=== PATIENT | male | born 1995 | race African-American/Black ===

== ENCOUNTER 2019-06-09 19:56 | Emergency (ER) | payer MEDICARE, MEDICAID, SELFPAY ==
--- NOTE | ~2019-06-09 | XR_ITS ---
EXAMINATION: XR hand LT min 3V DATE: 06/09/2019 20:15 INDICATION: Pain and swelling at the left third metacarpal post basketball injury TECHNIQUE: Posteroanterior, oblique and lateral views of the left hand were obtained. COMPARISON: None. FINDINGS: Oblique extra-articular fracture of the left third metacarpal extending from the radial side of the m id diaphysis to the ulnar side of the proximal metaphyseal region. There is approximately 1 mm ulnar displacement and 1-2 mm proximal migration. No other fractures identified. Joint spaces are normal. S oft tissue swelling over the dorsum of the hand. IMPRESSION: 1. Minimally displaced extra articular third metacarpal diaphyseal fracture. Reviewed, dictated and finalized at location A. ER ARRANGER
[2019-06-09 19:57] VITALS: BP 138/62; PULSE 78; RESP 22; TEMP 37; O2SAT 100
--- NOTE | 2019-06-09 20:07 | ED.UPPEXIN ---
HPI - Extremity Injury (Upper) General Chief Complaint: Extremity Injury, Upper Stated Complaint: L hand injury Time Seen by Provider: 06/09/19 20:02 Source: patient Mode of arrival: ambulatory Limitations: no limitations History of Present Illness HPI narrative: This is a 24 year old male that presents to the ER for left hand injury 2 days ago. Reports he was playing basketball and when he was coming down from shooting the ball his friend hit his hand. Reports some swelling to the area and pain with ROM of the fingers. Denies decreased ROM or numbness. Related Data Home Medications Medication Instructions Recorded Confirmed atenolol 05/23/19 Allergies Allergy/AdvReac Type Severity Reaction Status Date / Time No Known Allergies Allergy Unknown Unverified 05/23/19 20:56 Review of Systems Review of Systems: Narrative: CONSTITUTIONAL: Denies fever SKIN: Denies rash MUSCULOSKELETAL: Reports joint pain, and myalgia. NEUROLOGIC: Denies numbness All systems reviewed & are unremarkable except as noted in HPI and below PMFSH Past Medical History Medical History (Updated 06/09/19 @ 20:41 by Libertad Mireles PA-C) Bipolar 1 disorder Hypertrophic cardiomyopathy Pacemaker Piwoi-Qedadokpw-Hukoq (WPW) syndrome Surgical History Surgical History (Updated 05/23/19 @ 21:11 by Tosin Mckenna) History of heart surgery Social History Social History (Updated 05/23/19 @ 21:11 by Tosin Mckenna) Smoking status: Never smoker Substance use: current Substance use type: marijuana Gender identity (if verbalized by the patient): Male Exam Narrative: Exam Narrative: GENERAL: Well-appearing, well-nourished, and in no acute distress. HEAD: Normocephalic, atraumatic. EYES: EOMI. EXTREMITIES: Normal range of motion. Mild swelling about the left hand dorsal surface. Normal sensation. Normal radial pulses SKIN: Warm, dry, no rash. NEURO: No focal deficits. Alert and oriented x3. PSYCH: Normal mood and affect Course Consultations Consultation #1: Spoke with Dr. Ribeiro about patient work-up will follow-up in clinic Date: 06/09/19 Time: 20:39 Vital Signs Vital signs: Vital Signs Temperature 98.6 F 06/09/19 19:57 Pulse Rate 78 06/09/19 19:57 Respiratory Rate 22 H 06/09/19 19:57 Blood Pressure 138/62 06/09/19 19:57 Pulse Oximetry 100 06/09/19 19:57 Temperature 98.6 F 06/09/19 19:57 Pulse Rate 78 06/09/19 19:57 Respiratory Rate 22 H 06/09/19 19:57 Blood Pressure 138/62 06/09/19 19:57 Pulse Oximetry 100 06/09/19 19:57 Procedures Orthopedic Splinting/Casting Injury #1: Splinting/Casting Date: 06/09/19 Splinting/Casting Time: 20:39 Side: left Upper Extremity Injury Location: hand Upper Extremity Immobilizer: volar splint Splint: customized in ED OCL: short arm Pre-Procedure Neuro Vascular Exam: normal Post-Procedure Neuro Vascular Exam: normal MDM - Extremity Injury (Upper) MDM Narrative Medical decision making narrative: Patient presents the emergency department for left hand injury 2 days ago. Left hand x-ray shows minimally displaced extra-articular third metacarpal diaphyseal fracture. Patient was placed in a volar splint. Spoke with Dr. Ribeiro about patient work-up will follow-up in clinic. Patient was given warnings to return to the ER Imaging Data Radiologist's impression: ITS Impressions Hand X-Ray 06/09/19 20:24 IMPRESSION: 1. Minimally displaced extra articular third metacarpal diaphyseal fracture. Critical Care Time Critical Care Time Critical Care Time: No Discharge Plan Discharge Clinical Impression: Closed displaced fracture of third metacarpal bone of left hand Qualifiers: Encounter type: initial encounter Metacarpal location: shaft Qualified Code(s): S62.323A - Displaced fracture of shaft of third metacarpal bone, left hand, initial encounter for closed fracture Patien
[2019-06-09 21:03] VITALS: BP 124/86; PULSE 81; RESP 20; TEMP 36.8; O2SAT 99
== END 2019-06-09 21:06 | disposition home or self-care (01) ==
PROVIDERS: Emergency Provider Emergency Medicine
DX: S62.323A Displaced fracture of shaft of third metacarpal bone, left hand, initial encounter for closed fracture (principal); F31.9 Bipolar disorder, unspecified; I45.6 Pre-excitation syndrome; Z95.0 Presence of cardiac pacemaker; W51.XXXA Accidental striking against or bumped into by another person, initial encounter
CPT/HCPCS: 29125; 73130; 99284

== ENCOUNTER 2020-02-04 17:09 | Emergency (ER) | payer OTHER, MEDICARE, MEDICAID, SELFPAY ==
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
[2020-02-04 17:34] VITALS: BP 112/70; PULSE 72; RESP 16; TEMP 36.3; O2SAT 100
[2020-02-04] MEDS: KETOROLAC (*BKC) 60 MG/2 ML VIAL IM (18:57)
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
[2020-02-04 20:17] VITALS: BP 133/79; PULSE 75; RESP 16; O2SAT 99
== END 2020-02-04 20:18 | disposition home or self-care (01) ==
PROVIDERS: Emergency Provider Emergency Medicine
DX: S16.1XXA Strain of muscle, fascia and tendon at neck level, initial encounter (principal); S39.012A Strain of muscle, fascia and tendon of lower back, initial encounter; I45.6 Pre-excitation syndrome; I42.2 Other hypertrophic cardiomyopathy; Z96.89 Presence of other specified functional implants; M47.816 Spondylosis without myelopathy or radiculopathy, lumbar region; V49.40XA Driver injured in collision with unspecified motor vehicles in traffic accident, initial encounter
CPT/HCPCS: 72125; 72131; 96372; 99284; J1885

== ENCOUNTER 2020-03-12 16:50 | Emergency (ER) | payer MEDICARE, MEDICAID, SELFPAY ==
[2020-03-12 17:02] VITALS: BP 129/55; PULSE 101; RESP 16; TEMP 36.6; O2SAT 98
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
[2020-03-12] MEDS: FAMOTIDINE 20 MG TABLET PO (17:34)
[2020-03-12] MEDS: methylPREDNISolone SOD SUCC 125 MG VIAL IM (17:35)
== END 2020-03-12 17:51 | disposition home or self-care (01) ==
PROVIDERS: Emergency Provider Nurse Practitioner
DX: L50.9 Urticaria, unspecified (principal); I42.9 Cardiomyopathy, unspecified; Z95.0 Presence of cardiac pacemaker; I45.6 Pre-excitation syndrome
CPT/HCPCS: 96372; 99213; A9270; G0463; J2930

== ENCOUNTER 2020-04-01 20:18 | Observation (INO) | payer MEDICARE, MEDICAID, SELFPAY ==
[2020-04-01] VITALS (18 sets, daily range): BP systolic 108–128; BP diastolic 48–79; PULSE 78–97; RESP 13–33; TEMP 37–37.7; O2SAT 94–100
--- NOTE | ~2020-04-01 | XR_ITS ---
EXAMINATION: XR chest 1V portable DATE: 04/01/2020 21:02 INDICATION: Midsternal chest pain. Shortness of breath. Fever. TECHNIQUE: A single frontal view of the chest was obtained. COMPARISON: Chest 2 views 05/23/2019 FINDINGS: There is no pneumonia, pleural effusion, or pneumothorax. Cardiomegaly is noted. Median aliya rnotomy wires are noted. There is a left chest wall pacer/defibrillator with leads in the right atriu m and right ventricle. Again seen is fracture of the right ventricular lead. IMPRESSION: 1. Cardiomegaly. 2. Chronic fracture of the right ventricular lead. Reviewed, dictated and finalized at location A. RAL ASSEMBLER INSTALLER
--- NOTE | 2020-04-01 20:27 | ECG_ITS ---
Measurements Intervals Garvin Rate: 91 P: 45 DE: 157 QRS: 40 QRSD: 178 T: 137 QT: 399 QTc: 492 Interpretive Statements SINUS RHYTHM LEFT ATRIAL ENLARGEMENT LEFT BUNDLE BRANCH BLOCK ABNORMAL ECG Electronically Signed On 04-02-2020 7:49:36 CHEMISTRY FACULTY MEMBER by Jewel Barrera D.O.
--- NOTE | 2020-04-01 20:37 | ED.SOB ---
HPI - SOB/Dyspnea General Chief Complaint: Shortness of Breath/Dyspnea Stated Complaint: headache Time Seen by Provider: 04/01/20 20:37 Source: patient Mode of arrival: ambulatory Limitations: no limitations History of Present Illness HPI Narrative: Patient is a 25-year-old male with a history of hypertrophic cardiomyopathy, Dpejq-Meeileiqn-Azasf, who presents for evaluation of chest pain, shortness of breath. Patient has had chest pain and shortness of breath over the past 3 days. He states he has had myalgias and fever today. Patient reports pain over the center of his chest without radiation to the back or shoulders. No abdominal pain. Patient denies recent sick contacts. He denies rhinorrhea or congestion. He reports myalgias. No productive cough although he has had a dry cough. Patient states he previously followed with a roof bolter helper at [facility], but since he has become older has not reestablished with any roof bolter helper. He denies leg swelling, leg pain, recent car or air travel. Related Data Home Medications Medication Instructions Recorded Confirmed No Home Medications 03/12/20 03/12/20 Allergies Allergy/AdvReac Type Severity Reaction Status Date / Time No Known Allergies Allergy Unknown Verified 04/01/20 20:31 Review of Systems Review of Systems: Narrative: CONSTITUTIONAL: Reports fever and chills EYES: Denies visual changes, redness, or discharge. ENT: Denies rhinorrhea, congestion, sore throat, or otalgia. CARDIOVASCULAR: Reporting chest pain, denies leg edema RESPIRATORY: Reports dry cough and shortness of breath GASTROINTESTINAL: Denies abdominal pain, nausea, vomiting, or diarrhea. GENITOURINARY: Denies dysuria or hematuria. SKIN: Denies rash or itching. MUSCULOSKELETAL: Denies back pain, joint pain, reports myalgias NEUROLOGIC: Reports headache PSYCHIATRIC: Denies anxiety or depression. [facility] Past Medical History Medical History Bipolar 1 disorder Hypertrophic cardiomyopathy Pacemaker Xhdaf-Whqntreox-Zuokl (WPW) syndrome Surgical History Surgical History History of heart surgery Family History Family History Other No acute medical problems Social History Social History Smoking status: Never smoker Substance use: current Substance use type: marijuana Gender identity (if verbalized by the patient): Male Exam Narrative: Exam Narrative: GENERAL: Awake, alert, conversant HEAD: Normocephalic, atraumatic. EYES: PERRLA and EOMI. ENT: Nares clear, no rhinorrhea or epistaxis. Mucous membranes moist. NECK: Supple. CHEST: No respiratory distress, tachypneic, crackles bilaterally HEART: Regular rate, sinus rhythm, systolic murmur ABDOMEN:Non distended, non tender EXTREMITIES: Normal range of motion. No edema. SKIN: Warm, dry, no rash. NEURO:No focal deficits. Alert and oriented x3 Course Vital Signs Vital signs: Vital Signs Temperature 37.7 C H 04/01/20 20:27 Pulse Rate 97 04/01/20 20:27 Respiratory Rate 20 04/01/20 20:27 Blood Pressure 124/61 04/01/20 20:27 Pulse Oximetry 99 04/01/20 20:27 Temperature 37.7 C H 04/01/20 21:59 Pulse Rate 85 04/01/20 21:59 Respiratory Rate 27 H 04/01/20 21:59 Blood Pressure 118/73 04/01/20 21:59 Pulse Oximetry 98 04/01/20 21:01 MDM - SOB/Dyspnea MDM Narrative Medical decision making narrative: Patient presented for evaluation of chest pain and shortness of breath. At the time of assessment, patient is febrile, borderline tachypneic, not hypoxic, no hypotension. IV access obtained and labs are drawn. Laboratory results show no leukocytosis. No electrolyte derangement. He has a chronic troponin leak which is about consistent with baseline. He has an elevation in his BNP which is m
[2020-04-01 20:58] LABS: Basophils Percent Auto 0.3 % (0.2-1.2); Eosinophils Percent Auto 0.4 % (0-4.4); Hematocrit 42.4 % (42.0-52.0); Hemoglobin 14.2 g/dL (14.0-18.0); Immature Granulocyte Absolute 0.02 K/mm3 (0.00-0.031); Immature Granulocyte Percent A 0.3 % (0-0.5); Lymphocytes Absolute Auto 1.42 K/mm3 (0.9-3.2); Lymphocytes Percent Auto 18.5 % (18.3-44.2); Mean Corpuscular HGB Conc 33.5 g/dl (32-36); Mean Corpuscular Hemoglobin 28.1 pg (26-34); Mean Corpuscular Volume 83.8 fl (80-100); Monocytes Absolute Auto 0.8 K/mm3 (0.1-0.6); Monocytes Percent Auto 10.3 % (2.6-8.5); Neutrophils Absolute Auto 5.4 K/mm3 (1.3-6.7); Neutrophils Percent Auto 70.2 % (45.5-73.1); Platelet Count Result 179 k/mm3 (150-375); Red Blood Count 5.06 M/mm3 (4.6-6.20); White Blood Count 7.7 K/mm3 (4.5-10.0)
[2020-04-01 21:12] LABS: Anion Gap 8 mmol/L (8-16); Blood Urea Nitrogen 9 mg/dL (9-20); Calcium 9.2 mg/dL (8.4-10.2); Carbon Dioxide 31 mmol/L (22-30); Chloride 100 mmol/L (98-107); Estimated CRCL calculation 96 ml/min; Estimated Glomerular Filt Rate > 60; Glucose 86 mg/dL (75-110); Potassium 3.8 mmol/L (3.4-5.0); Sodium 139 mmol/L (137-145)
[2020-04-01] MEDS: ASPIRIN 81 MG CHEWABLE TABLET 324 MG PO (21:26)
[2020-04-01 21:32] LABS: Lactic Acid Reflex 1.4 mmol/L (0.7-2.1)
[2020-04-01 21:42] LABS: NT Pro B Type Natriuretic Pept 1720 PG/ML (5-100)
[2020-04-01 22:01] LABS: Amphetamine Screen Urine Negative (Negative); Barbiturate Screen Urine Negative (Negative); Benzodiazepines Screen Urine Negative (Negative); Cannabinoid Screen Urine Positive (Negative); Cocaine Screen Urine Negative (Negative); Methadone Screen Urine Negative (Negative); Opiate Screen Urine Negative (Negative); Phencyclidine Screen Urine Negative (Negative)
[2020-04-01 23:44] LABS: D Dimer 0.42 ug/mL (<0.48)
[2020-04-01 23:59] LABS: Troponin I 0.224 ng/mL (0.000-0.034)
[2020-04-02] VITALS (73 sets, daily range): BP systolic 94–123; BP diastolic 50–86; PULSE 55–91; RESP 11–27; O2SAT 90–100
[2020-04-02] MEDS: KETOROLAC 15 MG/ML VIAL (*BKC) IV PUSH (00:11)
[2020-04-02 00:29] LABS: Add Urine Microscopic? YES; Appearance Urine Clear (Clear); Bilirubin Urine Negative (Negative); Blood Urine 1+ (Negative); Color Urine Straw (Yellow); Glucose Urine UA Negative (Negative); Ketones Urine Negative (Negative); Leukocyte Esterase Ur Negative LEU/UL (Negative); Mucus Urine Rare /lpf; Nitrate Urine Negative (Negative); Protein Urine Negative (Negative); Specific Grav Ur 1.013 (1.001-1.035); Urobilinogen Urine Negative mg/dL (<2.0); WBC Urine 0-3 /hpf
[2020-04-02 03:27] LABS: Troponin I 0.217 ng/mL (0.000-0.034)
--- NOTE | 2020-04-02 04:27 | PM.IMCN ---
Assessment and Plan Assessment and plan (1) Chest pain: Qualifiers: Chest pain type: unspecified Qualified Code(s): R07.9 - Chest pain, unspecified Code(s): R07.9 - Chest pain, unspecified Status: Acute Assessment and Plan: Denies pain currently. Supportive care. Cardiology consulted. (2) Elevated troponin I level: Code(s): R79.89 - Other specified abnormal findings of blood chemistry Status: Acute Assessment and Plan: Will trend Likely demand ischemia as patient with uncontrolled heart rate. Not on any meds (3) Congestive heart failure: Qualifiers: Heart failure chronicity: acute on chronic Heart failure type: unspecified Qualified Code(s): I50.9 - Heart failure, unspecified Code(s): I50.9 - Heart failure, unspecified Status: Acute Assessment and Plan: Likely secondary to WPW/HOCM uncontrolled heart rate. Gentle diuresis. (4) Fever: Code(s): R50.9 - Fever, unspecified Status: Acute Assessment and Plan: Ruling out Covid Unknown if any sick contacts. Chest xr is clear No leukocytosis Unclear etiology viral illness a possibility Sepsis work up in progress Supportive care Continue to monitor (5) WPW (Ggwec-Bgbqnrlbc-Vprxb syndrome): Code(s): I45.6 - Pre-excitation syndrome Status: Acute Assessment and Plan: On no meds. Follow Cardiology recs. (6) HOCM (hypertrophic obstructive cardiomyopathy): Code(s): I42.1 - Obstructive hypertrophic cardiomyopathy Status: Acute Assessment and Plan: Pacemaker defibrillator in situ however non functional. On no meds HPI Data of Consult Consult date: 04/02/20 Primary Care Provider: PRINTING AGENT PHYSICIAN Consult Narrative Narrative: Willian Collado . is a 25 year old male with PMHx significant for HOCM, WPW, pacemaker defibrillator in situ however non functioning, has not seen a Brimmer Blocker in a while. Presented to ED with complains of fevers x 3 days, sob, no cough, no sputum production, no n/v/abdominal pain/diarrhea, no sore throat, no sick contacts that he is aware of, no pnd, no orthopnea, no leg swelling, no palpitations, no chest pain. Preliminary work up is significant for elevated BNP, elevated Trops. Had fever in ED no other complains at the present time. Review of Systems Review of Systems: Narrative: Fevers, sob. Constitutional: Comments: Subjective fevers. Eyes: Comments: no vision changes. ENT: Comments: no ear ache, no throat pain, no nasal discharge. Cardiovascular: Comments: sob. Respiratory: Comments: sob Gastrointestinal: Comments: poor appetite. Musculoskeletal: Comments: muscle aches and pain. Integumentary/Breasts: Comments: no rashes. Neurologic: Comments: no sensory motor deficit. Hematologic/Lymphatic: Comments: No LAP. [facility] Past Medical History Medical History Bipolar 1 disorder Hypertrophic cardiomyopathy Pacemaker Tavke-Qzcrjygbj-Zofnh (WPW) syndrome Surgical History Surgical History History of heart surgery Family History Family History Other No acute medical problems Social History Social History Smoking status: Never smoker Substance use: current Substance use type: marijuana Gender identity (if verbalized by the patient): Male Meds Home Medications and Allergies Home Medications Medication Instructions Recorded Confirmed Type No Home Medications 03/12/20 03/12/20 History Allergies Allergy/AdvReac Type Severity Reaction Status Date / Time No Known Allergies Allergy Unknown Verified 04/01/20 20:31 Vital Signs Vital Signs - 24 hr 04/01/20 20:27 04/01/20 20:39 04/01/20 20:41 Temperature 99.9 F H Pulse Rate 97 91 92 Resp
--- NOTE | 2020-04-02 04:54 | PC.NURSE ---
Contacted Dr. Lamar for further orders on pt. states there are no further tests to order at this time.
--- NOTE | 2020-04-02 06:00 | ECG_ITS ---
Measurements Intervals Ethan Rate: 61 P: 35 OK: 158 QRS: 27 QRSD: 182 T: 136 QT: 467 QTc: 474 Interpretive Statements SINUS RHYTHM LEFT ATRIAL ENLARGEMENT ABNORMAL ECG LEFT BUNDLE BRANCH BLOCK Electronically Signed On 04-02-2020 7:58:46 AQUATIC CENTRE MANAGER by Jewel Barrera D.O.
--- NOTE | 2020-04-02 07:12 | PC.NURSE ---
Report to TALIA Diaz. She assumed care of pt. at this time.
--- NOTE | 2020-04-02 07:30 | PC.NURSE ---
Pt resting on stretcher. Updated on plan of care. Call light within reach.
--- NOTE | 2020-04-02 08:16 | PC.NURSE ---
Pt to restroom to provide urine sample.
[2020-04-02] MEDS: ASPIRIN 81 MG CHEWABLE TABLET PO (08:21)
--- NOTE | 2020-04-02 09:00 | PC.NURSE ---
Hospitalist at bedside for pt assessment.
--- NOTE | 2020-04-02 09:38 | PM.SD ---
Same Day Admit/Disch: HPI History of Present Illness Chief complaint: headache Narrative: Willian Collado Jr. is a 25 year old male who was admitted overnight for evaluation of chest pain, shortness of breath, and low-grade fever. He has a history of hypertrophic obstructive cardiomyopathy status post myomectomy as a child, and an ICD which is not functioning (for at least a couple years?) due to a chronically fractured RV lead. 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 He was followed at [facility], but since he has become an adult has not had regular cardiology follow-up. He was seen by my group at [facility] in February 2019 for elevated troponins (chronic) and seen a couple times in our office for follow-up. We refered him to [facility] for the Hypertrophic Cardiomyopathy Clinic (Dr. Ferrara) and with electrophysiology (Dr. Petty) but he missed several appointments and has not been seen by a physician there. The patient had his birthday on [birth year] and apparently drank a lot and may have been doing some dancing. He started having sharp right parasternal chest pain about 3 days ago, somewhat pleuritic, which seemed to be getting worse and worse. Denied any trauma. He also had some shortness of breath, felt like he was burning up, had a headache and decreased appetite and was fatigued. He did not have any cough, no fever at home, no loss of taste or smell. His girlfriend urged him to come to the emergency room. He had elevated troponins (peaked at 0.22) and was kept overnight for observation. His temperature is 99.9? on admission and then resolved. He was given some IV Toradol. This morning he is feeling much better, with only mild pleuritic chest pain and tenderness. Mr. Collado does have some chronic MADSEN when he is very active which he notes seems to be getting worse as he has gotten older. However, he is fairly active and does not feel a lot of limitation. No exertional chest pain. He does have occasional palpitations at rest lasting for few minutes. I do not know if he has had any documented arrhythmias. No syncope. No edema. His mother of HOCM age 36. He has a child who has been screened apparently is negative so far. Records from [place] were reviewed, our office records were reviewed and records from [facility] were reviewed. Patient had an echo in November at our office showing severe concentric left ventricular hypertrophy, no gradient at rest, mild LV enlargement, diastolic dysfunction, EF 65-70%, severe right ventricular hypertrophy, left atrial enlargement, mild MR/TR/PI. PMFSH Past Medical History Medical History (Updated 04/02/20 @ 10:17 by Sole Lamar MD) Bipolar 1 disorder Hypertrophic cardiomyopathy Malfunction of electrode lead of implantable cardioverter-defibrillator (ICD) Pacemaker Hfuqp-Pjeabgztx-Mlldp (WPW) syndrome Surgical History Surgical History (Updated 04/02/20 @ 10:04 by Sole Lamar MD) History of heart surgery Apparently had myomectomy in [place] around 9 years old. Family History Family History (Updated 04/02/20 @ 10:05 by Sole Lamar MD) Mother Heart disease Apparently of CHF/HOCM age 36 Grandparent Heart disease Says grandfather had the same heart disease that he has Other No acute medical problems Social History Social History (Updated 04/02/20 @ 10:06 by Sole Lamar MD) Social History: Has a girlfriend. Also young son. Smoking status: Never smoker Alcohol intake: current Substance use: current Substance use type: marijuana Living arrangements: with family Gender identity (if verbalized by the patient): Male Same Day Admit/Disch: Med Pre-admit Medications Home Medications Medication Instructions Recorded Confirmed Type ibuprofen [Advil] 400 mg PO TID PRN #20 tablet 04/02/20 Rx Exam Narrative: Exam Na
--- NOTE | 2020-04-02 09:52 | PC.NURSE ---
Dr. Lamar at bedside for assessment. Reports she feels comfortable with discharge home and having patient follow up with his green promotions specialist at [facility]. Echo was found from earlier this year so patient does not need to have another echo done today. Contacting hospitalist to ensure no further treatment is wanted before patient is discharged home.
[2020-04-02 13:43] LABS: SARS-CoV-2 RNA PCR Negative
== END 2020-04-02 10:59 | disposition home or self-care (01) ==
LOC: ANHED 04-02 09:53 → ANH3MEDSUR 04-05 10:49
PROVIDERS: Admitting Provider Internal Medicine Cardiovascular Disease; Emergency Provider Emergency Medicine; Visit Provider Internal Medicine Cardiovascular Disease
DX: R07.89 Other chest pain (principal); R79.89 Other specified abnormal findings of blood chemistry; I50.9 Heart failure, unspecified; R50.9 Fever, unspecified; R06.02 Shortness of breath; I45.6 Pre-excitation syndrome; I42.1 Obstructive hypertrophic cardiomyopathy; I44.7 Left bundle-branch block, unspecified; M79.10 Myalgia, unspecified site; F31.9 Bipolar disorder, unspecified; F12.90 Cannabis use, unspecified, uncomplicated; T82.198A Other mechanical complication of other cardiac electronic device, initial encounter; R94.31 Abnormal electrocardiogram [ECG] [EKG]; Z95.0 Presence of cardiac pacemaker; Z20.828 Contact with and (suspected) exposure to other viral communicable diseases
CPT/HCPCS: 36415; 71045; 80048; 80307; 81001; 83605; 83880; 84484; 85025; 85380; 87040; 87635; 87804; 93005; 96374; 99285; A9270; C9803; G0378; J1885; U0003

== ENCOUNTER 2021-01-13 22:53 | Emergency (ER) | payer MEDICARE, MEDICAID, SELFPAY ==
--- NOTE | ~2021-01-13 | CT_ITS ---
EXAMINATION: CTA chest PE protocol EXAM DATE: 01/14/2021 00:21 INDICATION: Chest, neck, left arm pain. Pacemaker. TECHNIQUE: Spiral CTA of the chest (pulmonary arteries) was performed with 100 cc Omnipaque 350 intr avenous contrast injection. Images were acquired during the pulmonary arterial phase. Coronal maxi mum intensity projection 3D-reconstructions were created by the technologist on dedicated workstation . Axial, coronal and sagittal reformatted images were reviewed. The dose-length product (DLP) for t his examination was 335.12 mGy-cm. The exposure was tailored according to patient size (auto mA exp osure control), and iterative reconstruction (ASIR) was used as additional dose reduction technique. There is no prior study for comparison. FINDINGS: There are no pulmonary emboli in the 1st through 3rd order (central and interlobar) pulmon meghann arteries. Some loss of attenuation in the segmental pulmonary arteries due to respiratory motion , but no intraluminal filling defects suspected. No thoracic aortic dissection. The lungs are brendan r. There are no pleural or pericardial effusions. Tracheobronchial tree is patent. There is no mediastinal, hilar or axillary lymphadenopathy. There is no pneumothorax. There is left cardiomeg devi with ventricular hypertrophy. There is left-sided pacemaker/AICD leads, some adjacent gas could i ndicate recent manipulation (AICD pack may have been removed). There are sternotomy wires No evidence of coronary arterial calcification. Upper abdomen is unremarkable. There is thoracic spondylosis without osteoblastic or osteolytic lesions identified. IMPRESSION: 1. No acute cardiopulmonary findings. 2. Cardiomegaly, left ventricular hypertrophy. Reviewed, dictated and finalized at location A.
--- NOTE | ~2021-01-13 | XR_ITS ---
EXAMINATION: XR chest 1V portable EXAM DATE: 01/13/2021 23:48 INDICATION: Chest pain. TECHNIQUE: Portable AP frontal chest x-ray was obtained. Comparison is made to prior examination from 04/01/2020. FINDINGS: Pacemaker/AICD leads. Sternotomy wires. Mild cardiomegaly unchanged. No confluent consolida tion, pneumothorax or pleural effusion suspected. There are no osseous abnormalities identified. IMPRESSION: 1. No acute cardiopulmonary findings. Reviewed, dictated and finalized at location A.
[2021-01-13 22:56] VITALS: BP 120/68; PULSE 54; RESP 13; TEMP 36.5; O2SAT 100
[2021-01-13 23:08] VITALS: PULSE 57
--- NOTE | 2021-01-13 23:18 | ECG_ITS ---
Measurements Intervals [place] Rate: 51 P: 40 TN: 152 QRS: 22 QRSD: 190 T: 132 QT: 501 QTc: 463 Interpretive Statements SINUS BRADYCARDIA LEFT ATRIAL ENLARGEMENT LEFT BUNDLE BRANCH BLOCK ABNORMAL ECG Electronically Signed On 01-14-2021 6:51:15 CDT by Jewel Barrera D.O.
[2021-01-13 23:28] LABS: Basophils Absolute Auto 0.1 K/mm3 (0.0-0.1); Basophils Percent Auto 0.8 % (0.2-1.2); Eosinophils Absolute Auto 0.2 K/mm3 (0-0.3); Hematocrit 41.7 % (42.0-52.0); Hemoglobin 13.5 g/dL (14.0-18.0); Immature Granulocyte Absolute 0.01 K/mm3 (0.00-0.031); Immature Granulocyte Percent A 0.2 % (0-0.5); Lymphocytes Absolute Auto 1.99 K/mm3 (0.9-3.2); Lymphocytes Percent Auto 33.4 % (18.3-44.2); Mean Corpuscular HGB Conc 32.4 g/dl (32-36); Mean Corpuscular Hemoglobin 27.6 pg (26-34); Mean Corpuscular Volume 85.3 fl (80-100); Mean Platelet Volume 10.9 fl (7.4-10.4); Monocytes Absolute Auto 0.5 K/mm3 (0.1-0.6); Monocytes Percent Auto 8.6 % (2.6-8.5); Neutrophils Absolute Auto 3.2 K/mm3 (1.3-6.7); Platelet Count Result 177 k/mm3 (150-375); Red Blood Count 4.89 M/mm3 (4.6-6.20)
[2021-01-13 23:34] VITALS: BP 105/63; PULSE 62; RESP 17; O2SAT 100
[2021-01-13 23:37] LABS: Add Urine Microscopic? NO; Appearance Urine Clear (Clear); Bilirubin Urine Negative (Negative); Blood Urine Negative (Negative); Color Urine Yellow (Yellow); Glucose Urine UA Negative (Negative); Ketones Urine Negative (Negative); Leukocyte Esterase Ur Negative LEU/UL (Negative); Nitrate Urine Negative (Negative); Protein Urine Negative (Negative); Specific Grav Ur 1.016 (1.001-1.035); Urobilinogen Urine Negative mg/dL (<2.0)
[2021-01-13 23:38] LABS: Prothrombin Time 12.7 Seconds (11.1-14.7)
[2021-01-13 23:39] LABS: Partial Thromboplastin Time 30.9 SECONDS (22.3-36.8)
[2021-01-13 23:51] LABS: Alanine Aminotransferase 13 U/L (4-50); Albumin Level 4.2 g/dL (3.5-5.1); Alkaline Phosphatase 57 U/L (38-126); Anion Gap 10 mmol/L (8-16); Aspartate Amino Transferase 30 U/L (17-59); Bilirubin,Total 0.6 mg/dL (0.2-1.3); Blood Urea Nitrogen 8 mg/dL (9-20); Calcium 9.1 mg/dL (8.4-10.2); Carbon Dioxide 25 mmol/L (22-30); Chloride 104 mmol/L (98-107); Estimated CRCL calculation 93 ml/min; Estimated Glomerular Filt Rate > 60; Glucose 110 mg/dL (65-110); Potassium 4.2 mmol/L (3.4-5.0); Sodium 139 mmol/L (137-145)
[2021-01-14] VITALS (10 sets, daily range): BP systolic 102–120; BP diastolic 50–80; PULSE 51–63; RESP 16–21; O2SAT 98–100
--- NOTE | 2021-01-14 00:10 | ED.GENADULT ---
HPI - General Adult General Chief complaint: Chest Pain Stated complaint: neck & left arm pain Time Seen by Provider: 01/13/21 23:04 History of Present Illness HPI narrative: Patient 25-year-old gentleman who presents the emergency department with chief complaint of left-sided chest discomfort. Patient reports he has history of hypertrophic cardiomyopathy and his history of myomectomy the patient states that on Saturday he had his AICD that was nonfunctional removed from his chest. The patient states that today he noticed that he had some discomfort in his left shoulder radiating up into his neck into his anterior chest wall. Patient denies fever denies chills denies shortness of breath. Related Data Home Medications Medication Instructions Recorded Confirmed aspirin [Baby Aspirin] 01/13/21 atenolol 01/13/21 Allergies Allergy/AdvReac Type Severity Reaction Status Date / Time No Known Allergies Allergy Unknown Verified 01/13/21 23:09 Review of Systems Review of Systems: A 10 system review of systems was completed on the patient and is negative except for what is stated in the HPI. Nursing and ancillary documentation was reviewed. [facility] Past Medical History Medical History Bipolar 1 disorder Hypertrophic cardiomyopathy Malfunction of electrode lead of implantable cardioverter-defibrillator (ICD) Pacemaker Hgnvv-Soerzrqbt-Eeggz (WPW) syndrome Surgical History Surgical History History of heart surgery Apparently had myomectomy in [place] around 9 years old. Family History Family History Mother Heart disease Apparently of CHF/HOCM age 36 Grandparent Heart disease Says grandfather had the same heart disease that he has Other No acute medical problems Social History Social History Social History: Has a girlfriend. Also young son. Smoking status: Never smoker Alcohol intake: current Substance use: current Substance use type: marijuana Gender identity (if verbalized by the patient): Male Exam Narrative: GENERAL: Well-appearing, well-nourished, and in no acute distress. HEAD: Normocephalic, atraumatic. EYES: PERRLA and EOMI. ENT: Nares clear, no rhinorrhea or epistaxis. Mucous membranes moist. NECK: Supple. CHEST: Clear to auscultation. No respiratory distress. HEART: Regular rate and rhythm. No murmur heard. Normal peripheral pulses. ABDOMEN: Soft, nontender, nondistended, normal active bowel sounds. EXTREMITIES: Normal range of motion. No edema. SKIN: Warm, dry, no rash. There is a sutured incision in the left anterior chest wall just inferior to the shoulder at the location of the previous AICD NEURO: No focal deficits. Alert and oriented x3. PSYCH: Normal mood and affect. Course Vital Signs Vital signs: Vital Signs Temperature 36.5 C 01/13/21 22:56 Pulse Rate 54 L 01/13/21 22:56 Respiratory Rate 13 01/13/21 22:56 Blood Pressure 120/68 01/13/21 22:56 Pulse Oximetry 100 01/13/21 22:56 Temperature 36.5 C 01/13/21 22:56 Pulse Rate 52 L 01/14/21 05:02 Respiratory Rate 16 01/14/21 05:02 Blood Pressure 115/75 01/14/21 05:02 Pulse Oximetry 100 01/14/21 05:02 Medical Decision Making Vital Signs Vital Signs: Vital Signs Temperature 36.5 C 01/13/21 22:56 Pulse Rate 54 L 01/13/21 22:56 Respiratory Rate 13 01/13/21 22:56 Blood Pressure 120/68 01/13/21 22:56 Pulse Oximetry 100 01/13/21 22:56 Temperature 36.5 C 01/13/21 22:56 Pulse Rate 52 L 01/14/21 05:02 Respiratory Rate 16 01/14/21 05:02 Blood Pressure 115/75 01/14/21 05:02 Pulse Oximetry 100 01/14/21 05:02 Lab Data Result diagrams: 01/13/21 23:22 01/13/21 23:22
[2021-01-14 00:17] LABS: Troponin I 0.126 ng/mL (0.000-0.034)
[2021-01-14 02:41] LABS: Troponin I 0.154 ng/mL (0.000-0.034)
[2021-01-14 05:59] LABS: Troponin I 0.159 ng/mL (0.000-0.034)
== END 2021-01-14 06:14 | disposition home or self-care (01) ==
PROVIDERS: Emergency Provider Emergency Medicine
DX: R07.89 Other chest pain (principal); R79.89 Other specified abnormal findings of blood chemistry; I42.2 Other hypertrophic cardiomyopathy; I45.6 Pre-excitation syndrome; Z79.82 Long term (current) use of aspirin; R00.1 Bradycardia, unspecified; I44.7 Left bundle-branch block, unspecified; R94.31 Abnormal electrocardiogram [ECG] [EKG]
CPT/HCPCS: 36415; 71045; 71275; 80053; 81003; 84484; 85025; 85610; 85730; 93005; 96365; 99284; J0131; Q9967

== ENCOUNTER 2021-02-05 23:48 | Emergency (ER) | payer MEDICARE, MEDICAID, SELFPAY ==
--- NOTE | ~2021-02-05 | XR_ITS ---
EXAMINATION: XR chest 2V DATE: 02/06/2021 00:14 INDICATION: Chest pain. TECHNIQUE: Frontal and lateral views of the chest were obtained. COMPARISON: Chest single view 01/13/2021 FINDINGS: There is no pneumonia, pleural effusion, or pneumothorax. Cardiomegaly is noted. Median aliya rnotomy wires are noted. There are retained pacer leads with tips in the right atrium and right ventr icle. IMPRESSION: 1. Cardiomegaly. Reviewed, dictated and finalized at location A. IMPRESSION: 1. Cardiomegaly.
--- NOTE | 2021-02-05 23:49 | ECG_ITS ---
Measurements Intervals [place] Rate: 66 P: 36 HI: 165 QRS: 33 QRSD: 182 T: 134 QT: 449 QTc: 472 Interpretive Statements SINUS RHYTHM LEFT ATRIAL ENLARGEMENT LEFT BUNDLE BRANCH BLOCK ABNORMAL ECG Electronically Signed On 02-06-2021 5:46:25 CDT by Jewel Barrera D.O.
[2021-02-05 23:53] VITALS: BP 121/80; PULSE 67; RESP 18; TEMP 36.7; O2SAT 98
[2021-02-06 00:12] LABS: Basophils Percent Auto 0.4 % (0.2-1.2); Eosinophils Absolute Auto 0.1 K/mm3 (0-0.3); Eosinophils Percent Auto 1.2 % (0-4.4); Hematocrit 41.2 % (42.0-52.0); Hemoglobin 13.6 g/dL (14.0-18.0); Immature Granulocyte Absolute 0.02 K/mm3 (0.00-0.031); Immature Granulocyte Percent A 0.3 % (0-0.5); Lymphocytes Absolute Auto 1.47 K/mm3 (0.9-3.2); Lymphocytes Percent Auto 20.3 % (18.3-44.2); Mean Corpuscular Hemoglobin 27.6 pg (26-34); Mean Corpuscular Volume 83.7 fl (80-100); Mean Platelet Volume 10.9 fl (7.4-10.4); Monocytes Absolute Auto 0.9 K/mm3 (0.1-0.6); Monocytes Percent Auto 12.6 % (2.6-8.5); Neutrophils Absolute Auto 4.7 K/mm3 (1.3-6.7); Neutrophils Percent Auto 65.2 % (45.5-73.1); Platelet Count Result 177 k/mm3 (150-375); Red Blood Count 4.92 M/mm3 (4.6-6.20); Red Cell Distribution Width 12.1 % (11.5-14.5); White Blood Count 7.2 K/mm3 (4.5-10.0)
[2021-02-06 00:24] LABS: Anion Gap 10 mmol/L (8-16); Blood Urea Nitrogen 15 mg/dL (9-20); Calcium 9.4 mg/dL (8.4-10.2); Carbon Dioxide 25 mmol/L (22-30); Chloride 102 mmol/L (98-107); Estimated CRCL calculation 91 ml/min; Estimated Glomerular Filt Rate > 60; Glucose 95 mg/dL (65-110); Potassium 4.2 mmol/L (3.4-5.0); Prothrombin Time 13.2 Seconds (11.1-14.7); Sodium 137 mmol/L (137-145)
[2021-02-06 00:25] LABS: Partial Thromboplastin Time 30.2 SECONDS (22.3-36.8)
[2021-02-06 00:58] VITALS: PULSE 68
[2021-02-06 01:00] VITALS: BP 124/79; PULSE 72; RESP 28; O2SAT 100
[2021-02-06 01:01] VITALS: O2SAT 100
--- NOTE | 2021-02-06 01:02 | PC.NURSE ---
Called laboratory and added D DIMER to labs sent down previously. Spoke to
[2021-02-06 01:18] LABS: D Dimer 0.27 ug/mL (<0.48)
--- NOTE | 2021-02-06 01:30 | ED.CHESTPAIN ---
HPI - Chest Pain General Chief Complaint: Chest Pain Stated Complaint: Chest pain Time Seen by Provider: 02/06/21 00:45 Source: RN notes reviewed History of Present Illness HPI narrative: Patient presents emergency room from home for chest pain. Patient states that he has had chest pain for the past 2 days. States the pain is located in the midsternal chest and does not radiate described as sharp and stabbing. States the pain has been constant for the past 2 days pain is worse with deep inspiration of movement of the torso states he has been taking aspirin for pain at home he denies any fevers or chills shortness of breath abdominal pain nausea vomiting or any other symptoms patient does have a history of Dhvaf-Ryznmklhv-Dgdxl disease saw by cardiology at [facility] he states he just had his pacemaker removed several weeks ago Related Data Home Medications Medication Instructions Recorded Confirmed aspirin [Baby Aspirin] 01/13/21 atenolol 01/13/21 Allergies Allergy/AdvReac Type Severity Reaction Status Date / Time No Known Allergies Allergy Unknown Verified 02/06/21 00:59 Review of Systems Review of Systems: Gen.: Denies fevers or chills ENT: Denies congestion Respiratory: Denies shortness of breath or cough CV: See HPI GI: Denies abdominal pain nausea, emesis or diarrhea Musculoskeletal: Denies back pain or muscle pain Neuro: Denies numbness, tingling, weakness or focal weakness Skin: Denies rash Except as documented, all other systems reviewed and negative [facility] Past Medical History Medical History Bipolar 1 disorder Hypertrophic cardiomyopathy Malfunction of electrode lead of implantable cardioverter-defibrillator (ICD) Pacemaker Vhhav-Foioipqwx-Dbens (WPW) syndrome Surgical History Surgical History History of heart surgery Apparently had myomectomy in [place] around 9 years old. Family History Family History Mother Heart disease Apparently of CHF/HOCM age 36 Grandparent Heart disease Says grandfather had the same heart disease that he has Other No acute medical problems Social History Social History Social History: Has a girlfriend. Also young son. Smoking status: Never smoker Alcohol intake: current Substance use: current Substance use type: marijuana Gender identity (if verbalized by the patient): Male Exam Narrative: APPEARANCE: No acute distress, nontoxic, resting in bed EYES: EOMI HEENT: Normocephalic, atraumatic, OMM RESPIRATORY: No respiratory distress Clear to auscultation bilaterally with no rhonchi wheezing or rales. CARDIOVASCULAR: Regular rate and rhythm without murmurs rubs or gallops. Chest: Tender palpation of the bilateral anterior lower chest wall pain increased with deep inspiration and movement of the torso ABDOMINAL: Soft, nontender, nondistended, no rebound or guarding MUSCULOSKELETAl: Moves all extremities. No clubbing, cyanosis or edema. NEURO: Awake and alert. Following commands, speech normal, no focal deficits SKIN:: Warm, dry. No rashes lesions or abrasions PSYCHIATRIC: Normal affect/mood, Course Course Emergency Course: Reviewed old records patient with chronically elevated troponin levels Patient states chest pain is resolved following medication Discussed with patient results of workup and diagnosis. Discussed need for follow-up with primary care, proper use of medication, and reasons to return to the emergency department. Patient understands and agrees to current treatment plan Vital Signs Vital signs: Vital Signs Temperature 98.0 F 02/05/21 23:53 Pulse Rate 67 02/05/21 23:53 Respiratory Rate 18 02/05/21 23:53 Blood Pressure 121/80 02/05/21 23:53 Pulse Oximetry 98
[2021-02-06 02:17] VITALS: BP 122/72; PULSE 75; RESP 29; O2SAT 100
[2021-02-06] MEDS: KETOROLAC 30 MG/ML VIAL (*BKC) IV PUSH (02:17)
[2021-02-06 03:18] LABS: Troponin I 0.138 ng/mL (0.000-0.034)
[2021-02-06 03:53] VITALS: BP 122/72; PULSE 82; RESP 16; O2SAT 98
== END 2021-02-06 03:44 | disposition home or self-care (01) ==
PROVIDERS: Emergency Provider Emergency Medicine
DX: R07.89 Other chest pain (principal); R79.89 Other specified abnormal findings of blood chemistry; I44.7 Left bundle-branch block, unspecified; R94.31 Abnormal electrocardiogram [ECG] [EKG]
CPT/HCPCS: 36415; 71046; 80048; 84484; 85025; 85380; 85610; 85730; 93005; 96374; 99284; J1885

== ENCOUNTER 2021-08-08 06:47 | Emergency (ER) | payer MEDICARE, MEDICAID, SELFPAY ==
[2021-08-08 06:54] VITALS: BP 125/73; PULSE 64; RESP 16; TEMP 37.1; O2SAT 99
[2021-08-08] MEDS: ONDANSETRON INJ 4 MG/2 ML VIAL IV PUSH (07:03)
[2021-08-08] MEDS: SODIUM CHLORIDE 0.9% IV 1,000 ML 999 ML IV CONT (07:03)
[2021-08-08 07:06] LABS: Basophils Percent Auto 0.5 % (0.2-1.2); Eosinophils Absolute Auto 0.1 K/mm3 (0-0.3); Hematocrit 43.4 % (42.0-52.0); Hemoglobin 14.3 g/dL (14.0-18.0); Immature Granulocyte Absolute 0.01 K/mm3 (0.00-0.031); Immature Granulocyte Percent A 0.2 % (0-0.5); Lymphocytes Percent Auto 14.9 % (18.3-44.2); Mean Corpuscular HGB Conc 32.9 g/dl (32-36); Mean Corpuscular Hemoglobin 27.3 pg (26-34); Mean Corpuscular Volume 82.8 fl (80-100); Monocytes Absolute Auto 0.6 K/mm3 (0.1-0.6); Monocytes Percent Auto 9.9 % (2.6-8.5); Neutrophils Absolute Auto 4.5 K/mm3 (1.3-6.7); Neutrophils Percent Auto 73.5 % (45.5-73.1); Platelet Count Result 223 k/mm3 (150-375); Red Blood Count 5.24 M/mm3 (4.6-6.20); White Blood Count 6.1 K/mm3 (4.5-10.0)
--- NOTE | 2021-08-08 07:41 | ED.NAVMDI ---
HPI - Nausea/Vomiting/Diarrhea General Chief complaint: Nausea/Vomiting/Diarrhea Stated complaint: vomiting Time Seen by Provider: 08/08/21 07:23 Source: patient Mode of arrival: ambulatory Limitations: no limitations History of Present Illness HPI Narrative: 26-year-old male presents emergency room secondary to nausea and vomiting which began about 3:00 this morning. He had about 4-5 episodes of vomiting prior to come to the emergency room. States his girlfriend was sick with similar type symptoms approximately a week ago. Has had no documented chills or fevers. No blood in his vomitus. Patient's had an extensive medical history related to his heart. Patient's had open heart surgery also has a pacemaker inserted. Related Data Home Medications Medication Instructions Recorded Confirmed aspirin [Baby Aspirin] 01/13/21 atenolol 01/13/21 Allergies Allergy/AdvReac Type Severity Reaction Status Date / Time No Known Allergies Allergy Unknown Verified 08/08/21 06:59 Review of Systems Review of Systems: CONSTITUTIONAL: Denies fever, chills, or sweats. EYES: Denies visual changes, redness, or discharge. ENT: Denies rhinorrhea, congestion, sore throat, or otalgia. CARDIOVASCULAR: Denies chest pain, palpitations, or edema. RESPIRATORY: Denies cough or dyspnea. GASTROINTESTINAL: Patient is having vomiting but no nausea or diarrhea GENITOURINARY: Denies dysuria or hematuria. SKIN: Denies rash or itching. MUSCULOSKELETAL: Denies back pain, joint pain, or myalgia. NEUROLOGIC: Denies headache, numbness, or weakness. PSYCHIATRIC: Denies anxiety or depression. [facility] Past Medical History Medical History Bipolar 1 disorder Hypertrophic cardiomyopathy Malfunction of electrode lead of implantable cardioverter-defibrillator (ICD) Pacemaker Mwvvf-Llsuqwnge-Ellgr (WPW) syndrome Surgical History Surgical History History of heart surgery Apparently had myomectomy in [place] around 9 years old. Family History Family History Mother Heart disease Apparently of CHF/HOCM age 36 Grandparent Heart disease Says grandfather had the same heart disease that he has Other No acute medical problems Social History Social History Social History: Has a girlfriend. Also young son. Smoking status: Never smoker Alcohol intake: current Substance use: current Substance use type: marijuana Gender identity (if verbalized by the patient): Male Exam Narrative: APPEARANCE: Well appearing, no pain or distress, well-nourished. Head normocephalic and atraumatic. EYES: PERRLA/EOMI, conjunctivae very clear. NOSE: Normal with no drainage EARS:TMS clear Shantel Solis, with good light reflex. THROAT: Pharynx clear, no exudate. NECK: Supple. No adenopathy, no masses. RESPIRATORY: Airway patent, respirations nonlabored. Clear to auscultation bilaterally, no rales, rhonchi, wheezing. CARDIOVASCULAR: Regular rate and rhythm without murmurs, rubs, or gallops. ABDOMINAL: Soft, nontender, nondistended, no hepatosplenomegaly Musculoskeletal: Moves all extremities. Strength/ROM intact, No edema, No calf tenderness. NEURO: Alert. Cranial nerves II through XII intact. Normal gait. Good coordination. Nonfocal examination. SKIN:: Warm, dry. Normal Color PSYCHIATRIC: Normal affect/mood, normal interaction Course Vital Signs Vital signs: Vital Signs Temperature 98.7 F 08/08/21 06:54 Pulse Rate 64 08/08/21 06:54 Respiratory Rate 16 08/08/21 06:54 Blood Pressure 125/73 08/08/21 06:54 Pulse Oximetry 99 08/08/21 06:54 Temperature 98.7 F 08/08/21 06:54 Pulse Rate 64 08/08/21 06:54 Respiratory Rate 16 08/08/21 06:54 Blood Pressure 125/73 08/08/21 06:54 Pulse Oximetry 99 08/08/21
[2021-08-08 08:00] VITALS: BP 110/61; PULSE 57; RESP 17; O2SAT 99
[2021-08-08 09:00] VITALS: BP 114/67; PULSE 55; RESP 17; O2SAT 100
[2021-08-08 09:38] VITALS: BP 121/77; PULSE 60; RESP 16; O2SAT 100
--- NOTE | 2021-08-12 23:00 | PC.NURSE ---
LATE ENTRY pt ns infused/stopped approx [id number] on 08/08/2021 This note is being entered to document information to the patient's record. The following information was omitted on [08/12/2021], by [Akil Tony].
== END 2021-08-08 09:38 | disposition home or self-care (01) ==
PROVIDERS: Emergency Medicine; Emergency Provider Emergency Medicine
DX: K52.9 Noninfective gastroenteritis and colitis, unspecified (principal); I42.2 Other hypertrophic cardiomyopathy; Z95.0 Presence of cardiac pacemaker; I45.6 Pre-excitation syndrome; Z79.82 Long term (current) use of aspirin
CPT/HCPCS: 36415; 85025; 96361; 96374; 99284; J2405; J7030

== ENCOUNTER 2021-09-19 13:00 | Emergency (ER) | payer OTHER, SELFPAY ==
[2021-09-19 13:24] VITALS: BP 112/64; PULSE 61; RESP 17; TEMP 37; O2SAT 100
[2021-09-19 14:47] LABS: Anion Gap 6 mmol/L (8-16); Blood Urea Nitrogen 6 mg/dL (9-20); Calcium 9.2 mg/dL (8.4-10.2); Carbon Dioxide 29 mmol/L (22-30); Chloride 104 mmol/L (98-107); Estimated CRCL calculation 75 ml/min; Estimated Glomerular Filt Rate > 60; Glucose 92 mg/dL (65-110); Magnesium 1.8 mg/dL (1.6-2.3); Potassium 4.4 mmol/L (3.4-5.0); Sodium 139 mmol/L (137-145)
--- NOTE | 2021-09-19 15:55 | ED.BACK ---
HPI - Back Pain/Injury General Chief Complaint: Back Pain/Injury Stated Complaint: back pain Time Seen by Provider: 09/19/21 13:37 History of Present Illness HPI Narrative: Patient is a 26-year-old male who presents to the ER with back pain. Intermittent over the last 4 days. Usually occurs with rest. Feels tightness between his spine and his shoulder. No chest pain or chest pressure or shortness of breath. No syncope or dizziness. Has history of hokum. 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 Has no pain at this time. No recent trauma. Has been able to continue playing basketball. Related Data Home Medications Medication Instructions Recorded Confirmed aspirin [Baby Aspirin] 01/13/21 atenolol 01/13/21 Allergies Allergy/AdvReac Type Severity Reaction Status Date / Time No Known Allergies Allergy Unknown Verified 08/08/21 06:59 Review of Systems Review of Systems: All systems reviewed & are unremarkable except as noted in HPI and below Constitutional: Constitutional: Denies chills, Denies fever(s) and Denies weakness ENT: Denies nasal congestion and Denies sore throat Cardiovascular: Cardiovascular: Denies chest pain, Denies rapid heart rate and Denies radiating jaw, neck or arm pain Respiratory: Respiratory: Denies cough and Denies dyspnea Gastrointestinal: Gastrointestinal: Denies nausea and Denies vomiting Musculoskeletal: Musculoskeletal: Denies arthralgias, Denies joint swelling and Reports muscle cramps Neurologic: Denies dizziness and Denies syncope PMFSH Past Medical History Medical History Bipolar 1 disorder Hypertrophic cardiomyopathy Malfunction of electrode lead of implantable cardioverter-defibrillator (ICD) Pacemaker Ywtam-Uypqbwuoh-Nqoth (WPW) syndrome Surgical History Surgical History History of heart surgery Apparently had myomectomy in [place] around 9 years old. Family History Family History Mother Heart disease Apparently of CHF/HOCM age 36 Grandparent Heart disease Says grandfather had the same heart disease that he has Other No acute medical problems Social History Social History Social History: Has a girlfriend. Also young son. Smoking status: Never smoker Alcohol intake: current Substance use: current Substance use type: marijuana Gender identity (if verbalized by the patient): Male Exam Narrative: GENERAL: Well-appearing, well-nourished, and in no acute distress. HEAD: Normocephalic, atraumatic. EYES: PERRL and EOMI. CHEST: Clear to auscultation. No respiratory distress. Surgical scar left upper chest from previous pacemaker. HEART: Regular rate and rhythm. Normal peripheral pulses. ABDOMEN: Soft, nontender, nondistended. Back: No reproducible midline tenderness of the T/L-spine. No reproducible spasm or pain in the paraspinal musculature. EXTREMITIES: Normal range of motion. No edema. SKIN: Warm, dry, no rash. NEURO: Alert and oriented x3. PSYCH: Normal mood and affect. Course Course Emergency Course: Patient resting comfortably. Informed results. Encouraged hydration and will give muscle relaxers. Patient verbalized understanding of treatment plan. Vital Signs Vital signs: Vital Signs Temperature 98.6 F 09/19/21 13:24 Pulse Rate 61 09/19/21 13:24 Respiratory Rate 17 09/19/21 13:24 Blood Pressure 112/64 09/19/21 13:24 Pulse Oximetry 100 09/19/21 13:24 Temperature 98.6 F 09/19/21 13:24 Pulse Rate 61 09/19/21 13:24 Respiratory Rate 17 09/19/21 13:24 Blood Pressure 112/64 09/19/21 13:24 Pulse Oximetry 100 09/19/21 13:24 MDM - Back Pain/Injury Lab Data Result diagrams: 09/19/21 14:31 Labs: Lab Results 09/19/21 Range/Units 1
[2021-09-19 16:38] VITALS: BP 116/68; PULSE 70; RESP 16; TEMP 36.8; O2SAT 100
== END 2021-09-19 16:40 | disposition home or self-care (01) ==
PROVIDERS: Emergency Provider Emergency Medicine
DX: M62.830 Muscle spasm of back (principal)
CPT/HCPCS: 36415; 80048; 83735; 99283

== ENCOUNTER 2021-09-27 08:10 | Emergency (ER) | payer OTHER, SELFPAY ==
[2021-09-27] VITALS (63 sets, daily range): BP systolic 98–126; BP diastolic 52–99; PULSE 49–65; RESP 8–44; TEMP 36.6; O2SAT 95–100
--- NOTE | ~2021-09-27 | XR_ITS ---
XR chest 2V 09/27/2021 08:44 Indication: Pulmonary embolism Procedure: PA and lateral views of the chest Comparison: Comparison to multiple prior studies sequentially, with oldest reviewed study dated 05/23. Findings: Cardiomegaly. Defibrillator lead tip in the right ventricle. No focal air space disease, pu lmonary edema, pleural effusion or suspected pneumothorax. Impression: 1: No acute cardiopulmonary disease. Reviewed, dictated and finalized at location A. Impression: 1: No acute cardiopulmonary disease.
--- NOTE | 2021-09-27 08:21 | ECG_ITS ---
Measurements Intervals [place] Rate: 56 P: 33 [place]: 155 QRS: 18 QRSD: 182 T: 137 QT: 494 QTc: 478 Interpretive Statements SINUS BRADYCARDIA LEFT ATRIAL ENLARGEMENT LEFT BUNDLE BRANCH BLOCK ABNORMAL ECG Electronically Signed On 09-27-2021 8:31:31 CDT by Jewel Barrera D.O.
[2021-09-27 08:35] LABS: Basophils Percent Auto 0.6 % (0.2-1.2); Eosinophils Absolute Auto 0.2 K/mm3 (0-0.3); Eosinophils Percent Auto 3.5 % (0-4.4); Hematocrit 42.7 % (42.0-52.0); Hemoglobin 13.5 g/dL (14.0-18.0); Lymphocytes Percent Auto 41.2 % (18.3-44.2); Mean Corpuscular HGB Conc 31.6 g/dl (32-36); Mean Corpuscular Hemoglobin 26.8 pg (26-34); Mean Corpuscular Volume 84.7 fl (80-100); Mean Platelet Volume 10.6 fl (7.4-10.4); Monocytes Absolute Auto 0.6 K/mm3 (0.1-0.6); Neutrophils Percent Auto 41.7 % (45.5-73.1); Platelet Count Result 174 k/mm3 (150-375); Red Blood Count 5.04 M/mm3 (4.6-6.20); Red Cell Distribution Width 12.7 % (11.5-14.5); White Blood Count 4.9 K/mm3 (4.5-10.0)
[2021-09-27 08:46] LABS: INR 1.1; Prothrombin Time 13.4 Seconds (11.1-14.7)
[2021-09-27 08:47] LABS: Partial Thromboplastin Time 31.2 SECONDS (22.3-36.8)
[2021-09-27 09:03] LABS: Alanine Aminotransferase 38 U/L (6-50); Albumin Level 4.1 g/dL (3.5-5.1); Alkaline Phosphatase 56 U/L (38-126); Anion Gap 6 mmol/L (8-16); Aspartate Amino Transferase 40 U/L (17-59); Bilirubin,Total 0.4 mg/dL (0.2-1.3); Blood Urea Nitrogen 10 mg/dL (9-20); Calcium 9.2 mg/dL (8.4-10.2); Carbon Dioxide 27 mmol/L (22-30); Chloride 105 mmol/L (98-107); Estimated CRCL calculation 97 ml/min; Estimated Glomerular Filt Rate > 60; Glucose 94 mg/dL (65-110); Lipase 122 U/L (23-300); Potassium 4.3 mmol/L (3.4-5.0); Sodium 138 mmol/L (137-145)
[2021-09-27 09:19] LABS: Troponin I 0.185 ng/mL (0.000-0.034)
[2021-09-27] MEDS: ASPIRIN 81 MG CHEWABLE TABLET 324 MG PO (09:33)
[2021-09-27] MEDS: MORPHINE SULFATE (*CRX) 4 MG/ML INJ IV PUSH ×2 (09:34→16:40)
[2021-09-27 11:32] LABS: SARS-CoV-2 RNA PCR Negative
[2021-09-27 11:45] LABS: Troponin I 0.173 ng/mL (0.000-0.034)
[2021-09-27 15:15] LABS: Troponin I 0.133 ng/mL (0.000-0.034)
--- NOTE | 2021-09-27 17:39 | ED.CHESTPAIN ---
HPI - Chest Pain General Chief Complaint: Chest Pain Stated Complaint: heart, chest, left side feels funny Time Seen by Provider: 09/27/21 08:32 Source: patient Mode of arrival: wheelchair Limitations: no limitations History of Present Illness HPI narrative: 26-year-old with a history of hypertrophic cardiomyopathy s/p pacemaker here with complaints of midsternal chest pain radiating into his left chest since midnight. Patient states the pain is constant in nature also complains of mild shortness of breath. He denies any nausea, vomiting. No history of fever or chills or cough. He states that his urban forester is Dr. Kwan at [facility]. MD complaint: chest pain Pertinent past history: other (Hypertrophic cardiomyopathy, pacemaker) Onset (ago): day(s) (1) Timing of current episode: constant Prior episodes: Yes Onset: during rest Pain location: left chest Pain radiation: left shoulder Severity: moderate Quality: aching and heaviness Relieving factors: nothing Exacerbating factors: nothing Associated symptoms: dyspnea Treatment prior to arrival: none Risk Factors Coronary artery disease risk factors: none Thoracic aortic dissection risk factors: none Related Data Home Medications Medication Instructions Recorded Confirmed aspirin 81 mg chewable tablet 01/13/21 atenolol 50 mg tablet 01/13/21 Allergies Allergy/AdvReac Type Severity Reaction Status Date / Time No Known Allergies Allergy Unknown Verified 08/08/21 06:59 Review of Systems Review of Systems: All systems reviewed & are unremarkable except as noted in HPI and below Constitutional: Constitutional: Reports no additional constitutional complaints Eyes: Eyes: Reports no additional eye complaints ENT: Reports system reviewed and no additional complaints, except as documented Cardiovascular: Cardiovascular: Reports as per HPI Respiratory: Respiratory: Reports as per HPI Gastrointestinal: Gastrointestinal: Reports no additional gastrointestinal complaints Musculoskeletal: Musculoskeletal: Reports no additional musculoskeletal complaints Neurologic: Reports system reviewed and no additional complaints, except as documented Psychiatric: Psychiatric: Reports no additional psychiatric complaints Endocrine: Endocrine: Reports no additional endocrine complaints Allergic/Immunologic: Allergic/Immunologic: Reports no additional allergic/immunologic complaints [facility] Past Medical History Medical History Bipolar 1 disorder Hypertrophic cardiomyopathy Malfunction of electrode lead of implantable cardioverter-defibrillator (ICD) Pacemaker Kmkap-Yfblbbubl-Fofbh (WPW) syndrome Surgical History Surgical History History of heart surgery Apparently had myomectomy in [place] around 9 years old. Family History Family History Mother Heart disease Apparently of CHF/HOCM age 36 Grandparent Heart disease Says grandfather had the same heart disease that he has Other No acute medical problems Social History Social History Social History: Has a girlfriend. Also young son. Smoking status: Never smoker Alcohol intake: current Substance use: current Substance use type: marijuana Gender identity (if verbalized by the patient): Male Exam Narrative: GENERAL: Well-appearing, well-nourished, and in no acute distress. HEAD: Normocephalic, atraumatic. EYES: PERRLA and EOMI. NECK: Supple. CHEST: Clear to auscultation. No respiratory distress, has AICD on the left side of the chest HEART: Regular rate and rhythm. No murmur heard. Normal peripheral pulses. ABDOMEN: Soft, nontender, nondistended, normal active bowel sounds. EXTREMITIES: Normal range of motion. No edema. SKIN: Warm, dry, no rash. NEUR
--- NOTE | 2021-09-27 17:45 | PC.NURSE ---
bed assignment received from [facility]. 2730 bed 2. report called to reed toro at
== END 2021-09-27 20:39 | disposition short-term general hospital (02) ==
PROVIDERS: Emergency Provider Family Medicine
DX: R07.9 Chest pain, unspecified (principal); R79.89 Other specified abnormal findings of blood chemistry; Z20.822 Contact with and (suspected) exposure to COVID-19
CPT/HCPCS: 36415; 71046; 80053; 83690; 84484; 85025; 85610; 85730; 93005; 96374; 96376; 99285; A9270; C9803; J2270; U0003; U0005

== ENCOUNTER 2021-12-07 06:16 | Emergency (ER) | payer OTHER, SELFPAY ==
[2021-12-07] VITALS (17 sets, daily range): BP systolic 101–125; BP diastolic 68–78; PULSE 56–70; RESP 13–33; TEMP 37.3; O2SAT 98–100
--- NOTE | ~2021-12-07 | XR_ITS ---
EXAMINATION: XR chest 1V portable DATE: 12/07/2021 07:35 INDICATION: Cough. TECHNIQUE: A single frontal view of the chest was obtained. COMPARISON: Chest 2 views 09/22/2021, chest CT 01/13/2021 FINDINGS: There is no pneumonia, pleural effusion, or pneumothorax. Cardiomegaly is noted. Median aliya rnotomy wires are noted. There are retained leads in right atrium and right ventricle. IMPRESSION: 1. Cardiomegaly. Reviewed, dictated and finalized at location A. IMPRESSION: 1. Cardiomegaly.
--- NOTE | 2021-12-07 06:36 | ECG_ITS ---
Measurements Intervals [place] Rate: 66 P: 34 [place]: 152 QRS: 22 QRSD: 182 T: 134 QT: 452 QTc: 474 Interpretive Statements SINUS RHYTHM LEFT ATRIAL ENLARGEMENT [-0.15mV P WAVE IN V1/V2] LEFT BUNDLE BRANCH BLOCK [120+ ms QRS DURATION, 80+ ms Q/S IN V1/V2, 85+ ms R IN I/aVL/V5/V6] COMPARED TO ECG 09/27/2021 08:27:44 SINUS RHYTHM NOW PRESENT Electronically Signed On 12-07-2021 10:19:51 CDT by Tequila Germain MD
[2021-12-07 07:05] LABS: Alanine Aminotransferase 16 U/L (6-50); Albumin Level 4.3 g/dL (3.5-5.1); Alkaline Phosphatase 67 U/L (38-126); Anion Gap 9 mmol/L (8-16); Aspartate Amino Transferase 24 U/L (17-59); Bilirubin,Total 0.4 mg/dL (0.2-1.3); Blood Urea Nitrogen 7 mg/dL (9-20); Calcium 9.1 mg/dL (8.4-10.2); Carbon Dioxide 26 mmol/L (22-30); Chloride 99 mmol/L (98-107); Estimated CRCL calculation 98 ml/min; Estimated Glomerular Filt Rate > 60; Glucose 116 mg/dL (65-110); Potassium 3.8 mmol/L (3.4-5.0); Sodium 134 mmol/L (137-145)
[2021-12-07 07:19] LABS: Basophils Percent Auto 0.4 % (0.2-1.2); Eosinophils Absolute Auto 0.1 K/mm3 (0-0.3); Eosinophils Percent Auto 1.5 % (0-4.4); Hemoglobin 12.8 g/dL (14.0-18.0); Immature Granulocyte Absolute 0.02 K/mm3 (0.00-0.031); Immature Granulocyte Percent A 0.2 % (0-0.5); Lymphocytes Absolute Auto 1.18 K/mm3 (0.9-3.2); Lymphocytes Percent Auto 14.7 % (18.3-44.2); Mean Corpuscular Hemoglobin 26.7 pg (26-34); Mean Corpuscular Volume 83.3 fl (80-100); Mean Platelet Volume 11.6 fl (7.4-10.4); Monocytes Absolute Auto 0.9 K/mm3 (0.1-0.6); Monocytes Percent Auto 11.3 % (2.6-8.5); Neutrophils Absolute Auto 5.8 K/mm3 (1.3-6.7); Neutrophils Percent Auto 71.9 % (45.5-73.1); Platelet Count Result 165 k/mm3 (150-375); Red Cell Distribution Width 12.3 % (11.5-14.5)
[2021-12-07] MEDS: SODIUM CHLORIDE 0.9% IV 1,000 ML 999 ML IV CONT (07:26)
[2021-12-07] MEDS: diphenhydrAMINE HCl INJ 50 MG/ML VIAL 25 MG IV PUSH (07:27)
[2021-12-07] MEDS: KETOROLAC 30 MG/ML VIAL (*BKC) IV PUSH (07:27)
[2021-12-07 10:01] LABS: SARS-CoV-2 RNA PCR Negative
--- NOTE | 2021-12-07 11:13 | ED.GENADULT ---
HPI - General Adult General Chief complaint: Headache Stated complaint: headache, dizzy, weak, congestion Time Seen by Provider: 12/07/21 06:18 Source: RN notes reviewed History of Present Illness HPI narrative: Patient presents emergency room from home for upper respiratory infection symptoms. Patient states symptoms began 2 days ago. States he has had a frontal headache that is described as aching in nature states associated with rhinorrhea, sore throat and a cough this been nonproductive. He denies any fevers or chills denies any ear pain denies chest pain or shortness of breath he denies abdominal pain nausea or vomiting states he did have 1 episode of loose stool. States he last took a Tylenol or ibuprofen last night states he was recently at a wedding or people contracted COVID Related Data Home Medications Medication Instructions Recorded Confirmed aspirin 81 mg chewable tablet 01/13/21 atenolol 50 mg tablet 01/13/21 Allergies Allergy/AdvReac Type Severity Reaction Status Date / Time No Known Allergies Allergy Unknown Verified 12/07/21 06:28 Review of Systems Review of Systems: Gen.: Denies fevers or chills Eyes: denies vision changes HEENT see HPI Respiratory: Denies shortness of breath reports cough CV: Denies chest pain or palpitations GI: Denies abdominal pain nausea, emesis reports episode of loose stool Musculoskeletal: Denies back pain or muscle pain Neuro: Denies numbness, tingling, weakness or focal weakness Skin: Denies rash Except as documented, all other systems reviewed and negative PMFSH Past Medical History Medical History Bipolar 1 disorder Hypertrophic cardiomyopathy Malfunction of electrode lead of implantable cardioverter-defibrillator (ICD) Pacemaker Whsfq-Arvstlisr-Vgjjj (WPW) syndrome Surgical History Surgical History History of heart surgery Apparently had myomectomy in [place] around 9 years old. Family History Family History Mother Heart disease Apparently of CHF/HOCM age 36 Grandparent Heart disease Says grandfather had the same heart disease that he has Other No acute medical problems Social History Social History Social History: Has a girlfriend. Also young son. Smoking status: Never smoker Alcohol intake: current Substance use: current Substance use type: marijuana Gender identity (if verbalized by the patient): Male Exam Narrative: APPEARANCE: No acute distress, nontoxic, resting in bed EYES: EOMI, PERRL HEENT: Normocephalic, atraumatic, TMs clear bilaterally, bilateral turbinates boggy, mild erythema no exudate posterior pharynx tonsils 2+ no exudate uvula midline no trismus tolerating own secretions Neck: Supple for range of motion without pain no managements RESPIRATORY: No respiratory distress Clear to auscultation bilaterally with no rhonchi wheezing or rales. CARDIOVASCULAR: Regular rate and rhythm without murmurs rubs or gallops. ABDOMINAL: Soft, nontender, nondistended, no rebound or guarding MUSCULOSKELETAl: Moves all extremities. No clubbing, cyanosis or edema. NEURO: Awake and alert x4 . Following commands, speech normal, no focal deficits SKIN:: Warm, dry. No rashes lesions or abrasions PSYCHIATRIC: Normal affect/mood, Course Course Emergency Course: Patient states headache is resolved at this time. States he is ready for discharge Discussed with patient results of workup and diagnosis. Discussed need for follow-up with primary care, proper use of medication, and reasons to return to the emergency department. Patient understands and agrees to current treatment plan Vital Signs Vital signs: Vital Signs Temperature 99.1 F 12/07/21 06:22 Pulse Rate 69 12/07/21 06:22 Respiratory Rate
== END 2021-12-07 11:32 | disposition home or self-care (01) ==
PROVIDERS: Emergency Medicine; Emergency Provider Emergency Medicine
DX: J06.9 Acute upper respiratory infection, unspecified (principal); R51.9 Headache, unspecified; Z20.822 Contact with and (suspected) exposure to COVID-19; F31.9 Bipolar disorder, unspecified; Z95.0 Presence of cardiac pacemaker
CPT/HCPCS: 36415; 71045; 80053; 85025; 93005; 96361; 96374; 96375; 99284; C9803; J1200; J1885; J7030; U0003; U0005

== ENCOUNTER 2022-05-06 10:29 | Emergency (ER) | payer OTHER, SELFPAY ==
--- NOTE | ~2022-05-06 | XR_ITS ---
EXAMINATION: XR chest 2V DATE: 05/06/2022 11:28 INDICATION: Left chest pain. TECHNIQUE: Frontal and lateral views of the chest were obtained. COMPARISON: Chest single view 12/07/2021, chest CT 01/13/2021 FINDINGS: There is no pneumonia, pleural effusion, or pneumothorax. Cardiomegaly is noted. There are small median sternotomy wires. There are retained pacer leads with tips in the right atrium and right ventricle. There is mild chronic anterior wedging of 2 midthoracic vertebral bodies. IMPRESSION: 1. Cardiomegaly. Reviewed, dictated and finalized at location A. ICAL OPTICS TEACHER IMPRESSION: 1. Cardiomegaly.
--- NOTE | 2022-05-06 10:35 | ECG_ITS ---
Measurements Intervals [place] Rate: 52 P: 51 [place]: 151 QRS: 53 QRSD: 181 T: 130 QT: 490 QTc: 459 Interpretive Statements SINUS BRADYCARDIA LEFT ATRIAL ENLARGEMENT LEFT BUNDLE BRANCH BLOCK ABNORMAL ECG COMPARED TO ECG 12/07/2021 06:43:49 SINUS BRADYCARDIA NOW PRESENT Electronically Signed On 05-06-2022 15:20:24 COMPUTER TECHNOLOGIST by Jewel Barrera D.O.
[2022-05-06 10:39] VITALS: BP 109/63; PULSE 61; RESP 20; TEMP 36.2; O2SAT 97
[2022-05-06 10:54] LABS: Eosinophils Absolute Auto 0.2 K/mm3 (0-0.3); Eosinophils Percent Auto 4.1 % (0-4.4); Hematocrit 44.3 % (42.0-52.0); Hemoglobin 14.2 g/dL (14.0-18.0); Lymphocytes Absolute Auto 1.66 K/mm3 (0.9-3.2); Mean Corpuscular HGB Conc 32.1 g/dl (32-36); Mean Corpuscular Volume 84.4 fl (80-100); Mean Platelet Volume 10.4 fl (7.4-10.4); Monocytes Absolute Auto 0.4 K/mm3 (0.1-0.6); Monocytes Percent Auto 9.6 % (2.6-8.5); Neutrophils Absolute Auto 1.6 K/mm3 (1.3-6.7); Neutrophils Percent Auto 42.3 % (45.5-73.1); Platelet Count Result 181 k/mm3 (150-375); Red Blood Count 5.25 M/mm3 (4.6-6.20); Red Cell Distribution Width 12.4 % (11.5-14.5); White Blood Count 3.9 K/mm3 (4.5-10.0)
[2022-05-06 11:13] LABS: Prothrombin Time 12.9 Seconds (11.1-14.7)
[2022-05-06 11:14] LABS: Partial Thromboplastin Time 30.5 SECONDS (22.3-36.8)
[2022-05-06 11:18] LABS: Alanine Aminotransferase 22 U/L (6-50); Albumin Level 4.6 g/dL (3.5-5.1); Alkaline Phosphatase 72 U/L (38-126); Anion Gap 6 mmol/L (8-16); Aspartate Amino Transferase 28 U/L (17-59); Bilirubin,Total 0.4 mg/dL (0.2-1.3); Blood Urea Nitrogen 10 mg/dL (9-20); Carbon Dioxide 27 mmol/L (22-30); Chloride 103 mmol/L (98-107); Estimated CRCL calculation 91 ml/min; Estimated Glomerular Filt Rate > 60; Glucose 103 mg/dL (65-110); Lipase 263 U/L (23-300); Potassium 4.4 mmol/L (3.4-5.0); Sodium 136 mmol/L (137-145)
--- NOTE | 2022-05-06 11:48 | ED.CHESTPAIN ---
HPI - Chest Pain General Chief Complaint: Chest Pain Stated Complaint: Chest pain Time Seen by Provider: 05/06/22 11:20 Related Data Home Medications Medication Instructions Recorded Confirmed aspirin 81 mg chewable tablet 01/13/21 atenolol 50 mg tablet 01/13/21 Allergies Allergy/AdvReac Type Severity Reaction Status Date / Time No Known Allergies Allergy Unknown Verified 12/07/21 06:28 [facility] Past Medical History Medical History Bipolar 1 disorder Hypertrophic cardiomyopathy Malfunction of electrode lead of implantable cardioverter-defibrillator (ICD) Pacemaker Imven-Styokewoq-Szese (WPW) syndrome Surgical History Surgical History History of heart surgery Apparently had myomectomy in [place] around 9 years old. Family History Family History Mother Heart disease Apparently of CHF/HOCM age 36 Grandparent Heart disease Says grandfather had the same heart disease that he has Other No acute medical problems Social History Social History Social History: Has a girlfriend. Also young son. Smoking status: Never smoker Alcohol intake: current Substance use: current Substance use type: marijuana Gender identity (if verbalized by the patient): Male Course Vital Signs Vital signs: Vital Signs Temperature 36.2 C L 05/06/22 10:39 Pulse Rate 61 05/06/22 10:39 Respiratory Rate 20 05/06/22 10:39 Blood Pressure 109/63 05/06/22 10:39 Pulse Oximetry 97 05/06/22 10:39 Oxygen Delivery Room Air 05/06/22 10:39 Temperature 36.2 C L 05/06/22 10:39 Pulse Rate 61 05/06/22 10:39 Respiratory Rate 20 05/06/22 10:39 Blood Pressure 109/63 05/06/22 10:39 Pulse Oximetry 97 05/06/22 10:39 Oxygen Delivery Room Air 05/06/22 10:39 MDM - Chest Pain MDM Narrative Medical decision making narrative: 27-year-old male history of Wrvot-Rfbkekndu-Rlmov syndrome presents emergency room for evaluation of chest pain. On chart review, patient has a chronically elevated troponin. No evidence of volume overload. EKG showed no signs of active ischemia. Single troponin and delta troponin were slightly elevated but still lower than normal. Presentation not consistent with PE. Heart score was a 3, discussed findings with patient and he is wanting to go home and follow-up with a new leather production machine operator. Lab Data 05/06/22 10:40 05/06/22 10:40 Labs: Lab Results 05/06/22 05/06/22 05/06/22 Range/Units 10:40 10:40 10:41 WBC 3.9 L (4.5-10.0) K/mm3 RBC 5.25 (4.6-6.20) M/mm3 Hgb 14.2 (14.0-18.0) g/dL Hct 44.3 (42.0-52.0) % MCV 84.4 (80-100) fl MCH 27.0 (26-34) pg MCHC 32.1 (32-36) g/dl RDW 12.4 (11.5-14.5) % Plt Count 181 (150-375) k/mm3 MPV 10.4 (7.4-10.4) fl Immature Gran % (Auto) 0.0 (0-0.5) % Neut % (Auto) 42.3 L (45.5-73.1) % Lymph % (Auto) 43.0 (18.3-44.2) % Bacon % (Auto) 9.6 H (2.6-8.5) % Eos % (Auto) 4.1 (0-4.4) % Baso % (Auto) 1.0 (0.2-1.2) % Lymph # (Auto) 1.66 (0.9-3.2) K/mm3 Bacon # (Auto) 0.4 (0.1-0.6) K/mm3 Eos # (Auto) 0.2 (0-0.3) K/mm3 Baso # (Auto) 0.0 (0.0-0.1) K/mm3 Abs Immat Gran (auto) 0.00 (0.00-0.031) K/mm3 Absolute Neuts (auto) 1.6 (1.3-6.7) K/mm3 Absolute Nucleated RBC 0.0 (0.0-0.012) K/mm3 Nucleated RBC % 0.0 (0.0-0.2) % PT 12.9 (11.1-14.7) Seconds INR 1.0 APTT 30.5 (22.3-36.8) SECONDS Sodium 136 L (137-145) mmol/L Potassium 4.4 (3.4-5.0) mmol/L Chloride 103 (98-107) mmol/L Carbon Dioxide 27 (22-30) mmol/L Anion Gap 6 L (8-16) mmol/L BUN 10 (9-20) mg/dL Creatinine 1.00 (0.7-1.3) mg/dL Estim Creat Clear Calc 91 ml/min Estimat
[2022-05-06 14:12] LABS: Troponin I 0.116 ng/mL (0.000-0.034)
== END 2022-05-06 14:44 | disposition home or self-care (01) ==
PROVIDERS: Emergency Medicine; Emergency Provider Nurse Practitioner Family
DX: R07.9 Chest pain, unspecified (principal); I45.6 Pre-excitation syndrome; I42.2 Other hypertrophic cardiomyopathy; Z95.0 Presence of cardiac pacemaker; R00.1 Bradycardia, unspecified; I44.7 Left bundle-branch block, unspecified; R94.31 Abnormal electrocardiogram [ECG] [EKG]
CPT/HCPCS: 36415; 71046; 80053; 83690; 84484; 85025; 85610; 85730; 93005; 99284

== ENCOUNTER 2023-01-03 08:28 | Emergency (ER) | payer OTHER, SELFPAY ==
[2023-01-03] VITALS (27 sets, daily range): BP systolic 114–124; BP diastolic 71–82; PULSE 63–85; RESP 16; TEMP 36.2; O2SAT 94–100
--- NOTE | ~2023-01-03 | CT_ITS ---
Clinical Indication: Chest pain CT Scan of the Chest with Contrast: Technique: Contiguous sections were acquired throughout the chest after intravenous administration of 100 cc of Omnipaque 350. Dose reduction technique was used on this scan by utilizing automated expos ure control and iterative reconstruction technique. The dose-length product (DLP) was 210.71 mGy-cm. COMPARISON: 01/13/2021 Findings: There is no evidence of any significant mediastinal, hilar or axillary lymphadenopathy. There is no f illing defect in the pulmonary arterial tree to suggest pulmonary embolus. There is no evidence of ao rtic dissection or aneurysm. Cardiac loop recorder present. Suggestion of left ventricular hypertroph y. There is no evidence of pleural or pericardial effusion. The lungs are clear. No pulmonary nodules or infiltrates are noted. Images through the upper abdomen reveal no abnormalities. Impression: No evidence of pulmonary embolus, aortic dissection, or aortic aneurysm. Clear lungs. Suggestion of left ventricular hypertrophic cardiomyopathy. Correlate with clinical history. Cardiac loop recorder present. Reviewed, dictated and finalized at location . Impression: No evidence of pulmonary embolus, aortic dissection, or aortic aneurysm. Clear lungs. Suggestion of left ventricular hypertrophic cardiomyopathy. Correlate with clin ical history. Cardiac loop recorder present.
--- NOTE | ~2023-01-03 | XR_ITS ---
Clinical Indication: Chest pain PA and lateral views of the chest: Comparison: 05/06/2022 Findings: The lungs are clear, without evidence of focal consolidation or pleural effusion. Cardiome diastinal silhouette is stable, with pacemaker wires and loop recorder present. Bones and soft tissue s are unremarkable. Impression: Clear lungs. Pacemaker wires and loop recorder present. Reviewed, dictated and finalized at location M. Impression: Clear lungs. Pacemaker wires and loop recorder present.
--- NOTE | 2023-01-03 08:30 | ECG_ITS ---
Measurements Intervals [place] Rate: 72 P: 35 [place]: 165 QRS: 54 QRSD: 181 T: 149 QT: 446 QTc: 491 Interpretive Statements SINUS RHYTHM LEFT ATRIAL ENLARGEMENT [-0.15mV P WAVE IN V1/V2] LEFT BUNDLE BRANCH BLOCK [120+ ms QRS DURATION, 80+ ms Q/S IN V1/V2, 85+ ms R IN I/aVL/V5/V6] ABNORMAL ECG COMPARED TO ECG 05/06/2022 10:37:07 SINUS RHYTHM NOW PRESENT Electronically Signed On 01-03-2023 9:45:26 CDT by Van Woods M.D.
[2023-01-03] MEDS: ASPIRIN 81 MG CHEWABLE TABLET 324 MG PO (08:40)
[2023-01-03 08:48] LABS: Basophils Percent Auto 0.8 % (0.2-1.2); Eosinophils Absolute Auto 0.1 K/mm3 (0-0.3); Eosinophils Percent Auto 1.8 % (0-4.4); Hemoglobin 14.2 g/dL (14.0-18.0); Immature Granulocyte Absolute 0.01 K/mm3 (0.00-0.031); Immature Granulocyte Percent A 0.2 % (0-0.5); Lymphocytes Absolute Auto 0.83 K/mm3 (0.9-3.2); Lymphocytes Percent Auto 16.8 % (18.3-44.2); Mean Corpuscular HGB Conc 32.3 g/dl (32-36); Mean Corpuscular Volume 83.8 fl (80-100); Mean Platelet Volume 10.5 fl (7.4-10.4); Monocytes Absolute Auto 0.5 K/mm3 (0.1-0.6); Monocytes Percent Auto 10.1 % (2.6-8.5); Neutrophils Absolute Auto 3.5 K/mm3 (1.3-6.7); Neutrophils Percent Auto 70.3 % (45.5-73.1); Platelet Count Result 165 k/mm3 (150-375); Red Blood Count 5.25 M/mm3 (4.6-6.20); Red Cell Distribution Width 11.7 % (11.5-14.5); White Blood Count 4.9 K/mm3 (4.5-10.0)
[2023-01-03 08:57] LABS: Prothrombin Time 13.2 Seconds (11.1-14.7)
[2023-01-03 08:58] LABS: Partial Thromboplastin Time 32.9 SECONDS (22.3-36.8)
[2023-01-03 09:02] LABS: Alanine Aminotransferase 24 U/L (6-50); Albumin Level 4.6 g/dL (3.5-5.1); Alkaline Phosphatase 59 U/L (38-126); Anion Gap 5 mmol/L (8-16); Aspartate Amino Transferase 41 U/L (17-59); Bilirubin,Total 0.8 mg/dL (0.2-1.3); Blood Urea Nitrogen 11 mg/dL (9-20); Calcium 9.6 mg/dL (8.4-10.2); Carbon Dioxide 32 mmol/L (22-30); Chloride 100 mmol/L (98-107); Estimated CRCL calculation 83 ml/min; Estimated Glomerular Filt Rate > 60; Glucose 96 mg/dL (65-110); Lipase 174 U/L (23-300); Potassium 4.6 mmol/L (3.4-5.0); Sodium 137 mmol/L (137-145)
--- NOTE | 2023-01-03 09:12 | ED.CHESTPAIN ---
HPI - Chest Pain General Chief Complaint: Chest Pain Stated Complaint: chest pain Time Seen by Provider: 01/03/23 08:40 Source: patient Limitations: no limitations History of Present Illness HPI narrative: Patient presents to the ED for left sided chest pain, stabbing, sharp, constant, worse with deep breath and laughing, radiates to Left neck, mid back, and left arm, present x 4 days with gradual onset, hasn't gotten worse rather hasn't resolved prompting evaluation, tried ibuprofen with minimal relief, admits to a subjective fever 5 days ago, denies history of this pain in the past, admits to mild associated SOB. Denies history of blood clots or blood thinner use. 1 week ago had a loop recorder placed. Unsure of sick contacts. Admits to mild nasal congestion and sore throat Admits to myalgias. Admits to a slight cough, no change, more chronic. Denies abdominal pain, nausea, vomiting, diarrhea, melena, recent injuries, recent illness, numbness, weakness. Related Data Home Medications Medication Instructions Recorded Confirmed aspirin 81 mg chewable tablet 01/13/21 atenolol 50 mg tablet 01/13/21 Allergies Allergy/AdvReac Type Severity Reaction Status Date / Time No Known Allergies Allergy Unknown Verified 12/07/21 06:28 Review of Systems Review of Systems: A 10 system review of systems was completed on the patient and is negative except for what is stated in the HPI. Nursing and ancillary documentation was reviewed. [facility] Past Medical History Medical History Bipolar 1 disorder Hypertrophic cardiomyopathy Malfunction of electrode lead of implantable cardioverter-defibrillator (ICD) Pacemaker Uzmbd-Nmdqiknqp-Qzhbp (WPW) syndrome Surgical History Surgical History History of heart surgery Apparently had myomectomy in [place] around 9 years old. Family History Family History Mother Heart disease Apparently of CHF/HOCM age 36 Grandparent Heart disease Says grandfather had the same heart disease that he has Other No acute medical problems Social History Social History Social History: Has a girlfriend. Also young son. Smoking status: Never smoker Alcohol intake: current Substance use: current Substance use type: marijuana Living arrangements: with family Gender identity (if verbalized by the patient): Male Comments At time of signature, I have reviewed and agree with nursing past medical, surgical, social and family history unless otherwise noted. Please see the nursing chart for further information. There is no relevant family history pertinent to the presenting complaint. Exam Narrative: CONST: No acute distress. Well nourished. HENMT: Head is normocephalic and atraumatic. Moist mucous membranes. No posterior oropharynx erythema. Uvula midline. No tonsillar exudates. EYES: No conjunctival icterus, injection, or pallor. PERRL. NECK: No meningeal signs. No JVD. Scant anterior cervical shotty adenopathy. RESP: Able to speak in full sentences. Normal respiratory effort. CTAB. CARDIO: Regular rate. Regular rhythm. 2+ DP and radial pulses bilaterally. Loop recorder and AICD are palpable and non tender without erythema or fluctuance, GI: Nondistended. No tenderness to palpation. Soft. : No CVA tenderness to palpation. SKIN: No rashes or lesions noted on exposed skin. NEURO: Oriented x3. Moves all extremities. No focal deficits. EXTREM: No pedal edema. PSYCH: Normal affect. Course Vital Signs Vital signs: Vital Signs Temperature 97.2 F L 01/03/23 08:33 Pulse Rate 69 01/03/23 08:33 Respiratory Rate 16 01/03/23 08:33 Blood Pressure 118/79 01/03/23 08:33 Pulse Oximetry 96 01/03/23 08:33 Oxygen Delivery Room Air
[2023-01-03 09:13] LABS: Troponin I 0.117 ng/mL (0.000-0.034)
[2023-01-03 09:42] LABS: Magnesium 1.8 mg/dL (1.6-2.3)
[2023-01-03 09:51] LABS: NT Pro B Type Natriuretic Pept 1830 pg/mL (19.9-100)
[2023-01-03 10:11] LABS: Influenza A QL RT-PCR Negative (Negative); Influenza B QL RT-PCR Negative (Negative); SARS-CoV-2 RNA PCR Positive (Negative)
[2023-01-03 12:40] LABS: Troponin I 0.105 ng/mL (0.000-0.034)
== END 2023-01-03 13:22 | disposition home or self-care (01) ==
PROVIDERS: Emergency Provider Student in an Organized Health Care Education/Training Program
DX: U07.1 COVID-19 (principal); R07.89 Other chest pain; R77.8 Other specified abnormalities of plasma proteins; R06.02 Shortness of breath; I42.2 Other hypertrophic cardiomyopathy; I45.6 Pre-excitation syndrome; Z95.810 Presence of automatic (implantable) cardiac defibrillator; Z79.82 Long term (current) use of aspirin; I44.7 Left bundle-branch block, unspecified; R94.31 Abnormal electrocardiogram [ECG] [EKG]
CPT/HCPCS: 36415; 71046; 71275; 80053; 83690; 83735; 83880; 84484; 85025; 85610; 85730; 87636; 93005; 99284; A9270; Q9967

== ENCOUNTER 2023-09-04 08:29 | Emergency (ER) | payer MEDICARE, MEDICAID, SELFPAY ==
[2023-09-04] VITALS (7 sets, daily range): BP systolic 110–125; BP diastolic 68–83; PULSE 62–76; RESP 12–18; TEMP 36.5–37.1; O2SAT 96–100
--- NOTE | ~2023-09-04 | XR_ITS ---
Clinical Indication: Chest pain PA and lateral views of the chest: Comparison: 01/03/2023 Findings: The lungs are clear, without evidence of focal consolidation or pleural effusion. Cardiome diastinal silhouette is stable, with pacemaker wires and a loop recorder present. Bones and soft tiss ues are unremarkable. Impression: Clear lungs. Pacemaker wires and loop recorder are unchanged. Reviewed, dictated and finalized at location . Impression: Clear lungs. Pacemaker wires and loop recorder are unchanged.
--- NOTE | 2023-09-04 08:30 | ECG_ITS ---
SEE SCANNED COPY FOR CONFIRMED REPORT. MTDD
[2023-09-04 08:59] LABS: Basophils Percent Auto 0.8 % (0.2-1.2); Eosinophils Absolute Auto 0.1 K/mm3 (0-0.3); Eosinophils Percent Auto 2.6 % (0-4.4); Hematocrit 43.7 % (42.0-52.0); Hemoglobin 14.3 g/dL (14.0-18.0); Lymphocytes Absolute Auto 1.56 K/mm3 (0.9-3.2); Lymphocytes Percent Auto 41.3 % (18.3-44.2); Mean Corpuscular HGB Conc 32.7 g/dl (32-36); Mean Corpuscular Hemoglobin 27.3 pg (26-34); Mean Corpuscular Volume 83.4 fl (80-100); Mean Platelet Volume 10.7 fl (7.4-10.4); Monocytes Absolute Auto 0.4 K/mm3 (0.1-0.6); Monocytes Percent Auto 9.3 % (2.6-8.5); Neutrophils Absolute Auto 1.7 K/mm3 (1.3-6.7); Platelet Count Result 176 k/mm3 (150-375); Red Blood Count 5.24 M/mm3 (4.6-6.20); Red Cell Distribution Width 12.5 % (11.5-14.5); White Blood Count 3.8 K/mm3 (4.5-10.0)
[2023-09-04 09:09] LABS: Alanine Aminotransferase 19 U/L (6-50); Albumin Level 4.7 g/dL (3.5-5.1); Alkaline Phosphatase 70 U/L (38-126); Anion Gap 7 mmol/L (4-12); Aspartate Amino Transferase 26 U/L (17-59); Bilirubin,Total 0.8 mg/dL (0.2-1.3); Blood Urea Nitrogen 9 mg/dL (9-20); Calcium 9.5 mg/dL (8.4-10.2); Carbon Dioxide 23 mmol/L (22-30); Chloride 108 mmol/L (98-107); Estimated CRCL calculation 97 ml/min; Estimated Glomerular Filt Rate > 60; Glucose 97 mg/dL (65-110); Lipase 179 U/L (23-300); Potassium 4.1 mmol/L (3.4-5.0); Sodium 138 mmol/L (137-145)
[2023-09-04 09:10] LABS: INR 0.9
[2023-09-04 09:11] LABS: Partial Thromboplastin Time 30.6 Seconds (22.3-36.8)
[2023-09-04 09:21] LABS: Troponin I 0.082 ng/mL (0.000-0.034)
[2023-09-04] MEDS: ASPIRIN 81 MG CHEWABLE TABLET 324 MG PO (09:48)
--- NOTE | 2023-09-04 12:15 | ECG_ITS ---
SEE SCANNED COPY FOR CONFIRMED REPORT. MTDD
--- NOTE | 2023-09-04 12:37 | ED.CHESTPAIN ---
HPI - Chest Pain General Chief Complaint: Chest Pain Stated Complaint: chest pain Time Seen by Provider: 09/04/23 08:37 History of Present Illness HPI narrative: Patient is a 28-year-old male who presents ER with central chest pain. Ongoing for over a day. 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 Sharp. Comes in waves. No exertional component. No fevers or chills or sweats. No productive cough. Has history of hypertrophic cardiomyopathy. Has a pacemaker. No alleviating factors that he is fine. He follows with a chief radiologic technologist at [facility] [place]. Related Data Home Medications Medication Instructions Recorded Confirmed aspirin 81 mg chewable tablet 01/13/21 atenolol 50 mg tablet 01/13/21 Allergies Allergy/AdvReac Type Severity Reaction Status Date / Time No Known Allergies Allergy Unknown Verified 12/07/21 06:28 Review of Systems Review of Systems: All systems reviewed & are unremarkable except as noted in HPI and below Constitutional: Constitutional: Reports no additional constitutional complaints ENT: Reports system reviewed and no additional complaints, except as documented Cardiovascular: Cardiovascular: Reports chest pain, Denies rapid heart rate and Denies radiating jaw, neck or arm pain Respiratory: Respiratory: Reports no additional respiratory complaints Gastrointestinal: Gastrointestinal: Reports no additional gastrointestinal complaints Musculoskeletal: Musculoskeletal: Reports no additional musculoskeletal complaints [facility] Past Medical History Medical History Bipolar 1 disorder Hypertrophic cardiomyopathy Malfunction of electrode lead of implantable cardioverter-defibrillator (ICD) Pacemaker Xadys-Mknzgvmec-Blmpm (WPW) syndrome Surgical History Surgical History History of heart surgery Apparently had myomectomy in [place] around 9 years old. Family History Family History Mother Heart disease Apparently of CHF/HOCM age 36 Grandparent Heart disease Says grandfather had the same heart disease that he has Other No acute medical problems Social History Social History Social History: Has a girlfriend. Also young son. Smoking status: Never smoker Alcohol intake: current Substance use: current Substance use type: marijuana Living arrangements: with family Gender identity (if verbalized by the patient): Male Exam Narrative: GENERAL: Well-appearing, well-nourished, and in no acute distress. HEAD: Normocephalic, atraumatic. ENT: Mucous membranes moist. CHEST: Clear to auscultation. No respiratory distress. HEART: Regular rate and rhythm. Normal peripheral pulses. ABDOMEN: Soft, nontender, nondistended. EXTREMITIES: Normal range of motion. No edema. SKIN: Warm, dry, no rash. NEURO: Alert and oriented x3. PSYCH: Normal mood and affect. Course Course Emergency Course: Troponin chronically elevated but not trending up. History consistent with musculoskeletal chest pain. Discharge. Vital Signs Vital signs: Vital Signs Temperature 98.7 F 09/04/23 08:33 Pulse Rate 67 09/04/23 08:33 Respiratory Rate 16 09/04/23 08:33 Blood Pressure 125/83 09/04/23 08:33 Temperature 97.7 F 09/04/23 13:03 Pulse Rate 68 09/04/23 13:03 Respiratory Rate 16 09/04/23 13:03 Blood Pressure 124/78 09/04/23 13:03 Pulse Oximetry 98 09/04/23 13:03 Oxygen Delivery Room Air 09/04/23 08:42 MDM - Chest Pain Lab Data 09/04/23 08:53 09/04/23 08:53 Labs: Lab Results 09/04/23 09/04/23 09/04/23 Range/Units 08:52 08:53 12:09 WBC 3.8 L (4.5-10.0) K/mm3 RBC 5.24 (4.6-6.20) M/mm3 Hgb 14.3 (14.0-18.0) g/dL Hct 43.7 (42.0
[2023-09-04 12:45] LABS: Troponin I 0.078 ng/mL (0.000-0.034)
== END 2023-09-04 13:29 | disposition home or self-care (01) ==
PROVIDERS: Emergency Provider Emergency Medicine
DX: R07.89 Other chest pain (principal); I42.2 Other hypertrophic cardiomyopathy; I45.6 Pre-excitation syndrome; F31.9 Bipolar disorder, unspecified; Z95.0 Presence of cardiac pacemaker; Z79.82 Long term (current) use of aspirin; I49.3 Ventricular premature depolarization; R94.31 Abnormal electrocardiogram [ECG] [EKG]
CPT/HCPCS: 36415; 71046; 80053; 83690; 84484; 85025; 85610; 85730; 93005; 99284; A9270

== ENCOUNTER 2024-06-10 04:59 | Emergency (ER) | payer MEDICARE, MEDICAID, SELFPAY ==
--- NOTE | ~2024-06-10 | XR_ITS ---
Clinical Indication: Fever PA and lateral views of the chest: Comparison: 03/09/2024 Findings: The lungs are clear, without evidence of focal consolidation or pleural effusion. Cardiome diastinal silhouette is stable, with pacemaker wires and loop recorder. Bones and soft tissues are un remarkable. Impression: Clear lungs. Reviewed, dictated and finalized at location . LENGTH CHECKER Impression: Clear lungs.
[2024-06-10 05:01] VITALS: BP 129/70; PULSE 79; RESP 16; TEMP 38.3; O2SAT 100
--- OUTSIDE RECORDS SUMMARY | 2024-06-10 05:02 | XMS_ITS | Encounter Summary ---
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 Name Role Phone Becky Garnett MD Primary Care Provider [phone] Encounter Details Date Type Department Care Team (Late st Contact Info) Description 02/28/2022 Telephone [facility] [address] [facility] 8th [place] [address] [place] [address] Nan Preston Social History Tobacco Use Types Packs/Day Years Used Date Smoking Tobacco: Never Smokeless Tobacco: Never Alcohol Use Standard Drinks/Week Comments No 0 (1 standard drink = 0.6 oz pur e alcohol) AUDIT-C Answer Date Recorded Q1: How often do you have a drink containing alc ohol? Monthly or less 01/11/2021 Q2: How many drinks containi ng alcohol do you have on a typical day when you are drinking? 1 or 2 01/11/2021 Q3: How often do you have si x or more drinks on one occasion? Never 01/11/2021 PHQ-2 Answer Date Recorded PHQ-2 Total Score (If total score is 3 or more points, staff should administer the PHQ-9) 1 09/27/2021 Sex and Gender Information Value Date Recorded Sex Assigned at Not on file Legal Sex Male 1:02 PM [employer]BER [employer] Gender Identity Not on file Sexual Orientation Not on file documented as of this encounter Plan of Treatment Not on file documented as of this encounter Visit Diagnoses Not on filedocumented in this encounter Additional Health Concerns Infection Onset Date Last Indicated Resolved Time COVID: Suspected 03/11/2024 03/11/2024 03/11/2024 5:58 AM [employer] documented as of this encounter Care Teams Energy Crop Farmer Relationship Specialty Start Date End Date Becky Garnett MD PCP - General Family Medicine 12/21/21 documented as of this encounter
--- OUTSIDE RECORDS SUMMARY | 2024-06-10 05:02 | XMS_ITS | Clinical Summary ---
Author Organization [facility] Address [address] [place] [id number] Care Team Providers Care User Support Specialist Name Role Phone Becky Garnett MD Primary Care Provider [phone] Allergies No known active allergies Medications aspirin 81 mg enteric coated tabletIndicatio ns:Pain,prevent ion of thrombosis Take 81 mg by mouth 3 tablets in the mornings and PRN throughout the day Active acetaminophen (TYLENOL) 325 mg tabletIndicatio ns:Fever,Pain Take 2 tablets (650 mg total) by mouth every 4 (four) hours as needed for pain 30 tablet 2 Active ibuprofen (ADVIL,MOTRIN) 400 mg tablet Take 1 tablet (400 mg total) by mouth 3 (three) times a day as needed for pain 2 Active Additional Information Patient not taking.Reported on 09/20/2023 cyclobenzaprine (FLEXERIL) 10 mg tablet Take 10 mg by mouth 3 (three) times a day as needed for muscle spasms 2 Active atenoloL (TENORMIN) 50 mg tablet TAKE 1 TABLET(50 MG) BY MOUTH DAILY 90 tablet 1 2 Active atenoloL (TENORMIN) 25 mg tablet Take 1 tablet (25 mg total) by mouth daily Active hydrOXYzine (ATARAX) 10 mg tablet TAKE 1 TABLET (10 MG TOTAL) BY MOUTH 3 (THREE) TIMES DAILY NEEDED FOR ANXIETY (SLEEP). 4 Active Active Problems Problem Noted Date Diagnosed Date Chest pain, unspecified type 03/11/2024 Sleep disorder breathing 09/20/2023 Palpitations 12/26/2022 Overview (01/01/2024): CONY MORENO implanted 12/26/22 for Palpitations Status post placement of implantable loop record er 12/26/2022 Overview (01/01/2024): CONY MORENO implanted 12/26/22 for Palpitations Chronic bilateral low back pain without sciatica 05/17/2022 Neck pain 05/17/2022 Chest pain 09/27/2021 AICD lead malfunction 01/02/2021 Overview (01/02/2021): Added automatically from request for surgery [id number] Malfunction of implantable d efibrillator ventricular (ICD) lead 12/30/2020 ICD (implantable cardioverter-defibrillator) in place 12/30/2020 Elevated troponin 04/01/2020 S/P ICD (internal cardiac defibrillator) procedu re 11/11/2019 History of ventricular septal myectomy 0 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 Hypertrophic cardiomyopathy (familial), severe, s/p previous myomectomy and ICD placement. Most recent cath 09/21/14 with PVR 3.3 (indexed). 2. Pacemaker/ICD generator replacement 09/21/14. Now with lead malfunction. Dr. Epperson (EP) has evaluated patient and disabled device to avoid inappropriate shocks. To be scheduled MICHAEL for lead extraction and lead replacement. 3. Currently inactive on transplant list due to social situation, poor compliance, and current incarceration. Recommendations: 1. Continue current medications (atenolol 100 mg daily). 2. Currently inactive on transplant list. Will re-evaluate if social situation improves and if demonstrates compliance. 3. Follow-up in clinic in two months. Will need follow-up cardiac cath to reassess PVR if re-activated for transplant. 4. ICD lead extraction and lead replacement to be arranged by Dr. Epperson. Encounters Date Type Department Care Team Description 03/11/2024 2:16 AM CANE PACKER - 03/11/2024 1:59 PM [facility] Emergency [facility] Emergency Department [address] [place] [address] Arslan Shaver MD Heath, MD Margarito Brandt, Rob Mejia MD Chest pain, unspecified type (Primary Dx); Hypertrophic cardiomyopathy (CMS/HCC) (HCC); WPW (Qvhtm-Jzuqmkart-Ualnm syndrome) Discharge Disposition: Left Against Medical Advice from Last 3 Months Immunizations Name Administration Dates Next Due Pfizer SARS-CoV-2 Monovalent Vaccination (12+ Yrs) PURPLE 07/05/2020,06/14/2020 Surgical History Surgery Date Site/Laterality Comments CARDIAC DEFIBRILLATOR PLACEMENT 2013? pt. doesn't know brand name CARDIAC CATHETERIZATION 10/28/2013 Bilateral OTHER SURGICAL HISTORY 09/21/2014 lead malfunction defibrillator HEART SURGERY ? septal myectomy surgery Medical History Medical History Date Comments Hypertrophic cardiomyopathy (CMS/HCC) (HCC) WPW (Wrvbd-Wlnnsyuwr-Sbbap syndrome) ICD (implantable cardioverter-defibrillator) in place Sleep disorder breathing 09/20/2023 Family History Medical History Relation Name Comments No Known Problems Father Heart failure Maternal Grandfather Heart failure Mother Hypertrophic cardiomyopathy Mother Heart failure Sister Anesthesia problems Neg Hx Relation Name Status Comments Father Alive Maternal Grandfather Mother Sister Alive Social History Tobacco Use Types Packs/Day Years [...] staff should administer the PHQ-9) 1 09/27/2021 Personal Safety Answer Date Recorded Have you ever been in or are you currently in a harmful physical or emotional relationship or is someone making you feel afraid or unsafe? Denies 03/10/2024 Sex and Gender Information Value Date Recorded Sex Assigned at Not on file Legal Sex Male 1:02 PM CANE PACKER Gender Identity Not on file Sexual Orientation Not on file Obstetrics History Last Filed Vital Signs Vital Sign Reading Time Taken Comments Blood Pressure 109/57 03/11/2024 11:24 AM CANE PACKER Pulse 58 03/11/2024 11:24 AM CANE PACKER Temperature 36.8 ??C (98.2 ??F) 03/10/2024 11:[address] Respiratory Rate 18 03/11/2024 11:24 AM CANE PACKER Oxygen Saturation 99% 03/11/2024 11:24 AM CANE PACKER Inhaled Oxygen Concentration - - Weight 65.8 kg (145 lb) 03/10/2024 11:09 PM CANE PACKER Height 172.7 cm (5' 8 ) 03/10/2024 11:09 PM CANE PACKER Body Mass Index 22.05 03/10/2024 11:09 PM CANE PACKER Plan of Treatment Health Maintenance Due Date Last Done Comments Hepatitis C Screening 1996 Pneumococcal vaccine <65 (1 of 2 - PCV) 2002 Regular Well Visit/Exam 18-64 2014 DTaP/Tdap/Td Vaccine (7 - Td or Tdap) 02/04/2020 02/03/2010, 05/23/2000, 06/15/1999, Additional history exists Depression Screening 09/27/2022 09/27/2021, 09/28/19 22 Covid-19 Vaccine ( season) 2024 07/05/2020, 06/14/2020 Influenza Vaccine (#1) 2024 02/28/2019 Varicella Vaccines Completed 02/03/2010, 02/15/1999 HPV Vaccines Aged Out No longer eligi ble based on patient's age to complete this topic Medical Devices Implanted Type Area Risk Control Officer Device Identifier Shelf Expiration Date Model / Serial / Lot Medtronic Cardiac Rhythm Mgmt [id number] Tyrx 2.7x2.5in Medium Envelope Absorbable Polyarylate Minocycline - [id number] - [id number] Implanted:Qty: 1 on 01/11/2021 by Stephanie Ramachandran MD at [facility] Other - see comments Left: Chest Wall [employer] 08/24/2021 [id number] / [id number] / [id number] Description:tyrx absorbable antibacterial envelope- medium ref # [id number] Icd N/A: Chest Wall Procedures Procedure Name Priority Date/Time Associated Diagnosis Comments ECG 12-LEAD Routine 03/11/2024 7:22 AM CANE PACKER TROPONIN I HIGH-SENSITIVITY 6-HOUR Timed 03/11/2024 7:[address] CHEST PE ABDOMEN PELVIS W CONTRAST ED 03/11/2024 5:20 AM CANE PACKER RESPIRATORY PATHOGEN PANEL Routine 03/11/2024 4:26 AM CANE PACKER TROPONIN I HIGH-SENSITIVITY 2-HOUR Timed 03/11/2024 2:25 AM CANE PACKER ERYTHROCYTE SEDIMENTATION RATE STAT 03/11/2024 12:19 AM CANE PACKER CRP (ACUTE PHASE) STAT 03/11/2024 12: 19 AM CANE PACKER EGFR STAT 03/11/2024 12:19 AM CANE PACKER DIFFERENTIAL AUTO STAT 03/11/2024 12: 19 AM CANE PACKER TROPONIN I HIGH-SENSITIVITY SERIES (BASELINE, 2HR, 4HR, 6HR) STAT 03/11/2024 12:19 AM CANE PACKER COMPREHENSIVE METABOLIC PANEL STAT 03/11/2024 12:19 AM CANE PACKER CBC WITH AUTO DIFFERENTIAL STAT 03/11/2024 12:19 AM CANE PACKER XR CHEST PA LATERAL 2 VIEWS ED 03/10/2024 11:53 PM CANE PACKER ECG 12-LEAD STAT 03/10/2024 11:24 PM CANE PACKER from Last 3 Months Results * ECG 12-LEAD (03/11/2024 7:22 AM CANE PACKER) Narrative Patricia Ware - 03/11/2024 7:22 AM CANE PACKER Rob Pimentel MD ? 03/11/2024 ??7:49 AM ECG 12 lead Date/Time: 03/11/2024 7:22 AM Performed by: Rob Pimentel MD Authorized by: Arslan Shaver MD ?? Comments: ?? Interviewed myself. ??Normal sinus rhythm rate is 67. NSIVCD, LVH with ST T-wave changes consistent with LVH. ??Unchanged from prior EKG earlier in the day. Procedure Note Rob Pimentel MD - 03/11/2024 7:47 AM CST Procedure ECG 12 lead Date/Time: 03/11/2024 7:22 AM Performed by: Rob Pimentel MD Authorized by: Arslan Shaver MD Comments: Interviewed myself. Normal sinus rhythm rate is 67. NSIVCD, LVH withST T-wave changes consistent with LVH. Unchanged from prior EKG earlierin the day. Rob Pimentel MD 03/11/24 0749 us Arslan Shaver MD ECG ORDERABLES Final Result * (ABNORMAL) Troponin I high-sensitivity 6-hour (03/11/2024 7:08 AM CANE PACKER) Trop I hs 72(H) <=35 ng/L Comment: Interpretive Data For further hscTnI resources including the diagnostic algorithm and an aid in interpretation, copy and paste this link: https://bjhlab.testcatalog.org/show/hsTrop-1 Current Interpretive Data last revised 2019. Trop I hs delta 13 ng/L [facility] Trop I hs interp Equivocal [facility] Blood 03/11/2024 7:08 AM CANE PACKER 03/11/2024 7:22 AM CANE PACKER us Sole Trejo MD LAB BLOOD ORDERABLES Final Result [facility] Department [place] [address] * CT Chest PE (CTA) Abdomen Pelvis W Contrast (03/11/2024 5:20 AM CANE PACKER) Anatomical Region Laterality Modality Body N/A Computed Tomogra phy 03/11/2024 7:06 AM CANE PACKER Impressions 03/11/2024 7:21 AM CANE PACKER 1. ??No pulmonary embolism or aortic dissection, with evaluation for pulmonary embolism mildly limited by phase of contrast. 2. ??No acute process in the chest, abdomen, or pelvis to account for patient's left upper quadrant abdominal pain. 3. ??Concentric hypertrophy of the left ventricle, in keeping with this patient's history of hypertrophic cardiomyopathy. Dictated by: Luis Vickers MD, Ph.D The radiology attending physician has personally reviewed this study, and had reviewed and/or edited this written report and agrees with it. Electronically signed by: Krunal Wesley M.D. Narrative 03/11/2024 7:21 AM CANE PACKER EXAMINATION: CT CHEST PE (CTA) ABDOMEN PELVIS W CONTRAST HISTORY: 28-year-old man presenting with chest pain for the past 2-3 days. ??Reproducible with palpation. ??History of Xxutp-Pqpuhdvhw-Mqqpk and familial hypertrophic cardiomyopathy. TECHNIQUE: Computed tomographic images were acquired using a chest angiographic protocol optimized for pulmonary embolism. ??Computed tomographic examination of the abdomen and pelvis with intravenous contrast was performed using a standard protocol. ??Contrast enhanced transaxial images were obtained following the intravenous administration of 69 ml of nonionic contrast. ??Multiplanar reformatted images and three-dimensional images were obtained on the 3-D workstation and sent to the PACS archival system. ?? COMPARISON: None FINDINGS: CHEST: Phase of contrast is delayed and suboptimal for evaluation of the pulmonary arteries for pulmonary embolism. ??Within these limitations, there is no pulmonary embolism. No aortic dissection. The thyroid gland is normal. There is no cervical or supraclavicular lymphadenopathy. There is no pericardial effusion. Enlarged heart with diffuse concentric hypertrophy of the left ventricle, in keeping with this patient's history of familial hypertrophic cardiomyopathy. The aorta is normal in course and caliber. The main pulmonary artery is normal in caliber. Left subclavian approach ICD leads that terminate in the right atrium and right ventricle. Linear atelectasis in the left lower lobe. There is no lung nodule, pulmonary edema, pneumothorax, or pleural effusion. No mediastinal, hilar, or axillary lymphadenopathy. ??Residual soft tissue in the anterior mediastinum is consistent with thymus. ABDOMEN AND PELVIS: No focal hepatic lesion. . The portal and hepatic veins are patent. There is no intra or extrahepatic biliary ductal dilation. The gallbladder, spleen, pancreas, ??and adrenal glands are normal. The kidneys enhance symmetrically without hydronephrosis. ??The urinary bladder is fluid filled without wall thickening. . No renal or ureteral stones. The prostate is normal in size. The bowel is normal in caliber without wall thickening or evidence of obstruction.. The appendix is not visualized but there is no evidence of periappendiceal inflammation.. No abdominal or pelvic lymphadenopathy. No free fluid. There are no vascular abnormalities. There is no acute fracture or aggressive osseous lesion. Procedure Note Krunal Wesley MD - 03/11/2024 EXAMINATION: CT CHEST PE (CTA) ABDOMEN PELVIS W CONTRAST HISTORY: 28-year-old man presenting with chest pain for the past 2-3 days. Reproducible with palpation. History of Clwrh-Nqhgajlsy-Adgyn and familial hypertrophic cardiomyopathy. TECHNIQUE: Computed tomographic images were acquired using a chest angiographic protocol optimized for pulmonary embolism. Computed tomographic examination of the abdomen and pelvis with intravenous contrast was performed using a standard protocol. Contrast enhanced transaxial images were obtained following the intravenous administration of 69 ml of nonionic contrast. Multiplanar reformatted images and three-dimensional images were obtained on the 3-D workstation and sent to the PACS archival system. COMPARISON: None FINDINGS: CHEST: Phase of contrast is delayed and suboptimal for evaluation of the pulmonary arteries for pulmonary embolism. Within these limitations, there is no pulmonary embolism. No aortic dissection. The thyroid gland is normal. There is no cervical or supraclavicular lymphadenopathy. There is no pericardial effusion. Enlarged heart with diffuse concentric hypertrophy of the left ventricle, in keeping with this patient's history of familial hypertrophic cardiomyopathy. The aorta is normal in course and caliber. The main pulmonary artery is normal in caliber. Left subclavian approach ICD leads that terminate in the right atrium and right ventricle. Linear atelectasis in the left lower lobe. There is no lung nodule, pulmonary edema, pneumothorax, or pleural effusion. No mediastinal, hilar, or axillary lymphadenopathy. Residual soft tissue in the anterior mediastinum is consistent with thymus. ABDOMEN AND PELVIS: No focal hepatic lesion. . The portal and hepatic veins are patent. There is no intra or extrahepatic biliary ductal dilation. The gallbladder, spleen, pancreas, and adrenal glands are normal. The kidneys enhance symmetrically without hydronephrosis. The urinary bladder is fluid filled without wall thickening. . No renal or ureteral stones. The prostate is normal in size. The bowel is normal in caliber without wall thickening or evidence of obstruction.. The appendix is not visualized but there is no evidence of periappendiceal inflammation.. No abdominal or pelvic lymphadenopathy. No free fluid. There are no vascular abnormalities. There is no acute fracture or aggressive osseous lesion. IMPRESSION: 1. No pulmonary embolism or aortic dissection, with evaluation for pulmonary embolism mildly limited by phase of contrast. 2. No acute process in the chest, abdomen, or pelvis to account for patient's left upper quadrant abdominal pain. 3. Concentric hypertrophy of the left ventricle, in keeping with this patient's history of hypertrophic cardiomyopathy. Dictated by: Luis Vickers MD, Ph.D The radiology attending physician has personally reviewed this study, and had reviewed and/or edited this written report and agrees with it. Electronically signed by: Krunal Wesley M.D. [facility] Care CenterAshkanander Cary MD [facility] CT PROCEDURES Final Re sult * Respiratory pathogen panel Nasopharyngeal (03/11/2024 4:26 AM CANE PACKER) Influenza A RNA Not Detected Not Detected Influenza B RNA Not Detected Not Detected [facility] RSV RNA Not Detected Not Detected [facility] COVID-19 RNA Not Detected Not Detected [facility] Coronavirus 229E RNA Not Detected Not Detected [facility] Coronavirus HKU1 RNA Not Detected Not Detected [facility] Coronavirus NL63 RNA Not Detected Not Detected [facility] Coronavirus OC43 RNA Not Detected Not Detected [facility] Adenovirus DNA Not Detected Not Detected [facility] Metapneumovirus RNA Not Detected Not Detected [facility] Rhinovirus/Enterov irus RNA Not Detected Not Detected [facility] Parainfluenza 1 RNA Not Detected Not Detected [facility] Parainfluenza 2 RNA Not Detected Not Detected [facility] Parainfluenza 3 RNA Not Detected Not Detected [facility] Parainfluenza 4 RNA Not Detected Not Detected [facility] B. pertussis DNA Not Detected Not Detected [facility] B. parapertussis DNA Not Detected Not Detected [facility] C. pneumoniae DNA Not Detected Not Detected [facility] M. pneumoniae DNA Not Detected Not Detected [facility] Nasopharyngeal 03/11/2024 4: 26 AM CANE PACKER 03/11/2024 4:36 AM CANE PACKER Narrative [facility] - 03/11/2024 5:57 AM CANE PACKER Is the Patient experiencing symptoms consistent with COVID?->Yes Surveillance testing for transplant patient?->No ??Interpretive Data The [employer] FilmArray Respiratory Panel (RP2.1) assay is a multiplexed real-time PCR based nucleic acid test capable of simultaneous qualitative detection and identification of multiple respiratory viral and bacterial nucleic acids, including SARS Coronavirus 2 (the causative agent of COVID-19). The following bacteria, viruses and virus subtypes can be identified using the FilmArray RP2.1 assay: Bordetella pertussis, Bordetella parapertussis, Chlamydia pneumoniae, Mycoplasma pneumoniae, Adenovirus, SARS Coronavirus 2, seasonal coronaviruses (Coronavirus HKU1, Coronavirus NL63, Coronavirus 229E, and Coronavirus OC43), Influenza A, Influenza A subtype H1, Influenza A subtype H3, Influenza A subtype 2009 H1, Influenza B, Metapneumovirus, Parainfluenza 1, Parainfluenza 2, Parainfluenza 3, Parainfluenza 4, RSV, Rhinovirus/Enterovirus. Due to the genetic similarity between human Rhinovirus and Enterovirus, the FilmArray RP2.1 assay cannot reliably differentiate them. Coronavirus OC43 may cross-react with some isolates of Coronavirus HKU1. ??A dual positive result may be due to cross-reactivity or may indicate a co-infection. The detection and identification of specific viral and bacterial nucleic acids from individuals exhibiting signs and symptoms of a respiratory infection aids in the diagnosis of respiratory infection if used in conjunction with other clinical and epidemiological information. ??The results of this test should not be used as the sole basis for diagnosis, treatment, or other management decisions. ??Negative results in the setting of a respiratory illness may be due to infection with pathogens that are not detected by this test. ??Positive results do not rule out infection/co-infection with other organisms. ??The agent(s) detected by the FilmArray RP2.1 may not be the definite cause of disease. ??Additional testing (lab, imaging, etc.) may be necessary when evaluating a patient with possible respiratory tract infection. The FilmArray RP2.1 assay has FDA clearance for testing of SUBMERSIBLE PILOT swabs. ??The performance of additional specimen types has been assessed by the performing laboratory. ??The performance characteristics of this assay have been determined by [facility] Molecular Infectious Disease Laboratory. Current interpretive data was last revised on 22. Ashkan Cary MD LAB MICROBIOLOGY - GENERAL ORDERABLES Final Result Performing Organization Address City/[facility] Co de Phone Number [facility] Department [place] [place] [address] * (ABNORMAL) Troponin I high-sensitivity 2-hour (03/11/2024 2:25 AM CANE PACKER) Trop I hs 57(H) <=35 ng/L Comment: Interpretive Data For further hscTnI resources including the diagnostic algorithm and an aid in interpretation, copy and paste this link: https://bjhlab.testcatalog.org/show/hsTrop-[email or web address] Current Interpretive Data last revised 2019. Trop I hs delta -2 ng/L [facility] Trop I hs interp Insignificant [facility] Blood 03/11/2024 2:25 AM CANE PACKER 03/11/2024 3:34 AM CANE PACKER Sole Trejo MD LAB BLOOD ORDERABLES Final Result Performing Organization Address [facility] Co de Phone Number [facility] Department [place] [place] [address] * (ABNORMAL) Troponin I high-sensitivity series (baseline, 2hr, 4hr, 6hr) (03/11/2024 12:19 AM CANE PACKER) Trop I hs 59(H) <=35 ng/L Comment: Interpretive Data For further hscTnI resources including the diagnostic algorithm and an aid in interpretation, copy and paste this link: https://bjhlab.testcatalog.org/show/[email or web address] Current Interpretive Data last revised 2019. Blood 03/11/2024 12:1 9 AM CANE PACKER 03/11/2024 12:45 AM CANE PACKER us Arslan Shaver MD LAB BLOOD ORDERA BLES Final Result [facility] Department [place] [address] * eGFR (03/11/2024 12:19 AM CANE PACKER) eGFR >90 >=60 mL/min/1. 73 m2 Comment: Interpretive Data Reference Interval Normal ?>/= 90 mL/min/1.73m2 Mildly decreased* ? 60 - 89 mL/min/1.73m2 Mildly to moderately decreased ?45 - 59 mL/min/1.73m2 Moderately to severely decreased ??30 - 44 mL/min/1.73m2 Severely decreased ?15 - 29 mL/min/1.73m2 Kidney Failure ?< 15 ??mL/min/1.73m2 *Relative to young adult level Estimated glomerular filtration rate is determined by the 2020 CKD-EPI equation recommended by the National Kidney Foundation (A Unifying Approach to GFR Estimation: Recommendations of the NKF-ASK Task Force on Reassessing the Inclusion of Race in Diagnosing Kidney Disease, SIDRAN 2020). The CKD-EPI equation should not be used for patients with unstable renal function and has not been validated in children and those over 70. Current interpretive data was last reviewed 2021. Blood 03/11/2024 12:1 9 AM CANE PACKER 03/11/2024 12:45 AM CANE PACKER Arslan Shaver MD LAB BLOOD ORDERA BLES Final Result [facility] Department [place] [address] * Differential, auto (03/11/2024 12:19 AM CANE PACKER) Neutrophil abs 3.6 1.5 - 6.5 K/cumm Imm gran abs 0.0 0.0 - 0.1 K/cumm [facility] Lymphocyte abs 2.1 0.8 - 3.3 K/cumm [facility] Monocyte abs 0.6 0.2 - 0.8 K/cumm [facility] Eosinophil abs 0.1 0.0 - 0.5 K/cumm [facility] Basophil abs 0.0 0.0 - 0.1 K/cumm [facility] Neutrophil pct 55.6 % [facility] Comment: Interpretive Data Percent cell count reference ranges are not reported, since discordance with absolute values may lead to misinterpretation of CBC data. Current Interpretive Data was last revised on 2017. Imm gran pct 0.2 % [facility] Comment: Interpretive Data Percent cell count reference ranges are not reported, since discordance with absolute values may lead to misinterpretation of CBC data. Current Interpretive Data was last revised on 2017. Lymphocyte pct 31.8 % [facility] Comment: Interpretive Data Percent cell count reference ranges are not reported, since discordance with absolute values may lead to misinterpretation of CBC data. Current Interpretive Data was last revised on 2017. Monocyte pct 9.9 % [facility] Comment: Interpretive Data Percent cell count reference ranges are not reported, since discordance with absolute values may lead to misinterpretation of CBC data. Current Interpretive Data was last revised on 2017. Eosinophil pct 1.9 % [facility] Comment: Interpretive Data Percent cell count reference ranges are not reported, since discordance with absolute values may lead to misinterpretation of CBC data. Current Interpretive Data was last revised on 2017. Basophil pct 0.6 % [facility] Comment: Interpretive Data Percent cell count reference ranges are not reported, since discordance with absolute values may lead to misinterpretation of CBC data. Current Interpretive Data was last revised on 2017. Blood 03/11/2024 12:1 9 AM CANE PACKER 03/11/2024 12:45 AM CANE PACKER us Arslan Shaver MD LAB BLOOD ORDERA BLES Final Result [facility] Department [place] [address] * (ABNORMAL) CBC with auto differential (03/11/2024 12:19 AM CANE PACKER) WBC 6.5 3.8 - 9.9 K/cumm Hgb 13.2 13.0 - 17.5 g/dL [facility] Hct 40.9 38.9 - 50.3 % [facility] Plt 197 150 - 400 K/cumm [facility] MPV 10.8 9.1 - 12.3 fL [facility] RBC 4.94 4.30 - 5.80 M/cumm [facility] MCV 82.8 81.3 - 96.4 fL [facility] MCH 26.7(L) 27.1 - 33.3 pg [facility] MCHC 32.3 32.3 - 35.7 g/dL [facility] RDW CV 12.6 11.1 - 14.9 % [facility] RDW SD 38.0 35.7 - 48.1 fL [facility] NRBC abs 0.00 0.00 - 0.01 K/cumm [facility] Blood (Blood, Venous) 03/11/2024 12:19 AM CANE PACKER 03/11/2024 12:45 AM CANE PACKER Arslan Shaver MD LAB BLOOD ORDERA BLES Final Result Performing Organization Address City/[facility] Co de Phone Number [facility] [place] [address] * Erythrocyte sedimentation rate (03/11/2024 12:19 AM CANE PACKER) Pathologist [facility] Erythrocyte sedimentation rate 12 1 - 15 mm/hr Blood 03/11/2024 12:1 9 AM CANE PACKER 03/11/2024 12:49 AM CANE PACKER Arslan Shaver MD LAB BLOOD ORDERA BLES Final Result Performing Organization Address [facility] Co de Phone Number [facility] [place] [address] * CRP (acute phase) (03/11/2024 12:19 AM CANE PACKER) Pathologist [facility] CRP 2.7 <=10.0 mg/L Blood 03/11/2024 12:1 9 AM CANE PACKER 03/11/2024 12:45 AM CANE PACKER Arslan Shaver MD LAB BLOOD ORDERA BLES Final Result Performing Organization Address [facility] Co de Phone Number [facility] [place] [address] * Comprehensive metabolic panel (03/11/2024 12:19 AM CANE PACKER) Sodium 139 135 - 145 mmol/L Potassium, pl 4.1 3.3 - 4.9 mmol/L [facility] Chloride 100 97 - 110 mmol/L [facility] CO2 28 22 - 32 mmol/L [facility] Anion gap 11 2 - 15 mmol/L [facility] BUN 9 6 - 25 mg/dL [facility] Creatinine 1.06 0.80 - 1.30 mg/dL [facility] Glucose 88 70 - 199 mg/dL [facility] Comment: Interpretive Data Fasting glucose >/= 126 mg/dl is diagnostic for diabetes. ?? Fasting is defined as no caloric intake for at least 8 hours. Fasting glucose between 100 mg/dl to 125 mg/dl is diagnostic of prediabetes. In a patient with classic symptoms of hyperglycemia or hyperglycemic crisis, a random glucose >/= 200 mg/dl is diagnostic for diabetes. In the absence of unequivocal hyperglycemia, results should be confirmed by repeat testing. The classification and Diagnosis of Diabetes Diabetes Care 2021; 46: S19-S40. Current interpretive data was last revised 2022. Calcium 9.8 8.5 - 10.3 mg/dL [facility] Bilirubin, total 0.5 0.1 - 1.2 mg/dL [facility] Protein, pl 7.4 6.5 - 8.5 g/dL [facility] Albumin 4.2 3.5 - 5.0 g/dL [facility] Alk phos 66 40 - 130 Units/L [facility] ALT 18 7 - 55 Units/L [facility] AST 26 10 - 50 Units/L [facility] Blood 03/11/2024 12:1 9 AM CANE PACKER 03/11/2024 12:45 AM CANE PACKER Arslan Shaver MD LAB BLOOD ORDERA BLES Final Result [facility] Department [place] [address] * XR Chest Pa Lateral 2 Views (03/10/2024 11:53 PM CANE PACKER) Anatomical Region Laterality Modality Body, Chest N/A Computed Radiogr aphy 03/11/2024 12:1 4 AM CANE PACKER Impressions 03/11/2024 9:52 AM CANE PACKER The current study is compared with the prior radiograph dated ??09/27/2021. ??Abandoned pacer/defibrillator leads are noted in the right atrium and right ventricle. ??Post surgical changes of median sternotomy with wires aligned and intact. ??A loop recorder is seen overlying the left hemithorax. ??No lobar consolidation. ??No pleural effusion. ??No pneumothorax. ??Mild cardiomegaly. Dictated by: Donna Tolbert MD, MPH The radiology attending physician has personally reviewed this study, and had reviewed and/or edited this written report and agrees with it. Electronically signed by: Hernando Porter M.D. Narrative 03/11/2024 9:52 AM CANE PACKER EXAMINATION: 2 view chest radiograph Procedure Note Hernando Porter MD - 03/11/2024 EXAMINATION: 2 view chest radiograph IMPRESSION: The current study is compared with the prior radiograph dated 09/27/2021. Abandoned pacer/defibrillator leads are noted in the right atrium and right ventricle. Post surgical changes of median sternotomy with wires aligned and intact. A loop recorder is seen overlying the left hemithorax. No lobar consolidation. No pleural effusion. No pneumothorax. Mild cardiomegaly. Dictated by: Donna Tolbert MD, MPH The radiology attending physician has personally reviewed this study, and had reviewed and/or edited this written report and agrees with it. Electronically signed by: Hernando Porter M.D. Arslan Shaver MD IMG XR PROCEDURE S Final Result * ECG 12-LEAD (03/10/2024 11:24 PM CANE PACKER) Narrative [facility] [place] [place] - 03/10/2024 11:24 PM CANE PACKER Cortez Araiza MD ? 03/10/2024 11:26 PM ECG 12 lead Date/Time: 03/10/2024 11:24 PM Performed by: Cortez Araiza MD Authorized by: Sole Trejo MD ?? Rate: ??ECG rate: ??69 ??ECG rate assessment: normal ?? Rhythm: ??Rhythm: sinus rhythm ?? Ectopy: ??Ectopy: none ?? QRS: ??QRS axis: ??Normal ??QRS intervals: ??Wide Conduction: ??Conduction: abnormal ?Abnormal conduction: complete LBBB ?? ST segments: ??ST segments: ??Non-specific T waves: ??T waves: non-specific ?? Other findings: ??Other findings comment: ??Likely delta wave, noraml [place] duration unchanged from prior. Previous ECG: ??Previous ECG: ??Compared to current ??Date of previous ECG: ??12/30/2020 ??Comparison ECG info: ??Old LBBB ??Similarity: ??No change Interpretation: ??Interpretation: non-specific ?? Recommended Follow-up: ??Recommended follow up: cardiac workup and further workup in the ED ?? Procedure Note Cortez Araiza MD - 03/10/2024 11:24 PM CST Procedure ECG 12 lead Date/Time: 03/10/2024 11:24 PM Performed by: Cortez Araiza MD Authorized by: Sole Trejo MD Rate: ECG rate: 69 ECG rate assessment: normal Rhythm: Rhythm: sinus rhythm Ectopy: Ectopy: none QRS: QRS axis: Normal QRS intervals: Wide Conduction: Conduction: abnormal Abnormal conduction: complete LBBB ST segments: ST segments: Non-specific T waves: T waves: non-specific Other findings: Other findings comment: Likely delta wave, noraml [place] duration unchangedfrom prior. Previous ECG: Previous ECG: Compared to current Date of previous EC12/30/2020 Comparison ECG info: Old LBBB Similarity: No change Interpretation: Interpretation: non-specific Recommended Follow-up: Recommended follow up: cardiac workup and further workup in the ED Cortez Araiza MD 03/10/24 2326 Arslan Shaver MD ECG ORDERABLES Final Result [facility] from Last 3 Months Insurance [employer] MEDICARE [facility] Address: [address] [address] [place] [address] [facility] MEDICARE IDPA [facility] MEDICARE Advance Directives For more information, please contact: [phone] * Full Code (Latest Code Status on File) Date Activated Date Inactivated Comments 09/27/2021 10:44 PM 09/28/2021 4:50 PM Care Teams User Support Specialist Relationship Specialty Start Date End Date Becky Garnett MD PCP - General Family Medicine 12/21/21
--- OUTSIDE RECORDS SUMMARY | 2024-06-10 05:02 | XMS_ITS | Encounter Summary ---
Author Organization [facility] Address [facility] [place] [address] Care Team Providers Care Rn Prior Authorization Name Role Phone Fior Mao NP Primary Care Provider [phone] Encounter Details Date Type Department Care Team (Late st Contact Info) Description 09/20/2023 [employer] Message Enc [facility], [address] [place], [place] [id number] Nam Diaz MD Three [facility], [address] [place], [place] [id number] Loop recorder Social History Tobacco Use Types Packs/Day Years Used Date Smoking Tobacco: Former Cigarettes Q uit: 05/23/2023 Passive Smoke Exposure: Never Smokeless Tobacco: Never Comments:only when i smoke b [place]woods/ I use nicotine with my vape Alcohol Use Standard Drinks/Week Comments Yes 2 (1 standard drink = 0.6 oz pur e alcohol) socially PHQ-2 Answer Date Recorded Patient Health Questionnaire-2 Score 6 05/29/2023 Sex and Gender Information Value Date Recorded Sex Assigned at Not on file Legal Sex Male 12:12 PM TAR CHASER Gender Identity Not on file Sexual Orientation Not on file documented as of this encounter Plan of Treatment Not on file documented as of this encounter Visit Diagnoses Not on filedocumented in this encounter Additional Health Concerns Assessment Noted Time PHQ-9 Depression Total Score: 17 01/24/2 024 11:29 AM TAR CHASER documented as of this encounter Care Teams Rn Prior Authorization Relationship Specialty Start Date End Date Fior Mao NP [address] [place] [phone] PCP - General NURSE PRACTITIONER 05/08/22 documented as of this encounter
--- OUTSIDE RECORDS SUMMARY | 2024-06-10 05:02 | XMS_ITS | Clinical Summary ---
Author Organization [facility] Address [address] [place] [address] Care Team Providers Care Resistance Welding Machine Operator Name Role Phone Fior Mao NP Primary Care Provider [phone] Allergies No known active allergies Medications ibuprofen (MOTRIN) 200 MG tablet Take 4 tablets (800 mg total) by mouth every 6 (six) hours as needed for Pain. Active atenolol (TENORMIN) 50 MG tabletIndications:H ypertrophic cardiomyopathy ([facility]/HCC HHS/HCC) Take 1.5 tablets (75 mg total) by mouth daily. 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 Encounters Date Type Department Care Team Description 04/03/2024 Telephone [facility] [address] [place] [address] Joselin Adams MA No Show from Last 3 Months Immunizations Name Administration Dates Next Due PFIZER COVID-19 (ORIGINAL FO RMULATION, PURPLE CAP) mRNA, LNP-S, PF, 30 MCG/0.3 ML DOSE 07/05/2020,06/14/2020 Family History Medical History Relation Comments Diabetes Maternal Grandfather Early Maternal Grandfather Heart Disease Maternal Grandfather Stroke Maternal Grandfather Drug Abuse Maternal Grandmother Cardiomyopathy Mother Depression Mother Diabetes Mother Early Mother Hypertension Mother Cardiomyopathy Sister Depression Sister Mental Health Sister Relation Status Comments Maternal Grandfather Maternal Grandmother Mother Sister Social History Tobacco Use Types Packs/Day Years Used Date Smoking Tobacco: Former Cigarettes Q uit: 05/23/2023 Passive Smoke Exposure: Never Smokeless Tobacco: Never Tobacco Cessation:Counseling Given: Not Answered Comments:only when i smoke [place]/ I use nicotine with my vape Alcohol Use Standard Drinks/Week Comments Yes 2 (1 standard drink = 0.6 oz pur e alcohol) socially PHQ-2 Answer Date Recorded Patient Health Questionnaire-2 Score 6 05/29/2023 Sex and Gender Information Value Date Recorded Sex Assigned at Not on file Legal Sex Male 12:12 PM [employer] Gender Identity Not on file Sexual Orientation Not on file Last Filed Vital Signs Vital Sign Reading Time Taken Comments Blood Pressure 116/70 09/06/2023 10:13 AM CDT Pulse 64 09/06/2023 10:13 AM CDT Temperature 36.9 ??C (98.4 ??F) 09/05/2023 12:41 PM C DT Respiratory Rate 16 09/05/2023 12:41 PM CDT Oxygen Saturation 98% 09/06/2023 10:13 AM CDT Inhaled Oxygen Concentration - - Weight 56.2 kg (124 lb) 09/06/2023 10:13 AM CDT Height 172.7 cm (5' 8 ) 09/06/2023 10:13 AM CDT Body Mass Index 18.85 09/06/2023 10:13 AM CDT Plan of Treatment Health Maintenance Due Date Last Done Comments Hepatitis C 2014 DTaP, Tdap and Td Vaccines ( 1 - Tdap) 2015 Hepatitis B Vaccines (1 of 3 - 19+ 3-dose series) 2015 Annual Physical 05/17/2023 05/17/2022 COVID-19 Vaccine (3 - 2023-2 5 season) 2024 07/05/2020, 06/14/2020 Influenza Adult (#1) 2024 PHQ-2 (Physician [place]) 05/06/2024 05/29/2023 HPV Vaccines Aged Out No longer eligi ble based on patient's age to complete this topic Meningococcal B Vaccine Aged Out No l onger eligible based on patient's age to complete this topic Meningococcal Vaccine Aged Out No vasiliy vane eligible based on patient's age to complete this topic Pneumococcal Vaccine: Pediatrics (0 to 5 Years) and At-Risk Patients (6 to 64 Years) Aged Out No longer eligible b ased on patient's age to complete this topic RSV Immunizations Under 20 Months Aged Out No longer eligible b ased on patient's age to complete this topic Medical Devices Implanted Type Area Sales Outfitter Device Identifier Shelf Expiration Date Model / Serial / Lot Mdt Implantable Loop Recorder- [id number] Implanted:12/26 by Aaron Woodruff MD (Quantity not on file) Implantable Loop Recorder [employer] CARDIAC RHYTHM AND HEART FAILURE - DIV M 03/09/2024 [id number] / [id number] / Insurance MEDICAID MEDICARE Care Teams Resistance Welding Machine Operator Relationship Specialty Start Date End Date Fior Mao NP [address] [place] [phone] PCP - General NURSE PRACTITIONER 05/08/22
--- OUTSIDE RECORDS SUMMARY | 2024-06-10 05:02 | XMS_ITS | Continuity of Care Document ---
Author Organization [facility] Address [address] [place] [address] Phone Care Team Providers Care Roustabout Hand Name Role Phone Gregory Kc MD Unavailable Unavailable Medications Medication Instructions Dosage Effective Dates (start - stop) Status Comments amoxicillin 250 mg/5 mL Oral Susp AMOXICILLIN 250 MG/5 ML SUSP<><> 2 teaspoon by mouth (PO) three times a day.<><><>DISPENSE: 10 day supply.<>REFILLS: 0<>Provider: GREGORY KC MD<>[facility]<><> - No Longer Active ibuprofen 100 mg/5 mL Oral Susp MOTRIN 100 MG/5 ML SUSPENSION # 6.0OZ<><> 3 teaspoon by mouth (PO) every 8 Hours.<><> As needed for pain.<><>DISPENSE: <>REFILLS: 0<>Provider: GREGORY KC MD<>[facility]<><> - No Longer Active Procedures Procedure Date HCY - Age 5-11, Established Patient, Ful l Screening URNLS DIP STICK/TABLET RGNT AUTO W/O KAUSHIK BLOOD COUNT; COMPLETE (CBC), AUTOMATED (HGB, HCT, RBC, WBC AND PLATELET COUNT) COLLECTION OF VENOUS BLOOD BY VENIPUNCTU RE Advance Directives Directive Yes / No Effective Date File Name No Information Encounters Encounter Description Practice Location Reason(s) For Visit Diagnoses Date Provider Providers Copied on Encounter HCY - Age 5-11, Established Patient, Full Screening [facility] , [address], [place], [place], [id number], [place] tel:[phone] [facility] EXAM 0-[address], [place], [place], [id number] , . tel: [phone] Family History Family Member Type Diagnosis Age At Onset No Information Payers Payer name Insurance type Covered republican ID Authoriza tion(s) No Information Social History Type Description Quantity Date Captured Comments Sex Male Smoking Status No Information Chief Complaint And Reason For Visit No Information Reason For Referral Reason For Referral No Information History Of Present Illness Encounter Date Complaint History Of Prese nt Illness No Information Functional Status Date Functional Assessmen t No Information Instructions Date Instruction Additional Infor mation No Information Assessments Type Assessment Date No Information Patient Care Teams Name Effective Dates (start - stop) Status Members No Information
--- OUTSIDE RECORDS SUMMARY | 2024-06-10 05:02 | XMS_ITS | Referral Summary ---
Author Organization [facility] Address [address] [place] [address] Care Team Providers Care Yard Cleaner Name Role Phone Becky Garnett MD Primary Care Provider [phone] Encounters Date Type Department Care Team Description 03/11/2024 2:16 AM HOOK PULLER - 03/11/2024 1:59 PM HOOK PULLER Emergency [facility] Emergency Department [address] [place] [address] Arslan Shaver MD Watkins, MD Margarito Brandt, Rob Mejia MD Chest pain, unspecified type (Primary Dx); Hypertrophic cardiomyopathy (CMS/HCC) (HCC); WPW (Dfczq-Nrdltocbn-Ldpnh syndrome) Discharge Disposition: Left Against Medical Advice from Last 3 Months Allergies No known active allergies Medications aspirin [...] (01/02/2021): Added automatically from request for surgery [id number] Malfunction of implantable d efibrillator ventricular (ICD) lead 12/30/2020 ICD (implantable cardioverter-defibrillator) in place 12/30/2020 Elevated troponin 04/01/2020 S/P ICD (internal cardiac defibrillator) procedu re 11/11/2019 History of ventricular septal myectomy 0 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 Epperson. Immunizations Name Administration Dates Next Due Pfizer SARS-CoV-2 Monovalent Vaccination (12+ Yrs) PURPLE 07/05/2020,06/14/2020 Social History Tobacco Use Types Packs/Day Years [...] on file Legal Sex Male 1:02 PM HOOK PULLER Gender Identity Not on file Sexual Orientation Not on file Last Filed Vital Signs Vital Sign Reading Time Taken Comments Blood Pressure 109/57 03/11/2024 11:24 AM HOOK PULLER Pulse 58 03/11/2024 11:24 AM HOOK PULLER Temperature 36.8 ??C (98.2 ??F) 03/10/2024 11:[address] Respiratory Rate 18 03/11/2024 11:24 AM HOOK PULLER Oxygen Saturation 99% 03/11/2024 11:24 AM HOOK PULLER Inhaled Oxygen Concentration - - Weight 65.8 kg (145 lb) 03/10/2024 11:09 PM HOOK PULLER Height 172.7 cm (5' 8 ) 03/10/2024 11:09 PM HOOK PULLER Body Mass Index 22.05 03/10/2024 11:09 PM HOOK PULLER Plan of Treatment Not on file Medical Devices Implanted Type Area Christmas Tree Grader Device Identifier Shelf Expiration Date Model / Serial / Lot Medtronic Cardiac Rhythm Mgmt [id number] Tyrx 2.7x2.5in Medium Envelope Absorbable Polyarylate Minocycline - [id number] - [id number] Implanted:Qty: 1 on 01/11/2021 by Stephanie Ramachandran MD at [facility] Other - see comments Left: Chest Wall [employer] 08/24/2021 [id number] / [id number] / [id number] Description:tyrx absorbable antibacterial envelope- medium ref # [id number] Icd N/A: Chest Wall Procedures Procedure Name Priority Date/Time Associated Diagnosis Comments ECG 12-LEAD Routine 03/11/2024 7:22 AM HOOK PULLER TROPONIN I HIGH-SENSITIVITY 6-HOUR Timed 03/11/2024 7:[address] CHEST PE ABDOMEN PELVIS W CONTRAST ED 03/11/2024 5:20 AM HOOK PULLER RESPIRATORY PATHOGEN PANEL Routine 03/11/2024 4:26 AM HOOK PULLER TROPONIN I HIGH-SENSITIVITY 2-HOUR Timed 03/11/2024 2:25 AM HOOK PULLER ERYTHROCYTE SEDIMENTATION RATE STAT 03/11/2024 12:19 AM HOOK PULLER CRP (ACUTE PHASE) STAT 03/11/2024 12: 19 AM HOOK PULLER EGFR STAT 03/11/2024 12:19 AM HOOK PULLER DIFFERENTIAL AUTO STAT 03/11/2024 12: 19 AM HOOK PULLER TROPONIN I HIGH-SENSITIVITY SERIES (BASELINE, 2HR, 4HR, 6HR) STAT 03/11/2024 12:19 AM HOOK PULLER COMPREHENSIVE METABOLIC PANEL STAT 03/11/2024 12:19 AM HOOK PULLER CBC WITH AUTO DIFFERENTIAL STAT 03/11/2024 12:19 AM HOOK PULLER XR CHEST PA LATERAL 2 VIEWS ED 03/10/2024 11:53 PM HOOK PULLER ECG 12-LEAD STAT 03/10/2024 11:24 PM HOOK PULLER from Last 3 Months Results * ECG 12-LEAD (03/11/2024 7:22 AM HOOK PULLER) Narrative Patricia Ware - 03/11/2024 7:22 AM HOOK PULLER Rob Pimentel MD ? 03/11/2024 ??7:49 AM ECG 12 lead Date/Time: 03/11/2024 7:22 AM Performed by: oRb Pimentel MD Authorized by: Arslan Shaver MD [...] the day. Rob Pimentel MD 03/11/24 0749 Arslan Shaver MD ECG ORDERABLES Final Result * (ABNORMAL) Troponin I high-sensitivity 6-hour (03/11/2024 7:08 AM HOOK PULLER) Trop I hs 72(H) <=35 ng/L Comment: Interpretive Data For further hscTnI resources including the diagnostic algorithm and an aid in interpretation, copy and paste this link: https://bjhlab.testcatalog.org/show/hsTrop-1 Current Interpretive Data last revised 2019. Trop I hs delta 13 ng/L [facility] Trop I hs interp Equivocal [facility] Blood 03/11/2024 7:08 AM HOOK PULLER 03/11/2024 7:22 AM HOOK PULLER us Sole Trejo MD LAB BLOOD ORDERABLES Final Result [facility] Department [place] [address] * CT Chest PE (CTA) Abdomen Pelvis W Contrast (03/11/2024 5:20 AM HOOK PULLER) Anatomical Region Laterality Modality Body N/A Computed Tomogra phy 03/11/2024 7:06 AM HOOK PULLER Impressions 03/11/2024 7:21 AM HOOK PULLER 1. ??No pulmonary embolism or aortic dissection, [...] Krunal Wesley M.D. Narrative 03/11/2024 7:21 AM HOOK PULLER EXAMINATION: CT CHEST PE (CTA) ABDOMEN PELVIS W CONTRAST HISTORY: 28-year-old man presenting with chest pain for the past 2-3 days. ??Reproducible with palpation. ??History of Bacsq-Aahoysvsf-Lxfmk and familial hypertrophic cardiomyopathy. TECHNIQUE: Computed tomographic [...] 2-3 days. Reproducible with palpation. History of Axect-Wkxtjprhr-Dgukg and familial hypertrophic cardiomyopathy. TECHNIQUE: Computed tomographic [...] it. Electronically signed by: Krunal Wesley M.D. Ashkan Cary MD IM CT PROCEDURES Final Re sult * Respiratory pathogen panel Nasopharyngeal (03/11/2024 4:26 AM HOOK PULLER) Pathologist [facility] Influenza A RNA Not Detected Not Detected Influenza B RNA Not Detected Not Detected [facility] RSV RNA Not Detected Not Detected [facility] COVID-19 RNA Not Detected Not Detected [facility] Coronavirus 229E RNA Not Detected Not Detected [facility] Coronavirus HKU1 RNA Not Detected Not Detected [facility] Coronavirus NL63 RNA Not Detected Not Detected [facility] Coronavirus OC43 RNA Not Detected Not Detected [facility] Adenovirus DNA Not Detected Not Detected [facility] Metapneumovirus RNA Not Detected Not Detected [facility] Rhinovirus/Enterov irus RNA Not Detected Not Detected [facility] Parainfluenza 1 RNA Not Detected Not Detected [facility] Parainfluenza 2 RNA Not Detected Not Detected [facility] Parainfluenza 3 RNA Not Detected Not Detected [facility] Parainfluenza 4 RNA Not Detected Not Detected [facility] B. pertussis DNA Not Detected Not Detected [facility] B. parapertussis DNA Not Detected Not Detected [facility] C. pneumoniae DNA Not Detected Not Detected [facility] M. pneumoniae DNA Not Detected Not Detected [facility] Nasopharyngeal 03/11/2024 4: 26 AM HOOK PULLER 03/11/2024 4:36 AM HOOK PULLER Narrative [facility] - 03/11/2024 5:57 AM HOOK PULLER Is the Patient experiencing symptoms consistent with COVID?->Yes Surveillance testing for transplant patient?->No ??Interpretive Data The [employer] FilmArray Respiratory Panel (RP2.1) assay is a [...] assay has FDA clearance for testing of VACUUM TESTER CANS swabs. ??The performance of additional specimen types has been assessed by the performing laboratory. ??The performance characteristics of this assay have been determined by [facility] Molecular Infectious Disease Laboratory. Current interpretive data was last revised on 22. us Ashkan Cary MD LAB MICROBIOLOGY - GENERAL ORDERABLES Final Result [facility] Department [place] [address] * (ABNORMAL) Troponin I high-sensitivity 2-hour (03/11/2024 2:25 AM HOOK PULLER) Trop I hs 57(H) <=35 ng/L Comment: Interpretive Data For further hscTnI resources including the diagnostic algorithm and an aid in interpretation, copy and paste this link: [email or web address].testcatTrendient.org/show/hsTrop-1 Current Interpretive Data last revised 2019. Trop I hs delta -2 ng/L [facility] Trop I hs interp Insignificant [facility] Blood 03/11/2024 2:25 AM HOOK PULLER 03/11/2024 3:34 AM HOOK PULLER us Sole Trejo MD LAB BLOOD ORDERABLES Final Result Performing Organization Address [facility] de Phone Number [facility] [place] [address] * (ABNORMAL) Troponin I high-sensitivity series (baseline, 2hr, 4hr, 6hr) (03/11/2024 12:19 AM HOOK PULLER) Trop I hs 59(H) <=35 ng/L Comment: Interpretive Data For further hscTnI resources including the diagnostic algorithm and an aid in interpretation, copy and paste this link: [email or web address] PharmacatTrendient.org/show/hsTrop-1 Current Interpretive Data last revised 2019. Blood 03/11/2024 12:1 9 AM HOOK PULLER 03/11/2024 12:45 AM HOOK PULLER us Arslan Shaver MD LAB BLOOD ORDERA BLES Final Result Performing Organization Address [facility] de Phone Number [facility] Department [place] [employer] [place] [address] * eGFR (03/11/2024 12:19 AM HOOK PULLER) eGFR >90 >=60 mL/min/1. 73 m2 Comment: [...] Inclusion of Race in Diagnosing Kidney Disease, JASN 2020). The CKD-EPI equation should not be used for patients with unstable renal function and has not been validated in children and those over 70. Current interpretive data was last reviewed 2021. Blood 03/11/2024 12:1 9 AM HOOK PULLER 03/11/2024 12:45 AM HOOK PULLER us Arslan Shaver MD LAB BLOOD ORDERA BLES Final Result [facility] Department [place] [address] * Differential, auto (03/11/2024 12:19 AM HOOK PULLER) Neutrophil abs 3.6 1.5 - 6.5 K/cumm Imm gran abs 0.0 0.0 - 0.1 K/cumm [facility] Lymphocyte abs 2.1 0.8 - 3.3 K/cumm [facility] Monocyte abs 0.6 0.2 - 0.8 K/cumm [facility] Eosinophil abs 0.1 0.0 - 0.5 K/cumm [facility] Basophil abs 0.0 0.0 - 0.1 K/cumm [facility] Neutrophil pct 55.6 % [facility] Comment: Interpretive Data Percent cell count reference ranges are not reported, since discordance with absolute values may lead to misinterpretation of CBC data. Current Interpretive Data was last revised on 2017. Imm gran pct 0.2 % [facility] Comment: Interpretive Data Percent cell count reference ranges are not reported, since discordance with absolute values may lead to misinterpretation of CBC data. Current Interpretive Data was last revised on 2017. Lymphocyte pct 31.8 % [facility] Comment: Interpretive Data Percent cell count reference ranges are not reported, since discordance with absolute values may lead to misinterpretation of CBC data. Current Interpretive Data was last revised on 2017. Monocyte pct 9.9 % [facility] Comment: Interpretive Data Percent cell count reference ranges are not reported, since discordance with absolute values may lead to misinterpretation of CBC data. Current Interpretive Data was last revised on 2017. Eosinophil pct 1.9 % [facility] Comment: Interpretive Data Percent cell count reference ranges are not reported, since discordance with absolute values may lead to misinterpretation of CBC data. Current Interpretive Data was last revised on 2017. Basophil pct 0.6 % [facility] Comment: Interpretive Data Percent cell count reference ranges are not reported, since discordance with absolute values may lead to misinterpretation of CBC data. Current Interpretive Data was last revised on 2017. Blood 03/11/2024 12:1 9 AM HOOK PULLER 03/11/2024 12:45 AM HOOK PULLER Arslan Shaver MD LAB BLOOD ORDERA BLES Final Result [facility] Department [place] [address] * (ABNORMAL) CBC with auto differential (03/11/2024 12:19 AM HOOK PULLER) WBC 6.5 3.8 - 9.9 K/cumm Hgb 13.2 13.0 - 17.5 g/dL [facility] Hct 40.9 38.9 - 50.3 % [facility] Plt 197 150 - 400 K/cumm [facility] MPV 10.8 9.1 - 12.3 fL [facility] RBC 4.94 4.30 - 5.80 M/cumm [facility] MCV 82.8 81.3 - 96.4 fL [facility] MCH 26.7(L) 27.1 - 33.3 pg [facility] MCHC 32.3 32.3 - 35.7 g/dL [facility] RDW CV 12.6 11.1 - 14.9 % [facility] RDW SD 38.0 35.7 - 48.1 fL [facility] NRBC abs 0.00 0.00 - 0.01 K/cumm [facility] Blood (Blood, Venous) 03/11/2024 12:19 AM HOOK PULLER 03/11/2024 12:45 AM HOOK PULLER Arslan Shaver MD LAB BLOOD ORDERA BLES Final Result Performing Organization Address City/[facility]/ZIP Co de Phone Number [facility] Department [place] [address] * Erythrocyte sedimentation rate (03/11/2024 12:19 AM HOOK PULLER) Erythrocyte sedimentation rate 12 1 - 15 mm/hr Blood 03/11/2024 12:1 9 AM HOOK PULLER 03/11/2024 12:49 AM HOOK PULLER Arslan Shaver MD LAB BLOOD ORDERA BLES Final Result [facility] Department [place] [address] * CRP (acute phase) (03/11/2024 12:19 AM HOOK PULLER) CRP 2.7 <=10.0 mg/L Blood 03/11/2024 12:1 9 AM HOOK PULLER 03/11/2024 12:45 AM HOOK PULLER Arslan Shaver MD LAB BLOOD ORDERA BLES Final Result [facility] Department [place] [address] * Comprehensive metabolic panel (03/11/2024 12:19 AM HOOK PULLER) Sodium 139 135 - 145 mmol/L Potassium, pl 4.1 3.3 - 4.9 mmol/L [facility] Chloride 100 97 - 110 mmol/L [facility] CO2 28 22 - 32 mmol/L [facility] Anion gap 11 2 - 15 mmol/L [facility] BUN 9 6 - 25 mg/dL [facility] Creatinine 1.06 0.80 - 1.30 mg/dL [facility] Glucose 88 70 - 199 mg/dL [facility] Comment: Interpretive Data Fasting glucose >/= 126 [...] classification and Diagnosis of Diabetes Diabetes Care 202; 46: S19-S40. Current interpretive data was last revised 2022. Calcium 9.8 8.5 - 10.3 mg/dL [facility] Bilirubin, total 0.5 0.1 - 1.2 mg/dL [facility] Protein, pl 7.4 6.5 - 8.5 g/dL [facility] Albumin 4.2 3.5 - 5.0 g/dL [facility] Alk phos 66 40 - 130 Units/L [facility] ALT 18 7 - 55 Units/L [facility] AST 26 10 - 50 Units/L [facility] Blood 03/11/2024 12:1 9 AM HOOK PULLER 03/11/2024 12:45 AM HOOK PULLER Arslan Shaver MD LAB BLOOD ORDERA BLES Final Result [facility] Department [place] [address] * XR Chest Pa Lateral 2 Views (03/10/2024 11:53 PM HOOK PULLER) Anatomical Region Laterality Modality Body, Chest N/A Computed Radiogr aphy 03/11/2024 12:1 4 AM HOOK PULLER Impressions 03/11/2024 9:52 AM HOOK PULLER The current study is compared with the [...] Hernando Porter M.D. Narrative 03/11/2024 9:52 AM HOOK PULLER EXAMINATION: 2 view chest radiograph Procedure Note [...] it. Electronically signed by: Hernando Porter M.D. us Arslan Shaver MD IMG XR PROCEDURE S Final Result * ECG 12-LEAD (03/10/2024 11:24 PM HOOK PULLER) Narrative [facility] - 03/10/2024 11:24 PM HOOK PULLER Cortez Araiza MD ? 03/10/2024 11:26 PM [...] ??Other findings comment: ??Likely delta wave, noraml GA duration unchanged from prior. Previous ECG: ??Previous [...] Other findings comment: Likely delta wave, noraml GA duration unchangedfrom prior. Previous ECG: Previous ECG: Compared to current Date of previous EC12/30/2020 Comparison ECG info: Old LBBB Similarity: No change Interpretation: Interpretation: non-specific Recommended Follow-up: Recommended follow up: cardiac workup and further workup in the ED Cortez Araiza MD 03/10/24 7223 Arslan Shaver MD ECG ORDERABLES Final Result [facility] from Last 3 Months Insurance [facility] MEDICARE [facility] IDDC [facility] MEDICARE Advance Directives For more information, please contact: [phone] * Full Code (Latest Code Status on File) Date Activated Date Inactivated Comments 09/27/2021 10:44 PM 09/28/2021 4:50 PM Care Teams Yard Cleaner Relationship Specialty Start Date End Date Becky Garnett MD PCP - General Family Medicine 12/21/21
--- OUTSIDE RECORDS SUMMARY | 2024-06-10 05:04 | XMS_ITS | Encounter Summary ---
Author Organization [facility] Address [facility] [place] [address] Care Team Providers Care National Business Director Name Role Phone Fior Mao NP Primary Care Provider [phone] Encounter Details Date Type Department Care Team (Late st Contact Info) Description 02/05/2023 WigWag Message Enc [facility], [address] [address] [place], [facility] [place] Provider 02/05/23 Disconnected Carelink since 01/17/23 Social History Tobacco Use Types Packs/Day Years Used Date Smoking Tobacco: Some Days Passive Smoke Exposure: Never Smokeless Tobacco: Never Comments:only when i smoke [place]/ I use nicotine with my vape Alcohol Use Standard Drinks/Week Comments Yes 2 (1 standard drink = 0.6 oz pur e alcohol) socially PHQ-2 Answer Date Recorded Patient Health Questionnaire-2 Score 1 05/17/2022 Sex and Gender Information Value Date Recorded Sex Assigned at Not on file Legal Sex Male 12:12 PM BRUSH HOLDER ASSEMBLER Gender Identity Not on file Sexual Orientation Not on file documented as of this encounter Plan of Treatment Not on file documented as of this encounter Visit Diagnoses Not on filedocumented in this encounter Additional Health Concerns Infection Onset Date Last Indicated Resolved Time COVID-19 Rule Out 04/17/2023 04/17/2023 04/17/2023 2:34 PM BRUSH HOLDER ASSEMBLER documented as of this encounter Care Teams National Business Director Relationship Specialty Start Date End Date Fior Mao NP [address] [place] [address] PCP - General NURSE PRACTITIONER 05/08/22 documented as of this encounter
--- OUTSIDE RECORDS SUMMARY | 2024-06-10 05:04 | XMS_ITS | Encounter Summary ---
Author Organization [facility] Address [address] [place] [address] Phone Care Team Providers Care Stockbroking Dealer Name Role Phone No, Physician Primary Care Provider [phone] Becky Garnett MD Primary Care Provider [phone] Encounter Details Date Type Department Care Team (Late st Contact Info) Description 11/12/2019 Telephone [facility] Cardiology [address] [facility] Advanced Medicine [address] [place] [address] [place] [address] Jossy Machado MD [address] [address] [facility] [place], [place] [id number] Social History Tobacco Use Types Packs/Day Years Used Date Smoking Tobacco: Every Day E-cigarettes Smokeless Tobacco: Never Alcohol Use Standard Drinks/Week Comments No 0 (1 standard drink = 0.6 oz pur e alcohol) Sex and Gender Information Value Date Recorded Sex Assigned at Not on file Legal Sex Male 1:02 PM ACUTE CARE OCCUPATIONAL THERAPIST Gender Identity Not on file Sexual Orientation Not on file documented as of this encounter Plan of Treatment Not on file documented as of this encounter Visit Diagnoses Not on filedocumented in this encounter Additional Health Concerns Infection Onset Date Last Indicated Resolved Time COVID: Suspected 03/11/2024 03/11/2024 03/11/2024 5:58 AM ACUTE CARE OCCUPATIONAL THERAPIST documented as of this encounter Care Teams Stockbroking Dealer Relationship Specialty Start Date End Date No, Physician PCP - General 09/22/16 12/20/21 Becky Garnett MD PCP - General Family Medicine 12/21/21 documented as of this encounter
[2024-06-10 05:58] LABS: Influenza A QL RT-PCR Positive (Negative); Influenza B QL RT-PCR Negative (Negative); RSV RNA, RT-PCR Negative (Negative); SARS-CoV-2 RNA PCR Negative (Negative)
[2024-06-10 07:46] VITALS: RESP 18
[2024-06-10 07:47] VITALS: BP 105/58; PULSE 75; RESP 18; TEMP 37.9; O2SAT 100
[2024-06-10] MEDS: ACETAMINOPHEN 500 MG TABLET 1000 MG PO (07:56)
[2024-06-10 08:26] VITALS: TEMP 37.2
--- NOTE | 2024-06-10 09:01 | ED.GENADULT ---
HPI - General Adult General Chief complaint: Fever Stated complaint: fever, exposed to flu and covid, syncopal episode Time Seen by Provider: 06/10/24 08:47 History of Present Illness HPI narrative: patient 29-year-old gentleman presents emergency department with chief complaint of fever body aches and generalized malaise the patient reports that he has had a cough reports that he has chest wall pain and reports that he has had episodes of vomiting. The patient states he has AICD has had hypertrophic cardiomyopathy and Pfvur-Gifoprolw-Ywtwp. Patient reports he was exposed to both flu and COVID Related Data Home Medications ?Medication ?Instructions ?Recorded ?Confirmed ?Last Taken ?Type aspirin 81 mg chewable tablet 01/13/21 Unknown History atenolol 50 mg tablet 01/13/21 Unknown History Allergies Allergy/AdvReac Type Severity Reaction Status Date / Time No Known Allergies Allergy Unknown Verified 06/10/24 07:47 Review of Systems Review of Systems: A 10 system review of systems was completed on the patient and is negative except for what is stated in the HPI. Nursing and ancillary documentation was reviewed. FOR[facility]LY [facility] Past Medical History Medical History Malfunction of electrode lead of implantable cardioverter-defibrillator (ICD) Pacemaker Bipolar 1 disorder Fngbj-Uucndbxgy-Nciaq (WPW) syndrome Hypertrophic cardiomyopathy Surgical History Surgical History History of heart surgery Apparently had myomectomy in [place] around 9 years old. Family History Family History Mother Heart disease Apparently of CHF/HOCM age 36 Grandparent Heart disease Says grandfather had the same heart disease that he has Other No acute medical problems Social History Social History Social History: Has a girlfriend. Also young son. Smoking status: Never smoker Alcohol intake: current Substance use: current Substance use type: marijuana Living arrangements: with family Gender identity (if verbalized by the patient): Male Exam Narrative: GENERAL: Well-appearing, well-nourished, and in no acute distress. HEAD: Normocephalic, atraumatic. EYES: PERRLA and EOMI. ENT: Nares clear, no rhinorrhea or epistaxis. Mucous membranes moist. NECK: Supple. CHEST: Clear to auscultation. No respiratory distress. HEART: Regular rate and rhythm. No murmur heard. Normal peripheral pulses. ABDOMEN: Soft, nontender, nondistended, normal active bowel sounds. EXTREMITIES: Normal range of motion. No edema. SKIN: Warm, dry, no rash. NEURO: No focal deficits. Alert and oriented x3. PSYCH: Normal mood and affect. Course Vital Signs Vital signs: Vital Signs Temperature 38.3 C H 06/10/24 05:01 Pulse Rate 79 06/10/24 05:01 Respiratory Rate 16 06/10/24 05:01 Blood Pressure 129/70 06/10/24 05:01 Pulse Oximetry 100 06/10/24 05:01 Oxygen Delivery Room Air 06/10/24 05:01 Temperature 37.9 C H 06/10/24 07:47 Pulse Rate 75 06/10/24 07:47 Respiratory Rate 18 06/10/24 07:47 Blood Pressure 105/58 L 06/10/24 07:47 Pulse Oximetry 100 06/10/24 07:47 Oxygen Delivery Room Air 06/10/24 05:01 Medical Decision Making MDM Narrative Medical decision making narrative: differential diagnosis includes pneumonia, influenza, COVID chest x-ray showed no focal infiltrate COVID was negative influenza was positive patient is hemodynamically stable at this point. Patient will be started on Tamiflu and given prescription for Tessalon Perles and a prescription for Zofran. Vital Signs Vital Signs: Vital Signs Temperature 38.3 C H 06/10/24 05:01 Pulse Rate 79 06/10/24 05:01 Respiratory Rate 16 06/10/24 05:01 Blood Pressure 129/70 06/10/24 05:01 Pulse Oximetry 100 06/10/24 05:01 Oxygen Delivery Room Air 06/10/24 05:01 Temperature 37.9 C H 06/10/24 07:47 Pulse Rate 75 06/10/24 07:47 Respiratory Rate 18 06/10/24 07:47 Blood Pressure 105/58 L 06/10/24 07:47 Pulse Oximetry 100 06/10/24 07:47 Oxygen Delivery Room Air 02/05/25 05:01 Lab Data Labs: Lab Results 06/10/24 Range/Units 05:14 Influenza A (RT-PCR) Positive A (Negative) Influenza B (RT-PCR) Negative (Negative) RSV (RT-PCR) Negative (Negative) SARS-CoV-2 RNA (RT-PCR) Negative (Negative) Discharge Plan Discharge Clinical Impression: Influenza Patient Disposition: Home, Self-Care Condition: Stable Instructions: Antibiotic Form, Influenza (ED) Additional Instructions: Please follow-up with your primary care provider. If your symptoms worsen please return to the emergency department. Patient Language: Togolese Prescriptions: New oseltamivir [Tamiflu] 75 mg capsule 75 mg PO Q12H 5 Days Qty: 10 0RF ondansetron 4 mg tablet,disintegrating 4 mg PO Q8H PRN (Reason: nausea and vomiting) Qty: 10 0RF benzonatate 200 mg capsule 200 mg PO TID PRN (Reason: cough) Qty: 21 0RF No Action cyclobenzaprine 10 mg tablet 10 mg PO TID PRN (Reason: muscle spasm) Qty: 12 0RF acetaminophen 500 mg capsule 500 mg PO QID PRN (Reason: fever or pain) Qty: 30 0RF hydrocodone-acetaminophen 5-325 mg tablet 1 tablet PO Q6H PRN (Reason: pain) 3 Days Qty: 12 0RF aspirin [Baby Aspirin] 81 mg Tablet,Chewable atenolol 50 mg tablet ibuprofen [IBU] 600 mg tablet 600 mg PO Q6H PRN (Reason: pain) Qty: 20 0RF ondansetron 4 mg film 4 mg PO Q6H PRN (Reason: nausea and vomiting) Qty: 8 0RF ibuprofen 600 mg tablet 600 mg PO TID PRN (Reason: pain) Qty: 14 0RF Follow-up/Referrals: UNKNOWN,DOCTOR [Primary Care Provider] - Time of Disposition: 09:09
--- OUTSIDE RECORDS SUMMARY | 2024-06-10 09:21 | XMS_ITS | Referral Summary ---
Author Organization [facility] Address [address] [place] [address] Care Team Providers Care Is Analyst Name Role Phone Becky Garnett MD Primary Care Provider [phone]- [phone] Encounters Date Type Department Care Team Description 03/11/2024 2:16 AM ADJUSTO WRITER OPERATOR - 03/11/2024 1:59 PM ADJUSTO WRITER OPERATOR Emergency [facility] Emergency Department [address] [place] [address] Arslan Shaver MD [place], MD Margarito Brandt, Rob Mejia MD Chest pain, unspecified type (Primary Dx); Hypertrophic cardiomyopathy (CMS/HCC) (HCC); WPW (Rtaht-Qmacjvxkm-Rwhdv syndrome) Discharge Disposition: Left Against Medical Advice [...] (01/02/2021): Added automatically from request for surgery [id number] Malfunction of implantable d efibrillator ventricular (ICD) lead 12/30/2020 ICD (implantable cardioverter-defibrillator) in place 12/30/2020 Elevated troponin 04/01/2020 S/P ICD (internal cardiac defibrillator) procedu re 11/11/2019 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 Hypertrophic cardiomyopathy (CMS/HCC) 11/11/2019 Hypertrophic [...] on file Legal Sex Male 1:02 PM ADJUSTO WRITER OPERATOR Gender Identity Not on file Sexual Orientation Not on file Last Filed Vital Signs Vital Sign Reading Time Taken Comments Blood Pressure 109/57 03/11/2024 11:24 AM ADJUSTO WRITER OPERATOR Pulse 58 03/11/2024 11:24 AM ADJUSTO WRITER OPERATOR Temperature 36.8 ??C (98.2 ??F) 03/10/2024 11:[address] Respiratory Rate 18 03/11/2024 11:24 AM ADJUSTO WRITER OPERATOR Oxygen Saturation 99% 03/11/2024 11:24 AM ADJUSTO WRITER OPERATOR Inhaled Oxygen Concentration - - Weight 65.8 kg (145 lb) 03/10/2024 11:09 PM ADJUSTO WRITER OPERATOR Height 172.7 cm (5' 8 ) 03/10/2024 11:09 PM ADJUSTO WRITER OPERATOR Body Mass Index 22.05 03/10/2024 11:09 PM ADJUSTO WRITER OPERATOR Plan of Treatment Not on file Medical Devices Implanted Type Area Pastry Cook Apprentice Device Identifier Shelf Expiration Date Model / Serial / Lot Medtronic Cardiac Rhythm Mgmt [id number] Tyrx 2.7x2.5in Medium Envelope Absorbable Polyarylate Minocycline - [id number] - [id number] Implanted:Qty: 1 on 01/11/2021 by Stephanie Ramachandran MD at [facility] Other - see comments Left: Chest Wall [employer] 08/24/2021 [id number] / [id number] / [id number] Description:tyrx absorbable antibacterial envelope- medium ref # [id number] Icd N/A: Chest Wall Procedures Procedure Name Priority Date/Time Associated Diagnosis Comments ECG 12-LEAD Routine 03/11/2024 7:22 AM ADJUSTO WRITER OPERATOR TROPONIN I HIGH-SENSITIVITY 6-HOUR Timed 03/11/2024 7:08 AM ADJUSTO WRITER OPERATOR CT CHEST PE ABDOMEN PELVIS W CONTRAST ED 03/11/2024 5:20 AM ADJUSTO WRITER OPERATOR RESPIRATORY PATHOGEN PANEL Routine 03/11/2024 4:26 AM ADJUSTO WRITER OPERATOR TROPONIN I HIGH-SENSITIVITY 2-HOUR Timed 03/11/2024 2:25 AM ADJUSTO WRITER OPERATOR ERYTHROCYTE SEDIMENTATION RATE STAT 03/11/2024 12:19 AM ADJUSTO WRITER OPERATOR CRP (ACUTE PHASE) STAT 03/11/2024 12: 19 AM ADJUSTO WRITER OPERATOR EGFR STAT 03/11/2024 12:19 AM ADJUSTO WRITER OPERATOR DIFFERENTIAL AUTO STAT 03/11/2024 12: 19 AM ADJUSTO WRITER OPERATOR TROPONIN I HIGH-SENSITIVITY SERIES (BASELINE, 2HR, 4HR, 6HR) STAT 03/11/2024 12:19 AM ADJUSTO WRITER OPERATOR COMPREHENSIVE METABOLIC PANEL STAT 03/11/2024 12:19 AM ADJUSTO WRITER OPERATOR CBC WITH AUTO DIFFERENTIAL STAT 03/11/2024 12:19 AM ADJUSTO WRITER OPERATOR XR CHEST PA LATERAL 2 VIEWS ED 03/10/2024 11:53 PM ADJUSTO WRITER OPERATOR ECG 12-LEAD STAT 03/10/2024 11:24 PM ADJUSTO WRITER OPERATOR from Last 3 Months Results * ECG 12-LEAD (03/11/2024 7:22 AM ADJUSTO WRITER OPERATOR) Narrative Patricia Ware - 03/11/2024 7:22 AM ADJUSTO WRITER OPERATOR Rob Pimentel MD ? 03/11/2024 ??7:49 AM [...] Troponin I high-sensitivity 6-hour (03/11/2024 7:08 AM ADJUSTO WRITER OPERATOR) Trop I hs 72(H) <=35 ng/L Comment: Interpretive Data For further hscTnI resources including the diagnostic algorithm and an aid in interpretation, copy and paste this link: [email or web address].testcatalog.org/show/[email or web address] Current Interpretive Data last revised 2019. Trop I hs delta 13 ng/L [facility] Trop I hs interp Equivocal [facility] Blood 03/11/2024 7:08 AM ADJUSTO WRITER OPERATOR 03/11/2024 7:22 AM ADJUSTO WRITER OPERATOR us Sole Trejo MD LAB BLOOD ORDERABLES Final Result [facility] One [facility] [place] [address] * CT Chest PE (CTA) Abdomen Pelvis W Contrast (03/11/2024 5:20 AM ADJUSTO WRITER OPERATOR) Anatomical Region Laterality Modality Body N/A Computed Tomogra phy 03/11/2024 7:06 AM ADJUSTO WRITER OPERATOR Impressions 03/11/2024 7:21 AM ADJUSTO WRITER OPERATOR 1. ??No pulmonary embolism or aortic dissection, [...] Krunal Wesley M.D. Narrative 03/11/2024 7:21 AM ADJUSTO WRITER OPERATOR EXAMINATION: CT CHEST PE (CTA) ABDOMEN PELVIS W CONTRAST HISTORY: 28-year-old man presenting with chest pain for the past 2-3 days. ??Reproducible with palpation. 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 TECHNIQUE: Computed tomographic [...] 2-3 days. Reproducible with palpation. History of Slmzi-Jrzqtoatj-Jxaad and familial hypertrophic cardiomyopathy. TECHNIQUE: Computed tomographic [...] Respiratory pathogen panel Nasopharyngeal (03/11/2024 4:26 AM ADJUSTO WRITER OPERATOR) Pathologist [facility] Influenza A RNA Not Detected Not Detected Influenza B RNA Not Detected Not Detected [facility] RSV RNA Not Detected Not Detected [facility] COVID-19 RNA Not Detected Not Detected [facility] Coronavirus 229E RNA Not Detected Not Detected [facility] Coronavirus HKU1 RNA Not Detected Not Detected [facility] Coronavirus NL63 RNA Not Detected Not Detected [facility] Coronavirus OC43 RNA Not Detected Not Detected [facility] Adenovirus DNA Not Detected Not Detected [facility] Metapneumovirus RNA Not Detected Not Detected [facility] Rhinovirus/Enterov irus RNA Not Detected Not Detected [facility] Parainfluenza 1 RNA Not Detected Not Detected [facility] Parainfluenza 2 RNA Not Detected Not Detected [facility] Parainfluenza 3 RNA Not Detected Not Detected [facility] Parainfluenza 4 RNA Not Detected Not Detected [facility] B. pertussis DNA Not Detected Not Detected [facility] B. parapertussis DNA Not Detected Not Detected [facility] C. pneumoniae DNA Not Detected Not Detected [facility] M. pneumoniae DNA Not Detected Not Detected [facility] Nasopharyngeal 03/11/2024 4: 26 AM ADJUSTO WRITER OPERATOR 03/11/2024 4:36 AM ADJUSTO WRITER OPERATOR Narrative [facility] - 03/11/2024 5:57 AM ADJUSTO WRITER OPERATOR Is the Patient experiencing symptoms consistent with COVID?->Yes Surveillance testing for transplant patient?->No ??Interpretive Data The Colppy FilmArray Respiratory Panel (RP2.1) assay is a [...] assay has FDA clearance for testing of BLOCKERS SKIVER swabs. ??The performance of additional specimen types has been assessed by the performing laboratory. ??The performance characteristics of this assay have been determined by [facility]. Current interpretive data was last revised on 22. us Ashkan Cary MD LAB MICROBIOLOGY - GENERAL ORDERABLES Final Result [facility] One [facility] Department [place] [address] * (ABNORMAL) Troponin I high-sensitivity 2-hour (03/11/2024 2:25 AM ADJUSTO WRITER OPERATOR) Trop I hs 57(H) <=35 ng/L Comment: Interpretive Data For further hscTnI resources including the diagnostic algorithm and an aid in interpretation, copy and paste this link: [email or web address]/show/[email or web address] Current Interpretive Data last revised 2019. Trop I hs delta -2 ng/L [facility] Trop I hs interp Insignificant [facility] Blood 03/11/2024 2:25 AM ADJUSTO WRITER OPERATOR 03/11/2024 3:34 AM ADJUSTO WRITER OPERATOR us Sole Trejo MD LAB BLOOD ORDERABLES Final Result Performing Organization Address [facility] de Phone Number [facility] [place] [employer] [place] [address] * (ABNORMAL) Troponin I high-sensitivity series (baseline, 2hr, 4hr, 6hr) (03/11/2024 12:19 AM ADJUSTO WRITER OPERATOR) Trop I hs 59(H) <=35 ng/L Comment: Interpretive Data For further hscTnI resources including the diagnostic algorithm and an aid in interpretation, copy and paste this link: [email or web address]/show/[email or web address] Current Interpretive Data last revised 2019. Blood 03/11/2024 12:1 9 AM ADJUSTO WRITER OPERATOR 03/11/2024 12:45 AM ADJUSTO WRITER OPERATOR us Arslan Shaver MD LAB BLOOD ORDERA BLES Final Result Performing Organization Address [facility] de Phone Number [facility] [place] [employer] [place] [address] * eGFR (03/11/2024 12:19 AM ADJUSTO WRITER OPERATOR) eGFR >90 >=60 mL/min/1. 73 m2 Comment: [...] reviewed 2021. Blood 03/11/2024 12:1 9 AM ADJUSTO WRITER OPERATOR 03/11/2024 12:45 AM ADJUSTO WRITER OPERATOR us Arslan Shaver MD LAB BLOOD ORDERA BLES Final Result [facility] One [facility] Department [place] [address] * Differential, auto (03/11/2024 12:19 AM ADJUSTO WRITER OPERATOR) Neutrophil abs 3.6 1.5 - 6.5 K/cumm Imm gran abs 0.0 0.0 - 0.1 K/cumm [facility] Lymphocyte abs 2.1 0.8 - 3.3 K/cumm [facility] Monocyte abs 0.6 0.2 - 0.8 K/cumm [facility] Eosinophil abs 0.1 0.0 - 0.5 K/cumm [facility] Basophil abs 0.0 0.0 - 0.1 K/cumm [facility] Neutrophil pct 55.6 % [facility] Comment: Interpretive Data Percent cell count reference ranges are not reported, since discordance with absolute values may lead to misinterpretation of CBC data. Current Interpretive Data was last revised on 2017. Imm gran pct 0.2 % [facility] Comment: Interpretive Data Percent cell count reference ranges are not reported, since discordance with absolute values may lead to misinterpretation of CBC data. Current Interpretive Data was last revised on 2017. Lymphocyte pct 31.8 % [facility] Comment: Interpretive Data Percent cell count reference ranges are not reported, since discordance with absolute values may lead to misinterpretation of CBC data. Current Interpretive Data was last revised on 2017. Monocyte pct 9.9 % [facility] Comment: Interpretive Data Percent cell count reference ranges are not reported, since discordance with absolute values may lead to misinterpretation of CBC data. Current Interpretive Data was last revised on 2017. Eosinophil pct 1.9 % [facility] Comment: Interpretive Data Percent cell count reference ranges are not reported, since discordance with absolute values may lead to misinterpretation of CBC data. Current Interpretive Data was last revised on 2017. Basophil pct 0.6 % [facility] Comment: Interpretive Data Percent cell count reference ranges are not reported, since discordance with absolute values may lead to misinterpretation of CBC data. Current Interpretive Data was last revised on 2017. Blood 03/11/2024 12:1 9 AM ADJUSTO WRITER OPERATOR 03/11/2024 12:45 AM ADJUSTO WRITER OPERATOR Arslan Shaver MD LAB BLOOD ORDERA BLES Final Result [facility] One [facility] Department [place] [address] * (ABNORMAL) CBC with auto differential (03/11/2024 12:19 AM ADJUSTO WRITER OPERATOR) WBC 6.5 3.8 - 9.9 K/cumm Hgb 13.2 13.0 - 17.5 g/dL [facility] Hct 40.9 38.9 - 50.3 % [facility] Plt 197 150 - 400 K/cumm [facility] MPV 10.8 9.1 - 12.3 fL [facility] RBC 4.94 4.30 - 5.80 M/cumm [facility] MCV 82.8 81.3 - 96.4 fL [facility] MCH 26.7(L) 27.1 - 33.3 pg [facility] MCHC 32.3 32.3 - 35.7 g/dL [facility] RDW CV 12.6 11.1 - 14.9 % [facility] RDW SD 38.0 35.7 - 48.1 fL [facility] NRBC abs 0.00 0.00 - 0.01 K/cumm [facility] Blood (Blood, Venous) 03/11/2024 12:19 AM ADJUSTO WRITER OPERATOR 03/11/2024 12:45 AM ADJUSTO WRITER OPERATOR Arslan Shaver MD LAB BLOOD ORDERA BLES Final Result Performing Organization Address City/[facility]/ZIP Co de Phone Number [facility] Department [place] [address] * Erythrocyte sedimentation rate (03/11/2024 12:19 AM ADJUSTO WRITER OPERATOR) Erythrocyte sedimentation rate 12 1 - 15 mm/hr Blood 03/11/2024 12:1 9 AM ADJUSTO WRITER OPERATOR 03/11/2024 12:49 AM ADJUSTO WRITER OPERATOR Arslan Shaver MD LAB BLOOD ORDERA BLES Final Result [facility] Department [place] [address] * CRP (acute phase) (03/11/2024 12:19 AM ADJUSTO WRITER OPERATOR) CRP 2.7 <=10.0 mg/L Blood 03/11/2024 12:1 9 AM ADJUSTO WRITER OPERATOR 03/11/2024 12:45 AM ADJUSTO WRITER OPERATOR Arslan Shaver MD LAB BLOOD ORDERA BLES Final Result [facility] One [facility] Department [place] [address] * Comprehensive metabolic panel (03/11/2024 12:19 AM ADJUSTO WRITER OPERATOR) Sodium 139 135 - 145 mmol/L Potassium, pl 4.1 3.3 - 4.9 mmol/L [facility] Chloride 100 97 - 110 mmol/L [facility] CO2 28 22 - 32 mmol/L [facility] Anion gap 11 2 - 15 mmol/L [facility] BUN 9 6 - 25 mg/dL [facility] Creatinine 1.06 0.80 - 1.30 mg/dL [facility] Glucose 88 70 - 199 mg/dL [facility] Comment: Interpretive Data Fasting glucose >/= 126 [...] Calcium 9.8 8.5 - 10.3 mg/dL [facility] Bilirubin, total 0.5 0.1 - 1.2 mg/dL [facility] Protein, pl 7.4 6.5 - 8.5 g/dL [facility] Albumin 4.2 3.5 - 5.0 g/dL [facility] Alk phos 66 40 - 130 Units/L [facility] ALT 18 7 - 55 Units/L [facility] AST 26 10 - 50 Units/L [facility] Blood 03/11/2024 12:1 9 AM ADJUSTO WRITER OPERATOR 03/11/2024 12:45 AM ADJUSTO WRITER OPERATOR Arslan Shaver MD LAB BLOOD ORDERA BLES Final Result [facility] [place] [address] * XR Chest Pa Lateral 2 Views (03/10/2024 11:53 PM ADJUSTO WRITER OPERATOR) Anatomical Region Laterality Modality Body, Chest N/A Computed Radiogr aphy 03/11/2024 12:1 4 AM ADJUSTO WRITER OPERATOR Impressions 03/11/2024 9:52 AM ADJUSTO WRITER OPERATOR The current study is compared with the [...] Hernando Porter M.D. Narrative 03/11/2024 9:52 AM ADJUSTO WRITER OPERATOR EXAMINATION: 2 view chest radiograph Procedure Note [...] Result * ECG 12-LEAD (03/10/2024 11:24 PM ADJUSTO WRITER OPERATOR) Narrative [facility] - 03/10/2024 11:24 PM ADJUSTO WRITER OPERATOR Cortez Araiza MD ? 03/10/2024 11:26 PM [...] ??Other findings comment: ??Likely delta wave, noraml [place] duration unchanged from prior. Previous ECG: ??Previous [...] Other findings comment: Likely delta wave, noraml W[place] duration unchangedfrom prior. Previous ECG: Previous ECG: Compared to current Date of previous EC12/30/2020 Comparison ECG info: Old LBBB Similarity: No change Interpretation: Interpretation: non-specific Recommended Follow-up: Recommended follow up: cardiac workup and further workup in the ED Cortez Araiza MD 03/10/24 5422 Arslan Shaver MD ECG ORDERABLES Final Result [facility] from Last 3 Months Insurance [facility] [place] [facility] [place] [facility] MEDICARE Advance Directives For more information, please contact: [phone] * Full Code (Latest Code Status on File) Date Activated Date Inactivated Comments 09/27/2021 10:44 PM 09/28/2021 4:50 PM Care Teams Is Analyst Relationship Specialty Start Date End Date Becky Garnett MD PCP - General Family Medicine 12/21/21
--- OUTSIDE RECORDS SUMMARY | 2024-06-10 09:21 | XMS_ITS | Encounter Summary ---
Author Organization [facility] Address [facility] [place] [address] Care Team Providers Care Senior Php Developer Name Role Phone Fior Mao NP Primary Care Provider [phone] Encounter Details Date Type Department Care Team (Late st Contact Info) Description 02/05/2023 [place] Message Enc [facility] [address] [address] [place], [facility] Provider 02/05/23 Disconnected [facility] since 01/17/23 Social [...] on file Legal Sex Male 12:12 PM DIRECTOR DIGITAL STRATEGY Gender Identity Not on file Sexual Orientation Not on file documented as of this encounter Plan of Treatment Not on file documented as of this encounter Visit Diagnoses Not on filedocumented in this encounter Additional Health Concerns Infection Onset Date Last Indicated Resolved Time COVID-19 Rule Out 04/17/2023 04/17/2023 04/17/2023 2:34 PM DIRECTOR DIGITAL STRATEGY documented as of this encounter Care Teams Senior Php Developer Relationship Specialty Start Date End Date Fior Mao NP [phone] [place] [id number] PCP - General NURSE PRACTITIONER 05/08/22 documented as of this encounter
--- OUTSIDE RECORDS SUMMARY | 2024-06-10 09:21 | XMS_ITS | Encounter Summary ---
Author Organization [facility] Address [address] [place] [address] Phone Care Team Providers Care And Taxi Instructor Bus Trolley Name Role Phone No, Physician Primary Care Provider [phone] Becky Garnett MD Primary Care Provider [phone]- [phone] Encounter Details Date Type Department Care Team (Late st Contact Info) Description 11/12/2019 Telephone [facility] Cardiology [address] [facility] Advanced [facility] 8th [place] [address] [place] [address] Jossy Machado MD [address] [facility] [address] [place], [place] [id number] Social History Tobacco Use Types Packs/Day Years Used Date Smoking Tobacco: Every Day E-cigarettes Smokeless Tobacco: Never Alcohol Use Standard Drinks/Week Comments No 0 (1 standard drink = 0.6 oz pur e alcohol) Sex and Gender Information Value Date Recorded Sex Assigned at Not on file Legal Sex Male 1:02 PM HYDROGEN POWER PLANT ENGINEER Gender Identity Not on file Sexual Orientation Not on file documented as of this encounter Plan of Treatment Not on file documented as of this encounter Visit Diagnoses Not on filedocumented in this encounter Additional Health Concerns Infection Onset Date Last Indicated Resolved Time COVID: Suspected 03/11/2024 03/11/2024 03/11/2024 5:58 AM HYDROGEN POWER PLANT ENGINEER documented as of this encounter Care Teams And Taxi Instructor Bus Trolley Relationship Specialty Start Date End Date No, Physician PCP - General 09/22/16 12/20/21 Becky Garnett MD PCP - General Family Medicine 12/21/21 documented as of this encounter
--- OUTSIDE RECORDS SUMMARY | 2024-06-10 09:21 | XMS_ITS | Encounter Summary ---
Author Organization [facility] Address [address] [place] [address] Phone Care Team Providers Care Radial Drill Press Operator For Plastic Name Role Phone Becky Garnett MD Primary Care Provider [phone]- [phone] Encounter Details Date Type Department Care Team (Late st Contact Info) Description 02/28/2022 Telephone [facility] Cardiology [address] [facility] Advanced [facility] 8th [place] [address] [place] [address] Nan Preston Social History Tobacco [...] on file Legal Sex Male 1:02 PM DIRECTOR OF MARKET RESEARCH Gender Identity Not on file Sexual Orientation Not on file documented as of this encounter Plan of Treatment Not on file documented as of this encounter Visit Diagnoses Not on filedocumented in this encounter Additional Health Concerns Infection Onset Date Last Indicated Resolved Time COVID: Suspected 03/11/2024 03/11/2024 03/11/2024 5:58 AM DIRECTOR OF MARKET RESEARCH documented as of this encounter Care Teams Radial Drill Press Operator For Plastic Relationship Specialty Start Date End Date Becky Garnett MD PCP - General Family Medicine 12/21/21 documented as of this encounter
--- OUTSIDE RECORDS SUMMARY | 2024-06-10 09:21 | XMS_ITS | Encounter Summary ---
Author Organization [facility] Address [facility] [place] [address] Care Team Providers Care Yolk Spray Drier Name Role Phone Fior Mao NP Primary Care Provider [phone] Encounter Details Date Type Department Care Team (Late st Contact Info) Description 09/20/2023 Giftango Message Enc [facility] [place], [place] [id number] Nam Diaz MD Three [facility], [address] [place], [place] [id number] Loop recorder Social History Tobacco Use Types [...] on file Legal Sex Male 12:12 PM LACQUER MACHINE FEEDER Gender Identity Not on file Sexual Orientation Not on file documented as of this encounter Plan of Treatment Not on file documented as of this encounter Visit Diagnoses Not on filedocumented in this encounter Additional Health Concerns Assessment Noted Time PHQ-9 Depression Total Score: 17 01/24/2 024 11:29 AM LACQUER MACHINE FEEDER documented as of this encounter Care Teams Yolk Spray Drier Relationship Specialty Start Date End Date Fior Mao NP [address] [place] [phone] PCP - General NURSE PRACTITIONER 05/08/22 documented as of this encounter
--- OUTSIDE RECORDS SUMMARY | 2024-06-10 09:21 | XMS_ITS | Clinical Summary ---
Author Organization 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 Hypertrophic cardiomyopathy (CMS/HCC) 11/11/2019 Hypertrophic [...] Department Care Team Description 03/11/2024 2:16 AM ANIMAL RIDE ATTENDANT - 03/11/2024 1:59 PM [facility] Emergency [facility] Emergency Department [address] [place] [address] Arslan Shaver MD Heath, MD Margarito Brandt, Rob Mejia MD Chest pain, unspecified type (Primary Dx); Hypertrophic cardiomyopathy (CMS/HCC) (HCC); WPW (Xrkha-Ujtodebrk-Veaev syndrome) Discharge Disposition: Left Against Medical Advice [...] Date Comments Hypertrophic cardiomyopathy (CMS/HCC) (HCC) WPW (Efezs-Xrftiaspu-Whxfg syndrome) ICD (implantable cardioverter-defibrillator) in place Sleep [...] on file Legal Sex Male 1:02 PM ANIMAL RIDE ATTENDANT Gender Identity Not on file Sexual Orientation Not on file Obstetrics History Last Filed Vital Signs Vital Sign Reading Time Taken Comments Blood Pressure 109/57 03/11/2024 11:24 AM ANIMAL RIDE ATTENDANT Pulse 58 03/11/2024 11:24 AM ANIMAL RIDE ATTENDANT Temperature 36.8 ??C (98.2 ??F) 03/10/2024 11:[address] Respiratory Rate 18 03/11/2024 11:24 AM ANIMAL RIDE ATTENDANT Oxygen Saturation 99% 03/11/2024 11:24 AM ANIMAL RIDE ATTENDANT Inhaled Oxygen Concentration - - Weight 65.8 kg (145 lb) 03/10/2024 11:09 PM ANIMAL RIDE ATTENDANT Height 172.7 cm (5' 8 ) 03/10/2024 11:09 PM ANIMAL RIDE ATTENDANT Body Mass Index 22.05 03/10/2024 11:09 PM ANIMAL RIDE ATTENDANT Plan of Treatment Health Maintenance Due Date [...] this topic Medical Devices Implanted Type Area Veterinarian Helper Device Identifier Shelf Expiration Date Model / Serial / Lot Medtronic Cardiac Rhythm Mgmt [id number] Tyrx 2.7x2.5in Medium Envelope Absorbable Polyarylate Minocycline - [id number] - [id number] Implanted:Qty: 1 on 01/11/2021 by Setphanie Ramachandran MD at [facility] Other - see comments Left: Chest Wall [employer] Inc 08/24/2021 [id number] / [id number] / [id number] Description:tyrx absorbable antibacterial envelope- medium ref # [id number] Icd N/A: Chest Wall Procedures Procedure Name Priority Date/Time Associated Diagnosis Comments ECG 12-LEAD Routine 03/11/2024 7:22 AM ANIMAL RIDE ATTENDANT TROPONIN I HIGH-SENSITIVITY 6-HOUR Timed 03/11/2024 7:[address] CHEST PE ABDOMEN PELVIS W CONTRAST ED 03/11/2024 5:20 AM ANIMAL RIDE ATTENDANT RESPIRATORY PATHOGEN PANEL Routine 03/11/2024 4:26 AM ANIMAL RIDE ATTENDANT TROPONIN I HIGH-SENSITIVITY 2-HOUR Timed 03/11/2024 2:25 AM ANIMAL RIDE ATTENDANT ERYTHROCYTE SEDIMENTATION RATE STAT 03/11/2024 12:19 AM ANIMAL RIDE ATTENDANT CRP (ACUTE PHASE) STAT 03/11/2024 12: 19 AM ANIMAL RIDE ATTENDANT EGFR STAT 03/11/2024 12:19 AM ANIMAL RIDE ATTENDANT DIFFERENTIAL AUTO STAT 03/11/2024 12: 19 AM ANIMAL RIDE ATTENDANT TROPONIN I HIGH-SENSITIVITY SERIES (BASELINE, 2HR, 4HR, 6HR) STAT 03/11/2024 12:19 AM ANIMAL RIDE ATTENDANT COMPREHENSIVE METABOLIC PANEL STAT 03/11/2024 12:19 AM ANIMAL RIDE ATTENDANT CBC WITH AUTO DIFFERENTIAL STAT 03/11/2024 12:19 AM ANIMAL RIDE ATTENDANT XR CHEST PA LATERAL 2 VIEWS ED 03/10/2024 11:53 PM ANIMAL RIDE ATTENDANT ECG 12-LEAD STAT 03/10/2024 11:24 PM ANIMAL RIDE ATTENDANT from Last 3 Months Results * ECG 12-LEAD (03/11/2024 7:22 AM ANIMAL RIDE ATTENDANT) Narrative Patricia Ware - 03/11/2024 7:22 AM ANIMAL RIDE ATTENDANT Rob Pimentel MD ? 03/11/2024 ??7:49 AM [...] Troponin I high-sensitivity 6-hour (03/11/2024 7:08 AM ANIMAL RIDE ATTENDANT) Trop I hs 72(H) <=35 ng/L Comment: Interpretive Data For further hscTnI resources including the diagnostic algorithm and an aid in interpretation, copy and paste this link: https://bjhlab.testcatalog.org/show/hsTrop-1 Current Interpretive Data last revised 2019. Trop I hs delta 13 ng/L [facility] Trop I hs interp Equivocal [facility] Blood 03/11/2024 7:08 AM ANIMAL RIDE ATTENDANT 03/11/2024 7:22 AM ANIMAL RIDE ATTENDANT us Sole Trejo MD LAB BLOOD ORDERABLES Final Result [facility] [place] [address] * CT Chest PE (CTA) Abdomen Pelvis W Contrast (03/11/2024 5:20 AM ANIMAL RIDE ATTENDANT) Anatomical Region Laterality Modality Body N/A Computed Tomogra phy 03/11/2024 7:06 AM ANIMAL RIDE ATTENDANT Impressions 03/11/2024 7:21 AM ANIMAL RIDE ATTENDANT 1. ??No pulmonary embolism or aortic dissection, [...] Krunal Wesley M.D. Narrative 03/11/2024 7:21 AM ANIMAL RIDE ATTENDANT EXAMINATION: CT CHEST PE (CTA) ABDOMEN PELVIS W CONTRAST HISTORY: 28-year-old man presenting with chest pain for the past 2-3 days. ??Reproducible with palpation. 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 TECHNIQUE: Computed tomographic [...] 2-3 days. Reproducible with palpation. History of Szhmc-Qroehlkms-Cotch and familial hypertrophic cardiomyopathy. TECHNIQUE: Computed tomographic [...] it. Electronically signed by: Krunal Wesley M.D. [facility] MD [facility] PROCEDURES Final Re sult * Respiratory pathogen panel Nasopharyngeal (03/11/2024 4:26 AM ANIMAL RIDE ATTENDANT) Influenza A RNA Not Detected Not Detected Influenza B RNA Not Detected Not Detected [facility] RSV RNA Not Detected Not Detected [facility] COVID-19 RNA Not Detected Not Detected [facility] Coronavirus 229E RNA Not Detected Not Detected [facility] Coronavirus HKU1 RNA Not Detected Not Detected [facility] Coronavirus NL63 RNA Not Detected Not Detected [facility] Coronavirus OC43 RNA Not Detected Not Detected [facility] Adenovirus DNA Not Detected Not Detected [facility] Metapneumovirus RNA Not Detected Not Detected [facility] Rhinovirus/Enterov irus RNA Not Detected Not Detected [facility] Parainfluenza 1 RNA Not Detected Not Detected [facility] Parainfluenza 2 RNA Not Detected Not Detected [facility] Parainfluenza 3 RNA Not Detected Not Detected [facility] Parainfluenza 4 RNA Not Detected Not Detected [facility] B. pertussis DNA Not Detected Not Detected [facility] B. parapertussis DNA Not Detected Not Detected [facility] C. pneumoniae DNA Not Detected Not Detected [facility] M. pneumoniae DNA Not Detected Not Detected [facility] Nasopharyngeal 03/11/2024 4: 26 AM ANIMAL RIDE ATTENDANT 03/11/2024 4:36 AM ANIMAL RIDE ATTENDANT Narrative [facility] - 03/11/2024 5:57 AM ANIMAL RIDE ATTENDANT Is the Patient experiencing symptoms consistent with COVID?->Yes Surveillance testing for transplant patient?->No ??Interpretive Data The Drik FilmArray Respiratory Panel (RP2.1) assay is a [...] assay has FDA clearance for testing of FENCE ERECTOR SUPERVISOR swabs. ??The performance of additional specimen types has been assessed by the performing laboratory. ??The performance characteristics of this assay have been determined by [facility] Molecular Infectious Disease Laboratory. Current interpretive data was last revised on 22. Ashkan Cary MD LAB MICROBIOLOGY - GENERAL ORDERABLES Final Result Performing Organization Address City/[facility] Co de Phone Number [facility] [place] [address] * (ABNORMAL) Troponin I high-sensitivity 2-hour (03/11/2024 2:25 AM ANIMAL RIDE ATTENDANT) Trop I hs 57(H) <=35 ng/L Comment: Interpretive Data For further hscTnI resources including the diagnostic algorithm and an aid in interpretation, copy and paste this link: https://bjhlab.testcatalog.org/show/hsTrop-1 Current Interpretive Data last revised 2019. Trop I hs delta -2 ng/L [facility] Trop I hs interp Insignificant [facility] Blood 03/11/2024 2:25 AM ANIMAL RIDE ATTENDANT 03/11/2024 3:34 AM ANIMAL RIDE ATTENDANT Sole Trejo MD LAB BLOOD ORDERABLES Final Result Performing Organization Address [facility] Co de Phone Number [facility] [place] [address] * (ABNORMAL) Troponin I high-sensitivity series (baseline, 2hr, 4hr, 6hr) (03/11/2024 12:19 AM ANIMAL RIDE ATTENDANT) Trop I hs 59(H) <=35 ng/L Comment: Interpretive Data For further hscTnI resources including the diagnostic algorithm and an aid in interpretation, copy and paste this link: https://bjhlab.testcatalog.org/show/hsTrop-1 Current Interpretive Data last revised 2019. Blood 03/11/2024 12:1 9 AM ANIMAL RIDE ATTENDANT 03/11/2024 12:45 AM ANIMAL RIDE ATTENDANT us Arslan Shaver MD LAB BLOOD ORDERA BLES Final Result [facility] [place] [address] * eGFR (03/11/2024 12:19 AM ANIMAL RIDE ATTENDANT) eGFR >90 >=60 mL/min/1. 73 m2 Comment: [...] reviewed 2021. Blood 03/11/2024 12:1 9 AM ANIMAL RIDE ATTENDANT 03/11/2024 12:45 AM ANIMAL RIDE ATTENDANT Arslan Shaver MD LAB BLOOD ORDERA BLES Final Result [facility] [place] [address] * Differential, auto (03/11/2024 12:19 AM ANIMAL RIDE ATTENDANT) Neutrophil abs 3.6 1.5 - 6.5 K/cumm Imm gran abs 0.0 0.0 - 0.1 K/cumm [facility] Lymphocyte abs 2.1 0.8 - 3.3 K/cumm [facility] Monocyte abs 0.6 0.2 - 0.8 K/cumm [facility] Eosinophil abs 0.1 0.0 - 0.5 K/cumm [facility] Basophil abs 0.0 0.0 - 0.1 K/cumm [facility] Neutrophil pct 55.6 % [facility] Comment: Interpretive Data Percent cell count reference ranges are not reported, since discordance with absolute values may lead to misinterpretation of CBC data. Current Interpretive Data was last revised on 2017. Imm gran pct 0.2 % [facility] Comment: Interpretive Data Percent cell count reference ranges are not reported, since discordance with absolute values may lead to misinterpretation of CBC data. Current Interpretive Data was last revised on 2017. Lymphocyte pct 31.8 % [facility] Comment: Interpretive Data Percent cell count reference ranges are not reported, since discordance with absolute values may lead to misinterpretation of CBC data. Current Interpretive Data was last revised on 2017. Monocyte pct 9.9 % [facility] Comment: Interpretive Data Percent cell count reference ranges are not reported, since discordance with absolute values may lead to misinterpretation of CBC data. Current Interpretive Data was last revised on 2017. Eosinophil pct 1.9 % [facility] Comment: Interpretive Data Percent cell count reference ranges are not reported, since discordance with absolute values may lead to misinterpretation of CBC data. Current Interpretive Data was last revised on 2017. Basophil pct 0.6 % [facility] Comment: Interpretive Data Percent cell count reference ranges are not reported, since discordance with absolute values may lead to misinterpretation of CBC data. Current Interpretive Data was last revised on 2017. Blood 03/11/2024 12:1 9 AM ANIMAL RIDE ATTENDANT 03/11/2024 12:45 AM ANIMAL RIDE ATTENDANT us Arslan Shaver MD LAB BLOOD ORDERA BLES Final Result [facility] [place] [address] * (ABNORMAL) CBC with auto differential (03/11/2024 12:19 AM ANIMAL RIDE ATTENDANT) WBC 6.5 3.8 - 9.9 K/cumm Hgb 13.2 13.0 - 17.5 g/dL [facility] Hct 40.9 38.9 - 50.3 % [facility] Plt 197 150 - 400 K/cumm [facility] MPV 10.8 9.1 - 12.3 fL [facility] RBC 4.94 4.30 - 5.80 M/cumm [facility] MCV 82.8 81.3 - 96.4 fL [facility] MCH 26.7(L) 27.1 - 33.3 pg [facility] MCHC 32.3 32.3 - 35.7 g/dL [facility] RDW CV 12.6 11.1 - 14.9 % [facility] RDW SD 38.0 35.7 - 48.1 fL [facility] NRBC abs 0.00 0.00 - 0.01 K/cumm [facility] Blood (Blood, Venous) 03/11/2024 12:19 AM ANIMAL RIDE ATTENDANT 03/11/2024 12:45 AM ANIMAL RIDE ATTENDANT Arslan Shaver MD LAB BLOOD ORDERA BLES Final Result Performing Organization Address City/[facility] Co de Phone Number [facility] [place] [address] * Erythrocyte sedimentation rate (03/11/2024 12:19 AM ANIMAL RIDE ATTENDANT) Pathologist [facility] Erythrocyte sedimentation rate 12 1 - 15 mm/hr Blood 03/11/2024 12:1 9 AM ANIMAL RIDE ATTENDANT 03/11/2024 12:49 AM ANIMAL RIDE ATTENDANT Arslan Shaver MD LAB BLOOD ORDERA BLES Final Result Performing Organization Address [facility] Co de Phone Number [facility] [place] [address] * CRP (acute phase) (03/11/2024 12:19 AM ANIMAL RIDE ATTENDANT) Pathologist [facility] CRP 2.7 <=10.0 mg/L Blood 03/11/2024 12:1 9 AM ANIMAL RIDE ATTENDANT 03/11/2024 12:45 AM ANIMAL RIDE ATTENDANT Arslan Shaver MD LAB BLOOD ORDERA BLES Final Result Performing Organization Address [facility] Co de Phone Number [facility] [place] [address] * Comprehensive metabolic panel (03/11/2024 12:19 AM ANIMAL RIDE ATTENDANT) Sodium 139 135 - 145 mmol/L Potassium, pl 4.1 3.3 - 4.9 mmol/L [facility] Chloride 100 97 - 110 mmol/L [facility] CO2 28 22 - 32 mmol/L [facility] Anion gap 11 2 - 15 mmol/L [facility] BUN 9 6 - 25 mg/dL [facility] Creatinine 1.06 0.80 - 1.30 mg/dL [facility] Glucose 88 70 - 199 mg/dL [facility] Comment: Interpretive Data Fasting glucose >/= [...] 2022. Calcium 9.8 8.5 - 10.3 mg/dL [facility] Bilirubin, total 0.5 0.1 - 1.2 mg/dL [facility] Protein, pl 7.4 6.5 - 8.5 g/dL [facility] Albumin 4.2 3.5 - 5.0 g/dL [facility] Alk phos 66 40 - 130 Units/L [facility] ALT 18 7 - 55 Units/L [facility] AST 26 10 - 50 Units/L [facility] Blood 03/11/2024 12:1 9 AM ANIMAL RIDE ATTENDANT 03/11/2024 12:45 AM ANIMAL RIDE ATTENDANT Arslan Shaver MD LAB BLOOD ORDERA BLES Final Result [facility] [place] [address] * XR Chest Pa Lateral 2 Views (03/10/2024 11:53 PM ANIMAL RIDE ATTENDANT) Anatomical Region Laterality Modality Body, Chest N/A Computed Radiogr aphy 03/11/2024 12:1 4 AM ANIMAL RIDE ATTENDANT Impressions 03/11/2024 9:52 AM ANIMAL RIDE ATTENDANT The current study is compared with the [...] Hernando Porter M.D. Narrative 03/11/2024 9:52 AM ANIMAL RIDE ATTENDANT EXAMINATION: 2 view chest radiograph Procedure Note [...] Result * ECG 12-LEAD (03/10/2024 11:24 PM ANIMAL RIDE ATTENDANT) Narrative [facility] - 03/10/2024 11:24 PM ANIMAL RIDE ATTENDANT Cortez Araiza MD ? 03/10/2024 11:26 PM [...] ??Other findings comment: ??Likely delta wave, noraml FL duration unchanged from prior. Previous ECG: ??Previous [...] Other findings comment: Likely delta wave, noraml FL duration unchangedfrom prior. Previous ECG: Previous ECG: Compared to current Date of previous EC12/30/2020 Comparison ECG info: Old LBBB Similarity: No change Interpretation: Interpretation: non-specific Recommended Follow-up: Recommended follow up: cardiac workup and further workup in the ED Cortez Araiza MD 03/10/24 2326 Arslan Shaver MD ECG ORDERABLES Final Result [facility] from Last 3 Months Insurance [employer]PA MEDICARE FOR[facility]LY [facility] MEDICARE IDPA [facility] MEDICARE Advance Directives For more information, please contact: [phone] * Full Code (Latest Code Status on File) Date Activated Date Inactivated Comments 09/27/2021 10:44 PM 09/28/2021 4:50 PM Care Teams Gymnastics Coach Relationship Specialty Start Date End Date Becky Garnett MD PCP - General Family Medicine 12/21/21
--- OUTSIDE RECORDS SUMMARY | 2024-06-10 09:21 | XMS_ITS | Clinical Summary ---
Author Organization [facility] Address [address] [place] [address] Care Team Providers Care Improvement Engineer Name Role Phone Fior Mao NP Primary Care Provider [phone] [phone] Allergies No known active allergies Medications ibuprofen (MOTRIN) 200 MG tablet Take 4 tablets (800 mg total) by mouth every 6 (six) hours as needed for Pain. Active atenolol (TENORMIN) 50 MG tabletIndications:H ypertrophic cardiomyopathy ([facility]/HCC HHS/HCC) Take 1.5 tablets (75 mg [...] (05/17/2022): Added automatically from request for surgery [id number] Hypertrophic cardiomyopathy (CMS/HCC HHS/HCC) History of ventricular septal myectomy 0 WPW (Nuhia-Vtsxkvmhh-Nyhyl syndrome) 11/11/2019 Encounters Date Type Department Care Team Description 04/03/2024 Telephone [facility] [address] [place] [address] Joselin Adams MA No Show from Last [...] on file Legal Sex Male 12:[address] REPORTER Gender Identity Not on file Sexual Orientation [...] 06/14/2020 Influenza Adult (#1) 2024 PHQ-2 (Physician [place]) 05/06/2024 05/29/2023 HPV Vaccines Aged Out No [...] this topic Medical Devices Implanted Type Area Manufacturing Team Leader Device Identifier Shelf Expiration Date Model / Serial / Lot Mdt Implantable Loop Recorder- 023 Implanted:12/26 by Aaron Woodruff MD (Quantity not on file) Implantable Loop Recorder [employer] CARDIAC RHYTHM AND HEART FAILURE - DIV M 03/09/2024 [id number] / [id number] / Insurance [place] [address] MEDICARE Care Teams Improvement Engineer Relationship Specialty Start Date End Date Fior Mao NP [address] [place] [phone] PCP - General NURSE PRACTITIONER 05/08/22
[2024-06-10 09:23] VITALS: BP 102/60; PULSE 78; RESP 15; TEMP 37.2; O2SAT 100
== END 2024-06-10 09:24 | disposition home or self-care (01) ==
PROVIDERS: Student in an Organized Health Care Education/Training Program; Emergency Provider Emergency Medicine
DX: J11.1 Influenza due to unidentified influenza virus with other respiratory manifestations (principal); Z95.0 Presence of cardiac pacemaker; F31.9 Bipolar disorder, unspecified; I45.6 Pre-excitation syndrome; Z20.822 Contact with and (suspected) exposure to COVID-19
CPT/HCPCS: 71046; 87637; 99283; A9270

== ENCOUNTER 2024-12-14 19:35 | Emergency (ER) | payer MEDICARE, SELFPAY ==
[2024-12-14] VITALS (15 sets, daily range): BP systolic 106–126; BP diastolic 68–94; PULSE 55–67; RESP 12–29; TEMP 36; O2SAT 95–100
--- NOTE | ~2024-12-14 | CT_ITS ---
CLINICAL INDICATION: Lower abdominal pain nausea and vomiting. Personal history of hypertrophic cardi omyopathy. COMPARISON: 02/26/2019. TECHNIQUE: Multiple contiguous axial images of the abdomen and pelvis were performed following the ad ministration of with 100 mL Omnipaque-350 intravenous contrast The dose-length product (DLP) was 189.67 mGy-cm. Automated exposure control and iterative reconstruction technique were employed. FINDINGS/OBSERVATIONS: Visualized lower thorax: The bilateral lung bases are clear. The heart is enlarged, without pericardial effusion. Small hiatal hernia is present. Liver: The liver demonstrates homogeneously decreased enhancement and is not enlarged. Gallbladder and biliary system: The gallbladder is only minimally distended, and otherwise unremarkable. Pancreas: The pancreas enhances homogeneously without ductal dilatation. Spleen: The spleen enhances homogeneously and is not enlarged. Kidneys: The bilateral kidneys enhance symmetrically without hydronephrosis or renal calculi. Adrenal glands: Unremarkable. Gastrointestinal tract: Trace fecal stasis within the colon. Appendix: The air-filled appendix is of normal caliber (axial series, images 102 through 110). Vasculature: Unremarkable. Lymph nodes: Limited visualization secondary to the lack of intra-abdominal and intrapelvic fat. Pelvic structures: The bladder is only minimally distended, and otherwise unremarkable. The prostate gland is not enlarged, but is hyperemic, as are the seminal vesicles. Trace simple fluid within the deep pelvis, adjacent to the seminal vesicles. Body wall and musculoskeletal: No significant degenerative disease within the lower thoracic or lumbosacral spine. IMPRESSION: Hyperemia of the seminal vesicles with hyperemia of the prostate gland, although to a lesser degree. Simple fluid within the deep pelvis, which raises the concern for prostatitis/seminal vesiculitis for which clinical correlation is needed. No additional acute abnormality is appreciated within the lower chest, abdomen or pelvis Reviewed, dictated and finalized at location A. IMPRESSION: Hyperemia of the seminal vesicles with hyperemia of the prostate gland, althoug h to a lesser degree. Simple fluid within the deep pelvis, which raises the concern for prostatitis/s eminal vesiculitis for which clinical correlation is needed. No additional acute abnormality is appreciated within the lower chest, abdomen or pelvis
--- OUTSIDE RECORDS SUMMARY | 2024-12-14 19:35 | XMS_ITS | Clinical Summary ---
Author Organization [facility] Address [address] [place] [address] Care Team Providers Care Architectural Project Captain Name Role Phone Becky Garnett MD Primary Care Provider [phone]- [phone] Allergies No known active allergies Medications aspirin 81 mg enteric coated tabletIndications :Pain,prevention of thrombosis Take 81 mg by mouth 3 tablets in the mornings and PRN throughout the day Active acetaminophen (TYLENOL) 325 mg tabletIndications :Fever,Pain Take 2 tablets (650 mg total) by mouth every 4 (four) hours as needed for pain 30 tablet Active ibuprofen (ADVIL,MOTRIN) 400 mg tablet Take 1 tablet (400 mg total) by mouth 3 (three) times a day as needed for pain Active Additional Information Patient not taking.Reported on 09/20/2023 cyclobenzaprine (FLEXERIL) 10 mg tablet Take 10 mg by mouth 3 (three) times a day as needed for muscle spasms 022 Active hydrOXYzine (ATARAX) 10 mg tablet TAKE 1 TABLET (10 MG TOTAL) BY MOUTH 3 (THREE) TIMES DAILY NEEDED FOR ANXIETY (SLEEP). 024 Active atenoloL (TENORMIN) 50 mg tabletIndications :Hypertrophic cardiomyopathy (HCC) Take 1 tablet (50 mg total) by mouth daily 90 tablet 3 025 Active atenoloL (TENORMIN) 50 mg tablet TAKE 1 TABLET(50 MG) BY MOUTH DAILY 90 tablet 1 022 2024 Discontinued(R eorder) atenoloL (TENORMIN) 25 mg tablet Take 1 tablet (25 mg total) by mouth daily 2024 Discontinued Active Problems Problem Noted Date Diagnosed Date [...] (01/02/2021): Added automatically from request for surgery [id number] Malfunction of implantable d efibrillator ventricular (ICD) lead 12/30/2020 ICD (implantable cardioverter-defibrillator) in place 12/30/2020 Elevated troponin 04/01/2020 S/P ICD (internal cardiac defibrillator) procedu re 11/11/2019 History of ventricular septal myectomy 0 WPW (Tftvf-Uvayzbjcq-Fnwha syndrome) 11/11/2019 Hypertrophic cardiomyopathy 11/11/2019 Hypertrophic cardiomyopathy 10/28/2013 Overview (01/01/2024): Last Assessment & Plan: Impression: 1. Hypertrophic cardiomyopathy (familial), severe, s/p previous myomectomy and ICD placement. Most recent cath 09/21/14 with PVR 3.3 (indexed). 2. Pacemaker/ICD generator replacement 09/21/14. Now with lead malfunction. Dr. Epperson () has evaluated patient and disabled device to [...] Encounters Date Type Department Care Team Description 12/14/2024 Telephone [facility] [address] [facility] 8th [place] [address] [place] [address] Clemente Ferrara MD 10/01/2024 Telephone [facility] [address] [facility] 8th [place] [address] [place] [address] Clemente Ferrara MD from Last 3 Months Immunizations Immunization Administration Dates Next Due Pfizer SARS-CoV-2 Monovalent Vaccination (12+ Yrs) PURPLE 07/05/2020,06/14/2020 Surgical History Surgery Date Site/Laterality Comments CARDIAC DEFIBRILLATOR PLACEMENT 2013? pt. doesn't know brand name CARDIAC CATHETERIZATION 10/28/2013 Bilateral OTHER SURGICAL HISTORY 09/21/2014 lead malfunction defibrillator HEART SURGERY ? septal myectomy surgery Medical History Medical History Date Comments Hypertrophic cardiomyopathy (HCC) WPW (Epbub-Maoutkyku-Juyca syndrome) ICD (implantable cardioverter-defibrillator) in place Sleep [...] on file Legal Sex Male 1:02 PM SERVER PROGRAMMER Gender Identity Not on file Sexual Orientation Not on file Obstetrics History Last Filed Vital Signs Vital Sign Reading Time Taken Comments Blood Pressure 109/57 03/11/2024 11:24 AM SERVER PROGRAMMER Pulse 58 03/11/2024 11:24 AM SERVER PROGRAMMER Temperature 36.8 C (98.2 F) 03/10/2024 11:09 PM SERVER PROGRAMMER Respiratory Rate 18 03/11/2024 11:24 AM SERVER PROGRAMMER Oxygen Saturation 99% 03/11/2024 11:24 AM SERVER PROGRAMMER Inhaled Oxygen Concentration - - Weight 65.8 kg (145 lb) 03/10/2024 11:09 PM SERVER PROGRAMMER Height 172.7 cm (5' 8) 03/10/2024 11:09 PM SERVER PROGRAMMER Body Mass Index 22.05 03/10/2024 11:09 PM SERVER PROGRAMMER Plan of Treatment Health Maintenance Due Date Last Done Comments Hepatitis C Screening 1996 Regular Well Visit/Exam 18-64 2014 DTaP/Tdap/Td Vaccine (7 - Td or Tdap) 02/04/2020 02/03/2010, 05/23/2000, 06/15/1999, Additional history exists Depression Screening 09/27/2022 09/27/2021, 09/28/19 22 HPV Vaccines (1 - 3-dose SCDM series) 2023 Covid-19 Vaccine ( - season) 2024 07/05/2020, 06/14/2020 Influenza Vaccine (#1) 2025 02/28/2019 Hepatitis B Screening Completed 05/23/2000 , 1996, 1996 Varicella Vaccines Completed 02/03/2010, 02/15/1999 Pneumococcal vaccine <65 Aged Out No longer eligible based on patient's age to complete this topic Medical Devices Implanted Type Area Tube Rebuilder Device Identifier Shelf Expiration Date Model / Serial / Lot Medtronic Cardiac Rhythm Mgmt [id number] Tyrx 2.7x2.5in Medium Envelope Absorbable Polyarylate Minocycline - [id number] - [id number] Implanted:Qty: 1 on 01/11/2021 by Stephanie Ramachandran MD at [facility] Other - see comments Left: Chest Wall [employer] 08/24/2021 [id number] / [id number] / [id number] Description:tyrx absorbable antibacterial envelope- medium ref # [id number] Icd N/A: Chest Wall Insurance [facility]IC[facility] MEDICARE IDPA IDIN MEDICARE Advance Directives For more information, please contact: [phone] * Full Code (Latest Code Status on File) Date Activated Date Inactivated Comments 09/27/2021 10:44 PM 09/28/2021 4:50 PM Care Teams Architectural Project Captain Relationship Specialty Start Date End Date Becky Garnett MD PCP - General Family Medicine 12/21/21
--- OUTSIDE RECORDS SUMMARY | 2024-12-14 19:35 | XMS_ITS | Encounter Summary ---
Author Organization [facility] Address [address] [place] [address] Phone Care Team Providers Care Composition Worker Name Role Phone Becky Garnett MD Primary Care Provider [phone]- [phone] Encounter Details Date Type Department Care Team (Late st Contact Info) Description 02/28/2022 Telephone [facility] Cardiology [address] [facility] [place] Advanced Medicine 8th [place] [address] [place] [address] Nan Preston Social History Tobacco [...] on file Legal Sex Male 1:02 PM SENIOR ELECTRICAL DESIGNER Gender Identity Not on file Sexual Orientation Not on file documented as of this encounter Plan of Treatment Not on file documented as of this encounter Visit Diagnoses Not on filedocumented in this encounter Additional Health Concerns Infection Onset Date Last Indicated Resolved Time COVID: Suspected 03/11/2024 03/11/2024 03/11/2024 5:58 AM SENIOR ELECTRICAL DESIGNER documented as of this encounter Care Teams Composition Worker Relationship Specialty Start Date End Date Becky Garnett MD PCP - General Family Medicine 12/21/21 documented as of this encounter
--- OUTSIDE RECORDS SUMMARY | 2024-12-14 19:35 | XMS_ITS | Continuity of Care Document ---
Author Organization [facility] Address [address] [place] [address] Phone Care Team Providers Care University Tutor Name Role Phone Zac OTR/L, CHT, Errol Unavailable Unava ilable Procedures Procedure Date Therapeutic Activities MP Forest Pathology Teacher-based Orthotic Mgmt and Training Advance Directives Directive Yes / No Effective Date File Name No Information Encounters Encounter Description Practice Location Reason(s) For Visit Diagnoses Date Provider Providers Copied on Encounter [facility], [address], [place], [place], [id number], [place] tel:[phone] [facility] No Information Zac Norton. . Family History Family Member Type Diagnosis Age At Onset No Information Payers Payer name Insurance type Covered constitution party ID Authoriza tion(s) Medicare [facility] [id number] Medicaid OON Write Off CI 00 Social History Type Description Quantity Date Captured [...]
--- OUTSIDE RECORDS SUMMARY | 2024-12-14 19:35 | XMS_ITS | Encounter Summary ---
Author Organization [facility] Address [address] [place] [address] Phone Care Team Providers Care Veterans Adviser Name Role Phone No, Physician Primary Care Provider [phone] Becky Garnett MD Primary Care Provider [phone] Encounter Details Date Type Department Care Team (Late st Contact Info) Description 11/12/2019 Telephone [facility] Cardiology [address] [facility] Advanced Medicine 8th [place] [address] [place] [address] Jossy Machado MD [address] [facility] [address] [place], [place] [id number] Social History Tobacco Use Types Packs/Day Years Used Date Smoking Tobacco: Every Day E-cigarettes Smokeless Tobacco: Never Alcohol Use Standard Drinks/Week Comments No 0 (1 standard drink = 0.6 oz pur e alcohol) Sex and Gender Information Value Date Recorded Sex Assigned at Not on file Legal Sex Male 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
--- OUTSIDE RECORDS SUMMARY | 2024-12-14 19:35 | XMS_ITS | Encounter Summary ---
Author Organization [facility] Address [address] [place] [address] Care Team Providers Care Note Teller Name Role Phone Fior Mao NP Primary Care Provider [phone] Encounter Details Date Type Department Care Team (Late Contact Info) Description 09/20/2023 GlobalLab Message Enc [facility] [place], [place] [id number] Nam Diaz MD Three [facility] [address] [place], [place] [id number] Loop recorder Social History Tobacco Use Types [...] Information Value Date Recorded Sex Assigned at Male 08/24/2024 9:57 AM CDT 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 Gender Identity Male 08/24/2024 9:57 AM CDT Sexual Orientation Straight 08/24/2024 9: 57 AM CDT documented as of this encounter Plan of Treatment Upcoming Encounters Date Type Department Care Team (Late st Contact Info) Description 01/04/2025 4:55 PM CDT Allied Health/Nurse Visit [facility] [place] [address] Nam Diaz MD Three [facility] [address] [place] [address] documented as of this encounter Visit Diagnoses Not on filedocumented in this encounter Additional Health Concerns Assessment Noted Time PHQ-9 Depression Total Score: 17 024 11:29 AM ECLECTIC DOCTOR documented as of this encounter Care Teams Note Teller Relationship Specialty Start Date End Date Fior Mao NP [address] [place] [address] PCP - General NURSE PRACTITIONER 05/08/22 documented as of this encounter
--- OUTSIDE RECORDS SUMMARY | 2024-12-14 19:35 | XMS_ITS | Clinical Summary ---
Author Organization [facility] Address [facility] [place] [address] Care Team Providers Care Dictating Machine Mechanic Name Role Phone Fior Mao NP Primary Care Provider [phone] Allergies No known active allergies Medications ibuprofen (MOTRIN) 200 MG tablet Take 4 tablets (800 mg total) by mouth every 6 (six) hours as needed for Pain. Active hydrOXYzine (ATARAX) 10 MG tablet TAKE 1 TABLET (10 MG TOTAL) BY MOUTH 3 (THREE) TIMES DAILY NEEDED FOR ANXIETY (SLEEP). 4 Active atenolol (TENORMIN) 50 MG tabletIndications:H ypertrophic cardiomyopathy (CMS/HCC HHS/HCC) TAKE 1&1/2 TABLETS BY MOUTH DAILY 68 tablet 5 Active Active Problems Problem Noted Date Diagnosed Date Status post placement of implantable loop record er 12/26/2022 Overview (12/26/2022): MDT JOSH implanted 12/26/22 for Palpitations Palpitations 12/26/2022 Overview (12/26/2022): MDT JOSH implanted 12/26/22 for Palpitations Chronic bilateral low back pain without sciatica 05/17/2022 Neck pain 05/17/2022 AICD lead malfunction 01/02/2021 Overview (05/17/2022): Added automatically from request for surgery [id number] Hypertrophic cardiomyopathy ([facility]) 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 Family Medicine - [place] [address] [facility] [address] [place] [address] Fior Mao NP Concerns 11/20/2024 Telephone [facility] [place] [address] [place] [address] Nam Diaz MD Information 11/04/2024 Telephone [facility] [address] [facility] [place] [address] [place] [address] Nam Diaz MD Information 10/26/2024 4:35 PM CDT Allied Health/Nurse Visit [facility] [address] [facility] [place] [address] [place] [address] Nam Diaz MD Remote Device Check from Last 3 Months Immunizations Immunization Administration Dates Next Due PFIZER COVID-19 (ORIGINAL [...] Never Smokeless Tobacco: Never Tobacco Cessation:Counseling Given: No Comments:only when i smoke backwoods/ I use nicotine with my vape Alcohol Use Standard Drinks/Week Comments Yes 2 (1 standard drink = 0.6 oz pur e alcohol) socially PHQ-2 Answer Date Recorded Patient Health Questionnaire-2 Score 2 08/24/2024 Sex and Gender Information Value Date Recorded Sex Assigned at Male 08/24/2024 9:57 AM CDT Legal Sex Male 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 Gender Identity Male 08/24/2024 9:57 AM CDT Sexual Orientation Straight 08/24/2024 9: 57 AM CDT Last Filed Vital Signs Vital Sign Reading Time Taken Comments Blood Pressure 104/72 08/24/2024 9:58 AM CDT Pulse 61 08/24/2024 9:58 AM CDT Temperature 37.3 C (99.1 F) 08/24/2024 9:58 AM CDT Respiratory Rate 16 08/24/2024 9:58 AM CDT Oxygen Saturation 99% 08/24/2024 9:58 AM CDT Inhaled Oxygen Concentration - - Weight 57.6 kg (127 lb) 08/24/2024 9:58 AM CDT Height 172.7 cm (5' 8) 08/24/2024 9:58 AM CDT Body Mass Index 19.31 08/24/2024 9:58 AM CDT Plan of Treatment Upcoming Encounters Date Type Department Care Team (Late st Contact Info) Description 01/04/2025 4:55 PM CDT Allied Health/Nurse Visit [facility] [place], [place] [id number] Nam Diaz MD Three [facility] [address] [place], [place] [id number] Health Maintenance Due Date Last Done Comments Hepatitis C 2014 DTaP, Tdap and Td Vaccines ( 1 - Tdap) 2015 Hepatitis B Vaccines (1 of 3 - 19+ 3-dose series) 2015 HPV Vaccines (1 - 3-dose SCD M series) 2023 Annual Physical 05/17/2023 05/17/2022 COVID-19 Vaccine (3 - 2023-2 5 season) 2024 07/05/2020, 06/14/2020 PHQ-2 (Physician Napoleon) Completed 08/24/2024 Meningococcal B Vaccine Aged Out No l onger eligible based on patient's age to complete this topic Meningococcal Vaccine Aged Out No vasiliy vane eligible based on patient's age to complete this topic Pneumococcal Vaccine: Pediatrics (0 to 5 Years) and At-Risk Patients (6 to 49 Years) Aged Out No longer eligible b ased on patient's age to complete this topic RSV Immunizations Under 20 Months Aged Out No longer eligible b ased on patient's age to complete this topic Medical Devices Implanted Type Area End Trimmer Device Identifier Shelf Expiration Date Model / Serial / Lot Mdgeorge Implantable Loop Recorder- [id number] Implanted:12/26 by Aaron Woodruff MD (Quantity not on file) Implantable Loop Recorder MEDTRONIC CARDIAC RHYTHM AND HEART FAILURE - DIV M 03/09/2024 [id number] / [id number] / Insurance [place] Care Teams Dictating Machine Mechanic Relationship Specialty Start Date End Date Fior Mao NP [address] [place] [address] PCP - General NURSE PRACTITIONER 05/08/22
--- OUTSIDE RECORDS SUMMARY | 2024-12-14 19:35 | XMS_ITS | Encounter Summary ---
Author Organization [facility] Address [address] [place] [address] Phone Care Team Providers Care Photoengraving Apprentice Name Role Phone Becky Garnett MD Primary Care Provider [phone] Reason for Referral * Consultation (Routine) - Authorized Specialty Diagnoses / Procedures Referred By Contac t Referred To Contact Cardiology Diagnoses Hypertrophic cardiomyopathy (HCC) Intermittent palpitations Clemente Ferrara MD [address] [address] Phone: tel: fax: Stephanie Ramachandran MD [address] [address] Phone: tel: fax: Referral ID Status Reason Start Date Expiration Date Visits Requested Visits Authorized [id number] Authorized Specialty Services Required 12/14/2024 01/13/2026 1 1 Question Answer Please select the performing region: [facility] (All Locations) [[id number]] To Provider NOTE: we will do our best to honor your provider preference, but scheduling the patient in a timely manner in our clinic will take precedence. 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 Willian would like to have an ROV w/Duart[facility] now. Per your last note, you recommended it. Please send a referral to [facility]. Also, 2 weeks ago, Willian lost a bottle of Atenolol. Has not taken it since. He requests: Can you please send in a script for 50 mg Atenolol daily? documented in this encounter Plan of Treatment Scheduled Referrals Name Type Priority Associated Diagnoses Orde r Schedule Ambulatory referral to Cardiac Electrophysiology Outpatient Referral Routine Hypertrophic cardiomyopathy (HCC) Intermittent palpitations Expected: 12/28/2024 (Approximate), Expires: 12/14/2025 documented as of this encounter Visit Diagnoses Diagnosis Hypertrophic cardiomyopathy (HCC)- Primary Other primary cardiomyopathies Intermittent palpitations documented in this encounter Discontinued Medications Medication Sig Discontinue Reason Start Date End Da te atenoloL (TENORMIN) 25 mg tablet Take 1 tablet (25 mg total) by mouth daily 12/14/2024 atenoloL (TENORMIN) 50 mg tablet TAKE 1 TABLET(50 MG) BY MOUTH DAILY Reorder 02/26/2022 12/14/2024 documented as of this encounter Care Teams Photoengraving Apprentice Relationship Specialty Start Date End Date Becky Garnett MD PCP - General Family Medicine 12/21/21 documented as of this encounter
--- OUTSIDE RECORDS SUMMARY | 2024-12-14 19:36 | XMS_ITS | Encounter Summary ---
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 SUPERVISOR Gender Identity Male 08/24/2024 9:57 AM CDT Sexual Orientation Straight 08/24/2024 9: 57 AM CDT documented as of this encounter Plan of Treatment Upcoming Encounters Date Type Department Care Team (Late Contact Info) Description 01/04/2025 4:55 PM CDT Allied Health/Nurse Visit [facility] [address] [address] Nam Diaz MD Three [facility] [address] [place] [address] documented as of this encounter Visit Diagnoses Not on filedocumented in this encounter Additional Health Concerns Infection Onset Date Last Indicated Resolved Time COVID-19 Rule Out 04/17/2023 04/17/2023 04/17/2023 2:34 PM COLOR PASTE MIXING SUPERVISOR documented as of this encounter Care Teams Medical Assistant Dermatology Relationship Specialty Start Date End Date Fior Mao NP [address] [place] [address] PCP - General NURSE PRACTITIONER 05/08/22 documented as of this encounter
--- OUTSIDE RECORDS SUMMARY | 2024-12-14 19:36 | XMS_ITS | Continuity of Care Document ---
Author Organization [facility] Address [address] [place] [address] Phone Care Team Providers Care Field Mechanic Name Role Phone Gregory Kc MD Unavailable [...] - Age 5-11, Established Patient, Full Screening [facility] , [address], [place], [place], [id number], [place] tel:[phone] [facility] [place] HEADACHECARDIAC [facility]CROUTIN CHILD HEALTH EXAM 0-[address], [place], [place], [id number] , . tel: [phone] Family History Family Member Type Diagnosis Age At Onset No Information Payers Payer name Insurance type Covered green party ID Authoriza tion(s) No Information Social History [...]
--- NOTE | 2024-12-14 19:37 | ECG_ITS ---
Test Date: 2024-12-14 19:40:38 Measurements Intervals Inland Rate: 62 P: 51 VT: 164 QRS: 55 QRSD: 189 T: 139 QT: 476 QTc: 484 Interpretive Statements SINUS RHYTHM LEFT ATRIAL ENLARGEMENT LEFT BUNDLE BRANCH BLOCK BASELINE ARTIFACT- I, II, III, AVR, AVL, AVF, V3, V5-V6 ABNORMAL ECG Compared to ECG 03/09/2024 05:31:56 HEART RATE HAS INCREASED Electronically Signed On 12-14-2024 19:55:57 CDT by Jewel Brarera D.O.
[2024-12-14 19:52] LABS: Hematocrit 45.8 % (42.0-52.0); Hemoglobin 14.5 g/dL (14.0-18.0); Immature Granulocyte Percent A 0.2 % (0-0.5); Lymphocytes Absolute Auto 1.85 K/mm3 (0.9-3.2); Mean Corpuscular HGB Conc 31.7 g/dl (32-36); Mean Corpuscular Hemoglobin 27.0 pg (26-34); Mean Corpuscular Volume 85.1 fl (80-100); Nucleated Red Blood Cells Absolute Auto 0.000 K/mm3 (0.0-0.012); Nucleated Red Blood Cells Perc 0.0 % (0.0-0.2); Platelet Count Result 201 k/mm3 (150-375); Red Blood Count 5.38 M/mm3 (4.6-6.20); White Blood Count 5.5 K/mm3 (4.5-10.0)
[2024-12-14 20:09] LABS: Alanine Aminotransferase 23 U/L (6-50); Albumin Level 4.9 g/dL (3.5-5.1); Alkaline Phosphatase 51 U/L (38-126); Anion Gap 7 mmol/L (4-12); Aspartate Amino Transferase 40 U/L (17-59); Bilirubin,Total 1.2 mg/dL (0.2-1.3); Blood Urea Nitrogen 8 mg/dL (9-20); Calcium 9.8 mg/dL (8.4-10.2); Carbon Dioxide 25 mmol/L (22-30); Chloride 103 mmol/L (98-107); Estimated CRCL calculation 79 ml/min; Estimated Glomerular Filt Rate > 60; Glucose 112 mg/dL (65-110); Lipase 75 U/L (23-300); Potassium 4.7 mmol/L (3.4-5.0); Sodium 135 mmol/L (137-145); Total Protein 8.7 g/dL (6.3-8.2)
[2024-12-14] MEDS: FAMOTIDINE 20 MG/2 ML VIAL IV PUSH (20:23)
[2024-12-14] MEDS: LACTATED RINGERS 1,000 ML 999 ML IV CONT (20:23)
--- NOTE | 2024-12-14 20:26 | ED_ITS ---
HPI - Abdominal Pain General Chief Complaint: Abdominal Pain Stated Complaint: abd pain Time Seen by Provider: 12/14/24 20:07 History of Present Illness HPI narrative: 29-year-old male with a past medical history including hypertrophic cardiomyopathy with an AICD, will Parkinson's White. He follows Cardiology at [facility]. Today patient presents with lower abdominal pain nausea and vomiting. He states that he took some Zofran at home without any relief of symptoms. States that the pain woke him up from sleep and feels like a diffuse cramping. States that he smokes marijuana daily. Has not had similar symptoms like this in the past. Denies any chest pain shortness a breath. No headache, vision changes, syncope. No traumatic injuries. Ambulatory and no neurological complaints or deficits. Related Data Home Medications ?Medication ?Instructions ?Recorded ?Confirmed ?Last Taken ?Type aspirin 81 mg chewable tablet 01/13/21 Unknown History atenolol 50 mg tablet 01/13/21 Unknown History Allergies Allergy/AdvReac Type Severity Reaction Status Date / Time No Known Allergies Allergy Unknown Verified 06/10/24 07:47 Review of Systems 2 Review of Systems: As [facility] Past Medical History Medical History Malfunction of electrode lead of implantable cardioverter-defibrillator (ICD) Pacemaker Bipolar 1 disorder Ebdpp-Fkgggxbzm-Vapov (WPW) syndrome Hypertrophic cardiomyopathy Surgical History Surgical History History of heart surgery Apparently had myomectomy in [place] around 9 years old. Family History Family History Mother Heart disease Apparently of CHF/HOCM age 36 Grandparent Heart disease Says grandfather had the same heart disease that he has Other No acute medical problems Social History Social History Social History: Has a girlfriend. Also young son. Smoking status: Never smoker Alcohol intake: current Substance use: current Substance use type: marijuana Living arrangements: with family Gender identity (if verbalized by the patient): Male Exam 2 Narrative: GENERAL: Uncomfortable appearing, awake and answering questions. Holding his lower abdomen HEAD: [Normocephalic, atraumatic.] EYES: [PERRLA and EOMI.] ENT: Nares clear, no rhinorrhea or epistaxis. Mucous membranes moist. NECK: Supple. CHEST: [Clear to auscultation. No respiratory distress.] HEART: [Regular rate and rhythm]. No murmur heard. [Normal peripheral pulses.] ABDOMEN: [Soft, nondistended], minimally tender without rigidity or guarding. No peritonitis. EXTREMITIES: Normal range of motion. [No edema.] SKIN: Warm, dry, no rash. NEURO: [No focal deficits]. Alert and oriented [x3.] PSYCH: [Normal mood and affect.] Course Vital Signs Vital signs: Vital Signs Temperature 36.0 C L 12/14/24 19:35 Pulse Rate 58 L 12/14/24 19:35 Respiratory Rate 18 12/14/24 19:35 Blood Pressure 106/78 12/14/24 19:35 Pulse Oximetry 100 12/14/24 19:35 Oxygen Delivery Room Air 12/14/24 19:35 Temperature 36.0 C L 12/14/24 19:35 Pulse Rate 61 12/14/24 23:01 Respiratory Rate 16 12/14/24 23:01 Blood Pressure 106/68 12/14/24 23:01 Pulse Oximetry 100 12/14/24 23:00 Oxygen Delivery Room Air 12/14/24 19:35 MDM - Abdominal Pain MDM Narrative Medical decision making narrative: 29-year-old male with a past medical history including hypertrophic cardiomyopathy with an AICD, will Parkinson's White. He follows Cardiology at [facility]. Today patient presents with lower abdominal pain nausea and vomiting. He states that he took some Zofran at home without any relief of symptoms. States that the pain woke him up from sleep and feels like a diffuse cramping. States that he smokes marijuana daily. Has not had similar symptoms like this in the past. Denies any chest pain shortness a breath. No headache, vision changes, syncope. No traumatic injuries. Ambulatory and no neurological complaints or deficits. Patient is minimally tender abdomen but is uncomfortable appearing. He has reassuring vital signs with any tachypnea, tachycardia, fever, hypoxia. Patient does smoke marijuana daily which raises suspicion for potential cannabinoid hyperemesis versus other potential processes gastroenteritis, appendicitis, diverticulitis, less likely vascular pathology. CT abdomen pelvis with IV contrast obtained. Laboratory studies and troponin ordered given his chronic troponin elevations. He was given droperidol and Pepcid as well as fluids. EKGs obtained that shows chronic left bundle-branch block without any Sgarbossa criteria being met. Repeat EKG is unchanged. Compared to prior EKGs no interval changes or acute ischemic evidence. Patient's pain had significantly improved after droperidol and Pepcid down to 3/10 but did have a rebound requiring additional dilaudid. He remains hemodynamically stable. Laboratory studies reassuring without any leukocytosis or anemia. Normal platelet count. Coagulation panel is normal. Electrolytes normal. Normal kidney function, normal hepatic function, normal glucose. His troponins are chronically elevated but better than they have been in the past. First troponin 0.051 and delta troponin 0.044 ruling out ACS. Patient again has chronically elevated troponins which are followed by his regular pie crust mixer. Urinalysis shows some trace protein but no signs of significant infection. CT scan obtained showing some seminal vesicle hyperemia and prostate gland hyperemia with simple fluid in the deep pelvis consistent with prostatitis/seminal vesiculitis. No additional abnormalities within the lower chest abdomen pelvis. Patient was started on Rocephin IM and doxycycline p.o. for suspected prostatitis with potential E coli versus STD. Patient be sent home with 2 weeks of doxycycline Urology follow-up. Patient is safe for discharge home at this time. Medical Records Attestation: I reviewed the patient's medical records. Lab Data Attestation: I reviewed the patient's lab results. 12/14/24 19:45 12/14/24 19:45 Labs: Lab Results 12/14/24 12/14/24 12/14/24 Range/Units 19:44 19:45 21:55 WBC 5.5 (4.5-10.0) K/mm3 RBC 5.38 (4.6-6.20) M/mm3 Hgb 14.5 (14.0-18.0) g/dL Hct 45.8 (42.0-52.0) % MCV 85.1 (80-100) fl MCH 27.0 (26-34) pg MCHC 31.7 L (32-36) g/dl RDW 12.7 (11.5-14.5) % Plt Count 201 (150-375) k/mm3 MPV 10.8 H (7.4-10.4) fl Immature Gran % (Auto) 0.2 (0-0.5) % Neut % (Auto) 57.6 (45.5-73.1) % Lymph % (Auto) 33.4 (18.3-44.2) % Carbon % (Auto) 6.7 (2.6-8.5) % Eos % (Auto) 1.4 (0-4.4) % Baso % (Auto) 0.7 (0.2-1.2) % Lymph # (Auto) 1.85 (0.9-3.2) K/mm3 Carbon # (Auto) 0.4 (0.1-0.6) K/mm3 Eos # (Auto) 0.1 (0-0.3) K/mm3 Baso # (Auto) 0.0 (0.0-0.1) K/mm3 Abs Immat Gran (auto) 0.01 (0.00-0.031) K/mm3 Absolute Neuts (auto) 3.2 (1.3-6.7) K/mm3 Absolute Nucleated RBC 0.000 (0.0-0.012) K/mm3 Nucleated RBC % 0.0 (0.0-0.2) % Sodium 135 L (137-145) mmol/L Potassium 4.7 (3.4-5.0) mmol/L Chloride 103 (98-107) mmol/L Carbon Dioxide 25 (22-30) mmol/L Anion Gap 7 (4-12) mmol/L BUN 8 L (9-20) mg/dL Creatinine 1.11 (0.7-1.3) mg/dL Estim Creat Clear Calc 79 ml/min Estimated GFR > 60 (59 - ) Glucose 112 H (65-110) mg/dL Calcium 9.8 (8.4-10.2) mg/dL Total Bilirubin 1.2 (0.2-1.3) mg/dL AST 40 (17-59) U/L ALT 23 (6-50) U/L Alkaline Phosphatase 51 (38-126) U/L Troponin I 0.051 H* (0.000-0.034) ng/mL Total Protein 8.7 H (6.3-8.2) g/dL Albumin 4.9 (3.5-5.1) g/dL Lipase 75 (23-300) U/L Urine Color Yellow (Yellow) Urine Appearance Clear (Clear) Urine pH 7.0 (5.0-9.0) Ur Specific Homeland > 1.045 H (1.001-1.035) Urine Protein 1+ H (Negative) mg/dL Urine Glucose (UA) Negative (Negative) mg/dL Urine Ketones Trace H (Negative) mg/dL Ur Blood (Man) Negative (Negative) Urine Nitrate Negative (Negative) Urine Bilirubin Negative (Negative) Urine Urobilinogen 0.2 (<2.0) mg/dL Leukocyte Esterase Rfl Negative (Negative) MIRZA/UL Urine RBC 0-2 (0-2) /hpf Urine WBC 0-5 (0-3) /hpf Ur Squamous Epith Cells None seen (Few) /hpf Urine Bacteria None seen /hpf Urine Casts 0-2 12/14/24 Range/Units 22:26 WBC (4.5-10.0) K/mm3 RBC (4.6-6.20) M/mm3 Hgb (14.0-18.0) g/dL Hct (42.0-52.0) % MCV (80-100) fl MCH (26-34) pg MCHC (32-36) g/dl RDW (11.5-14.5) % Plt Count (150-375) k/mm3 MPV (7.4-10.4) fl Immature Gran % (Auto) (0-0.5) % Neut % (Auto) (45.5-73.1) % Lymph % (Auto) (18.3-44.2) % Carbon % (Auto) (2.6-8.5) % Eos % (Auto) (0-4.4) % Baso % (Auto) (0.2-1.2) % Lymph # (Auto) (0.9-3.2) K/mm3 Carbon # (Auto) (0.1-0.6) K/mm3 Eos # (Auto) (0-0.3) K/mm3 Baso # (Auto) (0.0-0.1) K/mm3 Abs Immat Gran (auto) (0.00-0.031) K/mm3 Absolute Neuts (auto) (1.3-6.7) K/mm3 Absolute Nucleated RBC (0.0-0.012) K/mm3 Nucleated RBC % (0.0-0.2) % Sodium (137-145) mmol/L Potassium (3.4-5.0) mmol/L Chloride (98-107) mmol/L Carbon Dioxide (22-30) mmol/L Anion Gap (4-12) mmol/L BUN (9-20) mg/dL Creatinine (0.7-1.3) mg/dL Estim Creat Clear Calc ml/min Estimated GFR (59 - ) Glucose (65-110) mg/dL Calcium (8.4-10.2) mg/dL Total Bilirubin (0.2-1.3) mg/dL AST (17-59) U/L ALT (6-50) U/L Alkaline Phosphatase (38-126) U/L Troponin I 0.044 H* (0.000-0.034) ng/mL Total Protein (6.3-8.2) g/dL Albumin (3.5-5.1) g/dL Lipase (23-300) U/L Urine Color (Yellow) Urine Appearance (Clear) Urine pH (5.0-9.0) Ur Specific Homeland (1.001-1.035) Urine Protein (Negative) mg/dL Urine Glucose (UA) (Negative) mg/dL Urine Ketones (Negative) mg/dL Ur Blood (Man) (Negative) Urine Nitrate (Negative) Urine Bilirubin (Negative) Urine Urobilinogen (<2.0) mg/dL Leukocyte Esterase Rfl (Negative) MIRZA/UL Urine RBC (0-2) /hpf Urine WBC (0-3) /hpf Ur Squamous Epith Cells (Few) /hpf Urine Bacteria /hpf Urine Casts Imaging Data Attestation: I personally reviewed and interpreted this imaging study as follows: My impression: Impressions Abdomen/Pelvis CT 12/14/24 22:32 IMPRESSION: Hyperemia of the seminal vesicles with hyperemia of the prostate gland, although to a lesser degree. Simple fluid within the deep pelvis, which raises the concern for prostatitis/seminal vesiculitis for which clinical correlation is needed. No additional acute abnormality is appreciated within the lower chest, abdomen or pelvis Radiologist's impression: ITS Impressions Abdomen/Pelvis CT 12/14/24 22:32 IMPRESSION: Hyperemia of the seminal vesicles with hyperemia of the prostate gland, although to a lesser degree. Simple fluid within the deep pelvis, which raises the concern for prostatitis/seminal vesiculitis for which clinical correlation is needed. No additional acute abnormality is appreciated within the lower chest, abdomen or pelvis Discharge Plan Discharge Clinical Impression: Acute prostatitis, Seminal vesiculitis, WPW (Gyhrc-Rlotaaesx-Vrgmm syndrome), HOCM (hypertrophic obstructive cardiomyopathy), Elevated troponin I level Patient Disposition: Home Condition: Stable Instructions: Antibiotic Form, Prostatitis (ED) Additional Instructions: Your CT scan shows an infection in the prostate and seminal vesicle glands in your deep pelvis which is likely explaining your lower abdominal pain and symptoms. We will treat this with antibiotics for 2 weeks and pain control medications. Follow-up with the urologist team and return with any emergent concerns. Patient Language: Mexican Prescriptions: New doxycycline hyclate 100 mg capsule 100 mg PO BID 14 Days Qty: 28 0RF ibuprofen 600 mg tablet 600 mg PO TID PRN (Reason: pain) Qty: 20 0RF ondansetron 4 mg tablet,disintegrating 4 mg PO Q8H PRN (Reason: nausea and vomiting) Qty: 10 0RF No Action cyclobenzaprine 10 mg tablet 10 mg PO TID PRN (Reason: muscle spasm) Qty: 12 0RF acetaminophen 500 mg capsule 500 mg PO QID PRN (Reason: fever or pain) Qty: 30 0RF hydrocodone-acetaminophen 5-325 mg tablet 1 tablet PO Q6H PRN (Reason: pain) 3 Days Qty: 12 0RF aspirin [Baby Aspirin] 81 mg Tablet,Chewable atenolol 50 mg tablet ibuprofen [IBU] 600 mg tablet 600 mg PO Q6H PRN (Reason: pain) Qty: 20 0RF ondansetron 4 mg film 4 mg PO Q6H PRN (Reason: nausea and vomiting) Qty: 8 0RF ibuprofen 600 mg tablet 600 mg PO TID PRN (Reason: pain) Qty: 14 0RF oseltamivir [Tamiflu] 75 mg capsule 75 mg PO Q12H 5 Days Qty: 10 0RF ondansetron 4 mg tablet,disintegrating 4 mg PO Q8H PRN (Reason: nausea and vomiting) Qty: 10 0RF benzonatate 200 mg capsule 200 mg PO TID PRN (Reason: cough) Qty: 21 0RF Follow-up/Referrals: Richard Restrepo MD [Physician] - 1 Week (Prostatitis) UNKNOWN,DOCTOR [Primary Care Provider] - Time of Disposition: 23:22
--- OUTSIDE RECORDS SUMMARY | 2024-12-14 20:28 | XMS_ITS | Encounter Summary ---
Author Organization [facility] Address [address] [place] [address] Phone Care Team Providers Care Gm Video Name Role Phone Becky Garnett MD Primary Care Provider [phone] Reason for Referral * Consultation (Routine) - Authorized Specialty Diagnoses / Procedures Referred By Contac t Referred To Contact Cardiology Diagnoses Hypertrophic cardiomyopathy (HCC) Intermittent palpitations Clemente Ferrara MD [address] [address] Phone: tel: fax: Stephanie Ramachandran MD [address] [address] Phone: tel: fax: Referral ID Status Reason Start Date Expiration Date Visits Requested Visits Authorized [id number] Authorized Specialty Services Required 12/14/2024 01/13/2026 1 1 Question Answer Please select the performing region: [facility] (All Locations) [167] To Provider NOTE: we will do our best to honor your provider preference, but scheduling the patient in a timely manner in our clinic will take precedence. 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
--- OUTSIDE RECORDS SUMMARY | 2024-12-14 20:28 | XMS_ITS | Continuity of Care Document ---
Author Organization [employer] [facility] Address [address] [place] [address] Phone Care Team Providers Care Billposter Name Role Phone Gregory Kc MD Unavailable Unavailable Medications Medication Instructions Dosage Effective Dates (start - stop) Status Comments amoxicillin 250 mg/5 mL Oral Susp AMOXICILLIN 250 MG/5 ML SUSP<><> 2 teaspoon by mouth (PO) three times a day.<><><>DISPENSE: 10 day supply.<>REFILLS: 0<>Provider: GERGORY KC MD<>Health Center: [facility]<><> - No Longer Active ibuprofen 100 mg/5 mL Oral Susp MOTRIN 100 MG/5 ML SUSPENSION # 6.0OZ<><> 3 teaspoon by mouth (PO) every 8 Hours.<><> As needed for pain.<><>DISPENSE: <>REFILLS: 0<>Provider: GREGORY KC MD<>Health Center: [facility]<><> - No Longer Active Procedures Procedure Date COLLECTION OF VENOUS BLOOD BY VENIPUNCTU RE BLOOD COUNT; COMPLETE (CBC), AUTOMATED (HGB, HCT, RBC, WBC AND PLATELET COUNT) URNLS DIP STICK/TABLET RGNT AUTO W/O KAUSHIK [facility] - Age 5-11, Established Patient, Ful l Screening Advance Directives Directive Yes / No Effective Date File Name No Information Encounters Encounter Description Practice Location Reason(s) For Visit Diagnoses Date Provider Providers Copied on Encounter [facility] - Age 5-11, Established Patient, Full Screening [facility] , [address], [place], [place], [address], [place] tel:[phone] [facility] [place] HEADACHECARDIAC [facility] NECROUTIN CHILD HEALTH EXAM 0-200 [address], [place], [place], [address] , . tel: [phone] Family History Family Member Type Diagnosis Age At Onset No Information Payers Payer name Insurance type Covered alliance party ID Authoriza tion(s) No Information Social [...]
--- OUTSIDE RECORDS SUMMARY | 2024-12-14 20:28 | XMS_ITS | Continuity of Care Document ---
Author Organization [facility] Address [address] [place] [address] Phone Care Team Providers Care Security Checker Name Role Phone Zac OTR/L, CHT, Errol Unavailable Unava ilable Procedures Procedure Date Therapeutic Activities Orthotic Mgmt and Training MP Php Developer-based Advance Directives Directive Yes / No Effective Date File Name No Information Encounters Encounter Description Practice Location Reason(s) For Visit Diagnoses Date Provider Providers Copied on Encounter [facility], [address], [place], [place], [id number], [place] tel:[phone] [facility] No Information Zac Norton. . Family History Family Member Type Diagnosis Age At Onset No Information Payers Payer name Insurance type Covered constitution party ID Authoriza tion(s) Medicare [facility] [id number] Medicaid OON Write Off CI 00 Social [...]
--- OUTSIDE RECORDS SUMMARY | 2024-12-14 20:28 | XMS_ITS | Clinical Summary ---
Author Organization Address [address] [place] [address] Care Team Providers Care Mail Sorter And Delivery Name Role Phone Becky Garnett MD Primary Care Provider [phone] Allergies No known active allergies Medications aspirin [...] (01/02/2021): Added automatically from request for surgery [id number] Malfunction of implantable d efibrillator ventricular (ICD) lead 12/30/2020 ICD (implantable cardioverter-defibrillator) in place 12/30/2020 Elevated troponin 04/01/2020 S/P ICD (internal cardiac defibrillator) procedu re 11/11/2019 History of ventricular septal myectomy 0 WPW (Tcnwn-Pwnkuervd-Xblox syndrome) 11/11/2019 Hypertrophic cardiomyopathy 11/11/2019 Hypertrophic cardiomyopathy [...] Type Department Care Team Description 12/14/2024 Telephone [facility] Cardiology [address] [facility] [address] [place] [address] [place] [address] Clemente Ferrara MD 10/01/2024 Telephone [facility] Cardiology [address] [facility] [address] [place] [address] [place] [address] Clemente Ferrara MD from Last 3 Months Immunizations Immunization Administration Dates Next Due Pfizer SARS-CoV-2 Monovalent Vaccination (12+ Yrs) PURPLE 07/05/2020,06/14/2020 Surgical History Surgery Date Site/Laterality Comments CARDIAC DEFIBRILLATOR PLACEMENT 2013? pt. doesn't know brand name CARDIAC CATHETERIZATION 10/28/2013 Bilateral OTHER SURGICAL HISTORY 09/21/2014 lead malfunction defibrillator HEART SURGERY ? 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 Gender Identity Not on file Sexual Orientation Not on file Obstetrics History Last Filed Vital Signs Vital Sign Reading Time Taken Comments Blood Pressure 109/57 03/11/2024 11:24 AM MEDICAL AFFAIRS SPECIALIST Pulse 58 03/11/2024 11:24 AM MEDICAL AFFAIRS SPECIALIST Temperature 36.8 C (98.2 F) 03/10/2024 11:09 PM MEDICAL AFFAIRS SPECIALIST Respiratory Rate 18 03/11/2024 11:24 AM MEDICAL AFFAIRS SPECIALIST Oxygen Saturation 99% 03/11/2024 11:24 AM MEDICAL AFFAIRS SPECIALIST Inhaled Oxygen Concentration - - Weight 65.8 kg (145 lb) 03/10/2024 11:09 PM MEDICAL AFFAIRS SPECIALIST Height 172.7 cm (5' 8) 03/10/2024 11:09 PM MEDICAL AFFAIRS SPECIALIST Body Mass Index 22.05 03/10/2024 11:09 PM MEDICAL AFFAIRS SPECIALIST Plan of Treatment Health Maintenance Due Date [...] this topic Medical Devices Implanted Type Area Sql Dba Device Identifier Shelf Expiration Date Model / Serial / Lot Medtronic Cardiac Rhythm Mgmt [id number] Tyrx 2.7x2.5in Medium Envelope Absorbable Polyarylate Minocycline - [id number] - [id number] Implanted:Qty: 1 on 01/11/2021 by Stephanie Ramachandran MD at [facility] Other - see comments Left: Chest Wall [employer] 08/24/2021 [id number] / [id number] / [id number] Description:tyrx absorbable antibacterial envelope- medium ref # [id number] Icd N/A: Chest Wall Insurance [facility] MEDICARE [facility] MEDICARE [place] [address] Advance Directives For more information, please contact: [phone] * Full Code (Latest Code Status on File) Date Activated Date Inactivated Comments 09/27/2021 10:44 PM 09/28/2021 4:50 PM Care Teams Mail Sorter And Delivery Relationship Specialty Start Date End Date Becky Garnett MD PCP - General Family Medicine 12/21/21
--- OUTSIDE RECORDS SUMMARY | 2024-12-14 20:28 | XMS_ITS | Encounter Summary ---
Author Organization [facility] Address [address] [place] [address] Phone Care Team Providers Care Squad Boss Name Role Phone No, Physician Primary Care Provider [phone] Becky Garnett MD Primary Care Provider [phone] Encounter Details Date Type Department Care Team (Late st Contact Info) Description 11/12/2019 Telephone [facility] Cardiology [address] [facility] [address]th [place] [address] [place] [address] Jossy Machado MD [address] [facility] [address] [place], [place] [id number] Social History Tobacco Use Types Packs/Day Years Used Date Smoking Tobacco: Every Day E-cigarettes Smokeless Tobacco: Never Alcohol Use Standard Drinks/Week Comments No 0 (1 standard drink = 0.6 oz pur e alcohol) Sex and Gender Information Value Date Recorded Sex Assigned at Not on file 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 Gender Identity Not on file Sexual Orientation Not on file documented as of this encounter Plan of Treatment Not on file documented as of this encounter Visit Diagnoses Not on filedocumented in this encounter Additional Health Concerns Infection Onset Date Last Indicated Resolved Time COVID: Suspected 03/11/2024 03/11/2024 03/11/2024 5:58 AM FARM IMPLEMENT ENGINE MECHANIC documented as of this encounter Care Teams Squad Boss Relationship Specialty Start Date End Date No, Physician PCP - General 09/22/16 12/20/21 Becky Garnett MD PCP - General Family Medicine 12/21/21 documented as of this encounter
--- OUTSIDE RECORDS SUMMARY | 2024-12-14 20:28 | XMS_ITS | Encounter Summary ---
Author Organization [facility] Address [address] [place] [address] Care Team Providers Care Associate Professor Computer Science Name Role Phone Fior Mao NP Primary Care Provider [phone] Encounter Details Date Type Department Care Team (Late Contact Info) Description 02/05/2023 Ajubeo Message Enc [facility] [address] [address] [place], [facility] Provider 02/05/23 [...] AM CDT Legal Sex Male 12:12 PM IMPROVEMENT RN Gender Identity Male 08/24/2024 9:57 AM CDT Sexual Orientation Straight 08/24/2024 9: 57 AM CDT documented as of this encounter Plan of Treatment Upcoming Encounters Date Type Department Care Team (Late Contact Info) Description 01/04/2025 4:55 PM CDT Allied Health/Nurse Visit [facility] [address] [address] Nam Diaz MD [address] [facility] [address] [place] [address] documented as of this encounter Visit Diagnoses Not on filedocumented in this encounter Additional Health Concerns Infection Onset Date Last Indicated Resolved Time COVID-19 Rule Out 04/17/2023 04/17/2023 04/17/2023 2:34 PM IMPROVEMENT RN documented as of this encounter Care Teams Associate Professor Computer Science Relationship Specialty Start Date End Date Fior Mao NP [address] [place] [address] PCP - General NURSE PRACTITIONER 05/08/22 documented as of this encounter
--- OUTSIDE RECORDS SUMMARY | 2024-12-14 20:28 | XMS_ITS | Clinical Summary ---
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 Encounters Date Type Department Care Team Description 12/03/2024 Telephone [facility] Family Medicine - [place] [address] [facility] [address] [place] [address] Fior Mao NP Concerns 11/20/2024 Telephone [facility], [address] [place] [address] [place] [address] Nam Diaz MD Information 11/04/2024 Telephone [facility], [address] [place] [address] [place] [address] Nam Diaz MD Information 10/26/2024 4:35 PM CDT Allied Health/Nurse Visit [facility], [address] [place] [address] [place] [address] Nam Diaz MD Remote Device Check from [...] AM CDT 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 Gender Identity Male 08/24/2024 9:57 AM CDT [...] 01/04/2025 4:55 PM CDT Allied Health/Nurse Visit [facility], [address] [place], [place] [id number] Nam Diaz MD Three [facility] [address] [place], [place] [id number] Health Maintenance Due Date Last Done Comments Hepatitis C 2014 DTaP, Tdap and Td Vaccines ( 1 - Tdap) 2015 Hepatitis B Vaccines (1 of 3 - 19+ 3-dose series) 2015 HPV Vaccines (1 - 3-dose SCD M series) 2023 Annual Physical 05/17/2023 05/17/2022 COVID-19 Vaccine (3 - 2023-2 5 season) 2024 07/05/2020, 06/14/2020 PHQ-2 (Physician [place]) Completed 08/24/2024 Meningococcal B Vaccine Aged Out [...] this topic Medical Devices Implanted Type Area Before School Babysitter Device Identifier Shelf Expiration Date Model / Serial / Lot Mdgeorge Implantable Loop Recorder- [id number] Implanted:12/26 by Aaron Woodruff MD (Quantity not on file) Implantable Loop Recorder MEDTRONIC CARDIAC RHYTHM AND HEART FAILURE - DIV M 03/09/2024 [id number] / [id number] / Insurance [employer] Care Teams Printing Table Worker Relationship Specialty Start Date End Date Fior Mao NP [address] [place] [address] PCP - General NURSE PRACTITIONER 05/08/22
--- OUTSIDE RECORDS SUMMARY | 2024-12-14 20:28 | XMS_ITS | Encounter Summary ---
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 Gender Identity Male 08/24/2024 9:57 AM CDT Sexual Orientation Straight 08/24/2024 9: 57 AM CDT documented as of this encounter Plan of Treatment Upcoming Encounters Date Type Department Care Team (Late st Contact Info) Description 01/04/2025 4:55 PM CDT Allied Health/Nurse Visit [facility] [place] [address] Nam Diaz MD Three [facility] [address] [place] [address] documented as of this encounter Visit Diagnoses Not on filedocumented in this encounter Additional Health Concerns Assessment Noted Time PHQ-9 Depression Total Score: 17 024 11:29 AM DIFFERENTIAL SPECIALIST documented as of this encounter Care Teams Quill Stripper Relationship Specialty Start Date End Date Fior Mao NP [address] [place] [address] PCP - General NURSE PRACTITIONER 05/08/22 documented as of this encounter
--- OUTSIDE RECORDS SUMMARY | 2024-12-14 20:28 | XMS_ITS | Encounter Summary ---
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
[2024-12-14 21:11] LABS: Troponin I 0.051 ng/mL (0.000-0.034)
--- NOTE | 2024-12-14 21:27 | PC.NURSE ---
Pt has attempted x1to provide urine sample currently has 1L LR infusing will reattempt
[2024-12-14 22:06] LABS: Add Urine Microscopic? YES; Appearance Urine Clear (Clear); Glucose Urine UA Negative (Negative); Leukocyte Esterase Ur Negative LEU/UL (Negative); Nitrate Urine Negative (Negative); Non Pathogenic Casts 0-2; Specific Grav Ur > 1.045 (1.001-1.035)
--- NOTE | 2024-12-14 22:14 | PC.NURSE ---
Md informed about 02/12 abd pain. states waitning for CT esults before pain medication administration
--- NOTE | 2024-12-14 22:14 | PC.NURSE ---
pt yelling out, slaming hand against bed table. EDP notified pt requesting meds.
[2024-12-14] MEDS: HYDROmorphone HCL INJ (*CRX) 2 MG/ML VIAL 1 MG IV PUSH (22:19)
--- NOTE | 2024-12-14 22:19 | ECG_ITS ---
Test Date: 2024-12-14 22:22:39 Measurements Intervals [place] Rate: 56 P: 42 GA: 157 QRS: 56 QRSD: 189 T: 147 QT: 500 QTc: 486 Interpretive Statements SINUS BRADYCARDIA LEFT ATRIAL ENLARGEMENT LEFT BUNDLE BRANCH BLOCK ABNORMAL ECG Compared to ECG 12/14/2024 19:40:38 HEART RATE HAS DECREASED Electronically Signed On 12-15-2024 06:07:58 CDT by Jewel Barrera D.O.
--- NOTE | 2024-12-14 22:56 | PC.NURSE ---
no blood cultures needed per edp brandan
[2024-12-14 23:04] LABS: Troponin I 0.044 ng/mL (0.000-0.034)
[2024-12-14] MEDS: cefTRIAXone 1 GM VIAL 0.5 GM IM (23:07)
[2024-12-14] MEDS: LIDOCAINE 1% LOCAL INJ 10 ML VIAL (23:08)
[2024-12-14] MEDS: DOXYCYCLINE HYCLATE 100 MG TABLET PO (23:10)
== END 2024-12-14 23:45 | disposition home or self-care (01) ==
PROVIDERS: Emergency Medicine; Emergency Provider Student in an Organized Health Care Education/Training Program
DX: N41.0 Acute prostatitis (principal); N49.0 Inflammatory disorders of seminal vesicle; I45.6 Pre-excitation syndrome; I42.1 Obstructive hypertrophic cardiomyopathy; R79.89 Other specified abnormal findings of blood chemistry; Z95.810 Presence of automatic (implantable) cardiac defibrillator; Z79.82 Long term (current) use of aspirin; I44.7 Left bundle-branch block, unspecified; R94.31 Abnormal electrocardiogram [ECG] [EKG]; R00.1 Bradycardia, unspecified
CPT/HCPCS: 36415; 74177; 80053; 81001; 83690; 84484; 85025; 93005; 96361; 96372; 96374; 96375; 99284; A9270; J0696; J1171; J1790; J2003; J7120; Q9967

== ENCOUNTER 2024-12-17 10:37 | Emergency (ER) | payer MEDICARE, SELFPAY ==
--- NOTE | ~2024-12-17 | CT_ITS ---
CLINICAL INDICATION: Left lower quadrant pain COMPARISON: 12/14/2024. TECHNIQUE: Multiple contiguous axial images of the abdomen and pelvis were performed following the ad ministration of with 100 mL Omnipaque-350 intravenous contrast The dose-length product (DLP) was 182.30 mGy-cm. Automated exposure control and iterative reconstruction technique were employed. FINDINGS/OBSERVATIONS: Visualized lower thorax: The bilateral lung bases are clear. The heart remains enlarged, without pericardial effusion. Small hiatal hernia is present. Liver: The liver demonstrates homogeneous enhancement and is not enlarged. Gallbladder and biliary system: The gallbladder is only minimally distended, and otherwise unremarkable. Pancreas: The pancreas enhances homogeneously without ductal dilatation. Spleen: The spleen enhances homogeneously and is not enlarged. Kidneys: The bilateral kidneys enhance symmetrically without hydronephrosis or renal calculi. Adrenal glands: Unremarkable. Gastrointestinal tract: Trace fecal stasis within the colon. Appendix: The appendix is not definitively visualized. However, no pericecal inflammatory change is identified suggest the presence of acute appendicitis. Vasculature: Unremarkable. Lymph nodes: No pathologically enlarged or morphologically suspicious lymph nodes within the retroperitoneum or at the root of the mesentery. Pelvic structures: The bladder is minimally distended, and otherwise unremarkable. Redemonstration of hyperemia of the prostate gland, and seminal vesicles, unchanged from prior examin ation for which prostatitis/seminal vesiculitis is suspected Body wall and musculoskeletal: No significant degenerative disease within the lower thoracic or lumbosacral spine. IMPRESSION: Redemonstration of hyperemia of the prostate gland, and seminal vesicles, unchanged from prior examin ation for which prostatitis/seminal vesiculitis is suspected. Redemonstration of free fluid within the pelvis, also unchanged. Reviewed, dictated and finalized at location A. IMPRESSION: Redemonstration of hyperemia of the prostate gland, and seminal vesicles, uncha nged from prior examination for which prostatitis/seminal vesiculitis is suspec gem. Redemonstration of free fluid within the pelvis, also unchanged.
[2024-12-17 10:48] VITALS: BP 123/81; PULSE 58; RESP 16; TEMP 36.4; O2SAT 100
--- OUTSIDE RECORDS SUMMARY | 2024-12-17 10:50 | XMS_ITS | Encounter Summary ---
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 Yolie Golden MD [address] [facility] [address] [place] [address] Phone: tel: fax: Afshan Carrasco MD PhD [address] [facility] [address] [place] [address] Phone: tel: fax: Referral ID Status Reason Start Date Expiration Date Visits Requested Visits Authorized [id number] Authorized Specialty Services Required 12/15/2024 01/14/2026 1 1 Question Answer Please select the performing region: [facility] (All Locations) [[id number]] Please select the performing department: [facility] IM ONC [facility] [id number] [[id number]] Is this referral for Breast Health Multi-Disciplinary Clinic? No Does the patient have a diagnosis of a Head and Neck cancer? No To Provider NOTE: we will do our best to honor your provider preference, but scheduling the patient in a timely manner in our clinic will take precedence. 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 Gender Identity Not on file Sexual Orientation Not on file documented as of this encounter Plan of Treatment Scheduled Referrals Name Type Priority Associated Diagnoses Order Schedule Ambulatory referral to Oncology Outpatient Referral Routine Monoallelic mutation of SDHA gene Expected: 02/14/2025 (Approximate), Expires: 12/15/2025 documented as of this encounter Visit Diagnoses Diagnosis Monoallelic mutation of SDHA gene- Primary documented in this encounter Care Teams Sustainable Design Consultant Relationship Specialty Start Date End Date Becky Garnett MD PCP - General Family Medicine 12/21/21 documented as of this encounter
--- OUTSIDE RECORDS SUMMARY | 2024-12-17 10:50 | XMS_ITS | Encounter Summary ---
Author Organization [facility] Address [address] [place] [address] Phone Care Team Providers Care Improvement Director Name Role Phone Becky Garnett MD Primary Care Provider +1- [phone] Encounter Details Date Type Department Care Team (Late st Contact Info) Description 02/28/2022 Telephone [facility] Cardiology [address] [facility] Advanced Medicine 8th [place] [address] [place] [address] Nan Preston Social History Tobacco [...] on file 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
--- OUTSIDE RECORDS SUMMARY | 2024-12-17 10:50 | XMS_ITS | Encounter Summary ---
Author Organization [facility] Address [address] [place] [address] Phone Care Team Providers Care Ruling Technician Name Role Phone No, Physician Primary Care Provider [phone] Becky Garnett MD Primary Care Provider [phone]- [phone] Encounter Details Date Type Department Care Team (Late st Contact Info) Description 11/12/2019 Telephone [facility] Cardiology [address] [facility] Advanced Medicine 8th [place] [address] [place] [address] Jossy Machado MD [address] [facility] [address] [place], [place] [phone] Social History Tobacco Use Types Packs/Day Years Used Date Smoking Tobacco: Every Day E-cigarettes Smokeless Tobacco: Never Alcohol Use Standard Drinks/Week Comments No 0 (1 standard drink = 0.6 oz pur e alcohol) Sex and Gender Information Value Date Recorded Sex Assigned at Not on file 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
--- OUTSIDE RECORDS SUMMARY | 2024-12-17 10:50 | XMS_ITS | Encounter Summary ---
Author Organization [facility] Address [address] [place] [address] Phone Care Team Providers Care Oem Sales Manager Name Role Phone Becky Garnett MD Primary Care Provider [phone]- [phone] Reason for Visit * Reason Onset Date Comments Scheduling Appointments 12/17/2024 Encounter Details Date Type Department Care Team (Late st Contact Info) Description 12/17/[address] [facility] Cardiology [address] [facility] Advanced Medicine 8th [place] [address] [place] [address] Stephanie Ramachandran MD [address] [facility] [address] [place], [place] [phone] Scheduling Appointments Social History Tobacco Use Types Packs/Day Years [...] on file Legal Sex Male 1:02 PM [place] Gender Identity Not on file Sexual Orientation Not on file documented as of this encounter Miscellaneous Notes * Telephone Encounter - Flor Noyola - 12/17/2024 9:40 AM CDT EP REFERRAL documented in this encounter Plan of Treatment Not on file documented as of this encounter Visit Diagnoses Not on filedocumented in this encounter Care Teams Oem Sales Manager Relationship Specialty Start Date End Date Becky Garnett MD PCP - General Family Medicine 12/21/21 documented as of this encounter
--- OUTSIDE RECORDS SUMMARY | 2024-12-17 10:50 | XMS_ITS | Clinical Summary ---
Author Organization [facility] Address [address] [place] [address] Care Team Providers Care Claims Analyst Name Role Phone Becky Garnett MD Primary Care Provider [phone]- [phone] Allergies No known active allergies Medications aspirin [...] (01/02/2021): Added automatically from request for surgery [id number] Malfunction of implantable d efibrillator ventricular (ICD) lead 12/30/2020 ICD (implantable cardioverter-defibrillator) in place 12/30/2020 Elevated troponin 04/01/2020 S/P ICD (internal cardiac defibrillator) procedu re 11/11/2019 History of ventricular septal myectomy 0 WPW (Pawlf-Btprinllj-Sumwx syndrome) 11/11/2019 Hypertrophic cardiomyopathy 11/11/2019 Hypertrophic cardiomyopathy [...] Encounters Date Type Department Care Team Description 12/17/[address] 8th [place] [address] [place] [address] Stephanie Ramachandran MD Scheduling Appointments 12/15/2024 Orders Only [facility] Pediatric Genetics [facility] 2nd [address] [place] [address] Gloria Pruitt CGC Monoallelic mutation of SDHA gene (Primary Dx) 12/15/2024 Telephone [facility] Pediatric Genetics [address] [place] [address] Yolie Golden MD Test results 12/14/[address] 8th [place] [address] [place] [address] Clemente Ferrara MD 10/01/[address] 8th [place] [address] [place] [address] Clemente Ferrara MD from Last 3 Months Immunizations Immunization Administration Dates Next Due Pfizer SARS-CoV-2 Monovalent Vaccination (12+ Yrs) PURPLE 07/05/2020,06/14/2020 Surgical History Surgery Date Site/Laterality Comments CARDIAC DEFIBRILLATOR PLACEMENT 2013? pt. doesn't know brand name CARDIAC CATHETERIZATION 10/28/2013 Bilateral OTHER SURGICAL HISTORY 09/21/2014 lead malfunction defibrillator HEART SURGERY ? septal myectomy surgery Medical History Medical History Date Comments Hypertrophic cardiomyopathy (HCC) WPW (Eadhb-Chwmldwqb-Hjzdk syndrome) ICD (implantable cardioverter-defibrillator) in place Sleep [...] on file Legal Sex Male 1:02 PM HAND ROLLER Gender Identity Not on file Sexual Orientation Not on file Obstetrics History Last Filed Vital Signs Vital Sign Reading Time Taken Comments Blood Pressure 109/57 03/11/2024 11:24 AM HAND ROLLER Pulse 58 03/11/2024 11:24 AM HAND ROLLER Temperature 36.8 C (98.2 F) 03/10/2024 11:09 PM HAND ROLLER Respiratory Rate 18 03/11/2024 11:24 AM HAND ROLLER Oxygen Saturation 99% 03/11/2024 11:24 AM HAND ROLLER Inhaled Oxygen Concentration - - Weight 65.8 kg (145 lb) 03/10/2024 11:09 PM HAND ROLLER Height 172.7 cm (5' 8) 03/10/2024 11:09 PM HAND ROLLER Body Mass Index 22.05 03/10/2024 11:09 PM HAND ROLLER Plan of Treatment Health Maintenance Due Date Last Done Comments Hepatitis C Screening 1996 Regular Well Visit/Exam 18-64 2014 DTaP/Tdap/Td Vaccine (7 - Td or Tdap) 02/04/2020 02/03/2010, 05/23/2000, 06/15/1999, Additional history exists Depression Screening 09/27/2022 09/27/2021, 09/28/19 22 HPV Vaccines (1 - 3-dose SCDM series) 2023 Covid-19 Vaccine ( season) 2024 07/05/2020, 06/14/2020 Influenza Vaccine (#1) 2025 02/28/2019 Hepatitis B Screening Completed 05/23/2000 , 1996, 1996 Varicella Vaccines Completed 02/03/2010, 02/15/1999 Pneumococcal vaccine <65 Aged Out No longer eligible based on patient's age to complete this topic Medical Devices Implanted Type Area Job Compositor Device Identifier Shelf Expiration Date Model / Serial / Lot Medtronic Cardiac Rhythm Mgmt [id number] Tyrx 2.7x2.5in Medium Envelope Absorbable Polyarylate Minocycline - [id number] - [id number] Implanted:Qty: 1 on 01/11/2021 by Stephanie Ramachandran MD at [facility] Other - see comments Left: Chest Wall [employer] 08/24/2021 [id number] / [id number] / [id number] Description:tyrx absorbable antibacterial envelope- medium ref # [id number] Icd N/A: [place] [address] [facility] MEDICARE [facility] MEDICARE IDOR IDOR MEDICARE Advance Directives For more information, please contact: [phone] * Full Code (Latest Code Status on File) Date Activated Date Inactivated Comments 09/27/2021 10:44 PM 09/28/2021 4:50 PM Care Teams Claims Analyst Relationship Specialty Start Date End Date Becky Garnett MD PCP - General Family Medicine 12/21/21
--- OUTSIDE RECORDS SUMMARY | 2024-12-17 10:50 | XMS_ITS | Encounter Summary ---
Author Organization [facility] Address [address] [place] [address] Phone Care Team Providers Care Project Mgr Name Role Phone Becky Garnett MD Primary Care Provider +1- [phone] Reason for Visit * Reason Onset Date Comments Test results 12/15/2024 Encounter Details Date Type Department Care Team (Late st Contact Info) Description 12/15/2024 Telephone [facility] Pediatric Genetics [address] [facility] 2nd [place] [address] [place] [address] Yolie Golden MD [address] [place] [address] [address] [place], [place] [id number] Test results Social History Tobacco Use Types Packs/Day Years [...] on file 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
--- NOTE | 2024-12-17 11:41 | ECG_ITS ---
Test Date: 2024-12-17 11:57:17 Measurements Intervals [place] Rate: 49 P: 24 MO: 151 QRS: 72 QRSD: 190 T: 142 QT: 507 QTc: 461 Interpretive Statements SINUS BRADYCARDIA POSSIBLE LEFT ATRIAL ENLARGEMENT LEFT BUNDLE BRANCH BLOCK ABNORMAL ECG Compared to ECG 12/14/2024 22:22:39 HEART RATE HAS DECREASED Electronically Signed On 12-17-2024 12:27:37 CDT by Jewel Barrera D.O.
--- OUTSIDE RECORDS SUMMARY | 2024-12-17 11:44 | XMS_ITS | Encounter Summary ---
Author Organization [facility] Address [address] [place] [address] Phone Care Team Providers Care Rx Specialist Name Role Phone Becky Garnett MD Primary Care Provider +1- [phone] Reason for Visit * Reason Onset Date Comments Test results 12/15/2024 Encounter Details Date Type Department Care Team (Late st Contact Info) Description 12/15/2024 Telephone [facility] Pediatric Genetics [facility] 2nd [place] [address] [place] [address] Yolie Golden MD [address] [place] [address] [address] [place], [place] [id number] Test results Social History Tobacco Use Types [...] on file 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
--- OUTSIDE RECORDS SUMMARY | 2024-12-17 11:44 | XMS_ITS | Encounter Summary ---
Author Organization [facility] Address [address] [place] [address] Phone Care Team Providers Care Director Of Food And Nutrition Services Name Role Phone No, Physician Primary Care Provider [phone] Becky Garnett MD Primary Care Provider [phone]- [phone] Encounter Details Date Type Department Care Team (Late st Contact Info) Description 11/12/2019 Telephone [facility] Cardiology [address] [facility] Advanced Medicine 8th [place] [address] [place] [address] Jossy Machado MD [address] [facility] [address] [place], [place] [id number] Social History Tobacco Use Types Packs/Day Years Used Date Smoking Tobacco: Every Day E-cigarettes Smokeless Tobacco: Never Alcohol Use Standard Drinks/Week Comments No 0 (1 standard drink = 0.6 oz pur e alcohol) Sex and Gender Information Value Date Recorded Sex Assigned at Not on file 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 Sex Male 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 BLASTING CONTRACT 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 Gender Identity Not on file Sexual Orientation Not on file documented as of this encounter Plan of Treatment Not on file documented as of this encounter Visit Diagnoses Not on filedocumented in this encounter Additional Health Concerns Infection Onset Date Last Indicated Resolved Time COVID: Suspected 03/11/2024 03/11/2024 03/11/2024 5:58 AM BLASTING CONTRACT MAN documented as of this encounter Care Teams Director Of Food And Nutrition Services Relationship Specialty Start Date End Date No, Physician PCP - General 09/22/16 12/20/21 Becky Garnett MD PCP - General Family Medicine 12/21/21 documented as of this encounter
--- OUTSIDE RECORDS SUMMARY | 2024-12-17 11:44 | XMS_ITS | Encounter Summary ---
Author Organization [facility] Address [address] [place] [address] Phone Care Team Providers Care Route Sales Person Name Role Phone Becky Garnett MD Primary Care Provider [phone]- [phone] Encounter Details Date Type Department Care Team (Late st Contact Info) Description 12/17/2024 Telephone [facility] Cardiology [address] [facility] Advanced Medicine 8th [place] [address] [place] [address] Clemente Ferrara MD [address] [facility] [address] [place], [place] [id number] Social History Tobacco Use Types Packs/Day Years [...] on file 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 New insurance. documented in this encounter Plan of Treatment Not on file documented as of this encounter Visit Diagnoses Not on filedocumented in this encounter Care Teams Route Sales Person Relationship Specialty Start Date End Date Becky Garnett MD PCP - General Family Medicine 12/21/21 documented as of this encounter
--- OUTSIDE RECORDS SUMMARY | 2024-12-17 11:44 | XMS_ITS | Encounter Summary ---
Author Organization [facility] Address [address] [place] [address] Phone Care Team Providers Care Manager Of Business Name Role Phone Becky Garnett MD Primary Care Provider [phone]- [phone] Reason for Visit * Reason Onset Date Comments Scheduling Appointments 12/17/2024 Encounter Details Date Type Department Care Team (Late st Contact Info) Description 12/17/2024 Telephone 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
--- OUTSIDE RECORDS SUMMARY | 2024-12-17 11:44 | XMS_ITS | Encounter Summary ---
Author Organization [facility] Address [address] [place] [address] Care Team Providers Care Water And Sewer Systems Supervisor Name Role Phone Fior Mao NP Primary Care Provider [phone] [phone] Encounter Details Date Type Department Care Team ([facility] Contact Info) Description 09/20/2023 [employer] Electronic Healthcare Message Enc [facility], [address] [place], [place] [id number] Nam Diaz MD Three [facility] [address] [place] [address] Loop recorder Social History Tobacco Use Types [...] AM CDT 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 st Contact Info) Description 01/04/2025 4:55 PM CDT Allied Health/Nurse Visit [facility], [address] [place] [address] Nam Diaz MD Three [facility] [address] [place], [place] [id number] documented as of this encounter Visit Diagnoses Not on filedocumented in this encounter Additional Health Concerns Assessment Noted Time PHQ-9 Depression Total Score: 17 024 11:29 AM TECHNICAL STAFF ENGINEER documented as of this encounter Care Teams Water And Sewer Systems Supervisor Relationship Specialty Start Date End Date Fior Mao NP [address] [place] [address] PCP - General NURSE PRACTITIONER 05/08/22 documented as of this encounter
--- OUTSIDE RECORDS SUMMARY | 2024-12-17 11:44 | XMS_ITS | Clinical Summary ---
Author Organization [facility] Address [address] [place] [address] Care Team Providers Care Curing Press Operator Name Role Phone Fior Mao NP Primary Care Provider [phone] [phone] Allergies No known active allergies Medications ibuprofen [...] implantable loop record er 12/26/2022 Overview (12/26/2022): T JOSH implanted 12/26/22 for Palpitations Palpitations 12/26/2022 Overview (12/26/2022): MDMitch MORENO implanted 12/26/22 for Palpitations Chronic bilateral low back pain without sciatica 05/17/2022 Neck pain 05/17/2022 AICD lead malfunction 01/02/2021 Overview (05/17/2022): Added automatically from request for surgery [id number] Hypertrophic cardiomyopathy ([facility]) 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 Encounters Date Type Department Care Team Description 12/16/2024 Telephone [facility] Medical [facility] [address] [place] [address] Fior Mao NP Problem 12/14/2024 Scan [employer] INFO SRVCS Scanned, Doc Med Group 12/03/2024 Telephone [facility] [address] [place] [address] Fior Mao NP Concerns 11/20/2024 Telephone [facility] THREE [facility], [address] [address] Nam Diaz MD Information 11/04/2024 Telephone [facility], [place] [address] [place] [address] Nam Diaz MD Information 10/26/2024 4:35 PM CDT Allied Health/Nurse Visit [facility] THREE [facility], [address] [address] Nam Diaz MD Remote Device Check from [...] AM CDT 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 Gender Identity Male 08/24/2024 9:57 AM CDT [...] 01/04/2025 4:55 PM CDT Allied Health/Nurse Visit [facility] THREE [facility], [address] [place], [place] [id number] Nam Diaz MD Three [facility] [address] [place], [place] [id number] Health Maintenance Due Date Last Done Comments Hepatitis C 2014 DTaP, Tdap and Td Vaccines ( 1 - Tdap) 2015 Hepatitis B Vaccines (1 of 3 - 19+ 3-dose series) 2015 HPV Vaccines (1 - 3-dose SCD M series) 2023 Annual Physical 05/17/2023 05/17/2022 COVID-19 Vaccine (3 2023-2 5 season) 2024 07/05/2020, 06/14/2020 PHQ-2 (Physician [place]) Completed 08/24/2024 Meningococcal B Vaccine Aged Out [...] this topic Medical Devices Implanted Type Area Supervisor Purification Device Identifier Shelf Expiration Date Model / Serial / Lot Mdt Implantable Loop Recorder- [id number] Implanted:12/26 by Aaron Woodruff MD (Quantity not on file) Implantable Loop Recorder [employer] CARDIAC RHYTHM AND HEART FAILURE - DIV M 03/09/2024 [id number] / [id number] / Insurance CHILDRESS Care Teams Curing Press Operator Relationship Specialty Start Date End Date Fior Mao NP [address] [place] [id number] PCP - General NURSE PRACTITIONER 05/08/22
--- OUTSIDE RECORDS SUMMARY | 2024-12-17 11:44 | XMS_ITS | Encounter Summary ---
Author Organization [facility] Address [address] [place] [address] Care Team Providers Care Agricultural Produce Washer Name Role Phone Fior Mao NP Primary Care Provider +1 -[phone] Reason for Visit * Reason Onset Date Comments Problem 12/16/2024 Encounter Details Date Type Department Care Team (Late st Contact Info) Description 12/16/2024 Telephone [facility] Family Medicine - [place] [address] [facility] [address] [place] [phone] Fior Mao, SURGICAL ASST [address] [id number] Problem Social History Tobacco Use Types Packs/Day Years [...] AM CDT Legal Sex Male 12:12 PM MANAGER CODE Gender Identity Male 08/24/2024 9:57 AM CDT Sexual Orientation Straight 08/24/2024 9: 57 AM CDT documented as of this encounter Progress Notes * Sindy Winter LPN - 12/16/2024 1:04 PM CDT Spoke with patients significant other and she is aware that the recommendation would be to go to the ER. * Fior Mao NP - 12/16/2024 11:50 AM CDT Yeah seems like he has a lot going on would recommend going back to the ER if he is doubled over inpain. * Sindy Winter LPN - 12/16/2024 11:38 AM CDT Please see patient note from 12/03/24- when you were out. Girlfriend is calling: Since then he did not keep his appt. His girlfriend was treated with metronidazole and had another full prescription of it from before for something she didn't take it for. Anyway, he just took her script. 500mg BID for 7 days. He has been having persistent pain and went to ER. Did not mention the trich to them and was diagnosed with turtle mountain vasculitis. They put him on what she thinks is doxycycline. He is still doubling over in pain. My thought is back to ER if he is in that much pain and that he needs to mention the STD and what he has recently taken. We don't have anything for any time soon. documented in this encounter Plan of Treatment Upcoming Encounters Date Type Department Care Team (Late st Contact Info) Description 01/04/2025 4:55 PM CDT Allied Health/Nurse Visit [facility] THREE [facility], [address] [place], [place] [phone] Nam Diaz MD Three [facility] [address] [place], [place] [phone] documented as of this encounter Visit Diagnoses Not on filedocumented in this encounter Additional Health Concerns Assessment Noted Time PHQ-9 Depression Total Score: 15 025 10:02 AM CDT documented as of this encounter Care Teams Agricultural Produce Washer Relationship Specialty Start Date End Date Fior Mao NP [address] [place] [address] PCP - General NURSE PRACTITIONER 05/08/22 documented as of this encounter
--- OUTSIDE RECORDS SUMMARY | 2024-12-17 11:44 | XMS_ITS | Encounter Summary ---
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 Gender Identity Male 08/24/2024 9:57 AM CDT Sexual Orientation Straight 08/24/2024 9: 57 AM CDT documented as of this encounter Plan of Treatment Upcoming Encounters Date Type Department Care Team (Late st Contact Info) Description 01/04/2025 4:55 PM CDT Allied Health/Nurse Visit [place] [facility] THREE [facility], [address] [place] [address] Nam Diaz MD [address] [place] [address] documented as of this encounter Visit Diagnoses Not on filedocumented in this encounter Additional Health Concerns Infection Onset Date Last Indicated Resolved Time COVID-19 Rule Out 04/17/2023 04/17/2023 04/17/2023 2:34 PM WOMEN'S SOCCER COACH documented as of this encounter Care Teams Immersion Metal Cleaner Relationship Specialty Start Date End Date Fior Mao NP [address] [place] [address] PCP - General NURSE PRACTITIONER 05/08/22 documented as of this encounter
--- OUTSIDE RECORDS SUMMARY | 2024-12-17 11:44 | XMS_ITS | Encounter Summary ---
Author Organization [facility] Address [address] [place] [address] Phone Care Team Providers Care Bankman Name Role Phone Becky Garnett MD Primary Care Provider +1- [phone] Reason for Referral * Consultation (Routine) - Pending Review Specialty Diagnoses / Procedures Referred By Contac t Referred To Contact Oncology Diagnoses Monoallelic mutation of SDHA gene Yolie Golden MD 1 [facility] [address] [place] [address] Phone: tel: fax: Afshan Carrasco MD PhD [address] [facility] [address] [place] [address] Phone: tel: fax: Referral ID Status Reason Start Date Expiration Date Visits Requested Visits Authorized [id number] Pending Review Specialty Services Required 12/15/2024 01/14/2026 1 1 Question Answer Please select the performing region: [facility] (All Locations) [[id number]] Please select the performing department: [facility] IM ONC AMH [id number] [[id number]] Is this referral for Breast Health Multi-Disciplinary Clinic? No Does the patient have a diagnosis of a Head and Neck cancer? No To Provider NOTE: we will do our best to honor your provider preference, but scheduling the patient in a timely manner in our clinic will take precedence. 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
--- OUTSIDE RECORDS SUMMARY | 2024-12-17 11:44 | XMS_ITS | Clinical Summary ---
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) 11/11/2019 Hypertrophic cardiomyopathy 11/11/2019 Hypertrophic cardiomyopathy [...] Type Department Care Team Description 12/17/[address] 8th [place] [address] [place] [address] Clemente Ferrara MD 12/17/[address] [place] [address] [place] [address] Stephanie Ramachandran MD Scheduling Appointments 12/15/2024 Orders Only [facility] Pediatric Genetics [address] [place] [address] [place] [address] Gloria Pruitt CGC Monoallelic mutation of SDHA gene (Primary Dx) 12/15/2024 Telephone [facility] Pediatric Genetics [address] [place] [address] [place] [address] Yolie Golden MD Test results 12/14/[address] [place] [address] [place] [address] Clemente Ferrara MD 10/01/[address] [place] [address] [place] [address] Clemente Ferrara MD from Last 3 Months Immunizations Immunization Administration Dates Next Due Pfizer SARS-CoV-2 Monovalent Vaccination (12+ Yrs) PURPLE 07/05/2020,06/14/2020 Surgical History Surgery Date Site/Laterality Comments CARDIAC DEFIBRILLATOR PLACEMENT 2013? pt. doesn't know brand name CARDIAC CATHETERIZATION 10/28/2013 Bilateral OTHER SURGICAL HISTORY 09/21/2014 lead malfunction defibrillator HEART SURGERY ? septal myectomy surgery Medical History Medical History Date Comments Hypertrophic cardiomyopathy (HCC) WPW (Xqoxo-Tmkkyzmmb-Vxmle syndrome) ICD (implantable cardioverter-defibrillator) in place Sleep [...] on file Legal Sex Male 1:02 PM INLAYER Gender Identity Not on file Sexual Orientation Not on file Obstetrics History Last Filed Vital Signs Vital Sign Reading Time Taken Comments Blood Pressure 109/57 03/11/2024 11:24 AM INLAYER Pulse 58 03/11/2024 11:24 AM INLAYER Temperature 36.8 C (98.2 F) 03/10/2024 11:09 PM INLAYER Respiratory Rate 18 03/11/2024 11:24 AM INLAYER Oxygen Saturation 99% 03/11/2024 11:24 AM INLAYER Inhaled Oxygen Concentration - - Weight 65.8 kg (145 lb) 03/10/2024 11:09 PM INLAYER Height 172.7 cm (5' 8) 03/10/2024 11:09 PM INLAYER Body Mass Index 22.05 03/10/2024 11:09 PM INLAYER Plan of Treatment Health Maintenance Due Date Last Done Comments Hepatitis C Screening 1996 Regular Well Visit/Exam 18-64 2014 DTaP/Tdap/Td Vaccine (7 - Td or Tdap) 02/04/2020 02/03/2010, 05/23/2000, 06/15/1999, Additional history exists Depression Screening 09/27/2022 09/27/2021, 09/28/19 HPV Vaccines (1 - 3-dose SCDM series) 2023 Covid-19 Vaccine ( - season) 2024 07/05/2020, 06/14/2020 Influenza Vaccine (#1) 2025 02/28/2019 Hepatitis B Screening Completed 05/23/2000 , 1996, 1996 Varicella Vaccines Completed 02/03/2010, 02/15/1999 Pneumococcal vaccine <65 Aged Out No longer eligible based on patient's age to complete this topic Medical Devices Implanted Type Area Air Technician Device Identifier Shelf Expiration Date Model / Serial / Lot Medtronic Cardiac Rhythm Mgmt [id number] Tyrx 2.7x2.5in Medium Envelope Absorbable Polyarylate Minocycline - [id number] - [id number] Implanted:Qty: 1 on 01/11/2021 by Stephanie Ramachandran MD at [facility] Other - see comments Left: Chest Wall [employer] 08/24/2021 [id number] / [id number] / [id number] Description:tyrx absorbable antibacterial envelope- medium ref # [id number] Icd N/A: Chest [place] [address] MEDICARE [facility] MEDICARE IDND IDND MEDICARE [facility] Address: [address] [address] [place] [address] Advance Directives For more information, please contact: [phone] * Full Code (Latest Code Status on File) Date Activated Date Inactivated Comments 09/27/2021 10:44 PM 09/28/2021 4:50 PM Care Teams Cigar Head Stringer Relationship Specialty Start Date End Date Becky Garnett MD PCP - General Family Medicine 12/21/21
--- OUTSIDE RECORDS SUMMARY | 2024-12-17 11:44 | XMS_ITS | Encounter Summary ---
Author Organization [facility] Address [address] [place] [address] Phone Care Team Providers Care Crepe Maker Name Role Phone Becky Garnett MD Primary Care Provider +1- [phone] Encounter Details Date Type Department Care Team (Late st Contact Info) Description 02/28/2022 Telephone [facility] Cardiology [address] 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
--- OUTSIDE RECORDS SUMMARY | 2024-12-17 11:44 | XMS_ITS | Encounter Summary ---
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 Gender Identity Male 08/24/2024 9:57 AM CDT Sexual Orientation Straight 08/24/2024 9: 57 AM CDT documented as of this encounter Plan of Treatment Upcoming Encounters Date Type Department Care Team (Late st Contact Info) Description 01/04/2025 4:55 PM CDT Allied Health/Nurse Visit [facility] THREE [facility], [address] [place] [address] Nam Diaz MD Three [facility] [address] [place] [address] documented as of this encounter Visit Diagnoses Not on filedocumented in this encounter Additional Health Concerns Assessment Noted Time PHQ-9 Depression Total Score: 15 025 10:02 AM CDT documented as of this encounter Care Teams Neon Sign Installer Relationship Specialty Start Date End Date Fior Mao NP [address] [place] [address] PCP - General NURSE PRACTITIONER 05/08/22 documented as of this encounter
[2024-12-17] MEDS: HYDROmorphone HCL INJ (*CRX) 1 MG/ML SYR 0.5 MG IV PUSH (12:04)
[2024-12-17] MEDS: SODIUM CHLORIDE 0.9% IV 1,000 ML 999 ML IV CONT (12:07)
--- NOTE | 2024-12-17 12:21 | ED_ITS ---
HPI - Abdominal Pain General Chief Complaint: Abdominal Pain Stated Complaint: abd pain Time Seen by Provider: 12/17/24 10:58 History of Present Illness HPI narrative: Patient is a 29-year-old male who presents to the ER with significant left lower quadrant abdominal pain. He reports he was here on December 14, 2024, because his partner was diagnosed with Trichomonas. Patient reports he had abdominal pain at that time so they did a CT scan which showed seminal vesiculitis. He reports he was sent home on doxycycline and has been taking as prescribed. Patient reports his abdominal pain has continued to worsen and radiates to his back. He reports his pain is so bad that he is unable to stand up straight. Patient reports the pain was so excruciating it woke him up at 4:00 a.m. this morning. He reports he threw up on December 14 but has not thrown up since them. Patient denies any chest pain, urinary symptoms, penile discharge. He endorses decreased p.o. intake, small runny bowel movements, and left flank pain. Patient endorses a history of hypertrophic cardiomyopathy and has a history a pacemaker/defibrillator. Related Data Home Medications ?Medication ?Instructions ?Recorded ?Confirmed ?Last Taken ?Type aspirin 81 mg chewable tablet 01/13/21 Unknown History atenolol 50 mg tablet 01/13/21 Unknown History Allergies Allergy/AdvReac Type Severity Reaction Status Date / Time No Known Allergies Allergy Unknown Verified 06/10/24 07:47 Review of Systems 2 Review of Systems: All systems reviewed & are unremarkable except as noted in HPI and below PMFSH Past Medical History Medical History Malfunction of electrode lead of implantable cardioverter-defibrillator (ICD) Pacemaker Bipolar 1 disorder Dcpqy-Ydtncnmqz-Kekan (WPW) syndrome Hypertrophic cardiomyopathy Surgical History Surgical History History of heart surgery Apparently had myomectomy in [place] around 9 years old. Family History Family History Mother Heart disease Apparently of CHF/HOCM age 36 Grandparent Heart disease Says grandfather had the same heart disease that he has Other No acute medical problems Social History Social History Social History: Has a girlfriend. Also young son. Smoking status: Never smoker Alcohol intake: current Substance use: current Substance use type: marijuana Living arrangements: with family Gender identity (if verbalized by the patient): Male Exam 2 Narrative: GENERAL: Well appearing, well-nourished, non-toxic, in mild distress due to pain. HEAD: Normocephalic, atraumatic. NECK: Supple. No adenopathy, no masses. RESPIRATORY: Airway patent, respirations nonlabored. Clear to auscultation bilaterally, no rales, rhonchi, wheezing. CARDIOVASCULAR: Regular rate and rhythm without murmurs, rubs, or gallops. Peripheral pulses 2+ and equal bilaterally. + left-sided CVA tenderness. ABDOMINAL: Soft, left lower quadrant tenderness, nondistended. Normoactive BS. MUSCULOSKELETAL: Moves all extremities. Strength/ROM intact without gross deformities. SKIN: Warm, dry, normal color. No rashes. NEURO: A&O X3. Speech clear. Cranial nerves II-XII intact. No ataxic movements. PSYCHIATRIC: Appropriate mood and affect. Normal interaction. Course Vital Signs Vital signs: Vital Signs Temperature 36.4 C 12/17/24 10:48 Pulse Rate 58 L 12/17/24 10:48 Respiratory Rate 16 12/17/24 10:48 Blood Pressure 123/81 12/17/24 10:48 Pulse Oximetry 100 12/17/24 10:48 Oxygen Delivery Room Air 12/17/24 10:48 Temperature 36.4 C 12/17/24 10:48 Pulse Rate 60 12/17/24 14:45 Respiratory Rate 18 12/17/24 14:45 Blood Pressure 113/80 12/17/24 14:45 Pulse Oximetry 100 12/17/24 14:45 Oxygen Delivery Room Air 12/17/24 10:48 MDM - Abdominal Pain MDM Narrative Medical decision making narrative: Patient is a 29-year-old male who presents to the ER with significant left lower quadrant abdominal pain. He reports he was here on December 14, 2024, because his partner was diagnosed with Trichomonas. Patient reports he had abdominal pain at that time so they did a CT scan which showed seminal vesiculitis. He reports he was sent home on doxycycline and has been taking as prescribed. Patient reports his abdominal pain has continued to worsen and radiates to his back. He reports his pain is so bad that he is unable to stand up straight. Patient reports the pain was so excruciating it woke him up at 4:00 a.m. this morning. He reports he threw up on December 14 but has not thrown up since them. Patient denies any chest pain, urinary symptoms, penile discharge. He endorses decreased p.o. intake, small runny bowel movements, and left flank pain. Patient endorses a history of hypertrophic cardiomyopathy and has a history a pacemaker/defibrillator. Labs Ordered: CBC, CMP, CRP, lactic acid, PTT, INR, blood culture, UA, GC chlamydia, Trichomonas, lipase Imaging Ordered: CT abdomen pelvis Medications Ordered: 1 L normal saline IV bolus, levofloxacin IV Results: Patient's CBC indicates white blood cell count 3.8 (consistent with patient's previous results). His CMP indicates no acute abnormalities. Patient's lipase, C-reactive protein, and lactic acid results all were within normal limits. His urinalysis does not indicate a UTI. Diagnosis: Prostatitis, seminal vesiculitis Consults: Urology 1500- Spoke with urology, Dr. Martinez, who reports pt should be discharged home with a prescription for Cipro PO. He should follow-up with the urology team outpatient in one week. Dr. Martinez also requests pt's urine be sent for culture. Patient Education/Shared MDM: Results of lab work and imaging shared with patient. He endorses improvement of symptoms following medication administration. Patient strongly advised to maintain hydration status, complete his full dose of antibiotics upon discharge and follow-up with Urology next week. He will be discharged home with a prescription for ciprofloxacin b.i.d. Strict return precautions provided. Patient verbalized understanding and is in agreement with plan. Vital signs stable at time of discharge. All questions answered. Differential Diagnosis Differential diagnosis: Likely abdominal pain, constipation and other (STDs, prostatitis, seminal vesiculitis, urinary tract infection) Lab Data Attestation: I reviewed the patient's lab results. 12/17/24 12:08 12/17/24 12:08 Labs: Lab Results 08/14/25 08/14/25 Range/Units 12:08 12:10 WBC 3.8 L (4.5-10.0) K/mm3 RBC 5.56 (4.6-6.20) M/mm3 Hgb 15.1 (14.0-18.0) g/dL Hct 47.0 (42.0-52.0) % MCV 84.5 (80-100) fl MCH 27.2 (26-34) pg MCHC 32.1 (32-36) g/dl RDW 12.3 (11.5-14.5) % Plt Count 178 (150-375) k/mm3 MPV 11.1 H (7.4-10.4) fl Immature Gran % (Auto) 0.3 (0-0.5) % Neut % (Auto) 48.6 (45.5-73.1) % Lymph % (Auto) 39.1 (18.3-44.2) % [place] % (Auto) 10.4 H (2.6-8.5) % Eos % (Auto) 0.8 (0-4.4) % Baso % (Auto) 0.8 (0.2-1.2) % Lymph # (Auto) 1.47 (0.9-3.2) K/mm3 [place] # (Auto) 0.4 (0.1-0.6) K/mm3 Eos # (Auto) 0.0 (0-0.3) K/mm3 Baso # (Auto) 0.0 (0.0-0.1) K/mm3 Abs Immat Gran (auto) 0.01 (0.00-0.031) K/mm3 Absolute Neuts (auto) 1.8 (1.3-6.7) K/mm3 Absolute Nucleated RBC 0.000 (0.0-0.012) K/mm3 Nucleated RBC % 0.0 (0.0-0.2) % PT 14.1 (11.1-14.7) Seconds INR 1.1 APTT 30.2 (22.3-36.8) Seconds Sodium 137 (137-145) mmol/L Potassium 4.4 (3.4-5.0) mmol/L Chloride 103 (98-107) mmol/L Carbon Dioxide 29 (22-30) mmol/L Anion Gap 5 (4-12) mmol/L BUN 11 (9-20) mg/dL Creatinine 1.08 (0.7-1.3) mg/dL Estim Creat Clear Calc 72 ml/min Estimated GFR > 60 (59 - ) Glucose 85 (65-110) mg/dL Lactic Acid 1.2 (0.7-2.0) mmol/L Calcium 9.8 (8.4-10.2) mg/dL Total Bilirubin 1.1 (0.2-1.3) mg/dL AST 35 (17-59) U/L ALT 22 (6-50) U/L Alkaline Phosphatase 55 (38-126) U/L C-Reactive Protein < 0.5 (<1.0) mg/dL Total Protein 7.7 (6.3-8.2) g/dL Albumin 4.4 (3.5-5.1) g/dL Lipase 108 (23-300) U/L Urine Color Yellow (Yellow) Urine Appearance Clear (Clear) Urine pH 5.5 (5.0-9.0) Ur Specific [place] 1.026 (1.001-1.035) Urine Protein Trace (Negative) mg/dL Urine Glucose (UA) Negative (Negative) mg/dL Urine Ketones Trace H (Negative) mg/dL Ur Blood (Man) Negative (Negative) Urine Nitrate Negative (Negative) Urine Bilirubin Negative (Negative) Urine Urobilinogen 0.2 (<2.0) mg/dL Leukocyte Esterase Rfl Negative (Negative) MIRZA/UL Urine RBC 0-2 (0-2) /hpf Urine WBC 0-5 (0-3) /hpf Ur Squamous Epith Cells None seen (Few) /hpf Urine Bacteria None seen /hpf Urine Casts 0-2 C. trachomatis (PCR) Pending N. gonorrhoeae (PCR) Pending T. vaginalis (PCR) Not detected (NOT DETECTE) Imaging Data Attestation: I personally reviewed and interpreted this imaging study as follows: Radiologist's impression: ITS Impressions Abdomen/Pelvis CT 12/17/24 13:13 IMPRESSION: Redemonstration of hyperemia of the prostate gland, and seminal vesicles, unchanged from prior examination for which prostatitis/seminal vesiculitis is suspected. Redemonstration of free fluid within the pelvis, also unchanged. Discharge Plan Discharge Clinical Impression: Acute prostatitis, Seminal vesiculitis, History of hypertrophic cardiomyopathy Patient Disposition: Home Condition: Stable Instructions: Antibiotic Form, Prostatitis (ED) Additional Instructions: Please return to the ER with any worsening symptoms. Follow-up with urology next week. Take all medications as prescribed, including regularly scheduled medications. Complete your full dose of antibiotic. You may stop taking the prescription for doxycycline. Patient Language: Portuguese Prescriptions: No Action cyclobenzaprine 10 mg tablet 10 mg PO TID PRN (Reason: muscle spasm) Qty: 12 0RF acetaminophen 500 mg capsule 500 mg PO QID PRN (Reason: fever or pain) Qty: 30 0RF hydrocodone-acetaminophen 5-325 mg tablet 1 tablet PO Q6H PRN (Reason: pain) 3 Days Qty: 12 0RF aspirin [Baby Aspirin] 81 mg Tablet,Chewable atenolol 50 mg tablet ibuprofen [IBU] 600 mg tablet 600 mg PO Q6H PRN (Reason: pain) Qty: 20 0RF ondansetron 4 mg film 4 mg PO Q6H PRN (Reason: nausea and vomiting) Qty: 8 0RF ibuprofen 600 mg tablet 600 mg PO TID PRN (Reason: pain) Qty: 14 0RF oseltamivir [Tamiflu] 75 mg capsule 75 mg PO Q12H 5 Days Qty: 10 0RF ondansetron 4 mg tablet,disintegrating 4 mg PO Q8H PRN (Reason: nausea and vomiting) Qty: 10 0RF benzonatate 200 mg capsule 200 mg PO TID PRN (Reason: cough) Qty: 21 0RF doxycycline hyclate 100 mg capsule 100 mg PO BID 14 Days Qty: 28 0RF ibuprofen 600 mg tablet 600 mg PO TID PRN (Reason: pain) Qty: 20 0RF ondansetron 4 mg tablet,disintegrating 4 mg PO Q8H PRN (Reason: nausea and vomiting) Qty: 10 0RF Follow-up/Referrals: Azar Martinez MD [Physician] - (urology) UNKNOWN,DOCTOR [Primary Care Provider] - Stand Alone Forms: Work/School Release IP Time of Disposition: 15:31
[2024-12-17 12:28] LABS: Alanine Aminotransferase 22 U/L (6-50); Albumin Level 4.4 g/dL (3.5-5.1); Alkaline Phosphatase 55 U/L (38-126); Anion Gap 5 mmol/L (4-12); Aspartate Amino Transferase 35 U/L (17-59); Bilirubin,Total 1.1 mg/dL (0.2-1.3); Blood Urea Nitrogen 11 mg/dL (9-20); Calcium 9.8 mg/dL (8.4-10.2); Carbon Dioxide 29 mmol/L (22-30); Chloride 103 mmol/L (98-107); Estimated CRCL calculation 72 ml/min; Estimated Glomerular Filt Rate > 60; Glucose 85 mg/dL (65-110); Lipase 108 U/L (23-300); Potassium 4.4 mmol/L (3.4-5.0); Sodium 137 mmol/L (137-145); Total Protein 7.7 g/dL (6.3-8.2)
[2024-12-17 12:32] LABS: Hematocrit 47.0 % (42.0-52.0); Hemoglobin 15.1 g/dL (14.0-18.0); Immature Granulocyte Percent A 0.3 % (0-0.5); Lymphocytes Absolute Auto 1.47 K/mm3 (0.9-3.2); Mean Corpuscular HGB Conc 32.1 g/dl (32-36); Mean Corpuscular Hemoglobin 27.2 pg (26-34); Mean Corpuscular Volume 84.5 fl (80-100); Nucleated Red Blood Cells Absolute Auto 0.000 K/mm3 (0.0-0.012); Nucleated Red Blood Cells Perc 0.0 % (0.0-0.2); Platelet Count Result 178 k/mm3 (150-375); Red Blood Count 5.56 M/mm3 (4.6-6.20); White Blood Count 3.8 K/mm3 (4.5-10.0)
[2024-12-17 12:33] LABS: Add Urine Microscopic? YES; Appearance Urine Clear (Clear); Glucose Urine UA Negative (Negative); Leukocyte Esterase Ur Negative LEU/UL (Negative); Nitrate Urine Negative (Negative); Non Pathogenic Casts 0-2; Specific Grav Ur 1.026 (1.001-1.035)
[2024-12-17 14:35] LABS: INR 1.1; Partial Thromboplastin Time 30.2 Seconds (22.3-36.8); Prothrombin Time 14.1 Seconds (11.1-14.7)
[2024-12-17 14:37] LABS: CRP < 0.5 mg/dL (<1.0)
[2024-12-17] MEDS: levoFLOXacin 750 MG/D5W 150 ML 750 MG/150 ML BAG 100 MG IVPB (14:43)
[2024-12-17 14:45] VITALS: BP 113/80; PULSE 60; RESP 18; O2SAT 100
[2024-12-17 15:09] LABS: Trichomonas Vag PCR NOT DETECTED (NOT DETECTE)
[2024-12-17 16:55] VITALS: BP 118/71; PULSE 61; RESP 14; O2SAT 99
== END 2024-12-17 16:56 | disposition home or self-care (01) ==
PROVIDERS: Emergency Provider Registered Nurse
DX: N41.0 Acute prostatitis (principal); N49.0 Inflammatory disorders of seminal vesicle; Z11.3 Encounter for screening for infections with a predominantly sexual mode of transmission; I42.2 Other hypertrophic cardiomyopathy; I45.6 Pre-excitation syndrome; F31.9 Bipolar disorder, unspecified; Z95.810 Presence of automatic (implantable) cardiac defibrillator; R00.1 Bradycardia, unspecified; R94.31 Abnormal electrocardiogram [ECG] [EKG]; I44.7 Left bundle-branch block, unspecified
CPT/HCPCS: 36415; 74177; 80053; 81001; 83605; 83690; 85025; 85610; 85730; 86140; 87040; 87086; 87491; 87591; 87661; 93005; 96361; 96365; 96366; 96375; 99284; J1171; J1956; J7030; Q9967

== ENCOUNTER 2025-02-17 22:26 | Observation (INO) | payer MEDICARE, MEDICAID, SELFPAY ==
--- NOTE | ~2025-02-17 | CT_ITS ---
EXAMINATION: CT abdomen pelvis w con DATE: 02/18/2025 01:35 INDICATION: Abdominal pain. Nausea and vomiting. TECHNIQUE: Computed tomography (CT) of the abdomen and pelvis was performed with 100 mL Omnipaque 350 intravenous contrast. Automated exposure control and iterative reconstruction technique were employed. The dose-length product was 204.87 mGy-cm. COMPARISON: CT abdomen and pelvis 12/17/2024 FINDINGS: The visualized portions of the lung bases are clear without pneumonia or pleural effusion. The heart size is normal. No pericardial effusion. There is a pacer wire in right ventricle. The liver, gallbladder, spleen, pancreas, and left adrenal gland are normal. There is a 1.6 cm hyperenhancing mass in right adrenal gland. The kidneys are normal. There are no dilated loops of bowel. The appendix is normal. There are no pathologically enlarged lymph nodes. There is no free intraperitoneal fluid. There is mild lumbar spondylosis. IMPRESSION: 1. 1.6 cm hyperenhancing mass in right kidney, which may be a pheochromocytoma or adenoma. Reviewed, dictated and finalized at location E.
[2025-02-17 22:28] VITALS: BP 128/85; PULSE 112; RESP 22; TEMP 36.6; O2SAT 99
--- NOTE | 2025-02-17 23:04 | ECG_ITS ---
Test Date: 2025-02-17 23:22:49 Measurements Intervals [place] Rate: 54 P: 21 NE: 137 QRS: 59 QRSD: 197 T: 179 QT: 521 QTc: 495 Interpretive Statements SINUS BRADYCARDIA POSSIBLE LEFT ATRIAL ENLARGEMENT LEFT BUNDLE BRANCH BLOCK ABNORMAL ECG Compared to ECG 12/17/2024 11:57:17 No significant changes Electronically Signed On 02-18-2025 05:20:44 CDT by Jewel Barrera D.O.
--- OUTSIDE RECORDS SUMMARY | 2025-02-17 23:47 | XMS_ITS | Encounter Summary ---
Author Organization [facility] Address [address] [place] [address] Phone Care Team Providers Care Channel Sales Manager Name Role Phone Becky Garnett MD Primary Care Provider [phone]- [phone] Afshan Carrasco MD PhD Unavailable + Encounter Details Date Type Department Care Team (Late st Contact Info) Description 02/28/[address] 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 Gender Identity Not on file Sexual Orientation Not on file documented as of this encounter Plan of Treatment Not on file documented as of this encounter Visit Diagnoses Not on filedocumented in this encounter Additional Health Concerns Infection Onset Date Last Indicated Resolved Time COVID: Suspected 03/11/2024 03/11/2024 03/11/2024 5:58 AM LENS HARDENER documented as of this encounter Care Teams Channel Sales Manager Relationship Specialty Start Date End Date Becky Garnett MD PCP - General Family Medicine 12/21/21 Afshan Carrasco MD PhD [address] [facility] [address] [place] [id number] Medical Oncologist/Software Engineering Project Manager Medical Oncology 12/21/24 documented as of this encounter
--- OUTSIDE RECORDS SUMMARY | 2025-02-17 23:47 | XMS_ITS | Clinical Summary ---
Author Organization [facility] Address [address] [place] [id number] Care Team Providers Care Improvement Engineer Name Role Phone Becky Garnett MD Primary Care Provider [phone]- [phone] Afshan Carrasco MD PhD Unavailable + Allergies No known active allergies Medications aspirin 81 mg enteric coated tabletIndications: Pain,prevention of thrombosis Take 81 mg by mouth 3 tablets in the mornings and PRN throughout the day Active acetaminophen (TYLENOL) 325 mg tabletIndications: Fever,Pain Take 2 tablets (650 mg total) by mouth every 4 (four) hours as needed for pain 30 tablet 09/29/19 Active ibuprofen (ADVIL,MOTRIN) 400 mg tablet Take 1 tablet (400 mg total) by mouth 3 (three) times a day as needed for pain 09/29/19 22 Active Additional Information Patient not taking.Reported on 01/19/2025 cyclobenzaprine (FLEXERIL) 10 mg tablet Take 10 mg by mouth 3 (three) times a day as needed for muscle spasms 09/20/19 22 Active hydrOXYzine (ATARAX) 10 mg tablet TAKE 1 TABLET (10 MG TOTAL) BY MOUTH 3 (THREE) TIMES DAILY NEEDED FOR ANXIETY (SLEEP). 12/08/19 24 Active atenoloL (TENORMIN) 50 mg tabletIndications: Hypertrophic cardiomyopathy (HCC) Take 1 tablet (50 mg total) by mouth daily 90 tablet 3 12/15/19 25 Active Active Problems Problem Noted Date Diagnosed [...] (01/02/2021): Added automatically from request for surgery [id number] Malfunction of implantable d efibrillator ventricular (ICD) lead 12/30/2020 ICD (implantable cardioverter-defibrillator) in place 12/30/2020 Elevated troponin 04/01/2020 S/P ICD (internal cardiac defibrillator) procedu re 11/11/2019 History of ventricular septal myectomy 0 WPW (Wijqt-Sberimcem-Xwnrv syndrome) 11/11/2019 Hypertrophic cardiomyopathy 11/11/2019 Hypertrophic cardiomyopathy [...] Encounters Date Type Department Care Team Description 02/11/2025 Orders Only [facility] [address] [phone] Afshan Carrasco MD PhD 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) 01/26/2025 Results Follow-Up [facility] [address] [place] [phone] Elizabeth Bledsoe NP Metanephrines, fractionated free, blood 01/19/2025 3:30 PM CDT Lab [facility] [address] [place] [address] [address] [place] [address] 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) 01/19/2025 2:00 PM CDT Office Visit [facility] [address] [place] [phone] Afshan Carrasco MD PhD 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) 12/21/2024 Orders Only [facility] [address] [place] [address] 8th [place] [address] [place] [phone] Stephanie Ramachandran MD WPW (Vhgon-Bqilhpzyl-Zsx te syndrome) (Primary Dx); S/P ICD (internal cardiac defibrillator) procedure; ICD (implantable cardioverter-defibri llator) in place; Palpitations 12/17/2024 Telephone [facility] Cardiology [facility] 8th [place] [address] [place] [phone] Clemente Ferrara MD 12/17/2024 Telephone [facility] [address] [place] [address] 8th [place] [address] [place] [phone] Stephanie Ramachandran MD Scheduling Appointments 12/15/2024 Orders Only [facility] Pediatric Genetics [facility] 2nd [place] [address] [place] [phone] Gloria Pruitt CGC Monoallelic mutation of SDHA gene (Primary Dx) 12/15/2024 Telephone [facility] 2nd [place] [address] [place] [phone] Yolie Golden MD Test results 12/14/2024 Telephone [facility] Cardiology [address] [facility] Medicine 8th [place] [address] [place] [address] Clemente Ferrara MD from Last 3 Months Immunizations Immunization Administration Dates Next Due Pfizer SARS-CoV-2 Monovalent Vaccination (12+ Yrs) PURPLE 07/05/2020,06/14/2020 Surgical History Surgery Date Site/Laterality Comments CARDIAC DEFIBRILLATOR PLACEMENT 2013? pt. doesn't know brand name CARDIAC CATHETERIZATION 10/28/2013 Bilateral OTHER SURGICAL HISTORY 09/21/2014 lead malfunction defibrillator HEART SURGERY ? 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 Gender Identity Not on file Sexual Orientation Not on file Obstetrics History Last Filed Vital Signs Vital Sign Reading Time Taken Comments Blood Pressure 105/60 01/19/2025 2:04 PM CDT Pulse 59 01/19/2025 2:04 PM CDT Temperature 36.4 C (97.5 F) 01/19/2025 2:04 PM CDT Respiratory Rate 18 01/19/2025 2:04 PM CDT Oxygen Saturation 99% 01/19/2025 2:04 PM CDT Inhaled Oxygen Concentration - - Weight 56.7 kg (125 lb) 01/19/2025 2:04 PM CDT Height 167.9 cm (5' 6.1) 01/19/2025 2:04 PM CDT Body Mass Index 20.11 01/19/2025 2:04 PM CDT Plan of Treatment Health Maintenance Due Date Last Done Comments Hepatitis C Screening 1996 Regular Well Visit/Exam 18-64 2014 DTaP/Tdap/Td Vaccine (7 - Td or Tdap) 02/04/2020 02/03/2010, 05/23/2000, 06/15/1999, Additional history exists Depression Screening 09/27/2022 09/27/2021, 09/28/19 22 HPV Vaccines (1 - 3-dose SCDM series) 2023 Covid-19 Vaccine (3 - season) 2025 07/05/2020, 06/14/2020 Influenza Vaccine (#1) 2025 02/28/2019 Hepatitis B Screening Completed 05/23/2000 , 1996, 1996 Varicella Vaccines Completed 02/03/2010, 02/15/1999 Pneumococcal vaccine <65 Aged Out No longer eligible based on patient's age to complete this topic Medical Devices Implanted Type Area Finance Broker Device Identifier Shelf Expiration Date Model / Serial / Lot Medtronic Linq [id number]/26/2022 Implanted:2022 (Quantity not on file) Implantable Loop Recorder Chest Medtronic [id number] / / Medtronic Ra Lead [id number]/19/2006 Implanted:Qty: 1 on 06/19/2006 Lead N/A: Heart Medtronic [id number] / / Medtronic Rv Lead [id number] (Inactive)-2006 Implanted:Qty: 1 on 06/19/2006 Lead Heart Medtronic [id number] / / Medtronic Cardiac Rhythm Mgmt [id number] Tyrx 2.7x2.5in Medium Envelope Absorbable Polyarylate Minocycline - [id number] - [id number] Implanted:Qty: 1 on 01/11/2021 by Stephanie Ramachandran MD at [facility] Other - see comments Left: Chest Wall [employer]onic Inc 08/24/2021 [id number] / [id number] / [id number] Description:tyrx absorbable antibacterial envelope- medium ref # [id number] Procedures Procedure Name Priority Date/Time Associated Diagnosis Comments METANEPHRINES, FRACTIONATED FREE, BLOOD Routine 01/19/2025 3:21 PM CDT Hereditary paraganglioma-pheoc hromocytoma associated with mutation in SDHA gene (HCC) from Last 3 Months Results * Metanephrines, fractionated free, blood (01/19/2025 3:21 PM CDT) Metanephrines <0.20 <0.50 nmol/L [facility] Lab Comment: ADDITIONAL INFORMATION This test was developed and its performance characteristics determined by [facility] in a manner consistent with CLIA requirements. This test has not been cleared or approved by the U.S. Food and Drug Administration. Test Performed by: [facility] - [address] [address] F[place] Coater: William Spencer Ph.D.; CLIA# [id number] Normetanephrines 0.66 <0.90 nmol/L [facility] BONILLA Blood 01/19/2025 3:21 PM CDT 01/19/2025 5:10 PM CDT us Afshan Carrasco MD PhD LAB BLOOD ORDERABL ES Final Result [facility] Department [place] [address] [place] ref Lab from Last 3 Months Insurance [place] [facility] MEDICARE MEDICARE [facility] Advance Directives For more information, please contact: [phone] * Full Code (Latest Code Status on File) Date Activated Date Inactivated Comments 09/27/2021 10:44 PM 09/28/2021 4:50 PM Care Teams Improvement Engineer Relationship Specialty Start Date End Date Becky Garnett MD PCP - General Family Medicine 12/21/21 Afshan Carrasco MD PhD [address] [facility] [address] [place] [id number] Medical Oncologist/Coding Advisor Medical Oncology 12/21/24
--- OUTSIDE RECORDS SUMMARY | 2025-02-17 23:47 | XMS_ITS | Encounter Summary ---
Author Organization [facility] Address [address] [place] [address] Phone Care Team Providers Care Slab Lifting Supervisor Name Role Phone No, Physician Primary Care Provider [phone] Becky Garnett MD Primary Care Provider [phone] Afshan Carrasco MD PhD Unavailable + Encounter Details Date Type Department Care Team (Late st Contact Info) Description 11/12/2019 Telephone [facility] Cardiology [address] [facility] 8th [place] [address] [place] [address] Jossy Machado MD [address] [facility] [address] [place] [address] Social History Tobacco Use Types Packs/Day Years Used Date Smoking Tobacco: Every Day E-cigarettes Smokeless Tobacco: Never Alcohol Use Standard Drinks/Week Comments No 0 (1 standard drink = 0.6 oz pur e alcohol) Sex and Gender Information Value Date Recorded Sex Assigned at Not on file Legal Sex Male 1:02 PM [employer] Gender Identity Not on file Sexual Orientation Not on file documented as of this encounter Plan of Treatment Not on file documented as of this encounter Visit Diagnoses Not on filedocumented in this encounter Additional Health Concerns Infection Onset Date Last Indicated Resolved Time COVID: Suspected 03/11/2024 03/11/2024 03/11/2024 5:58 AM WHITE WORK [employer]ER documented as of this encounter Care Teams Slab Lifting Supervisor Relationship Specialty Start Date End Date No, Physician PCP - General 09/22/16 12/20/21 Becky Garnett MD PCP - General Family Medicine 12/21/21 Afshan Carrasco MD PhD [address] [address] Medical Oncologist/[employer] Medical Oncology 12/21/24 documented as of this encounter
[2025-02-18] MEDS: SODIUM CHLORIDE 0.9% IV 1,000 ML 999 ML IV CONT (00:09)
[2025-02-18] MEDS: ONDANSETRON INJ 4 MG/2 ML VIAL IV PUSH (00:10)
[2025-02-18 00:31] LABS: INR 1.0; Prothrombin Time 13.6 Seconds (11.1-14.7)
[2025-02-18 00:32] LABS: Partial Thromboplastin Time 25.4 Seconds (22.3-36.8)
[2025-02-18 00:44] LABS: Add Urine Microscopic? YES; Appearance Urine Clear (Clear); Glucose Urine UA Negative (Negative); Leukocyte Esterase Ur Negative LEU/UL (Negative); Nitrate Urine Negative (Negative); Specific Grav Ur 1.019 (1.001-1.035)
[2025-02-18 00:46] LABS: Alanine Aminotransferase 26 U/L (6-50); Albumin Level 4.4 g/dL (3.5-5.1); Alkaline Phosphatase 76 U/L (38-126); Anion Gap 11 mmol/L (4-12); Aspartate Amino Transferase 30 U/L (17-59); Bilirubin,Total 0.7 mg/dL (0.2-1.3); Blood Urea Nitrogen 9 mg/dL (9-20); Calcium 9.4 mg/dL (8.4-10.2); Carbon Dioxide 22 mmol/L (22-30); Chloride 104 mmol/L (98-107); Estimated CRCL calculation 85 ml/min; Estimated Glomerular Filt Rate > 60; Glucose 121 mg/dL (65-110); Lipase 86 U/L (23-300); Magnesium 1.4 mg/dL (1.6-2.3); Potassium 3.4 mmol/L (3.4-5.0); Sodium 137 mmol/L (137-145); Total Protein 7.9 g/dL (6.3-8.2)
[2025-02-18] MEDS: MORPHINE SULFATE (*CRX) 4 MG/ML INJ IV PUSH ×2 (00:58→05:06)
[2025-02-18 00:59] LABS: Troponin I 0.055 ng/mL (0.000-0.034)
[2025-02-18] MEDS: FAMOTIDINE 20 MG/2 ML VIAL IV PUSH (01:00)
[2025-02-18 01:04] LABS: Hematocrit 41.9 % (42.0-52.0); Hemoglobin 13.1 g/dL (14.0-18.0); Immature Granulocyte Percent A 0.2 % (0-0.5); Lymphocytes Absolute Auto 0.99 K/mm3 (0.9-3.2); Mean Corpuscular HGB Conc 31.3 g/dl (32-36); Mean Corpuscular Hemoglobin 26.3 pg (26-34); Mean Corpuscular Volume 84.1 fl (80-100); Nucleated Red Blood Cells Absolute Auto 0.000 K/mm3 (0.0-0.012); Nucleated Red Blood Cells Perc 0.0 % (0.0-0.2); Platelet Count Result 164 k/mm3 (150-375); Red Blood Count 4.98 M/mm3 (4.6-6.20); White Blood Count 6.1 K/mm3 (4.5-10.0)
[2025-02-18 01:06] VITALS: BP 141/77; PULSE 55; RESP 12; O2SAT 100
[2025-02-18 02:04] LABS: Cannabinoid Screen Urine Positive (Negative)
[2025-02-18] MEDS: MAGNESIUM SULF 2 GM/WATER 50ML 2 GM/50 ML BAG IVPB (02:33)
--- NOTE | 2025-02-18 02:47 | ED.ABDPAIN ---
HPI - Abdominal Pain General Chief Complaint: Abdominal Pain <RENEE Hanna Last Filed: 02/18/25 17:05> Stated Complaint: multiple complaints <RENEE Hanna Last Filed: 02/18/25 17:05> Time Seen by Provider: 02/17/25 22:56 <RENEE Hanna Last Filed: 02/18/25 17:05> Source: patient and old records reviewed <RENEE Hanna Last Filed: 02/18/25 17:05> Mode of arrival: ambulatory <RENEE Hanna Last Filed: 02/18/25 17:05> Limitations: no limitations <RENEE Hanna Last Filed: 02/18/25 17:05> History of Present Illness HPI narrative: Patient is a 29-year-old male who presents the ED with report of nausea, vomiting. Patient reports symptoms began approximately 2 hours ago. He states he was at a work event and had [employer] Reports nausea, vomiting, diffuse abdominal pain. Denies significant diarrhea or bowel changes. Also reports pain throughout his chest, lightheadedness. Patient has had similar episodes of vomiting in the past. Has been seen here previously for these episodes. Patient is a daily marijuana user. Patient has history of Ejzck-Mzrbbbzjt-Lnsfk syndrome, hypertrophic cardiomyopathy. Had previously had an AICD, but this has since been removed. Follows with Dr. Ferrara with [facility] Cardiology <RENEE Hanna Last Filed: 02/18/25 17:05> Related Data Home Medications: Home Medications ?Medication ?Instructions ?Recorded ?Confirmed ?Last Taken ?Type aspirin 81 mg chewable tablet 01/13/21 Unknown History atenolol 50 mg tablet 01/13/21 Unknown History <RENEE Hanna Last Filed: 02/18/25 17:05> Allergies/Adverse Reactions: Allergies Allergy/AdvReac Type Severity Reaction Status Date / Time No Known Allergies Allergy Unknown Verified 02/17/25 22:31 <RENEE Hanna Last Filed: 02/18/25 17:05> Review of Systems Review of Systems: All systems reviewed & are unremarkable except as noted in HPI. <Grisel Bynum PA-C - Last Filed: 02/18/25 17:05> All systems reviewed & are unremarkable except as noted in HPI and below <Grisel Bynum PA-C - Last Filed: 02/18/25 17:05> [facility] Past Medical History Medical History: Medical History Malfunction of electrode lead of implantable cardioverter-defibrillator (ICD) Pacemaker Bipolar 1 disorder Febyb-Ikkrnodda-Qsmdp (WPW) syndrome Hypertrophic cardiomyopathy <Grisel Bynum PA-C - Last Filed: 02/18/25 17:05> Surgical History Surgical History: Surgical History History of heart surgery Apparently had myomectomy in [place] around 9 years old. <Grisel Bynum PA-C - Last Filed: 02/18/25 17:05> Family History Family History: Family History Mother Heart disease Apparently of CHF/HOCM age 36 Grandparent Heart disease Says grandfather had the same heart disease that he has Other No acute medical problems <Grisel Bynum PA-C - Last Filed: 02/18/25 17:05> Social History Social History: Social History Social History: Has a girlfriend. Also young son. Smoking status: Never smoker Alcohol intake: current Substance use: current Substance use type: marijuana Living arrangements: with family Gender identity (if verbalized by the patient): Male <Grisel Bynum PA-C - Last Filed: 02/18/25 17:05> Exam Narrative: GENERAL: Mildly ill/uncomfortable appearing, thin, non-toxic, in no acute distress. HEAD: Normocephalic, atraumatic. RESPIRATORY: Airway patent, respirations tachypneic but nonlabored. Clear to auscultation bilaterally, no rales, rhonchi, wheezing. CARDIOVASCULAR: Regular rate and rhythm without murmurs, rubs, or gallops. ABDOMINAL: Soft, mild diffuse nonfocal tenderness, nondistended. Normoactive BS. MUSCULOSKELETAL: Moves all extremities. No gross deformities. SKIN: Warm, dry, normal color. NEURO: A&O X3. Speech clear. Cranial nerves II-XII grossly intact. Steady gait. No ataxic movements. PSYCHIATRIC: Anxious. Normal interaction. <Grisel Bynum PA-C - Last Filed: 02/18/25 17:05> Course BOX [employer]ITCHD[employer]/PA Physician Supervision This visit was performed by both the physician and an APC. I performed all aspects of the MDM as documented <Jose Fernandez MD - Last Filed: 02/18/25 06:01> Vital Signs Vital signs: Vital Signs Temperature 97.8 F 02/17/25 22:28 Pulse Rate 112 H 02/17/25 22:28 Respiratory Rate 22 H 02/17/25 22:28 Blood Pressure 128/85 02/17/25 22:28 Pulse Oximetry 99 02/17/25 22:28 Oxygen Delivery Room Air 02/17/25 22:28 Temperature 97.8 F 02/17/25 22:28 Pulse Rate 77 02/18/25 07:50 Respiratory Rate 18 02/18/25 07:50 Blood Pressure 114/76 02/18/25 07:50 Pulse Oximetry 100 02/18/25 07:50 Oxygen Delivery Room Air 02/17/25 22:28 <Grisel Bynum PA-C - Last Filed: 02/18/25 17:05> Vital Signs Temperature 97.8 F 02/17/25 22:28 Pulse Rate 112 H 02/17/25 22:28 Respiratory Rate 22 H 02/17/25 22:28 Blood Pressure 128/85 02/17/25 22:28 Pulse Oximetry 99 02/17/25 22:28 Oxygen Delivery Room Air 02/17/25 22:28 Temperature 97.8 F 02/17/25 22:28 Pulse Rate 77 02/18/25 07:50 Respiratory Rate 18 02/18/25 07:50 Blood Pressure 114/76 02/18/25 07:50 Pulse Oximetry 100 02/18/25 07:50 Oxygen Delivery Room Air 02/17/25 22:28 <Jose Fernandez MD - Last Filed: 02/18/25 06:01> MDM - Abdominal Pain MDM Narrative Medical decision making narrative: Patient presented to ED with nausea and vomiting that began approximately 2 hours prior to arrival. Associated with diffuse abdominal pain. History of similar episode in the past. History of daily marijuana use. History of hypertrophic cardiomyopathy, WPW. Also reporting chest pain. EKG with left bundle-branch block, appears chronic and consistent with previous records. QT/QTC is prolonged. Baseline troponin is 0.055. Patient does chronically have elevated troponins. Will continue to trend. Cbc without leukocytosis or significant anemia. CMP unremarkable. Magnesium was noted to be low at 1.4. 2 g IV replacement given. UA with evidence of dehydration, no signs of infection. UDS is positive for cannabinoids. Otherwise clear. D-dimer within normal range. CT scan of abdomen/pelvis was obtained and unremarkable, no acute findings. Patient was given dose of Zofran prior to obtaining EKG. Will avoid further QTC prolonging agents at this time. Repeat EKG w/o significant changes, qtc still prolonged 513. 3hr troponin ordered and pending. Discussed lab and imaging findings with patient. C/o persistent abd pain. Vomiting seems to be under control at this time. Wanting to try drinking something Will given small dose of valium to help with pain and nausea. Care signed out to Dr. Fernandez at shift change pending 3hr trop/toleration of PO challenge <Grisel Bynum PA-C - Last Filed: 02/18/25 17:05> Medical Records Attestation: I reviewed the patient's medical records. <Grisel Bynum PA-C - Last Filed: 02/18/25 17:05> Lab Data Attestation: I reviewed the patient's lab results. <Grisel Bynum PA-C - Last Filed: 02/18/25 17:05> Result diagrams: 02/18/25 00:57 02/18/25 00:30 <Grisel Bynum PA-C - Last Filed: 02/18/25 17:05> Labs: Lab Results 02/18/25 02/18/25 02/18/25 Range/Units 00:02 00:30 00:57 WBC 6.1 (4.5-10.0) K/mm3 RBC 4.98 (4.6-6.20) M/mm3 Hgb 13.1 L (14.0-18.0) g/dL Hct 41.9 L (42.0-52.0) % MCV 84.1 (80-100) fl MCH 26.3 (26-34) pg MCHC 31.3 L (32-36) g/dl RDW 12.0 (11.5-14.5) % Plt Count 164 (150-375) k/mm3 MPV 11.0 H (7.4-10.4) fl Immature Gran % (Auto) 0.2 (0-0.5) % Neut % (Auto) 77.6 H (45.5-73.1) % Lymph % (Auto) 16.2 L (18.3-44.2) % Williamson % (Auto) 5.1 (2.6-8.5) % Eos % (Auto) 0.2 (0-4.4) % Baso % (Auto) 0.7 (0.2-1.2) % Lymph # (Auto) 0.99 (0.9-3.2) K/mm3 Williamson # (Auto) 0.3 (0.1-0.6) K/mm3 Eos # (Auto) 0.0 (0-0.3) K/mm3 Baso # (Auto) 0.0 (0.0-0.1) K/mm3 Abs Immat Gran (auto) 0.01 (0.00-0.031) K/mm3 Absolute Neuts (auto) 4.8 (1.3-6.7) K/mm3 Absolute Nucleated RBC 0.000 (0.0-0.012) K/mm3 Nucleated RBC % 0.0 (0.0-0.2) % PT 13.6 (11.1-14.7) Seconds INR 1.0 APTT 25.4 (22.3-36.8) Seconds D-Dimer 0.30 (<0.48) ug/mL Sodium 137 (137-145) mmol/L Potassium 3.4 (3.4-5.0) mmol/L Chloride 104 (98-107) mmol/L Carbon Dioxide 22 (22-30) mmol/L Anion Gap 11 (4-12) mmol/L BUN 9 (9-20) mg/dL Creatinine 1.01 (0.7-1.3) mg/dL Estim Creat Clear Calc 85 ml/min Estimated GFR > 60 (59 - ) Glucose 121 H (65-110) mg/dL Calcium 9.4 (8.4-10.2) mg/dL Magnesium 1.4 L (1.6-2.3) mg/dL Total Bilirubin 0.7 (0.2-1.3) mg/dL AST 30 (17-59) U/L ALT 26 (6-50) U/L Alkaline Phosphatase 76 (38-126) U/L Troponin I Cancelled 0.055 H* Total Protein 7.9 (6.3-8.2) g/dL Albumin 4.4 (3.5-5.1) g/dL Lipase 86 (23-300) U/L Urine Color Yellow (Yellow) Urine Appearance Clear (Clear) Urine pH >=9.0 H (5.0-9.0) Ur Specific Boykins 1.019 (1.001-1.035) Urine Protein 2+ H (Negative) mg/dL Urine Glucose (UA) Negative (Negative) mg/dL Urine Ketones 1+ H (Negative) mg/dL Ur Blood (Man) Negative (Negative) Urine Nitrate Negative (Negative) Urine Bilirubin Negative (Negative) Urine Urobilinogen 0.2 (<2.0) mg/dL Leukocyte Esterase Rfl Negative (Negative) MIRZA/UL Urine RBC 0-2 (0-2) /hpf Urine WBC 0-5 (0-3) /hpf Ur Squamous Epith Cells None seen (Few) /hpf Urine Bacteria None seen /hpf Urine Casts 3-5 Urine Opiates Screen Negative (Negative) Urine Methadone Screen Negative (Negative) Ur Barbiturates Screen Negative (Negative) Ur Phencyclidine Scrn Negative (Negative) Ur Amphetamine Screen Negative (Negative) U Benzodiazepines Scrn Negative (Negative) Urine Cocaine Screen Negative (Negative) U Cannabinoids Screen Positive A (Negative) 02/18/25 Range/Units 04:16 WBC (4.5-10.0) K/mm3 RBC (4.6-6.20) M/mm3 Hgb (14.0-18.0) g/dL Hct (42.0-52.0) % MCV (80-100) fl MCH (26-34) pg MCHC (32-36) g/dl RDW (11.5-14.5) % Plt Count (150-375) k/mm3 MPV (7.4-10.4) fl Immature Gran % (Auto) (0-0.5) % Neut % (Auto) (45.5-73.1) % Lymph % (Auto) (18.3-44.2) % Williamson % (Auto) (2.6-8.5) % Eos % (Auto) (0-4.4) % Baso % (Auto) (0.2-1.2) % Lymph # (Auto) (0.9-3.2) K/mm3 Williamson # (Auto) (0.1-0.6) K/mm3 Eos # (Auto) (0-0.3) K/mm3 Baso # (Auto) (0.0-0.1) K/mm3 Abs Immat Gran (auto) (0.00-0.031) K/mm3 Absolute Neuts (auto) (1.3-6.7) K/mm3 Absolute Nucleated RBC (0.0-0.012) K/mm3 Nucleated RBC % (0.0-0.2) % PT (11.1-14.7) Seconds INR APTT (22.3-36.8) Seconds D-Dimer (<0.48) ug/mL Sodium (137-145) mmol/L Potassium (3.4-5.0) mmol/L Chloride (98-107) mmol/L Carbon Dioxide (22-30) mmol/L Anion Gap (4-12) mmol/L BUN (9-20) mg/dL Creatinine (0.7-1.3) mg/dL Estim Creat Clear Calc ml/min Estimated GFR (59 - ) Glucose (65-110) mg/dL Calcium (8.4-10.2) mg/dL Magnesium (1.6-2.3) mg/dL Total Bilirubin (0.2-1.3) mg/dL AST (17-59) U/L ALT (6-50) U/L Alkaline Phosphatase (38-126) U/L Troponin I 0.073 H* D Total Protein (6.3-8.2) g/dL Albumin (3.5-5.1) g/dL Lipase (23-300) U/L Urine Color (Yellow) Urine Appearance (Clear) Urine pH (5.0-9.0) Ur Specific Boykins (1.001-1.035) Urine Protein (Negative) mg/dL Urine Glucose (UA) (Negative) mg/dL Urine Ketones (Negative) mg/dL Ur Blood (Man) (Negative) Urine Nitrate (Negative) Urine Bilirubin (Negative) Urine Urobilinogen (<2.0) mg/dL Leukocyte Esterase Rfl (Negative) MIRZA/UL Urine RBC (0-2) /hpf Urine WBC (0-3) /hpf Ur Squamous Epith Cells (Few) /hpf Urine Bacteria /hpf Urine Casts Urine Opiates Screen (Negative) Urine Methadone Screen (Negative) Ur Barbiturates Screen (Negative) Ur Phencyclidine Scrn (Negative) Ur Amphetamine Screen (Negative) U Benzodiazepines Scrn (Negative) Urine Cocaine Screen (Negative) U Cannabinoids Screen (Negative) <Grisel Bynum PA-C - Last Filed: 02/18/25 17:05> Lab Results 02/18/25 02/18/25 02/18/25 Range/Units 00:02 00:30 00:57 WBC 6.1 (4.5-10.0) K/mm3 RBC 4.98 (4.6-6.20) M/mm3 Hgb 13.1 L (14.0-18.0) g/dL Hct 41.9 L (42.0-52.0) % MCV 84.1 (80-100) fl MCH 26.3 (26-34) pg MCHC 31.3 L (32-36) g/dl RDW 12.0 (11.5-14.5) % Plt Count 164 (150-375) k/mm3 MPV 11.0 H (7.4-10.4) fl Immature Gran % (Auto) 0.2 (0-0.5) % Neut % (Auto) 77.6 H (45.5-73.1) % Lymph % (Auto) 16.2 L (18.3-44.2) % Williamson % (Auto) 5.1 (2.6-8.5) % Eos % (Auto) 0.2 (0-4.4) % Baso % (Auto) 0.7 (0.2-1.2) % Lymph # (Auto) 0.99 (0.9-3.2) K/mm3 Williamson # (Auto) 0.3 (0.1-0.6) K/mm3 Eos # (Auto) 0.0 (0-0.3) K/mm3 Baso # (Auto) 0.0 (0.0-0.1) K/mm3 Abs Immat Gran (auto) 0.01 (0.00-0.031) K/mm3 Absolute Neuts (auto) 4.8 (1.3-6.7) K/mm3 Absolute Nucleated RBC 0.000 (0.0-0.012) K/mm3 Nucleated RBC % 0.0 (0.0-0.2) % PT 13.6 (11.1-14.7) Seconds INR 1.0 APTT 25.4 (22.3-36.8) Seconds D-Dimer 0.30 (<0.48) ug/mL Sodium 137 (137-145) mmol/L Potassium 3.4 (3.4-5.0) mmol/L Chloride 104 (98-107) mmol/L Carbon Dioxide 22 (22-30) mmol/L Anion Gap 11 (4-12) mmol/L BUN 9 (9-20) mg/dL Creatinine 1.01 (0.7-1.3) mg/dL Estim Creat Clear Calc 85 ml/min Estimated GFR > 60 (59 - ) Glucose 121 H (65-110) mg/dL Calcium 9.4 (8.4-10.2) mg/dL Magnesium 1.4 L (1.6-2.3) mg/dL Total Bilirubin 0.7 (0.2-1.3) mg/dL AST 30 (17-59) U/L ALT 26 (6-50) U/L Alkaline Phosphatase 76 (38-126) U/L Troponin I Cancelled 0.055 H* Total Protein 7.9 (6.3-8.2) g/dL Albumin 4.4 (3.5-5.1) g/dL Lipase 86 (23-300) U/L Urine Color Yellow (Yellow) Urine Appearance Clear (Clear) Urine pH >=9.0 H (5.0-9.0) Ur Specific Boykins 1.019 (1.001-1.035) Urine Protein 2+ H (Negative) mg/dL Urine Glucose (UA) Negative (Negative) mg/dL Urine Ketones 1+ H (Negative) mg/dL Ur Blood (Man) Negative (Negative) Urine Nitrate Negative (Negative) Urine Bilirubin Negative (Negative) Urine Urobilinogen 0.2 (<2.0) mg/dL Leukocyte Esterase Rfl Negative (Negative) MIRZA/UL Urine RBC 0-2 (0-2) /hpf Urine WBC 0-5 (0-3) /hpf Ur Squamous Epith Cells None seen (Few) /hpf Urine Bacteria None seen /hpf Urine Casts 3-5 Urine Opiates Screen Negative (Negative) Urine Methadone Screen Negative (Negative) Ur Barbiturates Screen Negative (Negative) Ur Phencyclidine Scrn Negative (Negative) Ur Amphetamine Screen Negative (Negative) U Benzodiazepines Scrn Negative (Negative) Urine Cocaine Screen Negative (Negative) U Cannabinoids Screen Positive A (Negative) 02/18/25 Range/Units 04:16 WBC (4.5-10.0) K/mm3 RBC (4.6-6.20) M/mm3 Hgb (14.0-18.0) g/dL Hct (42.0-52.0) % MCV (80-100) fl MCH (26-34) pg MCHC (32-36) g/dl RDW (11.5-14.5) % Plt Count (150-375) k/mm3 MPV (7.4-10.4) fl Immature Gran % (Auto) (0-0.5) % Neut % (Auto) (45.5-73.1) % Lymph % (Auto) (18.3-44.2) % Williamson % (Auto) (2.6-8.5) % Eos % (Auto) (0-4.4) % Baso % (Auto) (0.2-1.2) % Lymph # (Auto) (0.9-3.2) K/mm3 Williamson # (Auto) (0.1-0.6) K/mm3 Eos # (Auto) (0-0.3) K/mm3 Baso # (Auto) (0.0-0.1) K/mm3 Abs Immat Gran (auto) (0.00-0.031) K/mm3 Absolute Neuts (auto) (1.3-6.7) K/mm3 Absolute Nucleated RBC (0.0-0.012) K/mm3 Nucleated RBC % (0.0-0.2) % PT (11.1-14.7) Seconds INR APTT (22.3-36.8) Seconds D-Dimer (<0.48) ug/mL Sodium (137-145) mmol/L Potassium (3.4-5.0) mmol/L Chloride (98-107) mmol/L Carbon Dioxide (22-30) mmol/L Anion Gap (4-12) mmol/L BUN (9-20) mg/dL Creatinine (0.7-1.3) mg/dL Estim Creat Clear Calc ml/min Estimated GFR (59 - ) Glucose (65-110) mg/dL Calcium (8.4-10.2) mg/dL Magnesium (1.6-2.3) mg/dL Total Bilirubin (0.2-1.3) mg/dL AST (17-59) U/L ALT (6-50) U/L Alkaline Phosphatase (38-126) U/L Troponin I 0.073 H* D Total Protein (6.3-8.2) g/dL Albumin (3.5-5.1) g/dL Lipase (23-300) U/L Urine Color (Yellow) Urine Appearance (Clear) Urine pH (5.0-9.0) Ur Specific Boykins (1.001-1.035) Urine Protein (Negative) mg/dL Urine Glucose (UA) (Negative) mg/dL Urine Ketones (Negative) mg/dL Ur Blood (Man) (Negative) Urine Nitrate (Negative) Urine Bilirubin (Negative) Urine Urobilinogen (<2.0) mg/dL Leukocyte Esterase Rfl (Negative) MIRZA/UL Urine RBC (0-2) /hpf Urine WBC (0-3) /hpf Ur Squamous Epith Cells (Few) /hpf Urine Bacteria /hpf Urine Casts Urine Opiates Screen (Negative) Urine Methadone Screen (Negative) Ur Barbiturates Screen (Negative) Ur Phencyclidine Scrn (Negative) Ur Amphetamine Screen (Negative) U Benzodiazepines Scrn (Negative) Urine Cocaine Screen (Negative) U Cannabinoids Screen (Negative) <Jose Fernandez MD - Last Filed: 02/18/25 06:01> Imaging Data Attestation: I personally reviewed and interpreted this imaging study as follows: <Grisel Bynum PA-C - Last Filed: 02/18/25 17:05> Radiologist's impression: ITS Impressions Abdomen/Pelvis CT 02/18/25 07:38 IMPRESSION: 1. 1.6 cm hyperenhancing mass in right kidney, which may be a pheochromocytoma or adenoma. STAT RAD CT abd/pelvis: Impression: No acute findings. Right adrenal nodule measures 1.8 x 1.2 cm. <Grisel Bynum PA-C - Last Filed: 02/18/25 17:05> ITS Impressions Abdomen/Pelvis CT 02/18/25 07:38 IMPRESSION: 1. 1.6 cm hyperenhancing mass in right kidney, which may be a pheochromocytoma or adenoma. <Jose Fernandez MD - Last Filed: 02/18/25 06:01> ECG Data EKG #1: Attestation: I personally reviewed and interpreted this ECG as follows: <Grisel Bynum PA-C - Last Filed: 02/18/25 17:05> ECG completion date: 02/17/25 <Grisel Bynum PA-C - Last Filed: 02/18/25 17:05> ECG completion time: 23:22 <Grisel Bynum PA-C - Last Filed: 02/18/25 17:05> Prior ECG tracings: available for review (appears consistent with previous records) <Grisel Bynum PA-C - Last Filed: 02/18/25 17:05> bradycardia (54), sinus rhythm, non-specific ST changes, LBBB and prolonged QT <Grisel Bynum PA-C - Last Filed: 02/18/25 17:05> Discharge Plan Discharge Clinical Impression: Elevated troponin Nausea and vomiting Qualifiers: Vomiting type: unspecified Qualified Code(s): R11.2 - Nausea with vomiting, unspecified <Grisel Bynum PA-C - Last Filed: 02/18/25 17:05> Patient Disposition: Still a Patient <Grisel Bynum PA-C - Last Filed: 02/18/25 17:05> Condition: Stable <Grisel Bynum PA-C - Last Filed: 02/18/25 17:05> Sign Out Sign Out Data: Patient Sign Out occurred on 02/18/25 at 03:48. Patient's care was discussed, and care was transferred from Grisel Bynum PA-C to Jose Fernandez MD. <Grisel Bynum PA-C - Last Filed: 02/18/25 17:05>
--- NOTE | 2025-02-18 03:02 | ECG_ITS ---
Test Date: 2025-02-18 03:08:11 Measurements Intervals [place] Rate: 60 P: 52 AR: 155 QRS: 70 QRSD: 192 T: 154 QT: 512 QTc: 513 Interpretive Statements SINUS RHYTHM LEFT ATRIAL ENLARGEMENT LEFT BUNDLE BRANCH BLOCK ABNORMAL ECG Compared to ECG 02/17/2025 23:22:49 HEART RATE HAS INCREASED Electronically Signed On 02-18-2025 05:14:54 CDT by Jewel Barrera D.O.
[2025-02-18] MEDS: diazePAM INJ (*CRX) 10 MG/2 ML SYRINGE 2 MG IV PUSH (03:22)
[2025-02-18 03:32] VITALS: BP 126/82; PULSE 60; RESP 12; O2SAT 95
[2025-02-18 04:08] VITALS: BP 108/85; PULSE 59; RESP 13; O2SAT 97
[2025-02-18 04:59] LABS: Troponin I 0.073 ng/mL (0.000-0.034)
[2025-02-18 06:56] VITALS: BP 112/83; PULSE 62; RESP 14; O2SAT 98
--- NOTE | 2025-02-18 07:31 | PC.NURSE ---
BSR completed with Felicia MELGAR
[2025-02-18 07:50] VITALS: BP 114/76; PULSE 77; RESP 18; O2SAT 100
--- NOTE | 2025-02-18 07:50 | PC.NURSE ---
Dr. Banks called for inpatient/boarded patient who stated after treatment in the ED he did not want to remain in the hospital as inpatient; stated he felt much improvement and had PCM to follow up with.
--- NOTE | 2025-02-18 13:05 | PM.EVENT ---
Event Note Event Note Event Note: Patient left AMA prior to encounter.
== END 2025-02-18 07:00 | disposition left against medical advice (07) ==
LOC: ANHED 02-18 03:48 → ANH3MEDSUR 02-18 13:04
PROVIDERS: Physician Assistant; Admitting Provider Family Medicine; Emergency Provider Emergency Medicine; Visit Provider Internal Medicine
DX: R11.2 Nausea with vomiting, unspecified (principal); R10.9 Unspecified abdominal pain; R79.89 Other specified abnormal findings of blood chemistry; I45.6 Pre-excitation syndrome; I42.2 Other hypertrophic cardiomyopathy; F12.90 Cannabis use, unspecified, uncomplicated; F31.9 Bipolar disorder, unspecified; Z95.0 Presence of cardiac pacemaker; Z82.49 Family history of ischemic heart disease and other diseases of the circulatory system; Z53.29 Procedure and treatment not carried out because of patient's decision for other reasons
CPT/HCPCS: 36415; 74177; 80053; 80307; 81001; 83690; 83735; 84484; 85025; 85380; 85610; 85730; 93005; 96361; 96365; 96375; 99285; G0378; J2270; J2405; J3360; J3475; J7030; Q9967

== ENCOUNTER 2025-03-25 09:49 | Observation (INO) | payer MEDICARE, MEDICAID, SELFPAY ==
[2025-03-25] VITALS (16 sets, daily range): BP systolic 100–130; BP diastolic 56–91; PULSE 56–81; RESP 14–22; TEMP 36.4–37.1; O2SAT 98–100; BMI 18.8
--- NOTE | 2025-03-25 | ECHO_ITS ---
Patient Info Name: Willian Collado Age: 29 years : 1995 Gender: Male Ht: 68 in Wt: 123 lbs BSA: 1.63 m2 HR: 57 bpm BP: 124 / 84 mmHg Heart Rhythm: Sinus Rhythm Technical Quality: Good Exam Date: 03/25/2025 3:02 PM Patient Status: O Admit Date: 03/25/2025 Exam Type: CA echo dop color flow w con Complete two-dimensional, color flow and Doppler transthoracic echocardiogram is performed. Staff Referring Physician: India Griffith MD Crepe Maker: Camille Garcia Attending Provider: Bandar Aden Summary 1. Complete two-dimensional, color flow and Doppler transthoracic echocardiogram is performed. 2. Asymmetrical septal hypertrophy with mild systolic anterior motion of the mitral valve chordal apparatus consistent with diagnosis of hypertrophic cardiomyopathy. 3. No significant LVOT gradient following septal myectomy. 4. Trivial mitral regurgitation. 5. Normal aortic valve. 6. Presence of pacemaker/ICD lead noted. 7. Left ventricular systolic dysfunction with visually estimated ejection fraction 35-40%. 8. Grade 2 diastolic to from. Left Ventricle Left ventricular chamber dimension is normal. Left ventricular systolic function is moderately reduced, estimated at 35-40. The left ventricular diastolic function is grade II diastolic dysfunction. Right Ventricle Right ventricular chamber dimension is normal. Linear artifact in right ventricle suggestive of catheter(s), pacemaker lead(s), or ICD lead(s). Left Atria Left atrial chamber dimension is mildly enlarged. Right Atria Right atrial chamber dimension is normal. Aortic Valve The aortic valve is normal. Pulmonic Valve The pulmonic valve is normal. Mitral Valve The mitral valve has normal leaflets. There is trace mitral valve regurgitation. Tricuspid Valve The tricuspid valve leaflets are normal. Pericardium/Pleural The pericardium appears normal. Aorta The aortic root size at the sinus of Valsalva is normal. Left Ventricular Outflow Tract Name Value Normal LVOT 2D LVOT Diameter 2.2 cm LVOT Doppler LVOT Peak Velocity 86 cm/s LVOT Peak Gradient 3 mmHg LVOT Mean Gradient 2 mmHg LVOT VTI 17 cm LVOT Stroke Volume 68 ml LVOT CO 3.9 l/min LVOT CI 2.4 l/min/m2 Pulmonic Valve Name Value Normal RVOT Doppler RVOT Peak Velocity 111 cm/s RVOT Peak Gradient 5 mmHg PV Doppler PV Peak Velocity 132 cm/s PV Peak Gradient 7 mmHg PV Regurgitation Doppler MS Peak End Diastolic Velocity 185 cm/s Mitral Valve Name Value Normal MV Diastolic Function MV E Peak Velocity 62 cm/s MV A Peak Velocity 48 cm/s MV E/A 1.3 MV Decel Time (PW) 210 ms MV Annular TDI MV E/e' (Septal) 18.7 MV E/e' (Lateral) 10.7 MV E/e' (Average) 14.7 Tricuspid Valve Name Value Normal TV Regurgitation Doppler TR Peak Velocity 214 cm/s TR Peak Gradient 18 mmHg Aortic Valve Name Value Normal AV Doppler AV Peak Velocity 97 cm/s AV Peak Gradient 4 mmHg AV Area (Cont Eq Raghavendra) 3.5 cm2 AV DI (Raghavendra) 0.88 AV Regurgitation 2D LVOT Area 4.0 cm2 Ventricles Name Value Normal LV Dimensions 2D/MM IVS Diastolic Thickness (2D) 2.0 cm 0.6-1.0 LVID Diastole (2D) 3.6 cm 4.2-5.8 LVIW Diastolic Thickness (2D) 1.7 cm 0.6-1.0 LVID Systole (2D) 3.1 cm 2.5-4.0 LVOT Diameter 2.2 cm LV Mass (2D Cubed) 287.13 g 88.00-224.00 LV Mass Index (2D Cubed) 177 g/m2 49-115 Relative Wall Thickness (2D) 0.95 <=0.42 LV Fractional Shortening/Ejection Fraction 2D/MM LV Fractional Shortening (2D) 14 % 25-43 LV EF (2D Teichholz) 30 % LV Diastolic Volume (4C MOD) 103 ml LV EF (4C MOD) 31 % LV Diastolic Volume (2C MOD) 137 ml LV EF (2C MOD) 39 % LV Diastolic Volume (BP MOD) 120 ml 62-150 LV Diastolic Volume Index (BP MOD) 74 ml/m2 34-74 LV Systolic Volume (BP MOD) 78 ml 21-61 LV Systolic Volume Index (BP MOD) 48 ml/m2 11-31 LV EF (BP MOD) 35 % 52-72 LV Diastolic Length (4C) 9.1 cm LV Systolic Length (4C) 8.4 cm LV Stroke Volume (4C MOD) 32 ml Atria Name Value Normal LA Dimensions LA Volume (4C A-L) 71 ml LA Volume (BP A-L) 81 ml RA Dimensions RA Systolic Major [place] Length (4C) 4.5 cm 2.1-2.7 RA Area (4C) 13.1 cm2 <=18.0 Report Signatures
--- NOTE | ~2025-03-25 | XR_ITS ---
EXAMINATION: XR chest 2V DATE: 03/25/2025 10:54 INDICATION: Chest pain TECHNIQUE: Frontal and lateral views of the chest were obtained. COMPARISON: June 10, 2024 FINDINGS: The lungs are clear. No pneumothorax or subphrenic free air seen. Left-sided electrodes, recording device, and sternal retention wires appear stable in configuration. Heart size normal. Bones and upper abdomen unremarkable. IMPRESSION: 1. No focal acute process. Reviewed, dictated and finalized at location A. CER OPERATOR IMPRESSION: 1. No focal acute process.
--- NOTE | 2025-03-25 09:49 | ECG_ITS ---
Test Date: 2025-03-25 09:55:29 Measurements Intervals [place] Rate: 60 P: 65 IL: 147 QRS: 84 QRSD: 186 T: 257 QT: 479 QTc: 479 Interpretive Statements SINUS RHYTHM BIATRIAL ENLARGEMENT LEFT BUNDLE BRANCH BLOCK Electronically Signed On 03-25-2025 10:19:13 CHIEF SERVICE OBSERVER by Terrence Fernandez D.O
[2025-03-25] MEDS: ASPIRIN 81 MG CHEWABLE TABLET 324 MG PO (10:20)
[2025-03-25 10:32] LABS: Hematocrit 42.5 % (42.0-52.0); Hemoglobin 13.7 g/dL (14.0-18.0); Immature Granulocyte Percent A 0.2 % (0-0.5); Lymphocytes Absolute Auto 1.33 K/mm3 (0.9-3.2); Mean Corpuscular HGB Conc 32.2 g/dl (32-36); Mean Corpuscular Hemoglobin 26.9 pg (26-34); Mean Corpuscular Volume 83.5 fl (80-100); Nucleated Red Blood Cells Absolute Auto 0.000 K/mm3 (0.0-0.012); Nucleated Red Blood Cells Perc 0.0 % (0.0-0.2); Platelet Count Result 162 k/mm3 (150-375); Red Blood Count 5.09 M/mm3 (4.6-6.20); White Blood Count 5.2 K/mm3 (4.5-10.0)
[2025-03-25 10:44] LABS: INR 1.0; Prothrombin Time 13.7 Seconds (11.1-14.7)
[2025-03-25 10:45] LABS: Partial Thromboplastin Time 31.4 Seconds (22.3-36.8)
[2025-03-25 10:48] LABS: Alanine Aminotransferase 18 U/L (6-50); Albumin Level 4.3 g/dL (3.5-5.1); Alkaline Phosphatase 59 U/L (38-126); Anion Gap 7 mmol/L (4-12); Aspartate Amino Transferase 30 U/L (17-59); Bilirubin,Total 0.8 mg/dL (0.2-1.3); Blood Urea Nitrogen 9 mg/dL (9-20); Calcium 9.2 mg/dL (8.4-10.2); Carbon Dioxide 26 mmol/L (22-30); Chloride 104 mmol/L (98-107); Estimated CRCL calculation 85 ml/min; Estimated Glomerular Filt Rate > 60; Glucose 91 mg/dL (65-110); Lipase 81 U/L (23-300); Potassium 4.1 mmol/L (3.4-5.0); Sodium 137 mmol/L (137-145); Total Protein 7.9 g/dL (6.3-8.2)
[2025-03-25 10:57] LABS: Troponin I 0.095 ng/mL (0.000-0.034)
--- NOTE | 2025-03-25 11:02 | ED.CHESTPAIN ---
HPI - Chest Pain General Chief Complaint: Chest Pain Stated Complaint: chest pain Time Seen by Provider: 03/25/25 11:01 Source: patient Mode of arrival: ambulatory Limitations: no limitations History of Present Illness HPI narrative: 29 YEARS OLD MALE CAME TO THE ED BY PRIVATE CAR COMPLAINING OF LEFT UPPER CHEST PAIN, RADIATING TO LEFT UPPER EXTREMITY STARTED 5 DAYS AGO, SHARP, SHOOTING PAIN, GETS BETTER IBUPROFEN, TYLENOL, GET WORSE AT NIGHT, MOVEMENT, DEEP BREATHING. PATIENT DENIES ANY FEVER, CHILLS, NAUSEA, VOMITING, SHORTNESS BREATH, HISTORY OF HYPERTENSION HYPERTROPHIC CARDIOMYOPATHY , HISTORY OF CARDIAC MYOMECTOMY. 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 Family History Family History Mother Heart disease Apparently of CHF/HOCM age 36 Grandparent Heart disease Says grandfather had the same heart disease that he has Other No acute medical problems Social History Social History Social History: Has a girlfriend. Also young son. Smoking status: Current every day smoker Additional smoking assessment comments: nate Alcohol intake: current Drinks per week: 1 Substance use: current Substance use type: marijuana Last use: 03/24/25 Lack of Transportation: No Lack of Food: Never True Current Housing: I Have Housing Concerned About Future Housing: No Difficulty Paying Gas/Electric Bills: No Difficulty Paying for Meds: No Currently Unemployed: YES Education: High School Diploma/GED Difficulty w/ Childcare or Family Care: No Living arrangements: with family Gender identity (if verbalized by the patient): Male Spiritual care concerns: No Exam Narrative: GENERAL APPEARANCE: WELL-DEVELOPED, WELL-NOURISHED SKIN: NORMAL COLOR HEAD: NORMOCEPHALIC, NONTRAUMATIC EYES: CLEAR CONJUNCTIVA ENT: OROPHARYNX NORMAL, EARS NORMAL, NOSE NORMAL NECK: SUPPLE, NONTENDER CHEST AND RESPIRATORY: AIRWAY PATENT, NO RESPIRATORY DISTRESS, NO ACCESSORY MUSCLE USE HEART: REGULAR RATE/RHYTHM ABDOMEN: SOFT, NONTENDER, NO ORGANOMEGALY, QUIET BOWEL SOUNDS VASCULAR: NORMAL PERIPHERAL PULSES, NORMAL CAPILLARY REFILL. MUSCULOSKELETAL: NORMAL RANGE OF MOTION, NONTENDER BACK NEUROLOGIC: ALERT AND ORIENTED ?3, CORE STRIPPER IS NORMAL TESTED, NO GROSS MOTOR DEFICIT Course Consultations Consultation #1: [facility], Date: 03/25/25 Vital Signs Vital signs: Vital Signs Temperature 36.4 C 03/25/25 10:00 Pulse Rate 58 L 03/25/25 10:00 Respiratory Rate 20 03/25/25 10:00 Blood Pressure 130/73 03/25/25 10:00 Pulse Oximetry 100 03/25/25 10:00 Oxygen Delivery Room Air 03/25/25 10:00 Temperature 37.1 C 03/25/25 16:00 Pulse Rate 58 L 03/25/25 16:00 Respiratory Rate 16 03/25/25 16:00 Blood Pressure 116/69 03/25/25 16:00 Pulse Oximetry 100 03/25/25 16:00 Oxygen Delivery Room Air 03/25/25 10:25 MDM - Chest Pain MDM Narrative Medical decision making narrative: PATIENT PRESENTS WITH LEFT CHEST PAIN RADIATING LEFT UPPER EXTREMITY VITAL SIGNS ARE STABLE PHYSICAL EXAMINATION UNREMARKABLE DIFFERENTIAL DIAGNOSIS CHEST WALL MUSCLE PAIN, ANXIETY, CORONARY ARTERY DISEASE, CONGESTIVE HEART FAILURE BLOOD WORKUP TODAY INCLUDE CBC, CMP, TROPONIN, PRO BMP SHOWED TROPONIN 0.095 CONSISTENT WITH THE PREVIOUS READINGS, PROBNP 2310 INCREASED COMPARED TO THE PREVIOUS READING OTHERWISE WITHIN NORMAL LIMIT CHEST X-RAY SHOWED NO ACUTE ABNORMALITY EKG SHOWED NORMAL SINUS RHYTHM 60 BEATS PER MINUTE, BIATRIAL ENLARGEMENT, LEFT BUNDLE-BRANCH BLOCK DIAGNOSIS CHEST PAIN WITH ELEVATED TROPONIN AND PROBNP ADMIT TO HOSPITALIST Differential Diagnosis Differential diagnosis: Likely other ( ABOVE) Medical Records Data Attestation: I reviewed the patient's medical records. Lab Data Attestation: I reviewed the patient's lab results. 03/25/25 10:27 03/25/25 10:27 Labs: Lab Results 03/25/25 Range/Units 10:27 WBC 5.2 (4.5-10.0) K/mm3 RBC 5.09 (4.6-6.20) M/mm3 Hgb 13.7 L (14.0-18.0) g/dL Hct 42.5 (42.0-52.0) % MCV 83.5 (80-100) fl MCH 26.9 (26-34) pg MCHC 32.2 (32-36) g/dl RDW 12.5 (11.5-14.5) % Plt Count 162 (150-375) k/mm3 MPV 10.5 H (7.4-10.4) fl Immature Gran % (Auto) 0.2 (0-0.5) % Neut % (Auto) 60.5 (45.5-73.1) % Lymph % (Auto) 25.8 (18.3-44.2) % [place] % (Auto) 11.2 H (2.6-8.5) % Eos % (Auto) 1.9 (0-4.4) % Baso % (Auto) 0.4 (0.2-1.2) % Lymph # (Auto) 1.33 (0.9-3.2) K/mm3 [place] # (Auto) 0.6 (0.1-0.6) K/mm3 Eos # (Auto) 0.1 (0-0.3) K/mm3 Baso # (Auto) 0.0 (0.0-0.1) K/mm3 Abs Immat Gran (auto) 0.01 (0.00-0.031) K/mm3 Absolute Neuts (auto) 3.1 (1.3-6.7) K/mm3 Absolute Nucleated RBC 0.000 (0.0-0.012) K/mm3 Nucleated RBC % 0.0 (0.0-0.2) % PT 13.7 (11.1-14.7) Seconds INR 1.0 APTT 31.4 (22.3-36.8) Seconds Sodium 137 (137-145) mmol/L Potassium 4.1 (3.4-5.0) mmol/L Chloride 104 (98-107) mmol/L Carbon Dioxide 26 (22-30) mmol/L Anion Gap 7 (4-12) mmol/L BUN 9 (9-20) mg/dL Creatinine 0.92 (0.7-1.3) mg/dL Estim Creat Clear Calc 85 ml/min Estimated GFR > 60 (59 - ) Glucose 91 (65-110) mg/dL Calcium 9.2 (8.4-10.2) mg/dL Total Bilirubin 0.8 (0.2-1.3) mg/dL AST 30 (17-59) U/L ALT 18 (6-50) U/L Alkaline Phosphatase 59 (38-126) U/L Troponin I 0.095 H* (0.000-0.034) ng/mL NT-Pro-B Natriuret Pep 2310 H (19.9-100) pg/mL Total Protein 7.9 (6.3-8.2) g/dL Albumin 4.3 (3.5-5.1) g/dL Lipase 81 (23-300) U/L Imaging Data Radiologist's impression: Impressions Chest X-Ray 03/25/25 11:01 IMPRESSION: 1. No focal acute process. ECG Data EKG #1: Attestation: I personally reviewed and interpreted this ECG as follows: ECG completion date: 03/25/25 Prior ECG tracings: not available for review Interpretation: NORMAL SINUS RHYTHM AT 60 BEATS PER MINUTE, BIATRIAL ENLARGEMENT, LEFT BUNDLE-BRANCH BLOCK Critical Care Time Critical Care Time Critical Care Time: No Discharge Plan Discharge Clinical Impression: Chest pain, Elevated troponin Patient Disposition: Still a Patient Condition: Stable
[2025-03-25 11:27] LABS: NT Pro B Type Natriuretic Pept 2310 pg/mL (19.9-100)
--- OUTSIDE RECORDS SUMMARY | 2025-03-25 11:28 | XMS_ITS | Encounter Summary ---
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 Gender Identity Male 08/24/2024 9:57 AM CDT Sexual Orientation Straight 08/24/2024 9: 57 AM CDT documented as of this encounter Plan of Treatment Not on file documented as of this encounter Visit Diagnoses Not on filedocumented in this encounter Additional Health Concerns Infection Onset Date Last Indicated Resolved Time COVID-19 Rule Out 04/17/2023 04/17/2023 04/17/2023 2:34 PM ULTRASOUND APPLICATIONS SPECIALIST documented as of this encounter Care Teams Offal Icer Poultry Relationship Specialty Start Date End Date Fior Mao NP [address] [place] [phone] PCP - General NURSE PRACTITIONER 05/08/22 documented as of this encounter
--- OUTSIDE RECORDS SUMMARY | 2025-03-25 11:28 | XMS_ITS | Encounter Summary ---
Author Organization [facility] Address [address] [place] [address] Care Team Providers Care Environmental Engineering Manager Name Role Phone Fior Mao NP Primary Care Provider [phone] Encounter Details Date Type Department Care Team (Late st Contact Info) Description 09/20/2023 BMEYE Message Enc [place] [facility] on THREE [facility], [address] [place], [place] [id number] Nam Diaz MD Three [facility] [address] [place], [place] [id number] Loop recorder Social History Tobacco Use Types [...] AM CDT 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
--- OUTSIDE RECORDS SUMMARY | 2025-03-25 11:28 | XMS_ITS | Encounter Summary ---
Author Organization [facility] Address [address] [place] [address] Care Team Providers Care Call Center Support Consultant Name Role Phone Fior Mao NP Primary Care Provider [phone] Reason for Visit * Reason Onset Date Comments Concerns 03/24/2025 Encounter Details Date Type Department Care Team (Late st Contact Info) Description 03/24/2025 Telephone [facility] Family Medicine - [place] [address] 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 He has fairly extensive cardiac history. He is telling me he is having pain that he has not had before. It is in his arm and shoulder and he is having intermittent chest painand tightness. I advised that he needed to go to ER for testing and evaluation. ESSOR OF SPANISH documented in this encounter Plan of Treatment Not on file documented as of this encounter Visit Diagnoses Not on filedocumented in this encounter Additional Health Concerns Assessment Noted Time PHQ-9 Depression Total Score: 15 025 10:02 AM CDT documented as of this encounter Care Teams Call Center Support Consultant Relationship Specialty Start Date End Date Fior Mao NP [address] [place] [address] PCP - General NURSE PRACTITIONER 05/08/22 documented as of this encounter
--- OUTSIDE RECORDS SUMMARY | 2025-03-25 11:28 | XMS_ITS | Clinical Summary ---
Author Organization [facility] Address [address] [place] [address] Care Team Providers Care Installation & Maintenance Executive Name Role Phone Fior Mao NP Primary Care Provider [phone] Allergies No known active allergies Medications ibuprofen [...] (05/17/2022): Added automatically from request for surgery [id number] Hypertrophic cardiomyopathy 11/11/2019 History of ventricular septal myectomy 0 WPW (Ifxow-Yappsmcza-Dvxzo syndrome) 11/11/2019 Encounters Date Type Department Care Team Description 03/24/2025 Telephone [facility] Family Medicine - [place] [address] [place] [address] Fior Mao NP Concerns from Last 3 Months Immunizations Immunization Administration [...] AM CDT 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 Gender Identity Male 08/24/2024 9:57 AM CDT [...] 08/24/2024 9:58 AM CDT Plan of Treatment Health Maintenance Due Date Last Done Comments Hepatitis C 2014 DTaP, Tdap and Td Vaccines ( 1 - Tdap) 2015 Hepatitis B Vaccines (1 of 3 - 19+ 3-dose series) 2015 HPV Vaccines (1 - 3-dose SCD M series) 2023 Annual Physical 05/17/2023 05/17/2022 COVID-19 Vaccine (3 - 2024-2 6 season) 2025 07/05/2020, 06/14/2020 Influenza Adult (#1) 2025 PHQ-2 (Physician [place]) Completed 08/24/2024 Hepatitis A Vaccines Aged Out No long er eligible based on patient's age to complete [...] this topic Medical Devices Implanted Type Area Equipment Operator Device Identifier Shelf Expiration Date Model / Serial / Lot Mdt Implantable Loop Recorder- 023 Implanted:12/26 by Aaron Woodruff MD (Quantity not on file) Implantable Loop Recorder [employer] CARDIAC RHYTHM AND HEART FAILURE - DIV M 03/09/2024 [id number] / [id number] / Insurance [employer] Care Teams Installation & Maintenance Executive Relationship Specialty Start Date End Date Fior Mao NP [address] [place] [phone] PCP - General NURSE PRACTITIONER 05/08/22
--- NOTE | 2025-03-25 12:15 | WPCEDHO ---
ED Hand Off Checklist All vitals saved: yes IV Site documented: yes All med administrations documented: yes Triage Note Triage Note patient with sharp shooting L 03/25/25 10:17 [address] CP radiating down his L arm and L shoulder for 5d. h/o hypertrophic cardiomyopathy with h/o pacemaker and removal in 2019 , loop recorder pt sees cardiology at [place]. pt denies feeling SOB, but hurts to breath in Allergies No Known Allergies Allergy (Unknown, Verified 03/25/25 10:20) Family History (Last Reviewed 03/25/25 @ 11:32 by India Griffith MD) Mother Heart disease Grandparent Heart disease Other No acute medical problems Administered/Completed Medications Discontinued Medications Aspirin (Aspirin 81 Mg Chewable Tablet) 324 mg PO ONCE STA Stop: 03/25/25 09:50 Last Admin: 03/25/25 10:20 Dose: 324 mg Documented By: DANG Aspirin (Aspirin 325 Mg Tablet) 325 mg PO ONCE STA Stop: 03/25/25 11:30 Last Admin: 03/25/25 11:47 Dose: Not Given Documented By: DANG Non-Admin Reason: Duplicate Dose Interventions/Assessments Cardiac Monitoring Start: 03/25/25 09:49 Freq: Status: Active Protocol: Document 03/25/25 10:24 KNW (Rec: 03/25/25 10:24 KNW [id number]) Registered Public Health Nurse Assessment Registered Public Health Nurse Yes Applied Pulse Rate (60-100) 63 EKG Rythm Sinus Rhythm IV / Saline Lock, Insert Start: 03/25/25 09:49 Freq: STAT Status: Active Protocol: Document 03/25/25 10:22 KNW (Rec: 03/25/25 10:22 KNW [id number]) IV Assessment Peripheral Access Right Forearm IV Catheter Access Initiated IV Insertion Date 03/25/25 IV Insertion Time 10:22 Catheter Gauge 18 IV Insertion 1 Attempts Ultrasound Used for No Placement IV Site Assessment WNL IV Care and WNL Maintenance PA: Cardiovascular Assessment Start: 03/25/25 09:49 Freq: Status: Active Protocol: Document 03/25/25 10:23 KNW (Rec: 03/25/25 10:24 KNW [id number]) Cardiovascular Assessment Cardiovascular Chest Pain Symptoms Skin Description Normal Color Heart Sounds Normal Jugular Vein None Distention Chest Pain Assessment Chest Pain Intensity 9 Chest Pain Location Left Chest Description and Sharp Symptoms Chest Pain Duration > 6 Hours Chest Pain Radiation Left Arm,Left Shoulder Jugular Vein None Distention PA: Respiratory Assessment Start: 03/25/25 09:49 Freq: Status: Active Protocol: Document 03/25/25 10:23 KNW (Rec: 03/25/25 10:24 KNW [id number]) Respiratory Assessment Symptoms None Effort Normal Pattern Regular Depth Normal Chest Expansion Symmetrical Cough Description None Sputum Amount None Oxygen Delivery Oxygen Delivery Room Air Pulse Oximetry (90- 98 100) Last Vital Signs Temperature 97.6 F 03/25/25 10:00 Pulse Rate 57 L 03/25/25 12:01 Respiratory Rate 22 H 03/25/25 12:01 Pulse Oximetry 100 03/25/25 12:01 Blood Pressure 113/76 03/25/25 12:01 Blood Pressure Mean 88 03/25/25 12:01 Blood Pressure Position Sitting 03/25/25 10:24 Oxygen Delivery Room Air 03/25/25 10:25 Weight 57.1 kg 03/25/25 10:17 Last Result - Abnormals Only Hgb 13.7 g/dL (14.0-18.0) L 03/25/25 10:27 MPV 10.5 fl (7.4-10.4) H 03/25/25 10:27 [place] % (Auto) 11.2 % (2.6-8.5) H 03/25/25 10:27 Troponin I 0.095 ng/mL (0.000-0.034) H* 03/25/25 10:27 NT-Pro-B Natriuret Pep 2310 pg/mL (19.9-100) H 03/25/25 10:27 Most Recent Suicide Severity Rating Suicide Severity Rating NO RISK INDICATED 03/25/25 10:17
--- NOTE | 2025-03-25 12:49 | ADMGEN ---
This patient, Willian Collado Jr., was admitted to IMU Room 211-01. Patient/family oriented to hospital policies and general routines including ID bracelet, bed and alarms, visiting hours, pain management, procedures, bathroom and other care routines, personal items, smoking policy, room service/diet, and visiting hours. Information on how to activate the Rapid Response Team has been discussed. Patient/Family are encouraged to report perceived risks to care and to ask questions if they do not understand what they are told or what they should do.
--- NOTE | 2025-03-25 13:55 | P.CONCA_ITS ---
Assessment and Plan Assessment and plan (1) Chest pain: Code(s): R07.9 - Chest pain, unspecified Status: Acute Assessment and Plan: He has atypical chest pain that does not have any ischemic characteristics. EKG does not have any ischemic changes. He does have a left bundle branch block which is chronic. This is most likely musculoskeletal in etiology. Continue with Tylenol and other conservative pain management interventions. Can try heating pad to the affected area or topical lidocaine patch. (2) Elevated troponin I level: Code(s): R79.89 - Other specified abnormal findings of blood chemistry Status: Acute Assessment and Plan: He has chronic troponin elevation related to HOCM. His troponin is minimally elevated and flat. This is not represent acute coronary syndrome. Will obtain 6 hour troponin, and if troponin level remains flat do not need to sample anymore cardiac enzymes. (3) WPW (Hbpfd-Vvtymjthx-Kczfh syndrome): Code(s): I45.6 - Pre-excitation syndrome Status: Acute Assessment and Plan: As detailed in HPI. No syncope, presyncope, or palpitations. (4) HOCM (hypertrophic obstructive cardiomyopathy): Code(s): I42.1 - Obstructive hypertrophic cardiomyopathy Status: Acute Assessment and Plan: As detailed in HPI. Echocardiogram ordered and pending (5) Musculoskeletal chest pain: Code(s): R07.89 - Other chest pain Status: Acute Assessment and Plan: Management per hospitalist. History of Present Illness History of Present Illness Consult date/time: 03/25/25 13:55 Requesting physician: India Griffith MD Consult reason: chest pain Reason For Visit: Chest Pain/Elevated Troponin Narrative: Willian Collado Jr. 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 He was followed at [facility], but since he has become an adult has not had regular cardiology follow-up. He has been seen in our office a few times and he was referred to [facility] for the Hypertrophic Cardiomyopathy Clinic (Dr. Ferrara) and with electrophysiology (Dr. Ramachandran) and was last seen on 03/19/2025 where ICD lead extraction and SICD implantation procedure was discussed. He comes to the emergency department today with a chief complaint of chest tightness. He developed left-sided chest, shoulder, and neck discomfort about 5 days ago. He also reports an overall sensation of feeling ?off. ? He began taking ibuprofen and Tylenol which does relieve the pain for a few hours but he states that the pain always comes back and tends to become worse throughout the day. He is unable to lay on his left side and reports feeling weakness and inability to lift objects with his left arm. He describes the left chest sensation as a soreness but has difficulty describing it in depth. He does not have any shortness of breath, palpitations, syncope. He does recall 1 incident a couple of days ago where he felt like he was seeing stars while sitting down. This resolved spontaneously. He also reports worsening the chest discomfort when taking a deep breath. Review of Systems 2 Review of Systems: All systems reviewed & are unremarkable except as noted in HPI and below PMFSH Past Medical History Medical History Malfunction of electrode lead of implantable cardioverter-defibrillator (ICD) Pacemaker Bipolar 1 disorder Kghmb-Fcmppbjte-Sedxf (WPW) syndrome Hypertrophic cardiomyopathy Surgical History Surgical History History of heart surgery Apparently had myomectomy in [place] around 9 years old. Family History Family History Mother Heart disease Apparently of CHF/HOCM age 36 Grandparent Heart disease Says grandfather had the same heart disease that he has Other No acute medical problems Social History Social History Social History: Has a girlfriend. Also young son. Smoking status: Current every day smoker Additional smoking assessment comments: nate Alcohol intake: current Drinks per week: 1 Substance use: current Substance use type: marijuana Last use: 03/24/25 Lack of Transportation: No Lack of Food: Never True Current Housing: I Have Housing Concerned About Future Housing: No Difficulty Paying Gas/Electric Bills: No Difficulty Paying for Meds: No Currently Unemployed: YES Education: High School Diploma/GED Difficulty w/ Childcare or Family Care: No Living arrangements: with family Gender identity (if verbalized by the patient): Male Spiritual care concerns: No Meds Home Medications and Allergies Home Medications ?Medication ?Instructions ?Recorded ?Confirmed ?Type atenolol 50 mg tablet 75 mg PO DAILY 01/13/2103/07 History ibuprofen 600 mg tablet 600 mg PO TID PRN pain #14 t abs 12/07/21 03/25/25 Rx acetaminophen 500 mg capsule 500 mg PO QID PRN fever o r pain 01/03/23 03/25/25 Rx #30 caps Allergies Allergy/AdvReac Type Severity Reaction Status Date / Time No Known Allergies Allergy Unknown Verified 03/25/25 13:28 Vital Signs Vital Signs - 24 hr 03/25/25 10:00 03/25/25 10:17 03/25/25 10:23 Temperature 36.4 C Pulse Rate 58 L 58 L Respiratory Rate 20 16 Blood Pressure 130/73 124/91 H Pulse Oximetry 100 100 98 Oxygen Delivery Room Air Room Air Room Air 03/25/25 10:24 03/25/25 10:24 03/25/25 10:25 Temperature Pulse Rate 63 62 Respiratory Rate 17 Blood Pressure 124/91 H Pulse Oximetry 99 100 Oxygen Delivery Room Air 03/25/25 11:30 03/25/25 11:41 03/25/25 11:46 Temperature Pulse Rate 56 L 59 L 59 L Respiratory Rate 15 14 15 Blood Pressure 119/72 119/72 118/80 Pulse Oximetry 100 100 100 Oxygen Delivery 03/25/25 12:01 03/25/25 12:58 Temperature 36.4 C Pulse Rate 57 L 60 Respiratory Rate 22 H 16 Blood Pressure 113/76 124/84 Pulse Oximetry 100 100 Oxygen Delivery Exam 2 Const: General: comfortable, no acute distress, alert and awake O rientation/consciousness: patient oriented x3 HENMT: Head: normal to inspection Eyes: General: appearance normal, both eyes and all related structures P upils: Equal, round and reactive pupils present Neck: Neck: normal visual inspection, supple and no JVD Carotids: normal carotid upstroke Chest: Other: Reproducible left chest wall pain to palpation Resp: Effort & Inspection: normal respiratory effort Auscultation: clear to auscultation bilaterally Cardio: Rate: regular rate Rhythm: regular rhythm Heart sounds: S1 normal heart sound present, S2 normal heart sound present, no murmurs and no rubs GI: Auscultation: normal bowel sounds Skin: General skin exam: normal color Neuro: General: patient oriented x3 Cranial nerves: Yes Equal, round and reactive pupils present Extrem: General: normal to inspection Psych: Appearance: grossly normal Mental Status: mental status grossly normal Results Labs and Meds 03/25/25 10:03/25/25 10: Lab results: Cardiac Enzymes 03/25/25 Range/Units 10: AST 30 (17-59) U/L Troponin I 0.095 H* (0.000-0.034) ng/mL Coagulation 03/25/25 Range/Units 10: PT 13.7 (11.1-14.7) Seconds APTT 31.4 (22.3-36.8) Seconds CBC 03/25/25 Range/Units 10:27 WBC 5.2 (4.5-10.0) K/mm3 RBC 5.09 (4.6-6.20) M/mm3 Hgb 13.7 L (14.0-18.0) g/dL Hct 42.5 (42.0-52.0) % Plt Count 162 (150-375) k/mm3 Lymph # (Auto) 1.33 (0.9-3.2) K/mm3 [place] # (Auto) 0.6 (0.1-0.6) K/mm3 Eos # (Auto) 0.1 (0-0.3) K/mm3 Baso # (Auto) 0.0 (0.0-0.1) K/mm3 Comprehensive Metabolic Panel 03/25/25 Range/Units 10:27 Sodium 137 (137-145) mmol/L Potassium 4.1 (3.4-5.0) mmol/L Chloride 104 (98-107) mmol/L Carbon Dioxide 26 (22-30) mmol/L BUN 9 (9-20) mg/dL Creatinine 0.92 (0.7-1.3) mg/dL Glucose 91 (65-110) mg/dL Calcium 9.2 (8.4-10.2) mg/dL AST 30 (17-59) U/L ALT 18 (6-50) U/L Alkaline Phosphatase 59 (38-126) U/L Total Protein 7.9 (6.3-8.2) g/dL Albumin 4.3 (3.5-5.1) g/dL Patient Weight 03/25/25 23:59 Weight 56.2 kg
[2025-03-25 14:07] LABS: Troponin I 0.095 ng/mL (0.000-0.034)
[2025-03-25 14:08] LABS: Cannabinoid Screen Urine Positive (Negative)
--- NOTE | 2025-03-25 15:30 | PM.IMHP ---
H&P: HPI History of Present Illness Date/Time: 03/25/25 15:30 Chief Complaint: Chest pain Narrative: Patient is a 29-year-old male with a past medical history of WPW, HOCM, which was diagnosed at the age of 8 years, ICD placement at age 10, myomectomy at the age of 12 presented to the ED due to weakness and fatigue for the past 1 week, which was later complicated by pain radiating to the left arm and neck. He reports his pain was excruciating last night and took some ibuprofen and was able to sleep for some time, but again he experienced pain. He called his youth care worker, , who advised him to go to the ED. As mentioned previously, the patient has an extensive cardiac history. Mother at the age of 36 due to HOCM. Patient had ICD placement at the age of 10, but due to recall, they removed his ICD in 2020, but kept the leads. The patient received a loop recorder in 2022. Patient follows up with Dr. Clemente Ferrara at [place], but he has not visited him for the past 2 years due to insurance issues. Patient has elevated troponin. EKG shows left bundle branch block, as seen in the previous EKGs, and I ordered UDS and echocardiogram. Patient acknowledges taking Xanax/other prescription drugs from his family member due to pain. Patient is currently NPO until Cardiology evaluates him. Review of Systems Review of Systems: All systems reviewed & are unremarkable except as noted in HPI and below PMFSH Past Medical History Medical History Malfunction of electrode lead of implantable cardioverter-defibrillator (ICD) Pacemaker Bipolar 1 disorder Xibpm-Jqzmgpdzh-Vqkxb (WPW) syndrome Hypertrophic cardiomyopathy Surgical History Surgical History History of heart surgery Apparently had myomectomy in [place] around 9 years old. Family History Family History Mother Heart disease Apparently of CHF/HOCM age 36 Grandparent Heart disease Says grandfather had the same heart disease that he has Other No acute medical problems Social History Social History Social History: Has a girlfriend. Also young son. Smoking status: Current every day smoker Additional smoking assessment comments: nate Alcohol intake: current Drinks per week: 1 Substance use: current Substance use type: marijuana Last use: 03/24/25 Lack of Transportation: No Lack of Food: Never True Current Housing: I Have Housing Concerned About Future Housing: No Difficulty Paying Gas/Electric Bills: No Difficulty Paying for Meds: No Currently Unemployed: YES Education: High School Diploma/GED Difficulty w/ Childcare or Family Care: No Living arrangements: with family Gender identity (if verbalized by the patient): Male Spiritual care concerns: No Meds Home Medications and Allergies Home Medications ?Medication ?Instructions ?Recorded ?Confirmed ?Type atenolol 50 mg tablet 75 mg PO DAILY 01/13/21 03/25/25 History ibuprofen 600 mg tablet 600 mg PO TID PRN pain #14 tabs 12/07/21 03/25/25 Rx acetaminophen 500 mg capsule 500 mg PO QID PRN fever or pain 01/03/23 03/25/25 Rx #30 caps Allergies Allergy/AdvReac Type Severity Reaction Status Date / Time No Known Allergies Allergy Unknown Verified 03/25/25 13:28 Vital Signs Vital Signs - 24 hr 03/25/25 10:00 03/25/25 10:17 03/25/25 10:23 Temperature 97.6 F Pulse Rate 58 L 58 L Respiratory Rate 20 16 Blood Pressure 130/73 124/91 H Pulse Oximetry 100 100 98 Oxygen Delivery Room Air Room Air Room Air 03/25/25 10:24 03/25/25 10:24 03/25/25 10:25 Temperature Pulse Rate 63 62 Respiratory Rate 17 Blood Pressure 124/91 H Pulse Oximetry 99 100 Oxygen Delivery Room Air 03/25/25 11:30 03/25/25 11:41 03/25/25 11:46 Temperature Pulse Rate 56 L 59 L 59 L Respiratory Rate 15 14 15 Blood Pressure 119/72 119/72 118/80 Pulse Oximetry 100 100 100 Oxygen Delivery 03/25/25 12:01 03/25/25 12:58 Temperature 97.6 F Pulse Rate 57 L 60 Respiratory Rate 22 H 16 Blood Pressure 113/76 124/84 Pulse Oximetry 100 100 Oxygen Delivery Exam Narrative: GENERAL APPEARANCE: WELL-DEVELOPED, WELL-NOURISHED SKIN: NORMAL COLOR HEAD: NORMOCEPHALIC, NONTRAUMATIC EYES: CLEAR CONJUNCTIVA ENT: OROPHARYNX NORMAL, EARS NORMAL, NOSE NORMAL NECK: SUPPLE, NONTENDER CHEST AND RESPIRATORY: AIRWAY PATENT, NO RESPIRATORY DISTRESS, NO ACCESSORY MUSCLE USE HEART: REGULAR RATE/RHYTHM ABDOMEN: SOFT, NONTENDER, NO ORGANOMEGALY, QUIET BOWEL SOUNDS VASCULAR: NORMAL PERIPHERAL PULSES, NORMAL CAPILLARY REFILL. MUSCULOSKELETAL: NORMAL RANGE OF MOTION, NONTENDER BACK NEUROLOGIC: ALERT AND ORIENTED ?3, MANUFACTURING INDUSTRIAL ENGINEER IS NORMAL TESTED, NO GROSS MOTOR DEFICIT Const: General: comfortable, no acute distress, alert and awake Orientation/consciousness: patient oriented x3 HENMT: Head: normal to inspection Eyes: General: appearance normal, both eyes and all related structures Pupils: Equal, round and reactive pupils present Neck: Neck: normal visual inspection, supple and no JVD Carotids: normal carotid upstroke Chest: Other: Reproducible left chest wall pain to palpation Resp: Effort & Inspection: normal respiratory effort Auscultation: clear to auscultation bilaterally Cardio: Rate: regular rate Rhythm: regular rhythm Heart sounds: S1 normal heart sound present, S2 normal heart sound present, no murmurs and no rubs GI: Auscultation: normal bowel sounds Skin: General skin exam: normal color Neuro: General: patient oriented x3 Cranial nerves: Yes Equal, round and reactive pupils present Extrem: General: normal to inspection Psych: Appearance: grossly normal Mental Status: mental status grossly normal H&P: Results Labs Labs: Short CBC 03/25/25 Range/Units 10:27 WBC 5.2 (4.5-10.0) K/mm3 Hgb 13.7 L (14.0-18.0) g/dL Hct 42.5 (42.0-52.0) % Plt Count 162 (150-375) k/mm3 BMP 03/25/25 10:27 Sodium 137 Potassium 4.1 Chloride 104 Carbon Dioxide 26 BUN 9 Creatinine 0.92 Glucose 91 Calcium 9.2 Cardiac Enzymes 03/25/25 03/25/25 Range/Units 10:27 13:28 Troponin I 0.095 H* 0.095 H* (0.000-0.034) ng/mL Liver Function 03/25/25 Range/Units 10:27 Total Bilirubin 0.8 (0.2-1.3) mg/dL AST 30 (17-59) U/L ALT 18 (6-50) U/L Alkaline Phosphatase 59 (38-126) U/L Albumin 4.3 (3.5-5.1) g/dL Assessment and Plan Assessment and plan (1) Chest pain: Code(s): R07.9 - Chest pain, unspecified Status: Acute Assessment and Plan: -patient given aspirin 325 mg x1 -history of HOCM -s/p myomectomy 2004 -s/p removal of ICD but still have the leads -s/p loop recorder 2022 -give sublingual nitro if needed -heparin as per Cardiology -Echocardiogram pending -acknowledges using Zanax and other prescription drugs for pain -ordered UDS -trend troponin -Reviewed EKG and CXR -consulted cardiology (2) HOCM (hypertrophic obstructive cardiomyopathy): Code(s): I42.1 - Obstructive hypertrophic cardiomyopathy Status: Acute Assessment and Plan: Same as above (3) Elevated troponin I level: Code(s): R79.89 - Other specified abnormal findings of blood chemistry Status: Acute Assessment and Plan: Same as above (4) Chest pain: Code(s): R07.9 - Chest pain, unspecified Status: Acute Assessment and Plan: Same as above (5) WPW (Lksez-Gznbbvijo-Ybdia syndrome): Code(s): I45.6 - Pre-excitation syndrome Status: Acute Assessment and Plan: Avoid tristan blocking agents Plan Code full code DVT prophylaxis enoxaparin 40 mg subcu Hospitalist MIPS Advance Care Plan I have confirmed that the patient's Advanced Care Plan is present, code status is documented, or surrogate decision maker is listed in patient medical record.: Yes Medication Reconciliation I have utilized all available resources to obtain, update and review the patients current medications (includes all prescriptions, OTC, herbals, cannabis, and nutritional supplements).: Yes
[2025-03-25] MEDS: PERFLUTREN LIPID MICROSPHERES 1.5 ML VIAL DILUTED TO 10 ML TOTAL VOLUME IV PUSH (15:48)
--- NOTE | 2025-03-25 15:48 | IVDEFINITY ---
Prior to administration of IV Definity the patient was educated on the risks and benefits of the imaging enhancing agent including potential adverse side effects. The patient verbalized understanding. Allergies were verified. No exclusion criteria were identified and at least one of the following inclusion criteria were met: 1) physician request, 2) patient technically difficult to image (per the [place] [employer] of Echocardiography guidelines of two or more segments not discernable within the apical view), or 3) questionable left ventricular function. ?
[2025-03-25] MEDS: ENOXAPARIN 40 MG/0.4 ML SYRINGE SUB-Q (17:01)
[2025-03-25 17:27] LABS: Troponin I 0.093 ng/mL (0.000-0.034)
[2025-03-25] MEDS: ONDANSETRON INJ 4 MG/2 ML VIAL IV PUSH (20:45)
[2025-03-26] VITALS (8 sets, daily range): BP systolic 112–123; BP diastolic 66–78; PULSE 55–74; RESP 16–18; TEMP 36.3–36.5; O2SAT 98–100
--- NOTE | 2025-03-26 06:32 | PM.DS ---
DS: Admitting Diagnosis Discharge Date 03/26/2025 Admitting Diagnosis Chest pain DS: Discharge Diagnosis Discharge Diagnosis (1) Chest pain: Code(s): R07.9 - Chest pain, unspecified Status: Acute Assessment and Plan: -patient given aspirin 325 mg x1 -history of HOCM -s/p myomectomy 2004 -s/p removal of ICD but still have the leads -s/p loop recorder 2022 -give sublingual nitro if needed -heparin as per Cardiology -Echocardiogram pending -acknowledges using Zanax and other prescription drugs for pain -ordered UDS -trend troponin -Reviewed EKG and CXR -consulted cardiology (2) HOCM (hypertrophic obstructive cardiomyopathy): Code(s): I42.1 - Obstructive hypertrophic cardiomyopathy Status: Acute Assessment and Plan: Same as above (3) Elevated troponin I level: Code(s): R79.89 - Other specified abnormal findings of blood chemistry Status: Acute Assessment and Plan: Same as above (4) WPW ([place]aukm-Fxmzanorf-Wfuea syndrome): Code(s): I45.6 - Pre-excitation syndrome Status: Acute Assessment and Plan: Avoid tristan blocking agents Plan Code full code DVT prophylaxis enoxaparin 40 mg subcu DS: Summary Hospital Course Hospital Course: Willian Collado Jr. 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 He was followed at [facility], but since he has become an adult has not had regular cardiology follow-up. He has been seen in our office a few times and he was referred to [facility] for the Hypertrophic Cardiomyopathy Clinic (Dr. Ferrara) and with electrophysiology (Dr. Ramachandran) and was last seen on 03/19/2025 where ICD lead extraction and SICD implantation procedure was discussed. He comes to the emergency department today with a chief complaint of chest tightness. Cardiology evaluated the patient reports of possible musculoskeletal and no further intervention. Patient can follow-up with his Cardiology at [place]. 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 Status at Discharge Cognitive/behavioral status at discharge: Guarded Time Spent with Patient Time attestation: Total time spent providing and/or coordinating discharge services: 45 minute Exam Narrative: GENERAL APPEARANCE: WELL-DEVELOPED, WELL-NOURISHED SKIN: NORMAL COLOR HEAD: NORMOCEPHALIC, NONTRAUMATIC EYES: CLEAR CONJUNCTIVA ENT: OROPHARYNX NORMAL, EARS NORMAL, NOSE NORMAL NECK: SUPPLE, NONTENDER CHEST AND RESPIRATORY: AIRWAY PATENT, NO RESPIRATORY DISTRESS, NO ACCESSORY MUSCLE USE HEART: REGULAR RATE/RHYTHM ABDOMEN: SOFT, NONTENDER, NO ORGANOMEGALY, QUIET BOWEL SOUNDS VASCULAR: NORMAL PERIPHERAL PULSES, NORMAL CAPILLARY REFILL. MUSCULOSKELETAL: NORMAL RANGE OF MOTION, NONTENDER BACK NEUROLOGIC: ALERT AND ORIENTED ?3, STYRENE DEHYDRATION REACTOR OPERATOR IS NORMAL TESTED, NO GROSS MOTOR DEFICIT Const: General: comfortable, no acute distress, alert and awake Orientation/consciousness: patient oriented x3 HENMT: Head: normal to inspection Eyes: General: appearance normal, both eyes and all related structures Pupils: Equal, round and reactive pupils present Neck: Neck: normal visual inspection, supple and no JVD Carotids: normal carotid upstroke Chest: Other: Reproducible left chest wall pain to palpation Resp: Effort & Inspection: normal respiratory effort Auscultation: clear to auscultation bilaterally Cardio: Rate: regular rate Rhythm: regular rhythm Heart sounds: S1 normal heart sound present, S2 normal heart sound present, no murmurs and no rubs GI: Auscultation: normal bowel sounds Skin: General skin exam: normal color Neuro: General: patient oriented x3 Cranial nerves: Yes Equal, round and reactive pupils present Extrem: General: normal to inspection Psych: Appearance: grossly normal Mental Status: mental status grossly normal DS: Data Data Completed and Pending Labs on day of discharge: Labs from last 24 hours 03/25/25 03/25/25 03/25/25 16:38 16:36 13:28 WBC RBC Hgb Hct MCV MCH MCHC RDW Plt Count MPV Immature Gran % (Auto) Neut % (Auto) Lymph % (Auto) [place] % (Auto) Eos % (Auto) Baso % (Auto) Lymph # (Auto) [place] # (Auto) Eos # (Auto) Baso # (Auto) Abs Immat Gran (auto) Absolute Neuts (auto) Absolute Nucleated RBC Nucleated RBC % PT INR APTT Sodium Potassium Chloride Carbon Dioxide Anion Gap BUN Creatinine Estim Creat Clear Calc Estimated GFR Glucose POC Capillary Glucose 93 Calcium Total Bilirubin AST ALT Alkaline Phosphatase Troponin I 0.093 H* 0.095 H* NT-Pro-B Natriuret Pep Total Protein Albumin Lipase Urine Opiates Screen Urine Methadone Screen Ur Barbiturates Screen Ur Phencyclidine Scrn Ur Amphetamine Screen U Benzodiazepines Scrn Urine Cocaine Screen U Cannabinoids Screen Ethyl Alcohol < 10 03/25/25 03/25/25 13:20 10:27 WBC 5.2 RBC 5.09 Hgb 13.7 L Hct 42.5 MCV 83.5 MCH 26.9 MCHC 32.2 RDW 12.5 Plt Count 162 MPV 10.5 H Immature Gran % (Auto) 0.2 Neut % (Auto) 60.5 Lymph % (Auto) 25.8 [place] % (Auto) 11.2 H Eos % (Auto) 1.9 Baso % (Auto) 0.4 Lymph # (Auto) 1.33 [place] # (Auto) 0.6 Eos # (Auto) 0.1 Baso # (Auto) 0.0 Abs Immat Gran (auto) 0.01 Absolute Neuts (auto) 3.1 Absolute Nucleated RBC 0.000 Nucleated RBC % 0.0 PT 13.7 INR 1.0 APTT 31.4 Sodium 137 Potassium 4.1 Chloride 104 Carbon Dioxide 26 Anion Gap 7 BUN 9 Creatinine 0.92 Estim Creat Clear Calc 85 Estimated GFR > 60 Glucose 91 POC Capillary Glucose Calcium 9.2 Total Bilirubin 0.8 AST 30 ALT 18 Alkaline Phosphatase 59 Troponin I 0.095 H* NT-Pro-B Natriuret Pep 2310 H Total Protein 7.9 Albumin 4.3 Lipase 81 Urine Opiates Screen Negative Urine Methadone Screen Negative Ur Barbiturates Screen Negative Ur Phencyclidine Scrn Negative Ur Amphetamine Screen Negative U Benzodiazepines Scrn Negative Urine Cocaine Screen Negative U Cannabinoids Screen Positive A Ethyl Alcohol Discharge Plan Discharge Attending physician on discharge: Bandar Aden Consulting providers: Buddy Cherry; Leonides Albrecht Discharging Clinician: Bandar Aden Anticipated Discharge Date/Time: 03/26/25 06:34 Patient Disposition: Left Against Medical Advice Activity: other - see discharge instructions Diet: other - see discharge instructions Discharge Instructions: Left AMA Patient Instructions: Antibiotic Form Patient Language: Telugu Stand Alone Forms: General Discharge Information Follow-up/Referrals: Leonides Albrecht MD [Physician, Interventional Cardiology] UNKNOWN,DOCTOR [Primary Care Provider] Discharge Medications: Continued acetaminophen 500 mg capsule 500 mg PO QID PRN (Reason: fever or pain) Qty: 30 0RF atenolol 50 mg tablet 75 mg PO DAILY ibuprofen 600 mg tablet 600 mg PO TID PRN (Reason: pain) Qty: 14 0RF Date of admission: 03/25/25 11:27 Primary Care Provider: UNKNOWN,DOCTOR Admitting Provider: Bandar Aden Attending physician on admission: Bandar Aden Condition: Stable
[2025-03-26] MEDS: PANTOPRAZOLE SODIUM IV 40 MG VIAL IV PUSH (09:10)
[2025-03-26] MEDS: BELLADONNA ALK/PHENOB ELIX 10 ML, MAG HYDROX/ALUMINUM HYD/SIMETH 30 ML, LIDOCAINE 2% VI... PO (09:14)
== END 2025-03-26 10:55 | disposition left against medical advice (07) ==
LOC: ANHED 11:36 → ANHIMU 12:20
PROVIDERS: Admitting Provider General Practice; Emergency Provider Emergency Medicine; Visit Provider General Practice
DX: R07.9 Chest pain, unspecified (principal); Z95.0 Presence of cardiac pacemaker; R79.89 Other specified abnormal findings of blood chemistry; I45.6 Pre-excitation syndrome; F31.9 Bipolar disorder, unspecified; I42.1 Obstructive hypertrophic cardiomyopathy; Z82.49 Family history of ischemic heart disease and other diseases of the circulatory system; Z53.29 Procedure and treatment not carried out because of patient's decision for other reasons; F17.200 Nicotine dependence, unspecified, uncomplicated; F12.90 Cannabis use, unspecified, uncomplicated
CPT/HCPCS: 36415; 71046; 80053; 80307; 82077; 82948; 83690; 83880; 84484; 85025; 85610; 85730; 93005; 93306; 96372; 96374; 96375; 99285; A9270; C8929; G0378; J1650; J2405; J2470; Q9957